=== PATIENT | male | born 1955 | race Caucasian/White ===

== ENCOUNTER 2016-12-01 18:04 | Emergency (ER) | payer OTHER ==
[~2016-12-01] VITALS: Ht 188 cm; Wt 85.0 kg
[~2016-12-01 18:04] MED LIST: COUM5TAB PO; ELASMIS; ENOX100P SQ; GLUCTAB PO; PERC5TAB12 PO
[2016-12-01 18:06] VITALS: BP 177/99; PULSE 102; RESP 20; TEMP 97.8; O2SAT 98
[2016-12-01] MEDS ORDERED: ASPI81TA81 (19:09)
[2016-12-01] MEDS ORDERED: BLOOD PRESSURE MED (19:09)
[2016-12-01] MEDS ORDERED: PERC5TAB12 PO (19:09)
[2016-12-01] MEDS ORDERED: KETOROLAC TROMETHAMINE 30 MG/ML (IVP) VIAL IV PUSH ONE (19:30)
[2016-12-01 19:50] LABS: AUTOMATED NEUTROPHIL # 7.9 TH/MM3 (1.8-7.7); BASOPHIL # 0.1 TH/MM3 (0-0.2); BASOPHIL % 0.5 % (0.0-2.0); EOSINOPHIL # 0.1 TH/MM3 (0-0.4); EOSINOPHIL % 1.2 % (0.0-4.0); HEMATOCRIT 39.4 % (39.0-51.0); HEMO FLAGS DIFF FINAL; LYMPH % 9.1 % (9.0-44.0); LYMPHOCYTE # 0.9 TH/MM3 (1.0-4.8); MEAN CELL VOLUME 90.4 FL (80.0-100.0); MEAN CORPUSCULAR HEMOGLOBIN 30.6 PG (27.0-34.0); MEAN CORPUSCULAR HGB CONC 33.9 % (32.0-36.0); MONO % 11.7 % (0.0-8.0); NEUT % 77.5 % (16.0-70.0); PLATELET COUNT 303 TH/MM3 (150-450); RED BLOOD COUNT 4.36 MIL/MM3 (4.50-5.90); RED CELL DISTRIBUTION WIDTH 14.6 % (11.6-17.2); WHITE BLOOD COUNT 10.2 TH/MM3 (4.0-11.0)
[2016-12-01 20:15] LABS: BICARBONATE 27.1 MEQ/L (21.0-32.0); POTASSIUM 3.6 MEQ/L (3.5-5.1)
--- NOTE | 2016-12-01 20:17 | RADRPT ---
EXAM DATE/TIME: 12/01/2016 19:55 [facility] COMPARISON: No previous studies available for comparison. INDICATIONS : Left ankle pain; possible puncture wound. MEDICAL HISTORY : Arthritis. SURGICAL HISTORY : ORIF left ankle. ENCOUNTER: Initial ACUITY: 4 - 6 days PAIN SCORE: 7/10 LOCATION: Left ankle. FINDINGS: No acute fracture or subluxation seen of the left ankle. 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 Patient has healed fractures of the distal shafts of the left tibia and fibula. Status post screw an d plate fixation of the tibial fracture. No evidence of hardware failure or loosening. Mildly edematous soft tissues. No radiopaque foreign body seen. CONCLUSION: 1. No acute fracture or subluxation of the left ankle. 2. Old, healed distal shaft fractures of the left tibia and fibula. Please see above. Other than the plate and 6 screws of the tibia, no radiopaque foreign objects are demonstrated. 3. Nonspecific soft tissue swelling. 4. Moderate ankle osteoarthritis. Salvador Trent MD on December 01, 2016 at 20:14 Board Certified Radiologist. This report was verified electronically.
--- NOTE | 2016-12-01 20:19 | RADRPT ---
EXAM DATE/TIME: 12/01/2016 19:57 [facility] COMPARISON: No previous studies available for comparison. INDICATIONS : Left foot pain; Possible puncture wound. MEDICAL HISTORY : Arthritis. Diabetes mellitus type II. SURGICAL HISTORY : ORIF left ankle. ENCOUNTER: Initial ACUITY: 1 day PAIN SCORE: 6/10 LOCATION: Left foot FINDINGS: No fracture or bone destruction seen of the left foot. There is mild osteoarthritis, mostly the first metacarpal phalangeal and interphalangeal joints. Os peroneum present. Mild calcification seen proximally of the plantar fascia. Mild soft tissue swelling, mostly dorsal mid foot area. No radiopaque foreign body. CONCLUSION: 1. No fracture, subluxation or other acute bony abnormality of the left foot. 2. Mild degenerative changes as above. 3. Os peroneum. 4. Focal calcification of the proximal plantar fascia. Salvador Trent MD on December 01, 2016 at 20:17 Board Certified Radiologist. This report was verified electronically.
--- NOTE | 2016-12-01 20:26 | PD ---
HPI Chief Complaint: Edema Time Seen by Provider: 19:10 Travel History International Travel<30 days: No Contact w/Intl Traveler<30days: No Traveled to known affect area: No History of Present Illness HPI 61 YO M presents to the ED for evaluation of pain and edema of the left lower extremity x "a few days." The patient thinks that he may have stepped on something through his boot but he can recall no acute injury. He endorses chronic pain in the ankle secondary to a distant fracture with implanted hardware. He endorses chills but has not measured a fever at home. He endorses an episode of vomiting today which he attributes to the pain. No treatment attempt at home. He denies chronic health problems and takes no daily medications. PFSH Past Medical History Arthritis: Yes Heart Rhythm Problems: No Cancer: No Cardiovascular Problems: Yes High Cholesterol: No Chest Pain: No Congestive Heart Failure: No Cerebrovascular Accident: No Diabetes: Yes Patient Takes Glucophage: No Diminished Hearing: Yes (L EAR MILD) Endocrine: Yes Genitourinary: No Hypertension: Yes Immune Disorder: No Neurologic: No Psychiatric: No Reproductive: No Respiratory: No Migraines: No Seizures: No Thyroid Disease: No Tetanus Vaccination: < 5 Years Influenza Vaccination: No Past Surgical History Other Surgery: Yes (NASAL 78/95/MISC SCRAPNAL ) Social History Alcohol Use: Yes (OCCASSIONALLY) Tobacco Use: Yes (1/2 PPD) Substance Use: Yes (MED MARIJUANA) Allergies-Medications (Allergen,Severity, Reaction): Coded Allergies: No Known Allergies (Unverified , 12/01/16) Reported Meds & Prescriptions Reported Meds & Active Scripts Active Keflex (Cephalexin) 500 Mg Cap 500 Mg PO Q6H 10 Days Cipro (Ciprofloxacin HCl) 500 Mg Tab 500 Mg PO BID 10 Days Reported Aspir-81 (Aspirin) 81 Mg Tabdr Percocet (Oxycodone-Acetaminophen) 5-325 mg Tab 1-2 Tab PO Q6H PRN [Blood Pressure Med] Review of Systems Except as stated in HPI: all other systems reviewed are Neg Physical Exam Narrative GENERAL: Well-nourished, well-developed white male in no acute distress. SKIN: Focused skin assessment warm/dry. HEAD: Normocephalic. EYES: No scleral icterus. No injection or drainage. NECK: Supple, trachea midline. No JVD or lymphadenopathy. CARDIOVASCULAR: Regular rate and rhythm without murmurs, gallops, or rubs. RESPIRATORY: Breath sounds clear and equal bilaterally. No accessory muscle use. GASTROINTESTINAL: Abdomen soft, non-tender, nondistended. Active bowel sounds. MUSCULOSKELETAL: No cyanosis, or edema. FOCUSED LEFT LOWER EXTREMITY EXAM: 2+ DP pulses. Molly sign negative. Patient retains full, active, painless R level of all the joints of the extremity. I don't see of definite puncture wound on the sole of the foot but the patient shows me a spot of blood on his sock in the area of the forefoot where he thinks the injury may have occurred. He does have 1+ edema to the mid rae with some chronic skin changes noted. No warmth noted. He is tender over the medial aspect of the ankle where he states he has hardware. Neurovascularly intact. BACK: Nontender without obvious deformity. No CVA tenderness. Data Data Last Documented VS Vital Signs Date Time Temp Pulse Resp B/P (MAP) Pulse Ox O2 Delivery O2 Flow Rate FiO2 12/01/16 20:44 12/01/16 18:06 97.8 102 20 98 Room Air Orders Orders Ankle, Complete ([id number]) (12/01/16 19:18) Foot, Complete ([id number]) (12/01/16 19:18) Basic Metabolic Panel (Bmp) (12/01/16 19:18) Complete Blood Count With Diff (12/01/16 19:18) Blood Culture (12/01/16 19:18) Iv Access Insert/Monitor (12/01/16 19:18) Ketorolac Inj (Toradol Inj) (12/01/16 19:30) Labs Laboratory Tests Test 12/01/16 19:30 White Blood Count 10.2 TH/MM3 Red Blood Count 4.36 MIL/MM3 Hemoglobin 13.3 GM/DL Hematocrit 39.4 % Mean Corpuscular Volume 90.4 FL Mean Corpuscular Hemoglobin 30.6 PG Mean Corpuscular Hemoglobin Concent 33.9 % Red Cell Distribution Width 14.6 % Platelet Count 303 TH/MM3 Mean Platelet Volume 7.4 FL Neutrophils (%) (Auto) 77.5 % Lymphocytes (%) (Auto) 9.1 % Monocytes (%) (Auto) 11.7 % Eosinophils (%) (Auto) 1.2 % Basophils (%) (Auto) 0.5 % Neutrophils # (Auto) 7.9 TH/MM3 Lymphocytes # (Auto) 0.9 TH/MM3 Monocytes # (Auto) 1.2 TH/MM3 Eosinophils # (Auto) 0.1 TH/MM3 Basophils # (Auto) 0.1 TH/MM3 CBC Comment DIFF FINAL Differential Comment Blood Urea Nitrogen 7 MG/DL Creatinine 0.93 MG/DL Random Glucose 178 MG/DL Calcium Level 8.8 MG/DL Sodium Level 134 MEQ/L Potassium Level 3.6 MEQ/L Chloride Level 100 MEQ/L Carbon Dioxide Level 27.1 MEQ/L Anion Gap 7 MEQ/L Estimat Glomerular Filtration Rate 83 ML/MIN MDM Medical Decision Making Medical Screen Exam Complete: Yes Emergency Medical Condition: Yes Differential Diagnosis Puncture wound versus foreign body versus cellulitis versus OA versus other Narrative Course 61 YO M presents to the ED for evaluation of pain and edema of the left lower extremity x "a few days." The patient thinks that he may have stepped on something through his boot but he can recall no acute injury. He endorses chronic pain in the ankle secondary to a distant fracture with implanted hardware. He endorses chills but has not measured a fever at home. He endorses an episode of vomiting today which he attributes to the pain. No treatment attempt at home. He denies chronic health problems and takes no daily medications. Patient is afebrile, heart rate 102 on presentation. Physical exam reveals a nontoxic-appearing white male in no acute distress. On the focus left lower extremity exam the patient has 2+ DP pulses. Molly sign negative. Patient retains full, active, painless ROM of the joints of the extremity. I don't see of definite puncture wound on the sole of the foot but the patient shows me a spot of blood on his sock in the area of the forefoot where he thinks the injury may have occurred. He does have 1+ edema to the mid rae with some chronic skin changes noted. No warmth noted. He is tender over the medial aspect of the ankle where he states he has hardware. Neurovascularly intact. IV was established. Patient was administered 30 mg Toradol. No concerning abnormalities of the CMP. No leukocytosis on CBC, although count is predominantly neutrophils. Ankle and foot x-rays without evidence of foreign body or acute bony injury. Patient does have existing hardware with some soft tissue swelling. We'll go ahead and cover for pseudomonas and staph. Patient's prescribed Keflex and Cipro 10 days. We discussed symptomatic care and reasons to return to the ED. Patient reports improvement of the symptoms with treatment with Toradol. He is agreeable to the care plan. He is stable and discharged home. Diagnosis Primary Impression: Puncture wound of left foot excluding toes without complication Qualified Codes: S91.332A - Puncture wound without foreign body, left foot, initial encounter Referrals: Primary Care Physician Patient Instructions: General Instructions, Puncture Wound (ED) Additional Instructions: Rest, ice, elevate the extremity. Apply ice no longer than 10-15 minutes per hour a few times a day. [id number] anti-inflammatories as directed on label, as needed for pain. Return to normal, gentle activity as tolerated. No running, jumping activities for the next few weeks. Take all antibiotics as prescribed, even if her symptoms resolve. Return to the ED for worsening symptoms in the next 48 hours. Follow up with orthopedist or your primary care provider. Return to the ED for any urgent or emergent medical condition. Med/Other Pt SpecificInfo: Prescription(s) given Scripts Cephalexin (Keflex) 500 Mg Cap 500 MG PO Q6H for Infection for 10 Days, #40 CAP 0 Refills Prov: Jaylan Arrieta MD 12/01/16 Ciprofloxacin (Cipro) 500 Mg Tab 500 MG PO BID for Infection for 10 Days, #20 TAB 0 Refills Prov: Jaylan Arrieta MD 12/01/16 Disposition: 01 DISCHARGE HOME Condition: Stable Gita Weeks Dec 01, 2016 20:26
[2016-12-01] MEDS ORDERED: CIPR-9 PO (20:41)
[2016-12-01] MEDS ORDERED: CEPH-460 PO (20:41)
== END 2016-12-01 20:47 | disposition home or self-care (01) ==
LOC: NEPC 18:04
DX: S91.332A Puncture wound without foreign body, left foot, initial encounter (principal); R60.0 Localized edema; R68.83 Chills (without fever); R11.10 Vomiting, unspecified; E11.9 Type 2 diabetes mellitus without complications; I10 Essential (primary) hypertension; H91.92 Unspecified hearing loss, left ear; F17.200 Nicotine dependence, unspecified, uncomplicated; X58.XXXA Exposure to other specified factors, initial encounter; Z87.39 Personal history of other diseases of the musculoskeletal system and connective tissue; Z86.79 Personal history of other diseases of the circulatory system
CPT/HCPCS: 73610; 73630; 80048; 85025; 87040; 96374; 99285; J1885

== ENCOUNTER 2017-02-15 18:52 | Observation (INO) | payer OTHER ==
[~2017-02-15] VITALS: Ht 188 cm; Wt 82.0 kg
[~2017-02-15 18:52] MED LIST changes: +APIX2.5T PO; +ASPI81TA81; +BLOOD PRESSURE MED; -COUM5TAB PO; -ELASMIS; -ENOX100P SQ; +FURO1TAB62 PO; -GLUCTAB PO
[2017-02-15 18:54] VITALS: BP 130/69; PULSE 100; RESP 20; TEMP 99.1; O2SAT 99
[2017-02-15 20:41] LABS: AUTOMATED NEUTROPHIL # 4.5 TH/MM3 (1.8-7.7); BASOPHIL # 0.1 TH/MM3 (0-0.2); BASOPHIL % 0.9 % (0.0-2.0); EOSINOPHIL # 0.1 TH/MM3 (0-0.4); EOSINOPHIL % 1.5 % (0.0-4.0); HEMATOCRIT 25.3 % (39.0-51.0); HEMOGLOBIN 8.2 GM/DL (13.0-17.0); LYMPH % 12.8 % (9.0-44.0); LYMPHOCYTE # 0.8 TH/MM3 (1.0-4.8); MEAN CELL VOLUME 87.9 FL (80.0-100.0); MEAN CORPUSCULAR HEMOGLOBIN 28.6 PG (27.0-34.0); MEAN CORPUSCULAR HGB CONC 32.6 % (32.0-36.0); MONO % 11.7 % (0.0-8.0); MONOCYTE # 0.7 TH/MM3 (0-0.9); NEUT % 73.1 % (16.0-70.0); PLATELET COUNT 264 TH/MM3 (150-450); RED BLOOD COUNT 2.88 MIL/MM3 (4.50-5.90); RED CELL DISTRIBUTION WIDTH 16.5 % (11.6-17.2); WHITE BLOOD COUNT 6.2 TH/MM3 (4.0-11.0)
[2017-02-15 20:48] LABS: PROTHROMBIN TIME - PATIENT 11.6 SEC (9.8-11.6)
[2017-02-15 20:53] LABS: BICARBONATE 27.2 MEQ/L (21.0-32.0); CALCIUM 8.4 MG/DL (8.5-10.1); CREATININE 1.57 MG/DL (0.60-1.30)
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
[2017-02-15 23:59] LABS: AMORPHOUS SEDIMENT, URINE RARE; BACTERIA, URINE FEW /hpf; BILIRUBIN, URINE NEG (NEG); BLOOD, URINE MOD (NEG); GLUCOSE,URINE NEG (NEG); KETONE, URINE NEG (NEG); NITRITE,URINE POS (NEG); RENAL EPITHELIAL CELLS 33 /hpf; SQUAMOUS EPITHELIAL CELL URINE 1 /hpf (0-5); URINE COLOR YELLOW (YELLW/STRAW); URINE LEUKOCYTE ESTERASE LARGE (NEG); WHITE BLOOD CELL CLUMPS MANY
[2017-02-16] VITALS (7 sets, daily range): BP systolic 110–157; BP diastolic 64–86; PULSE 83–107; RESP 16–22; TEMP 96.8–98.5; O2SAT 97–100
[2017-02-16] MEDS ORDERED: cefTRIAXone INJ 1,000 MG in SODIUM CHLORIDE 0.9% INJ 100 ML IV ONE (00:45)
[2017-02-16] MEDS ORDERED: FUROSEMIDE 40 MG/4 ML VIAL IV PUSH ONE (00:45)
--- NOTE | 2017-02-16 00:49 | RADRPT ---
EXAM DATE/TIME: 02/16/2017 00:11 [facility] COMPARISON: No previous studies available for comparison. INDICATIONS : Bilateral leg pain. MEDICAL HISTORY : Hypertension. Arthritis. Diabetes. SURGICAL HISTORY : Spinal surgery. Blood transfusion. ENCOUNTER: Subsequent ACUITY: 1 day PAIN SCORE: 0/10 LOCATION: Bilateral legs. TECHNIQUE: Venous ultrasound of the left and right leg was performed from the inguinal ligament to the proximal calf. Real-time, color Doppler and spectral tracing, compression and augmentation techniques were us ed. FINDINGS: RIGHT LEG: There is normal compressibility of the deep venous system from the inguinal region to the proximal ca lf. No echogenic clot is seen in the lumen of the common femoral, femoral, popliteal, and posterior tibial veins. There is a normal response of the venous system to proximal and distal augmentation an d respiration. LEFT LEG: There is thrombus at the femoral and popliteal veins. The common femoral vein is patent. The femoral and popliteal veins do not appear engorged. CONCLUSION: 1. Thrombus in the left femoral and popliteal veins. 2. No DVT seen on the right side. Salvador Ramirez MD on February 16, 2017 at 0:45 Board Certified Radiologist. This report was verified electronically.
--- NOTE | 2017-02-16 01:08 | RADRPT ---
EXAM DATE/TIME: 02/16/2017 00:38 [facility] COMPARISON: No previous studies available for comparison. INDICATIONS : Chest pain bilateral flanks. MEDICAL HISTORY : Hypertension. Arthritis. Diabetes SURGICAL HISTORY : None. ENCOUNTER: Initial ACUITY: 1 day PAIN SCORE: 6/10 LOCATION: Bilateral chest FINDINGS: The heart size is normal. There are linear areas of decreased density seen at the upper aspects of th e chest bilaterally. This appearance most closely resembles skinfolds. Pleural line suspicious for p neumothoraces are not seen. No effusion is seen. Lungs appear clear. Surgical hardware seen the lumba r spine. CONCLUSION: Suspected skinfolds over the upper chest regions bilaterally. No acute cardiopulmonary processes. Salvador Ramirez MD on February 16, 2017 at 1:04 Board Certified Radiologist. This report was verified electronically.
[2017-02-16] MEDS ORDERED: PANTOPRAZOLE INJ 80 MG in SODIUM CHLORIDE 0.9% INJ 35 ML IV ONE (01:45)
[2017-02-16] MEDS ORDERED: PANTOPRAZOLE INJ 80 MG in SODIUM CHLORIDE 0.9% INJ 100 ML IV SCH (01:45)
--- NOTE | 2017-02-16 02:43 | PD ---
Physical Exam Date Seen by Provider: Feb 16, 2017 Time Seen by Provider: 02:41 Data Data Last Documented VS Vital Signs Date Time Temp Pulse Resp B/P (MAP) Pulse Ox O2 Delivery O2 Flow Rate FiO2 02/16/17 00:08 88 16 122/64 (83) 02/15/17 18:54 99.1 99 Room Air Orders Orders Complete Blood Count With Diff (02/15/17 19:30) Basic Metabolic Panel (Bmp) (02/15/17 19:30) Coag Profile (02/15/17 19:30) Urinalysis - C+S If Indicated (02/15/17 23:24) B-Type Natriuretic Peptide (02/15/17 23:24) Us Leg Venous Doppler Bilat (02/15/17 ) Urine Culture (02/15/17 23:35) Ceftriaxone Inj (Rocephin Inj) (02/16/17 00:45) Chest, Single Ap (02/16/17 ) Furosemide Inj (Lasix Inj) (02/16/17 00:45) Type And Screen (02/16/17 01:45) Sodium Chloride 0.9... W/Pantoprazole In (02/16/17 01:45) Sodium Chloride 0.9... W/Pantoprazole In (02/16/17 01:45) Admit Order (Ed Use Only) (02/16/17 ) Vital Signs (Adult) Q4H (02/16/17 02:38) Diet Npo (02/16/17 Breakfast) Activity Oob With Assistance (02/16/17 02:38) Notify Dr: Other (02/16/17 02:38) Labs Laboratory Tests Test 02/15/17 20:05 02/15/17 23:35 White Blood Count 6.2 TH/MM3 Red Blood Count 2.88 MIL/MM3 Hemoglobin 8.2 GM/DL Hematocrit 25.3 % Mean Corpuscular Volume 87.9 FL Mean Corpuscular Hemoglobin 28.6 PG Mean Corpuscular Hemoglobin Concent 32.6 % Red Cell Distribution Width 16.5 % Platelet Count 264 TH/MM3 Mean Platelet Volume 8.0 FL Neutrophils (%) (Auto) 73.1 % Lymphocytes (%) (Auto) 12.8 % Monocytes (%) (Auto) 11.7 % Eosinophils (%) (Auto) 1.5 % Basophils (%) (Auto) 0.9 % Neutrophils # (Auto) 4.5 TH/MM3 Lymphocytes # (Auto) 0.8 TH/MM3 Monocytes # (Auto) 0.7 TH/MM3 Eosinophils # (Auto) 0.1 TH/MM3 Basophils # (Auto) 0.1 TH/MM3 CBC Comment DIFF FINAL Differential Comment Prothrombin Time 11.6 SEC Prothromb Time International Ratio 1.0 RATIO Activated Partial Thromboplast Time 26.7 SEC Blood Urea Nitrogen 19 MG/DL Creatinine 1.57 MG/DL Random Glucose 167 MG/DL Calcium Level 8.4 MG/DL Sodium Level 139 MEQ/L Potassium Level 4.2 MEQ/L Chloride Level 106 MEQ/L Carbon Dioxide Level 27.2 MEQ/L Anion Gap 6 MEQ/L Estimat Glomerular Filtration Rate 45 ML/MIN B-Type Natriuretic Peptide 1274 PG/ML Urine Color YELLOW Urine Turbidity CLOUDY Urine pH 6.0 Urine Specific [place] 1.016 Urine Protein 30 mg/dL Urine Glucose (UA) NEG mg/dL Urine Ketones NEG mg/dL Urine Occult Blood MOD Urine Nitrite POS Urine Bilirubin NEG Urine Urobilinogen LESS THAN 2.0 MG/DL Urine Leukocyte Esterase LARGE Urine RBC /hpf Urine WBC /hpf Urine WBC Clumps MANY Urine Squamous Epithelial Cells 1 /hpf Urine Renal Epithelial Cells 33 /hpf Urine Amorphous Sediment RARE Urine Bacteria FEW /hpf Microscopic Urinalysis Comment CULTURE INDICATED MDM Medical Record Reviewed: Yes Supervised Visit with HARJINDER: Yes Interpretation(s) Last 24 hours Impressions Chest X-Ray 02/16/17 0000 Signed Impressions: Service Date/Time: January 00:38 - CONCLUSION: Suspected skinfolds over the upper chest regions bilaterally. No acute cardiopulmonary processes. Salvador Ramirez MD Lower Extremity Ultrasound 02/15/17 0000 Signed Impressions: Service Date/Time: January 00:11 - CONCLUSION: 1. Thrombus in the left femoral and popliteal veins. 2. No DVT seen on the right side. Salvador Ramirez MD Differential Diagnosis . Narrative Course This is a patient who had been evaluated by Dr. Wong. She has requested that I discussed the case with Dr. CARR for admission. The case has been discussed with Dr. CARR who has agreed to admit the patient to observation. She is aware that the patient has GI bleeding along with a left leg DVT. This is GI bleeding, left leg DVT, prerenal azotemia, UTI Diagnosis Primary Impression: UTI (urinary tract infection) Qualified Codes: T83.511A - Infection and inflammatory reaction due to indwelling urethral catheter, initial encounter; N39.0 - Urinary tract infection , site not specified Additional Impressions: GI bleed Qualified Codes: K92.2 - Gastrointestinal hemorrhage, unspecified Left leg DVT Qualified Codes: I82.412 - Acute embolism and thrombosis of left femoral vein Admitting Information Admitting Physician Requests: Observation Additional Instruction: Please follow up with your primary care physician in 1-2 days. Return to the ED if symptoms worsen. Condition: Stable Ronnell Krishnamurthy Feb 16, 2017 02:43
[2017-02-16] MEDS ORDERED: NALOXONE HCL 0.4 MG/ML AMP IV PUSH PRN (03:00)
[2017-02-16] MEDS ORDERED: SODIUM CHLORIDE 0.9% FLUSH 10 ML FLUSH IV FLUSH PRN (03:00)
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
[2017-02-16] MEDS: PANTOPRAZOLE SODIUM 40 MG VIAL IV PUSH SCH (12:05)
[2017-02-16] MEDS: SODIUM CHLORIDE 0.9% FLUSH 10 ML FLUSH IV FLUSH SCH (12:06)
[2017-02-16 12:51] LABS: AUTOMATED NEUTROPHIL # 3.1 TH/MM3 (1.8-7.7); BASOPHIL # 0.1 TH/MM3 (0-0.2); EOSINOPHIL # 0.1 TH/MM3 (0-0.4); HEMATOCRIT 24.8 % (39.0-51.0); HEMOGLOBIN 8.2 GM/DL (13.0-17.0); LYMPH % 24.2 % (9.0-44.0); LYMPHOCYTE # 1.3 TH/MM3 (1.0-4.8); MEAN CELL VOLUME 88.6 FL (80.0-100.0); MEAN CORPUSCULAR HEMOGLOBIN 29.3 PG (27.0-34.0); MEAN CORPUSCULAR HGB CONC 33.1 % (32.0-36.0); MEAN PLATELET VOLUME 8.2 FL (7.0-11.0); MONO % 12.7 % (0.0-8.0); MONOCYTE # 0.7 TH/MM3 (0-0.9); NEUT % 60.1 % (16.0-70.0); PLATELET COUNT 247 TH/MM3 (150-450); RED CELL DISTRIBUTION WIDTH 16.9 % (11.6-17.2); WHITE BLOOD COUNT 5.2 TH/MM3 (4.0-11.0)
[2017-02-16 13:05] LABS: BICARBONATE 28.4 MEQ/L (21.0-32.0); CALCIUM 8.2 MG/DL (8.5-10.1); CREATININE 1.35 MG/DL (0.60-1.30)
[2017-02-16] MEDS ORDERED: PEG (High)/E-LYTE SOLN 4000 ML BTL PO ONE (16:00)
--- NOTE | 2017-02-16 17:30 | ECHRPT ---
Indication: Heart failure, unspecified CONCLUSIONS The left ventricular systolic function is normal with an estimated ejection fraction in the range of 55-60%. Mild concentric left ventricular hypertrophy. Normal left ventricular size. Trace mitral valve regurgitation. There is mild tricuspid valve regurgitation. The estimated pulmonary arterial pressure is 35.2 mmHg. BP: 144 / 78 HR: 104 Rhythm: Sinus MEASUREMENTS (Male / Female) Normal Values Technical Quality:Good 2D ECHO LV Diastolic Diameter PLAX 5.0 cm 4.2 - 5.9 / 3.9 - 5.3 cm LV Systolic Diameter PLAX 3.8 cm IVS Diastolic Thickness 1.2 cm 0.6 - 1.0 / 0.6 - 0.9 cm LVPW Diastolic Thickness 1.2 cm 0.6 - 1.0 / 0.6 - 0.9 cm LV Relative Wall Thickness 0.5 LVOT Diameter 2.2 cm M-MODE Aortic Root Diameter MM 3.7 cm LA Systolic Diameter MM 3.4 cm LA Ao Ratio MM 0.9 AV Cusp Separation MM 2.2 cm DOPPLER AV Peak Velocity 118.0 cm/s AV Peak Gradient 5.6 mmHg LVOT Peak Velocity 110.0 cm/s LVOT Peak Gradient 4.8 mmHg AV Area Cont Eq pk 3.5 cm MR Peak Velocity 282.0 cm/s MR Peak Gradient 31.8 mmHg TR Peak Velocity 251.0 cm/s TR Peak Gradient 25.2 mmHg Right Atrial Pressure 10.0 mmHg Pulmonary Artery Systolic Pressu 35.2 mmHg Right Ventricular Systolic Press 35.2 mmHg FINDINGS LEFT VENTRICLE The left ventricular systolic function is normal with an estimated ejection fraction in the range of 55-60%. Mild concentric left ventricular hypertrophy. Normal left ventricular size. RIGHT VENTRICLE Normal right ventricular size and systolic function. LEFT ATRIUM The left atrial size is normal. RIGHT ATRIUM The right atrial size is normal. ATRIAL SEPTUM Normal atrial septal thickness without atrial level shunting by limited color doppler interrogation. AORTA The aortic root and proximal ascending aorta are normal in size on limited imaging. MITRAL VALVE Trace mitral valve regurgitation. AORTIC VALVE Trileaflet aortic valve. No aortic valve stenosis or regurgitation. TRICUSPID VALVE There is mild tricuspid valve regurgitation. The estimated pulmonary arterial pressure is 35.2 mmHg. PULMONARY VALVE No pulmonary valve regurgitation or stenosis. VESSELS The inferior vena cava is normal in size. PERICARDIUM No pericardial effusion. Max Salazar MD (Electronically Signed) Final Date:16 February 2017 17:29
--- NOTE | 2017-02-16 19:37 | HHI.HP ---
HPI Service [facility] Primary Care Physician [facility] Admission Diagnosis GI bleed, left DVT, prerenal azotemia Diagnoses: Travel History International Travel<30 Days: No Contact w/Intl Traveler <30 Da: No Traveled to Known Affected Are: No History of Present Illness Patient seen today around noon, later around 5 PM. Patient says he presented the hospital due to feeling generally fatigued, as well as to get refills of all his blood pressure medications which he lost upon being arrested 10 days ago. He does report pleuritic type left-sided chest pain which she said started after being injured by the police 10 days ago- he denies any shortness of breath. He also reports chronic left foot wound as below. He is supposed be on Rocephin 1 g daily for 45 days, however had PICC line removed after being arrested 10 days ago. He reports he was 6 days into his treatment with Rocephin , hyperbaric oxygen when he was arrested. Patient says he has history of hypertension, bilateral lower extremity edema. Denies any history of congestive heart failure. He was not able to get his Lasix over the past week, , reports worsening bilateral lower extremity edema.patient is homeless. Reports chronic weight loss. Labs drawn in the ER show hemoglobin 8.2, from baseline of 13 several months ago.. Patient denies any bleeding, however Hemoccult positive in the ER. Review of Systems Except as stated in HPI: all other systems reviewed are Neg Past Family Social History Past Medical History Hypertension Diabetes Atrial fibrillation DVT diagnosed 2012. Recurrent DVT on warfarin November 2016. On Eliquis since Chronic left foot wound. Initially began in November, has been managed by Nadir Guajardo, Yuval Rebolledo, supposed to be on 45 day course of Rocephin daily via PICC line which was removed upon being arrested 10 days ago. Neuropathy LLE tib/fib fracture HTN Melanoma Hyperlipidemia Chronic back pain Fracture ribs Past Surgical History ORIF left tib fib Back surgery Nasal surgery Reported Medications Reported Meds & Active Scripts Active Reported Lasix (Furosemide) 20 Mg Tab 20 Mg PO DAILY Eliquis (Apixaban) 2.5 Mg Tab 2.5 Mg PO BID Aspir-81 (Aspirin) 81 Mg Tabdr Percocet (Oxycodone-Acetaminophen) 5-325 mg Tab 1-2 Tab PO Q6H PRN [Blood Pressure Med] Allergies: Coded Allergies: No Known Allergies (Unverified Allergy, Unknown, 02/16/17) Family History Mother from pancreatic cancer Father from colon cancer, oral cancer Social History States he quit smoking on 02/04/17, States he quit at age 44 after smoking 20 years and then started back 1 pack a week 2010. Drinks 6 pack Guinness per month and occasional cocktail Medical marijuana patient is homeless. 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 Physical Exam Vital Signs Vital Signs Date Time Temp Pulse Resp B/P (MAP) Pulse Ox O2 Delivery O2 Flow Rate FiO2 02/16/17 15:10 98.1 83 18 157/84 (108) 100 02/16/17 12:00 96.8 88 22 154/86 (108) 100 02/16/17 07:20 104 18 144/78 (100) 98 Room Air 02/16/17 05:09 84 16 110/65 (80) 98 Room Air 02/16/17 03:19 84 16 126/72 (90) 97 Room Air 02/16/17 03:18 18 02/16/17 00:08 88 16 122/64 (83) Physical Exam GENERAL: This is a well-nourished, well-developed patient, in no apparent distress.he is alert and oriented 3. SKIN: No rashes, ecchymoses or lesions. Cool and dry. HEAD: Atraumatic. Normocephalic. No temporal or scalp tenderness. EYES: Pupils equal round and reactive. Extraocular motions intact. No scleral icterus. No injection or drainage. ENT: Nose without bleeding, purulent drainage or septal hematoma. Throat without erythema, tonsillar hypertrophy or exudate. Uvula midline. Airway patent. NECK: Trachea midline. No JVD. Supple, nontender, no meningeal signs. CARDIOVASCULAR: Regular rate and rhythm without murmurs, gallops, or rubs. RESPIRATORY: Clear to auscultation. Breath sounds equal bilaterally. No wheezes , rales, or rhonchi. GASTROINTESTINAL: Abdomen soft, non-tender, nondistended. No hepato-splenomegaly , or palpable masses. No guarding. MUSCULOSKELETAL: Extremities without clubbing, cyanosis.No joint tenderness, effusion.No calf tenderness. +2 bilateral lower extremity edemaleft foot with dorsum of the foot 4 x 2 cm ulcer which appears to be healing appropriately. Plantar surface with fissure under ball of foot which does not appear infected, no pus or surrounding erythema. NEUROLOGICAL: Awake and alert. Cranial nerves II through XII intact. Motor and sensory grossly within normal limits. Five out of 5 muscle strength in all muscle groups. Normal speech. Laboratory Laboratory Tests Test 02/15/17 20:05 02/15/17 23:35 02/16/17 12:37 White Blood Count 6.2 5.2 Red Blood Count 2.88 2.80 Hemoglobin 8.2 8.2 Hematocrit 25.3 24.8 Mean Corpuscular Volume 87.9 88.6 Mean Corpuscular Hemoglobin 28.6 29.3 Mean Corpuscular Hemoglobin Concent 32.6 33.1 Red Cell Distribution Width 16.5 16.9 Platelet Count 264 247 Mean Platelet Volume 8.0 8.2 Neutrophils (%) (Auto) 73.1 60.1 Lymphocytes (%) (Auto) 12.8 24.2 Monocytes (%) (Auto) 11.7 12.7 Eosinophils (%) (Auto) 1.5 2.0 Basophils (%) (Auto) 0.9 1.0 Neutrophils # (Auto) 4.5 3.1 Lymphocytes # (Auto) 0.8 1.3 Monocytes # (Auto) 0.7 0.7 Eosinophils # (Auto) 0.1 0.1 Basophils # (Auto) 0.1 0.1 CBC Comment DIFF FINAL DIFF FINAL Differential Comment Prothrombin Time 11.6 Prothromb Time International Ratio 1.0 Activated Partial Thromboplast Time 26.7 Blood Urea Nitrogen 19 17 Creatinine 1.57 1.35 Random Glucose 167 127 Calcium Level 8.4 8.2 Sodium Level 139 134 Potassium Level 4.2 3.6 Chloride Level 106 100 Carbon Dioxide Level 27.2 28.4 Anion Gap 6 6 Estimat Glomerular Filtration Rate 45 54 B-Type Natriuretic Peptide 1274 Urine Color YELLOW Urine Turbidity CLOUDY Urine pH 6.0 Urine Specific [place] 1.016 Urine Protein 30 Urine Glucose (UA) NEG Urine Ketones NEG Urine Occult Blood MOD Urine Nitrite POS Urine Bilirubin NEG Urine Urobilinogen LESS THAN 2.0 Urine Leukocyte Esterase LARGE Urine RBC Urine WBC Urine WBC Clumps MANY Urine Squamous Epithelial Cells 1 Urine Renal Epithelial Cells 33 Urine Amorphous Sediment RARE Urine Bacteria FEW Microscopic Urinalysis Comment CULTURE INDICATED Date/Time Source Procedure Growth Status 02/15/17 23:35 Urine Clean Catch Urine Culture - Preliminary RESULTS PENDING Resulted Result Diagram: 02/16/17 1237 02/16/17 1237 Imaging Last Impressions Chest X-Ray 02/16/17 0000 Signed Impressions: Service Date/Time: January 00:38 - CONCLUSION: Suspected skinfolds over the upper chest regions bilaterally. No acute cardiopulmonary processes. Salvador Ramirez MD Lower Extremity Ultrasound 02/15/17 0000 Signed Impressions: Service Date/Time: January 00:11 - CONCLUSION: 1. Thrombus in the left femoral and popliteal veins. 2. No DVT seen on the right side. Salvador Ramirez MD [place]lette[place] VTE Risk Assessment Caprini VTE Risk Assessment: Mod/High Risk (score >= 2) VTE Pharm Contraindication: Active bleeding Caprini Risk Assessment Model Point Value = 1 Point Value = 2 Point Value = 3 Point Value = 5 Age 41-60 Minor surgery BMI > 25 kg/m2 Swollen legs Varicose veins or History of unexplained or recurrent spontaneous Oral contraceptives or hormone replacement Sepsis (< 1 month) Serious lung disease, including pneumonia (< 1 month) Abnormal pulmonary function Acute myocardial infarction Congestive heart failure (< 1 month) History of inflammatory bowel disease Medical patient at bed rest Age 61-74 Arthroscopic surgery Major open surgery (> 45 min) Laparoscopic surgery (> 45 min) Malignancy Confined to bed (> 72 hours) Immobilizing plaster cast Central venous access Age >= 75 History of VTE Family history of VTE Factor V Leiden Prothrombin [id number] Lupus anticoagulant Anticardiolipin antibodies Elevated serum homocysteine Heparin-induced thrombocytopenia Other congenital or acquired thrombophilia Stroke (< 1 month) Elective arthroplasty Hip, pelvis, or leg fracture Acute spinal cord injury (< 1 month) Prophylaxis Regimen Total Risk Factor Score Risk Level Prophylaxis Regimen 0-1 Low Early ambulation 2 Moderate Order ONE of the following: *Sequential Compression Device (SCD) *Heparin 5000 units SQ BID 3-4 Higher Order ONE of the following medications: *Heparin 5000 units SQ TID *Enoxaparin/Lovenox 40 mg SQ daily (WT < 150 kg, CrCl > 30 mL/min) *Enoxaparin/Lovenox 30 mg SQ daily (WT < 150 kg, CrCl > 10-29 mL/min) *Enoxaparin/Lovenox 30 mg SQ BID (WT < 150 kg, CrCl > 30 mL/min) AND/OR *Sequential Compression Device (SCD) 5 or more Highest Order ONE of the following medications: *Heparin 5000 units SQ TID (Preferred with Epidurals) *Enoxaparin/Lovenox 40 mg SQ daily (WT < 150 kg, CrCl > 30 mL/min) *Enoxaparin/Lovenox 30 mg SQ daily (WT < 150 kg, CrCl > 10-29 mL/min) *Enoxaparin/Lovenox 30 mg SQ BID (WT < 150 kg, CrCl > 30 mL/min) AND *Sequential Compression Device (SCD) Assessment and Plan Assessment and Plan //Anemia //Suspected GI bleed. -Hemoglobin 8 from baseline 13 -Recent switched to Eliquis one month ago. -Holding anticoagulation for now. EGD, colonoscopy tomorrow. //UTI //Chronic urinary retention -Urinalysis with white blood cells, white blood cell clumps. -Patient reports indwelling Valdez for many years. -Patient reports pus in urine on admission, which appears to have improved after Rocephin. Continue Rocephin. Change out Valdez. Ultrasound kidneys Follow-up cultures. //Chronic Left foot wound -Undergoing hyperbaric oxygen treatment, course of daily Rocephin via PICC line which was removed. -We'll consult infectious disease, as patient will need PICC line replaced, IV course continued -Wound does not appear to be acutely infected. Consult Dr. Castillo, podiatry. //Acute kidney injury. Likely cardiorenal from fluid overload. -Creatinine 1.5 on admission from normal 0.9. Possibly secondary to missing blood pressure medications. This could be cardiorenal secondary to hypertension having missed his medication. Will hold off on fluids, add blood pressure meds. Kidney ultrasound pending. //Hypertension //CHF exacerbation.Suspected diastolic heart failure. //patient reports history of atrial fibrillation. -BNP 1200, echocardiogram with left ventricular hypertrophy, preserved ejection fraction -Patient does have bilateral lower extremity edema, however no respiratory compromise. -Chest x-ray personally interpreted with no acute findings. -Patient on unknown blood pressure med, as well as furosemide at home. -considered possibility of pulmonary embolism, however patient appears to be hemodynamically stable, without shortness of breath, echocardiogram with normal right ventricular function. -We'll start Coreg, furosemide.monitor blood pressure closely. //Diabetes mellitus. Insulin sliding scale. A1c ordered and pending. //DVT. Chronic, recurred on warfarin. History of IVC filter. On Eliquis since January 21. Hold off on blood pressure medications for now. Discussed Condition With patient, nurse. Eduard Barker MD Feb 16, 2017 19:36
[2017-02-16] MEDS ORDERED: cefTRIAXone INJ 1,000 MG in SODIUM CHLORIDE 0.9% INJ 100 ML IV SCH (21:00)
[2017-02-16] MEDS ORDERED: ISOSORBIDE DINITRATE 40 MG SUSTAINED RELEASE TAB PO ONE (21:00)
[2017-02-16] MEDS ORDERED: INSULIN ASPART SUPPLEMENTAL SCALE SQ SCH (21:00)
[2017-02-16] MEDS ORDERED: DEXTROSE 50% IN WATER 50 ML VIAL(D50) IV PUSH PRN (21:15)
[2017-02-16] MEDS ORDERED: GLUCAGON 1 MG/ML VIAL OTHER PRN (21:15)
--- NOTE | 2017-02-16 22:30 | RADRPT ---
EXAM DATE/TIME: 02/16/2017 20:58 [facility] COMPARISON: No previous studies available for comparison. INDICATIONS : Abnormal labs. MEDICAL HISTORY : Hypertension. Arthritis. Diabetes. SURGICAL HISTORY : Spinal surgery. Blood transfusion. ENCOUNTER: Initial ACUITY: 1 day PAIN SCORE: 0/10 LOCATION: Bilateral flank MEASUREMENTS: RIGHT KIDNEY: 13.9 x 5.8 x 5.7 cm LEFT KIDNEY: 13.4 x 5.2 x 6.0 cm FINDINGS: RIGHT KIDNEY: The right renal cortex is echogenic. There is a complex cyst with a septation versus 2 adjacent cyst s seen at the mid right kidney overall measuring 1.6 x 2.6 x 1.4 cm. There are several small echogeni c foci seen in the lateral mid right kidney likely related to cortical calcifications measuring up to 5 mm. No hydronephrosis is seen. LEFT KIDNEY: The left renal cortex is echogenic. No hydronephrosis is seen. BLADDER: Within normal limits given the degree of distension. There is a Valdez catheter within the bladder. CONCLUSION: 1. Bilateral normal-sized echogenic kidneys concerning for acute medical renal disease. 2. 2 adjacent cysts versus one complex cyst with a septation in the right mid kidney. This is a Bosni ak 2F lesion can be followed with a CT or MRI examination in the year. 3. Nonspecific suspected cortical calcifications in the right kidney. Salvador Ramirez MD on February 16, 2017 at 22:24 Board Certified Radiologist. This report was verified electronically.
[2017-02-17] VITALS (17 sets, daily range): BP systolic 111–173; BP diastolic 57–115; PULSE 64–86; RESP 16–22; TEMP 97.3–98.7; O2SAT 97–100
[2017-02-17] MEDS: SODIUM CHLORIDE 0.9% FLUSH 10 ML FLUSH IV FLUSH SCH ×3 (00:02→23:25)
[2017-02-17] MEDS: CARVEDILOL 3.125 MG TAB PO SCH ×3 (00:02→23:25)
[2017-02-17 03:37] LABS: AUTOMATED NEUTROPHIL # 3.1 TH/MM3 (1.8-7.7); BASOPHIL % 0.9 % (0.0-2.0); EOSINOPHIL # 0.1 TH/MM3 (0-0.4); EOSINOPHIL % 1.8 % (0.0-4.0); LYMPH % 19.1 % (9.0-44.0); LYMPHOCYTE # 0.9 TH/MM3 (1.0-4.8); MEAN CELL VOLUME 87.1 FL (80.0-100.0); MEAN CORPUSCULAR HEMOGLOBIN 28.9 PG (27.0-34.0); MEAN CORPUSCULAR HGB CONC 33.2 % (32.0-36.0); MEAN PLATELET VOLUME 8.2 FL (7.0-11.0); MONO % 11.7 % (0.0-8.0); MONOCYTE # 0.6 TH/MM3 (0-0.9); NEUT % 66.5 % (16.0-70.0); PLATELET COUNT 216 TH/MM3 (150-450); RED CELL DISTRIBUTION WIDTH 16.2 % (11.6-17.2); WHITE BLOOD COUNT 4.7 TH/MM3 (4.0-11.0)
[2017-02-17 03:48] LABS: HEMOGLOBIN 6.9 GM/DL (13.0-17.0)
[2017-02-17 03:49] LABS: HEMATOCRIT 20.9 % (39.0-51.0)
[2017-02-17 04:05] LABS: BICARBONATE 24.7 MEQ/L (21.0-32.0); BLOOD UREA NITROGEN 14 MG/DL (7-18); CALCIUM 7.6 MG/DL (8.5-10.1); CHLORIDE 104 MEQ/L (98-107); CREATININE 1.19 MG/DL (0.60-1.30); GLOMERULAR FILTRATION RATE 62 ML/MIN (>89); GLUCOSE,RANDOM 138 MG/DL (74-106); SODIUM (NA) 136 MEQ/L (136-145)
[2017-02-17] MEDS ORDERED: FUROSEMIDE 20 MG/2 ML VIAL IV PUSH ONE ×2 (04:30→15:00)
[2017-02-17] MEDS ORDERED: DEXTROSE 50% IN WATER 50 ML VIAL(D50) IV PUSH PRN (09:00)
[2017-02-17] MEDS ORDERED: GLUCAGON 1 MG/ML VIAL OTHER PRN (09:00)
[2017-02-17] MEDS ORDERED: ISOSORBIDE DINITRATE 40 MG SUSTAINED RELEASE TAB PO SCH (09:00)
[2017-02-17 10:51] LABS: HEMOGLOBIN A1C 7.2 % (4.3-6.0)
[2017-02-17] MEDS: FUROSEMIDE 20 MG TAB PO SCH (11:13)
[2017-02-17] MEDS ORDERED: SODIUM CHLORID 0.9% 500 ML IV PRN (12:00)
[2017-02-17] MEDS ORDERED: PROPOFOL 200 MG/20 ML AMP IV ONE (12:00)
[2017-02-17] MEDS ORDERED: LIDOCAINE HCL 1% PF 5 ML SYRINGE OTHER ONE (12:00)
[2017-02-17] MEDS ORDERED: POVIDONE IODINE 5% (ANTISEPSIS KIT) 4 APPLICATIONS EACH NARE PRN (12:00)
[2017-02-17] MEDS ORDERED: INSULIN HUMAN REGULAR 1,000 UNITS/10 ML VIAL SQ PRN (12:00)
[2017-02-17] MEDS ORDERED: METOPROLOL TARTRATE 25 MG TAB PO PRN (12:00)
[2017-02-17] MEDS ORDERED: CHLORHEXIDINE GLUCONATE 2 % 1 PACK (2 CLOTHS) TOPICAL PRN (12:00)
[2017-02-17] MEDS ORDERED: LACTATED RINGER'S 1000 ML IV PRN (12:00)
--- NOTE | 2017-02-17 12:36 | HHI.PR ---
Addendum to Inpatient Note Addendum Reason: Additional Documentation Additional Information Came to see patient for consultation. Patient for having a procedure performed. I will see him on Monday morning. Tonio Mcnamara DPM Feb 17, 2017 12:36
--- NOTE | 2017-02-17 12:50 | GIPROC ---
[facility] [address] [facility]. [facility], [address] EGD PROCEDURE REPORT EXAM DATE: 02/17/2017 PATIENT NAME: Naseem Keller MR #: [id number] BIRTHDATE: 1955 ATTENDING: Keri Nielsen MD ORDER #: [id number] INTERNATIONAL TRAVEL CONSULTANT: Augie Shepard and Ramona Dillon STATUS: inpatient INDICATIONS: The patient is a 62 yr old male here for an EGD due to anemia PROCEDURE PERFORMED: EGD w/ biopsy MEDICATIONS: None and Per Anesthesia. TOPICAL ANESTHETIC: none CONSENT: The patient understands the risks and benefits of the procedure and understands that these risks include, but are not limited to: sedation, allergic reaction, infection, perforation and/or bleeding. Alternative means of evaluation and treatment include, among others: physical exam, x-rays, and/or surgical intervention. The patient elects to proceed with this endoscopic procedure. medical equipment was checked for proper function. Hand hygiene and appropriate measures for infection prevention was taken. After the risks, benefits and alternatives of the procedure were thoroughly explained, Informed consent was verified, confirmed and timeout was successfully executed by the treatment team. The patient was anesthetized with topical anesthesia and the EC-3490Li (Pedi C) endoscope was introduced through the mouth and advanced to the second portion of the duodenum. Retroflexed views revealed a hiatal hernia The gastroscope was then slowly withdrawn and removed. Duodenitis duodenla bulb-biopsy gastritis antrum-biopsy esophagitis distal esophagus -biopsy. ADVERSE EVENTS: There were no complications. IMPRESSIONS: 1. Duodenitis duodenla bulb-biopsy gastritis antrum-biopsy esophagitis distal esophagus -biopsy 2. Retroflexed views revealed a hiatal hernia RECOMMENDATIONS: 1. Await biopsy results. Biopsy results will not be ready for 7-10 days. If you don't hear from us in two weeks, call our office for biopsy results. 2. Anti-reflux regimen 3. Continue PPI PATIENT CONDITION: stable DISPOSITION: Inpatient REPEAT EXAM: Return 3 years EGD Keri Nielsen MD eSigned: Keri Nielsen MD 02/17/2017 12:49 PM cc:
--- NOTE | 2017-02-17 12:54 | GIPROC ---
[facility] [address] [facility]. [facility], [address] COLONOSCOPY PROCEDURE REPORT EXAM DATE: 02/17/2017 PATIENT NAME: Naseem Keller MR #: [id number] BIRTHDATE: 1955 ENDOSCOPIST: Keri Nielsen MD ORDER #: [id number] FIELD RADIO TECHNICIAN: Augie Shepard and Ramona Dillon STATUS: inpatient INDICATIONS: The patient is a 62 yr old male here for a colonoscopy due to anemia PROCEDURE PERFORMED: Colonoscopy, incomplete MEDICATIONS: None and Per Anesthesia. PREP QUALITY: poor PREP TYPE:Other: ESTIMATED BLOOD LOSS: None CONSENT: The patient understands the risks and benefits of the procedure and understands that these risks include, but are not limited to: sedation, allergic reaction, infection, perforation and/or bleeding. Alternative means of evaluation and treatment include, among others: physical exam, x-rays, and/or surgical intervention. The patient elects to proceed with this endoscopic procedure. medical equipment was checked for proper function. Hand hygiene and appropriate measures for infection prevention was taken. After the risks, benefits and alternatives of the procedure were thoroughly explained, Informed consent was verified, confirmed and timeout was successfully executed by the treatment team. A digital exam revealed decreased sphincter tone The Pentax EC-3490Li endoscope was introduced through the anus and advanced to the sigmoid colon. The instrument was then slowly withdrawn as the colon was fully examined. COLON FINDINGS: Poor prep-solid stool up to sigmoid, procedure cancelled. Retroflexed views revealed internal hemorrhoids and Retroflexed views revealed small internal hemorrhoids The scope was then completely withdrawn from the patient and the procedure terminated. ADVERSE EVENTS: There were no complications. IMPRESSIONS: 1. Poor prep-solid stool up to sigmoid, procedure cancelled 2. Retroflexed views revealed internal hemorrhoids 3. Retroflexed views revealed small internal hemorrhoids 4. Revealed decreased sphincter tone RECOMMENDATIONS: CT abdomen/pelvis clear liquid diet magnesium citrate RECALL: Return 1 day Colonoscopy Keri Nielsen MD eSigned: Keri Nielsen MD 02/17/2017 12:54 PM cc:
[2017-02-17] MEDS ORDERED: MAGNESIUM CITRATE SOLN 300 ML BTL PO ONE ×2 (13:00→18:00)
[2017-02-17] MEDS ORDERED: BISACODYL EC 5 MG TABEC PO ONE (13:00)
[2017-02-17] MEDS ORDERED: DIATRIZOATE MEGLUM/DIATRIZOATE SOD 9 ML CUP PO ONE (13:15)
--- NOTE | 2017-02-17 13:47 | HHI.PR ---
Subjective Remarks Follow-up symptomatic anemia/suspected GI bleed 02/17/17-patient seen and examined he received one unit packed red blood cell. Denies any bleeding since admission. Nothing by mouth pending panendoscopy. Denies any shortness of breath or chest pain. Objective Vitals Vital Signs Date Time Temp Pulse Resp B/P (MAP) Pulse Ox O2 Delivery O2 Flow Rate FiO2 02/17/17 13:02 97.1 67 20 125/69 (87) 100 02/17/17 11:39 97.5 86 18 134/57 100 02/17/17 11:21 98.4 77 18 154/71 (98) 99 02/17/17 10:39 98.4 79 18 140/59 98 02/17/17 07:01 98.7 83 22 118/78 98 02/17/17 06:46 98.4 74 22 128/77 97 02/17/17 06:42 98.4 74 22 128/77 (94) 98 02/17/17 04:23 98.4 76 16 111/62 (78) 98 02/17/17 00:55 98.6 79 18 115/71 (86) 97 02/16/17 20:57 98.5 107 16 121/70 (87) 98 02/16/17 15:10 98.1 83 18 157/84 (108) 100 I/O 02/16/17 02/16/17 02/16/17 02/17/17 02/17/17 02/17/17 07:00 15:00 23:00 07:00 15:00 23:00 Intake Total 2460 ml 20 ml 410 ml Output Total 1300 ml 1425 ml 2050 ml 1000 ml Balance -1300 ml 1035 ml -2030 ml -590 ml Intake Oral 2460 ml Packed Cells 400 ml Blood Product IV Normal Saline Flush 20 ml 10 ml Output Urine Total 1300 ml 1425 ml 2050 ml 1000 ml # Voids 0 Result Diagram: 02/17/17 0306 02/17/17 0306 Imaging Last Impressions Renal Ultrasound 02/16/17 0000 Signed Impressions: Service Date/Time: January 20:58 - CONCLUSION: 1. Bilateral normal-sized echogenic kidneys concerning for acute medical renal disease. 2. 2 adjacent cysts versus one complex cyst with a septation in the right mid kidney. This is a Bosniak 2F lesion can be followed with a CT or MRI examination in the year. 3. Nonspecific suspected cortical calcifications in the right kidney. Salvador Ramirez MD Chest X-Ray 02/16/17 0000 Signed Impressions: Service Date/Time: January 00:38 - CONCLUSION: Suspected skinfolds over the upper chest regions bilaterally. No acute cardiopulmonary processes. Salvador Ramirez MD Lower Extremity Ultrasound 02/15/17 0000 Signed Impressions: Service Date/Time: January 00:11 - CONCLUSION: 1. Thrombus in the left femoral and popliteal veins. 2. No DVT seen on the right side. Salvador Ramirez MD Objective Remarks GENERAL: NAD SKIN: Warm and dry. HEAD: Normocephalic. EYES: No scleral icterus. No injection or drainage. NECK: Supple, trachea midline. No JVD or lymphadenopathy. CARDIOVASCULAR: Regular rate and rhythm without murmurs, gallops, or rubs. RESPIRATORY: Breath sounds equal bilaterally. No accessory muscle use. GASTROINTESTINAL: Abdomen soft, non-tender, nondistended. MUSCULOSKELETAL: No cyanosis, or edema. chronic Ulcer to LLE : Indwelling catheter in place BACK: Nontender without obvious deformity. No CVA tenderness. A/P Problem List: (1) Normochromic normocytic anemia ICD Code: D64.9 - Anemia, unspecified (2) GI bleed ICD Code: K92.2 - Gastrointestinal hemorrhage, unspecified Status: Acute Assessment and Plan 62-year-old man with Normochromic normocytic anemia Questionable suspecting GI bleed Transfuse 3 units packed red blood cell and monitor H&H Suspected GI bleed Appreciate input from gastroenterology pending panendoscopy Holding all oral anticoagulation Continue PPI and H&H monitoring Urinary tract infection Chronic urinary retention Renal ultrasound noted and reviewed by me with finding of Bosniak 2F lesion, will need outpatient CT and MRI in 1 yr Continue Rocephin pending urine culture Chronic Left foot wound -Undergoing hyperbaric oxygen treatment, course of daily Rocephin via PICC line which was removed. -D consult pending, as patient will need PICC line replaced, IV course continued Acute kidney injury Resolved Hypertension CHF exacerbation.Suspected diastolic heart failure. patient reports history of atrial fibrillation. Continue with Coreg, furosemide.monitor blood pressure closely. Diabetes mellitus. Insulin sliding scale. A1c ordered and pending. DVT. Chronic, recurred on warfarin. History of IVC filter. On Eliquis since January 21. Holding oral anticoagulation 2/2 suspected GI bleed Problem Qualifiers (1) GI bleed: Qualified Codes: K92.2 - Gastrointestinal hemorrhage, unspecified Tonio Holman MD Feb 17, 2017 13:47
[2017-02-17] MEDS: PANTOPRAZOLE SODIUM 40 MG VIAL IV PUSH SCH (14:59)
--- NOTE | 2017-02-17 15:37 | PD.ID.CON ---
History of Present Illness Service ID Consult Requested By Reason for Consult Evaluation and Mment of Left foot abscess. Primary Care Physician [facility] Diagnoses: History of Present Illness is a patient of Dr.Reba Castillo who he was seeing for an abscess of left foot. Upon discussion with she informs me he grew Strep and was discharged on oral Ceftriaxone using a PICC line. Patient was lost to follow up and ultimately found out he was in [facility] for 10 days. The PICC line was removed and patient reports he has been on oral antibiotics. He boasts he has been removing his nails from nail bed and taking care of extra skin and calluses. He has been dressing the wounds himself. He now presents to the hospital due to feeling generally fatigued, as well as to get refills of all his blood pressure medications which he lost upon being arrested 10 days ago. He does report pleuritic type left-sided chest pain which she said started after being injured by the police 10 days ago- he denies any shortness of breath. He also reports chronic left foot wound as below. Patient says he has history of hypertension, bilateral lower extremity edema. Denies any history of congestive heart failure. He was not able to get his Lasix over the past week, , reports worsening bilateral lower extremity edema.patient is homeless. Reports chronic weight loss. Labs drawn in the ER show hemoglobin 8.2, from baseline of 13 several months ago.. Patient denies any bleeding, however Hemoccult positive in the ER. ID was consulted for evaluation and Mment of left foot abscess. Review of Systems ROS Limitations: Poor Historian Constitutional: COMPLAINS OF: Fatigue, DENIES: Diaphoretic episodes, Fever, Weight gain, Weight loss, Chills, Dizziness, Change in appetite, Night Sweats Endocrine: DENIES: Heat/cold intolerance, Polydipsia, Polyuria, Polyphagia Eyes: DENIES: Blurred vision, Diplopia, Eye inflammation, Eye pain, Vision loss , Photosensitivity, Double Vision Ears, nose, mouth, throat: DENIES: Tinnitus, Hearing loss, Vertigo, Nasal discharge, Oral lesions, Throat pain, Hoarseness, Ear Pain, Running Nose, Epistaxis, Sinus Pain, Toothache, Odynophagia Respiratory: DENIES: Apneas, Cough, Snoring, Wheezing, Hemoptysis, Sputum production, Shortness of breath Cardiovascular: DENIES: Chest pain, Palpitations, Syncope, Dyspnea on Exertion , PND, Lower Extremity Edema, Orthopnea, Claudication Gastrointestinal: DENIES: Abdominal pain, Black stools, Bloody stools, Constipation, Diarrhea, Nausea, Vomiting, Difficulty Swallowing, Anorexia Genitourinary: DENIES: Sexual dysfunction, Urinary frequency, Urinary incontinence, Urgency, Hematuria, Dysuria, Nocturia, Penile Discharge, Testicular Pain, Testicular Swelling Musculoskeletal: DENIES: Joint pain, Muscle aches, Stiffness, Joint Swelling, Back pain, Neck pain Integumentary: DENIES: Abnormal pigmentation, Nail changes, Pruritus, Rash Hematologic/lymphatic: DENIES: Bruising, Lymphadenopathy Immunologic/allergic: DENIES: Eczema, Urticaria Neurologic: DENIES: Abnormal gait, Headache, Localized weakness, Paresthesias, Seizures, Speech Problems, Tremor, Poor Balance Psychiatric: DENIES: Anxiety, Confusion, Mood changes, Depression, Hallucinations, Agitation, Suicidal Ideation, Homicidal Ideation, Delusions Except as stated in HPI: all other systems reviewed are Neg Past Family Social History Allergies: Coded Allergies: No Known Allergies (Unverified Allergy, Unknown, 02/16/17) Past Medical History Hypertension Diabetes Atrial fibrillation DVT diagnosed 2012. Recurrent DVT on warfarin November 2016. On Eliquis since Chronic left foot wound. Initially began in November, has been managed by Nadir Guajardo, Kesha, Yuval, supposed to be on 45 day course of Rocephin daily via PICC line which was removed upon being arrested 10 days ago. Neuropathy LLE tib/fib fracture HTN Melanoma Hyperlipidemia Chronic back pain Fracture ribs Past Surgical History ORIF left tib fib Back surgery Nasal surgery Reported Medications Reported Meds & Active Scripts Active Reported Lasix (Furosemide) 20 Mg Tab 20 Mg PO DAILY Eliquis (Apixaban) 2.5 Mg Tab 2.5 Mg PO BID Aspir-81 (Aspirin) 81 Mg Tabdr Percocet (Oxycodone-Acetaminophen) 5-325 mg Tab 1-2 Tab PO Q6H PRN [Blood Pressure Med] Active Ordered Medications Current Medications Medications (Trade) Dose Ordered Sig/Abida Route Start Time Stop Time Status Last Admin (NS Flush) 2 ml UNSCH PRN IV FLUSH 02/16/17 03:00 02/17/17 15:00 (NS Flush) 2 ml BID IV FLUSH 02/16/17 09:00 02/17/17 11:12 (Narcan Inj) 0.4 mg UNSCH PRN IV PUSH 02/16/17 03:00 (Protonix Inj) 40 mg Q24H IV PUSH 02/16/17 08:00 02/17/17 14:59 Ceftriaxone Sodium 1000 mg/ Sodium Chloride 100 ml @ 200 mls/hr Q24H IV 02/16/17 21:00 02/17/17 00:03 (Coreg) 3.125 mg Q12HR PO 02/16/17 21:00 02/17/17 11:13 (Lasix) 20 mg DAILY PO 02/17/17 09:00 02/17/17 11:13 (D50w (Vial) Inj) 50 ml UNSCH PRN IV PUSH 02/17/17 09:00 (Glucagon Inj) 1 mg UNSCH PRN OTHER 02/17/17 09:00 Lactated Ringer's 1,000 ml @ 30 mls/hr Q24H PRN IV 02/17/17 12:00 02/20/17 11:59 Sodium Chloride 500 ml @ 30 mls/hr [id number] PRN IV 02/17/17 12:00 02/20/17 11:59 (Lopressor) 25 mg PIPELAYER PRN PO 02/17/17 12:00 02/20/17 11:59 (Betadine 5% Antisepsis Kit) 1 applic PIPELAYER PRN EACH NARE 02/17/17 12:00 02/20/17 11:59 (Chlorhexidine 2% Cloth) 3 pack PIPELAYER PRN TOPICAL 02/17/17 12:00 02/20/17 11:59 (NovoLIN R INJ) See Protocol Table ... PIPELAYER PRN SQ 02/17/17 12:00 02/20/17 11:59 Family History Mother from pancreatic cancer Father from colon cancer, oral cancer Social History States he quit smoking on 02/04/17, States he quit at age 44 after smoking 20 years and then started back 1 pack a week 2010. Drinks 6 pack Guinness per month and occasional cocktail Medical marijuana patient is homeless. 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 Physical Exam Vital Signs Vital Signs Date Time Temp Pulse Resp B/P (MAP) Pulse Ox O2 Delivery O2 Flow Rate FiO2 02/17/17 15:31 97.9 76 16 157/95 100 02/17/17 15:19 97.6 84 16 167/115 100 02/17/17 15:04 97.4 82 16 158/90 100 02/17/17 15:00 82 16 173/91 (118) 100 02/17/17 14:27 97.3 81 18 154/70 99 02/17/17 13:37 97.7 64 16 152/79 100 02/17/17 13:02 97.1 67 20 125/69 (87) 100 02/17/17 11:39 97.5 86 18 134/57 100 02/17/17 11:21 98.4 77 18 154/71 (98) 99 02/17/17 10:39 98.4 79 18 140/59 98 02/17/17 07:01 98.7 83 22 118/78 98 02/17/17 06:46 98.4 74 22 128/77 97 02/17/17 06:42 98.4 74 22 128/77 (94) 98 02/17/17 04:23 98.4 76 16 111/62 (78) 98 02/17/17 00:55 98.6 79 18 115/71 (86) 97 02/16/17 20:57 98.5 107 16 121/70 (87) 98 Physical Exam GENERAL: This is a well-nourished, well-developed patient, in no apparent distress. SKIN: No rashes, ecchymoses or lesions. Cool and dry. HEAD: Atraumatic. Normocephalic. No temporal or scalp tenderness. EYES: Pupils equal round and reactive. Extraocular motions intact. No scleral icterus. No injection or drainage. ENT: Nose without bleeding, purulent drainage or septal hematoma. Throat without erythema, tonsillar hypertrophy or exudate. Uvula midline. Airway patent. NECK: Trachea midline. Supple, nontender, no meningeal signs. CARDIOVASCULAR: Regular rate and rhythm without murmurs, gallops, or rubs. RESPIRATORY: Clear to auscultation. Breath sounds equal bilaterally. No wheezes , rales, or rhonchi. GASTROINTESTINAL: Abdomen soft, non-tender, nondistended. MUSCULOSKELETAL: Left LE with scar on plantar aspect and scar on dorsal aspect. No evidence of active infection. Minimal induration and tenderness noted. NEUROLOGICAL: Awake and alert. Cranial nerves II through XII intact. Motor and sensory grossly within normal limits. Five out of 5 muscle strength in all muscle groups. Psych cooperative IV line sites with no e.o infection. Laboratory Laboratory Tests Test 02/16/17 18:52 02/17/17 03:06 02/17/17 13:30 Hemoglobin 8.1 6.9 8.7 White Blood Count 4.7 Red Blood Count 2.40 Hematocrit 20.9 Mean Corpuscular Volume 87.1 Mean Corpuscular Hemoglobin 28.9 Mean Corpuscular Hemoglobin Concent 33.2 Red Cell Distribution Width 16.2 Platelet Count 216 Mean Platelet Volume 8.2 Neutrophils (%) (Auto) 66.5 Lymphocytes (%) (Auto) 19.1 Monocytes (%) (Auto) 11.7 Eosinophils (%) (Auto) 1.8 Basophils (%) (Auto) 0.9 Neutrophils # (Auto) 3.1 Lymphocytes # (Auto) 0.9 Monocytes # (Auto) 0.6 Eosinophils # (Auto) 0.1 Basophils # (Auto) 0.0 CBC Comment DIFF FINAL Differential Comment Blood Urea Nitrogen 14 Creatinine 1.19 Random Glucose 138 Calcium Level 7.6 Sodium Level 136 Potassium Level 3.9 Chloride Level 104 Carbon Dioxide Level 24.7 Anion Gap 7 Estimat Glomerular Filtration Rate 62 Hemoglobin A1c 7.2 Date/Time Source Procedure Growth Status 02/15/17 23:35 Urine Clean Catch Urine Culture - Final 50-100,000 CFU/ML MIXED GWYN... Complete Result Diagram: 02/17/17 1330 02/17/17 0306 Imaging Last Impressions Abdomen/Pelvis CT 02/17/17 0000 Signed Impressions: Service Date/Time: Friday, February 17, 2017 16:32 - CONCLUSION: Negative for acute process. There is no retropertiomeal hematoma. Trace fluid around the liver the liver. . I don't see as source of bleeding. Vincent Greenfield MD FACR Renal Ultrasound 02/16/17 0000 Signed Impressions: Service Date/Time: January 20:58 - CONCLUSION: 1. Bilateral normal-sized echogenic kidneys concerning for acute medical renal disease. 2. 2 adjacent cysts versus one complex cyst with a septation in the right mid kidney. This is a Bosniak 2F lesion can be followed with a CT or MRI examination in the year. 3. Nonspecific suspected cortical calcifications in the right kidney. Salvador Ramirez MD Chest X-Ray 02/16/17 0000 Signed Impressions: Service Date/Time: January 00:38 - CONCLUSION: Suspected skinfolds over the upper chest regions bilaterally. No acute cardiopulmonary processes. Salvador Ramirez MD Lower Extremity Ultrasound 02/15/17 0000 Signed Impressions: Service Date/Time: January 00:11 - CONCLUSION: 1. Thrombus in the left femoral and popliteal veins. 2. No DVT seen on the right side. Salvador Ramirez MD Assessment and Plan Assessment and Plan Left foot abscess Strep based on cultures done by Dr.Reba Castillo Acute anemia Recs DC Ceftriaxone IV Start oral levaquin (stop date in chart) Follow cultures Follow clinically. Recommend follow up with and wound care clinic post discharge. Ok to DC home from ID standpoint when cleared by others . Will sign off please call back if any change in clinical condition or questions. Kim Stringer MD Feb 17, 2017 15:37
--- NOTE | 2017-02-17 16:48 | RADRPT ---
EXAM DATE/TIME: 02/17/2017 16:32 [place] COMPARISON: No previous studies available for comparison. INDICATIONS : Anemia ORAL CONTRAST: Prescribed oral contrast ingested. RADIATION DOSE: 8.83 CTDIvol (mGy) MEDICAL HISTORY : Cardiovascular disease. Hypertension. Diabetes, GI Bleed DVT. SURGICAL HISTORY : None. ENCOUNTER: Initial ACUITY: 1 day PAIN SCALE: 0/10 LOCATION: abdominal TECHNIQUE: Volumetric scanning of the abdomen and pelvis was performed. Using automated exposure control and ad justment of the mA and/or kV according to patient size, radiation dose was kept as low as reasonably achievable to obtain optimal diagnostic quality images. DICOM format image data is available electro nically for review and comparison. FINDINGS: Minimal bibasilar parenchymal changes are evident. The trace fluid is seen around the liver Gallbladder is unremarkable Spleen and pancreas are normal Vena cava filter is evident Minimal nonspecific jack hepatis adenopathy is present Right and left adrenal glands unremarkable There no calcifications in either kidney Transpedicular fixation is seen of the lumbar spine Extensive vascular calcifications are noted Diverticula are present in the sigmoid colon Bladder decompressed by Valdez. CONCLUSION: Negative for acute process. There is no retropertiomeal hematoma. Trace fluid around the liver the liver. . I don't see as source of bleeding. Vincent Greenfield MD FACR on February 17, 2017 at 16:43 Board Certified Radiologist. This report was verified electronically.
--- NOTE | 2017-02-17 18:52 | PD.WCN.NOT ---
Wound Consult Additional Information: Patient not seen. Doctor Naima, podiatry was consulted and will see patient for L foot wound on Monday02/18/2017. Please defer to podiatry for wound care orders for L foot wound. Bettie Doll [facility] Feb 17, 2017 18:52
[2017-02-18 03:13] VITALS: BP 146/74; PULSE 67; RESP 16; TEMP 98.3; O2SAT 99
[2017-02-18 08:08] VITALS: BP 136/72; PULSE 57; RESP 15; TEMP 95.9; O2SAT 100
[2017-02-18] MEDS ORDERED: LEVOFLOXACIN 500 MG TAB PO SCH (09:00)
[2017-02-18] MEDS ORDERED: DO NOT ADM ANY ANTICOAGULANT DRUGS PRN (11:16)
[2017-02-18] MEDS ORDERED: CARV3.125 PO (11:37)
[2017-02-18] MEDS ORDERED: LEVA500T33 PO (11:37)
[2017-02-18] MEDS ORDERED: PROT40TA PO (11:37)
[2017-02-18 11:42] VITALS: BP 165/92; PULSE 72; RESP 20; TEMP 95.8; O2SAT 100
[2017-02-18] MEDS: CARVEDILOL 3.125 MG TAB PO SCH (11:54)
[2017-02-18] MEDS: PANTOPRAZOLE SODIUM 40 MG VIAL IV PUSH SCH (11:54)
[2017-02-18] MEDS: SODIUM CHLORIDE 0.9% FLUSH 10 ML FLUSH IV FLUSH SCH (11:56)
[2017-02-18] MEDS: FUROSEMIDE 20 MG TAB PO SCH (11:56)
[2017-02-18] MEDS ORDERED: PROPOFOL 200 MG/20 ML AMP IV ONE (12:00)
[2017-02-18] MEDS ORDERED: LIDOCAINE HCL 1% PF 5 ML SYRINGE OTHER ONE (12:00)
--- NOTE | 2017-02-18 12:26 | PD.POD.CON ---
Patient Intake Chief Complaint left foot wounds Consult Requested by Dr. Barker Reason for Consult Evaluation and treatment of left foot wounds Primary Care Physician [facility] History of Present Illness Patient is a 62-year-old homeless male who presented with fatigue. It was noted that he had a GI bleed. Patient has left foot wounds currently being followed by the wound center at [facility]. He is undergoing hyperbaric oxygen therapy. They have been treating it with an antiseptic solution. Coded Allergies: No Known Allergies (Unverified Allergy, Unknown, 02/16/17) Preferred Language to Discuss: Vietnamese Barriers to Learning: Emotional Teaching Method: Discussion Vital Signs Date Time Temp Pulse Resp B/P (MAP) Pulse Ox O2 Delivery O2 Flow Rate FiO2 02/18/17 11:42 95.8 72 20 165/92 (116) 100 02/18/17 11:32 72 17 146/92 (110) 100 Room Air 02/18/17 11:22 98.3 72 15 148/80 (102) 100 Room Air 02/18/17 08:08 95.9 57 15 136/72 (93) 100 02/18/17 03:13 98.3 67 16 146/74 (98) 99 02/17/17 23:21 98.1 76 18 156/75 (102) 99 02/17/17 20:19 98.5 75 17 155/82 (106) 99 02/17/17 19:05 97.8 73 16 144/83 100 02/17/17 15:31 97.9 76 16 157/95 100 02/17/17 15:19 97.6 84 16 167/115 100 02/17/17 15:04 97.4 82 16 158/90 100 02/17/17 15:00 82 16 173/91 (118) 100 02/17/17 14:27 97.3 81 18 154/70 99 02/17/17 13:37 97.7 64 16 152/79 100 02/17/17 13:02 97.1 67 20 125/69 (87) 100 Pain scale used: 0-10 numeric scale Pain score: 0 Medications Current Medications Ceftriaxone Sodium 1000 mg/ Sodium Chloride 100 ml @ 200 mls/hr ONCE ONCE IV Last administered on 02/16/17t 00:45; Start 02/16/17 at 00:45; Stop 02/16/17 at 01:14; Status DC Furosemide (Lasix Inj) 40 mg ONCE ONCE IV PUSH Last administered on 00:45; Start 02/16/17 at 00:45; Stop 02/16/17 at 00:46; Status DC Pantoprazole Sodium 80 mg/ Sodium Chloride 35 ml @ 420 mls/hr Q5M ONCE IV Last administered on 02/16/17 01:45; Start 02/16/17 at 01:45; Stop 02/16/17 at 07:54; Status DC Pantoprazole Sodium 80 mg/ Sodium Chloride 100 ml @ 10 mls/hr Q10H IV Last administered on 02/16/17 01:45; Start 02/16/17 at 01:45; Stop 02/16/17 at 07 :54; Status DC Sodium Chloride (NS Flush) 2 ml UNSCH PRN IV FLUSH FLUSH AFTER USING IV ACCESS Last administered on 02/17/17 15:00; Start 02/16/17 at 03:00 Sodium Chloride (NS Flush) 2 ml BID IV FLUSH Last administered on 02/18/17 11: 56; Start 02/16/17 at 09:00 Naloxone HCl (Narcan Inj) 0.4 mg UNSCH PRN IV PUSH SEE LABEL COMMENTS; Start 02/16/17 at 03:00 Polyethylene Glycol/ Electrolytes (Colyte Liq) 4,000 ml ONCE ONCE PO Last administered on 02/16/17 17:03; Start 02/16/17 at 16:00; Stop 02/16/17 at 16 :01; Status DC Pantoprazole Sodium (Protonix Inj) 40 mg Q24H IV PUSH Last administered on 02/18 11:54; Start 02/16/17 at 08:00 Ceftriaxone Sodium 1000 mg/ Sodium Chloride 100 ml @ 200 mls/hr Q24H IV Last administered on 02/17/17 00:03; Start 02/16/17 at 21:00; Stop 02/17/17 at 21: 19; Status DC Insulin Aspart (NovoLOG SUPPLEMENTAL SCALE) 1 ACHS SLIDING SCALE SQ ; Start at 21:00; Stop 02/17/17 at 09:18; Status DC Carvedilol (Coreg) 3.125 mg Q12HR PO Last administered on 02/18/17 11:54; Start 02/16/17 at 21:00 Isosorbide Dinitrate (Isordil Tembids Cr) 40 mg ONCE ONCE PO ; Start 02/16/17 at 21:00; Stop 02/16/17 at 21:26; Status DC Isosorbide Dinitrate (Isordil Tembids Cr) 40 mg DAILY PO ; Start 02/17/17 at 09: 00; Stop 02/17/17 at 09:00; Status DC Dextrose (D50w (Vial) Inj) 50 ml UNSCH PRN IV PUSH HYPOGLYCEMIA - SEE COMMENTS ; Start 02/16/17 at 21:15; Stop 02/17/17 at 09:18; Status DC Glucagon (Glucagon Inj) 1 mg UNSCH PRN OTHER HYPOGLYCEMIA-SEE COMMENTS; Start 02/16/17 at 21:15; Stop 02/17/17 at 09:18; Status DC Furosemide (Lasix) 20 mg DAILY PO Last administered on 02/18/17 11:56; Start 02/17/17 at 09:00 Furosemide (Lasix Inj) 20 mg ONCE ONCE IV PUSH Last administered on 02/17/17 11:12; Start 02/17/17 at 04:30; Stop 02/17/17 at 04:31; Status DC Dextrose (D50w (Vial) Inj) 50 ml UNSCH PRN IV PUSH HYPOGLYCEMIA-SEE COMMENTS; Start 02/17/17 at 09:00 Glucagon (Glucagon Inj) 1 mg UNSCH PRN OTHER HYPOGLYCEMIA-SEE COMMENTS; Start 02/17/17 at 09:00 Lactated Ringer's 1,000 ml @ 30 mls/hr Q24H PRN IV SEE LABEL COMMENTS; Start 02/17/17 at 12:00; Stop 02/20/17 at 11:59 Sodium Chloride 500 ml @ 30 mls/hr [id number] PRN IV SEE LABEL COMMENTS; Start at 12:00; Stop 02/20/17 at 11:59 Metoprolol Tartrate (Lopressor) 25 mg IDEA WORKER PRN PO SEE LABEL COMMENTS; Start 02/17/17 at 12:00; Stop 02/20/17 at 11:59 Povidone Iodine (Betadine 5% Antisepsis Kit) 1 applic IDEA WORKER PRN EACH NARE SEE LABEL COMMENTS; Start 02/17/17 at 12:00; Stop 02/20/17 at 11:59 Chlorhexidine Gluconate (Chlorhexidine 2% Cloth) 3 pack IDEA WORKER PRN TOPICAL SEE LABEL COMMENTS; Start 02/17/17 at 12:00; Stop 02/20/17 at 11:59 Insulin Human Regular (NovoLIN R INJ) See Protocol Table ... IDEA WORKER PRN SQ SEE PROTOCOL TABLE; Start 02/17/17 at 12:00; Stop 02/20/17 at 11:59 Magnesium Citrate (Citroma Liq) 300 ml ONCE ONCE PO Last administered on 14:24; Start 02/17/17 at 13:00; Stop 02/17/17 at 13:01; Status DC Magnesium Citrate (Citroma Liq) 300 ml ONCE ONCE PO Last administered on 17:50; Start 02/17/17 at 18:00; Stop 02/17/17 at 18:01; Status DC Bisacodyl (Dulcolax Ec) 20 mg ONCE ONCE PO Last administered on 02/17/17 14: 24; Start 02/17/17 at 13:00; Stop 02/17/17 at 13:01; Status DC Diatrizoate Meglum/ Diatrizoate Sod ( Gastroview Liq) 18 ml ONCE ONCE PO Last administered on 02/17/17 14:24; Start 02/17/17 at 13:15; Stop 02/17/17 at 13:16; Status DC Furosemide (Lasix Inj) 10 mg ONCE ONCE IV PUSH Last administered on 02/17/17 14:59; Start 02/17/17 at 15:00; Stop 02/17/17 at 15:01; Status DC Levofloxacin (Levaquin) 500 mg DAILY PO Last administered on 02/18/17 11:55; Start 02/18/17 at 09:00; Stop 03/13/17 at 08:59 Miscellaneous Information ALL NURSING DEPARTME... UNSCH PRN .XX SEE LABEL COMMENTS; Start 02/18/17 at 11:16; Stop 02/19/17 at 11:15 Past, Family & Social History Past Medical History Endocrine: REPORTS HX OF: Diabetes mellitus Respiratory: DENIES HX OF: CPAP use Cardiovascular: REPORTS HX OF: Deep venous thrombosis, Hypertension Gastrointestinal: REPORTS HX OF: Other GI history Musculoskeletal: REPORTS HX OF: Other musculoskeletal hx Cancer/Hematology: REPORTS HX OF: Skin cancer Neurologic: REPORTS HX OF: Peripheral neuropathy Psychiatric: REPORTS HX OF: Other psychiatric history Past Surgical History Gastrointestinal: REPORTS HX OF: Other GI surgery Integumentary: REPORTS HX OF: Skin cancer removal Review of Systems Cardiovascular: COMPLAINS OF: Hx hypertension, Hx phlebitis / clots, Swelling legs / ankles Musculoskeletal: COMPLAINS OF: Joint pain/swell/dysarthr Exam-Podiatry Constitutional Nutritional status: normal Orientation: alert and oriented x3 Dermatological Exam Skin Temp - Right: Within Normal Limits Skin Texture - Right: Within Normal Limits Skin Elasticity - Right: Within Normal Limits Skin Tugor - Right: Within Normal Limits Hair Growth - Right: Within Normal Limits Pigmentation - Right: Within Normal Limits Skin Temp - Left: Within Normal Limits Skin Texture - Left: Within Normal Limits Skin Elasticity - Left: Within Normal Limits Skin Tugor - Left: Within Normal Limits Hair Growth - Left: Within Normal Limits Pigmentation - Left: Within Normal Limits Ulcers: Location/Measurements Ulceration dorsal aspect of the left foot. Ulceration dorsal third toe. Ulceration plantar left mid foot. No signs of ascending cellulitis. No purulence seen. Vascular/Lymphatic Exam Details diminished pulses bilateral feet Neurologic Exam Present on right: Tingling, Paraesthesia Present on left: Tingling, Paraesthesia Muscle Strength Dorsiflexion (Right): Normal Plantarflexion (Right): Normal Inversion (Right): Normal Eversion (Right): Normal Digital (Right): Normal Dorsiflexion (Left): Normal Plantarflexion (Left): Normal Inversion (Left): Normal Eversion (Left): Normal Digital (Left): Normal Foot Range of Motion Dorsiflexion (Right): Normal Plantarflexion (Right): Normal Inversion (Right): Normal Eversion (Right): Normal Digital (Right): Normal Dorsiflexion (Left): Normal Plantarflexion (Left): Normal Inversion (Left): Normal Eversion (Left): Normal Digital (Left): Normal Lab and Radiology Results Laboratory Laboratory Tests Test 02/16/17 12:37 02/16/17 18:52 02/17/17 03:06 02/17/17 13:30 White Blood Count 5.2 TH/MM3 4.7 TH/MM3 Red Blood Count 2.80 MIL/MM3 2.40 MIL/MM3 Hemoglobin 8.2 GM/DL 8.1 GM/DL 6.9 GM/DL 8.7 GM/DL Hematocrit 24.8 % 20.9 % Mean Corpuscular Volume 88.6 FL 87.1 FL Mean Corpuscular Hemoglobin 29.3 PG 28.9 PG Mean Corpuscular Hemoglobin Concent 33.1 % 33.2 % Red Cell Distribution Width 16.9 % 16.2 % Platelet Count 247 TH/MM3 216 TH/MM3 Mean Platelet Volume 8.2 FL 8.2 FL Neutrophils (%) (Auto) 60.1 % 66.5 % Lymphocytes (%) (Auto) 24.2 % 19.1 % Monocytes (%) (Auto) 12.7 % 11.7 % Eosinophils (%) (Auto) 2.0 % 1.8 % Basophils (%) (Auto) 1.0 % 0.9 % Neutrophils # (Auto) 3.1 TH/MM3 3.1 TH/MM3 Lymphocytes # (Auto) 1.3 TH/MM3 0.9 TH/MM3 Monocytes # (Auto) 0.7 TH/MM3 0.6 TH/MM3 Eosinophils # (Auto) 0.1 TH/MM3 0.1 TH/MM3 Basophils # (Auto) 0.1 TH/MM3 0.0 TH/MM3 CBC Comment DIFF FINAL DIFF FINAL Differential Comment Test 02/17/17 19:48 Hemoglobin 10.0 GM/DL Laboratory Tests Test 02/16/17 12:37 02/17/17 03:06 Blood Urea Nitrogen 17 MG/DL 14 MG/DL Creatinine 1.35 MG/DL 1.19 MG/DL Random Glucose 127 MG/DL 138 MG/DL Calcium Level 8.2 MG/DL 7.6 MG/DL Sodium Level 134 MEQ/L 136 MEQ/L Potassium Level 3.6 MEQ/L 3.9 MEQ/L Chloride Level 100 MEQ/L 104 MEQ/L Carbon Dioxide Level 28.4 MEQ/L 24.7 MEQ/L Anion Gap 6 MEQ/L 7 MEQ/L Estimat Glomerular Filtration Rate 54 ML/MIN 62 ML/MIN Hemoglobin A1c 7.2 % Microbiology Date/Time Source Procedure Growth Status 02/15/17 23:35 Urine Clean Catch Urine Culture - Final 50-100,000 CFU/ML MIXED GWYN... Complete Radiology Last Impressions Abdomen/Pelvis CT 02/17/17 0000 Signed Impressions: Service Date/Time: Friday, February 17, 2017 16:32 - CONCLUSION: Negative for acute process. There is no retropertiomeal hematoma. Trace fluid around the liver the liver. . I don't see as source of bleeding. Vincent Greenfield MD FACR Renal Ultrasound 02/16/17 0000 Signed Impressions: Service Date/Time: January 20:58 - CONCLUSION: 1. Bilateral normal-sized echogenic kidneys concerning for acute medical renal disease. 2. 2 adjacent cysts versus one complex cyst with a septation in the right mid kidney. This is a Bosniak 2F lesion can be followed with a CT or MRI examination in the year. 3. Nonspecific suspected cortical calcifications in the right kidney. Salvador Ramirez MD Chest X-Ray 02/16/17 0000 Signed Impressions: Service Date/Time: January 00:38 - CONCLUSION: Suspected skinfolds over the upper chest regions bilaterally. No acute cardiopulmonary processes. Salvador Ramirez MD Lower Extremity Ultrasound 02/15/17 0000 Signed Impressions: Service Date/Time: January 00:11 - CONCLUSION: 1. Thrombus in the left femoral and popliteal veins. 2. No DVT seen on the right side. Salvador Ramirez MD Assessment/Plan Problem List: (1) Diabetic foot ulcer Status: Chronic (2) Diabetes Status: Chronic Additional Plans & Procedures PLAN: Swab culture of the left dorsal foot wound ordered. Maxorb extra AG dressings ordered. Wanted to do bone scan but patient wants to be discharged back to [facility] for outpatient wound care and hyperbarics. Okay to discharge from my standpoint. Problem Qualifiers (1) Diabetic foot ulcer: Qualified Codes: E11.621 - Type 2 diabetes mellitus with foot ulcer; L97.423 - Non-pressure chronic ulcer of left heel and midfoot with necrosis of muscle (2) Diabetes: Qualified Codes: E11.621 - Type 2 diabetes mellitus with foot ulcer; L97.509 - Non-pressure chronic ulcer of other part of unspecified foot with unspecified severity Tonio Mcnamara DPM Feb 18, 2017 12:26
--- NOTE | 2017-02-18 13:03 | HHI.PR ---
Subjective Remarks Follow-up symptomatic anemia/suspected GI bleed 02/17/17-patient seen and examined he received one unit packed red blood cell. Denies any bleeding since admission. Nothing by mouth pending panendoscopy. Denies any shortness of breath or chest pain. 02/18/17-patient seen and examined he was transfused 3 units PRBC; he had a poor prep yesterday for colonoscopy, plan for repeat colonoscopy today. No acute event overnight. Objective Vitals Vital Signs Date Time Temp Pulse Resp B/P (MAP) Pulse Ox O2 Delivery O2 Flow Rate FiO2 02/18/17 11:42 95.8 72 20 165/92 (116) 100 02/18/17 11:32 72 17 146/92 (110) 100 Room Air 02/18/17 11:22 98.3 72 15 148/80 (102) 100 Room Air 02/18/17 08:08 95.9 57 15 136/72 (93) 100 02/18/17 03:13 98.3 67 16 146/74 (98) 99 02/17/17 23:21 98.1 76 18 156/75 (102) 99 02/17/17 20:19 98.5 75 17 155/82 (106) 99 02/17/17 19:05 97.8 73 16 144/83 100 02/17/17 15:31 97.9 76 16 157/95 100 02/17/17 15:19 97.6 84 16 167/115 100 02/17/17 15:04 97.4 82 16 158/90 100 02/17/17 15:00 82 16 173/91 (118) 100 02/17/17 14:27 97.3 81 18 154/70 99 02/17/17 13:37 97.7 64 16 152/79 100 02/17/17 13:02 97.1 67 20 125/69 (87) 100 I/O 02/17/17 02/17/17 02/17/17 02/18/17 02/18/17 02/18/17 07:00 15:00 23:00 07:00 15:00 23:00 Intake Total 20 ml 815 ml 5450 ml 200 ml Output Total 2050 ml 2000 ml 4200 ml 250 ml Balance -2030 ml -1185 ml 1250 ml -50 ml Intake Oral 5040 ml Packed Cells 800 ml 400 ml Blood Product IV Normal Saline Flush 20 ml 15 ml 10 ml Other 200 ml Output Urine Total 2050 ml 2000 ml 4200 ml 250 ml # Voids 1 # Bowel Movements 2 Result Diagram: 02/17/17 1948 02/17/17 0306 Imaging Last Impressions Abdomen/Pelvis CT 02/17/17 0000 Signed Impressions: Service Date/Time: Friday, February 17, 2017 16:32 - CONCLUSION: Negative for acute process. There is no retropertiomeal hematoma. Trace fluid around the liver the liver. . I don't see as source of bleeding. Vincent Greenfield MD FACR Renal Ultrasound 02/16/17 0000 Signed Impressions: Service Date/Time: January 20:58 - CONCLUSION: 1. Bilateral normal-sized echogenic kidneys concerning for acute medical renal disease. 2. 2 adjacent cysts versus one complex cyst with a septation in the right mid kidney. This is a Bosniak 2F lesion can be followed with a CT or MRI examination in the year. 3. Nonspecific suspected cortical calcifications in the right kidney. Salvador Ramirez MD Chest X-Ray 02/16/17 0000 Signed Impressions: Service Date/Time: January 00:38 - CONCLUSION: Suspected skinfolds over the upper chest regions bilaterally. No acute cardiopulmonary processes. Salvador Ramirez MD Lower Extremity Ultrasound 02/15/17 0000 Signed Impressions: Service Date/Time: January 00:11 - CONCLUSION: 1. Thrombus in the left femoral and popliteal veins. 2. No DVT seen on the right side. Salvador Ramirez MD Objective Remarks GENERAL: NAD SKIN: Warm and dry. HEAD: Normocephalic. EYES: No scleral icterus. No injection or drainage. NECK: Supple, trachea midline. No JVD or lymphadenopathy. CARDIOVASCULAR: Regular rate and rhythm without murmurs, gallops, or rubs. RESPIRATORY: Breath sounds equal bilaterally. No accessory muscle use. GASTROINTESTINAL: Abdomen soft, non-tender, nondistended. MUSCULOSKELETAL: No cyanosis, or edema. chronic Ulcer to LLE : Indwelling catheter in place BACK: Nontender without obvious deformity. No CVA tenderness. A/P Problem List: (1) Normochromic normocytic anemia ICD Code: D64.9 - Anemia, unspecified (2) GI bleed ICD Code: K92.2 - Gastrointestinal hemorrhage, unspecified Status: Acute Assessment and Plan 62-year-old man with Normochromic normocytic anemia Questionable suspecting GI bleed Transfused 3 units packed red blood cell and H&H stable Suspected GI bleed Appreciate input from gastroenterology Repeat colonoscopy today secondary to poor prep yesterday EGD with finding of duodenitis, continue treatment with PPI Holding all oral anticoagulation Continue PPI and H&H monitoring Urinary tract infection Chronic urinary retention Renal ultrasound noted and reviewed by me with finding of Bosniak 2F lesion, will need outpatient CT and MRI in 1 yr Discontinue Rocephin as urine culture negative Chronic Left foot wound -Undergoing hyperbaric oxygen treatment, course of daily Rocephin via PICC line which was removed. -Appreciate input from ID, continue with oral Levaquin -Appreciate input from podiatry, patient will follow with outpatient podiatry [place] Acute kidney injury Resolved Hypertension CHF exacerbation.Suspected diastolic heart failure. patient reports history of atrial fibrillation. Continue with Coreg, furosemide.monitor blood pressure closely. Diabetes mellitus. Insulin sliding scale. A1c ordered and pending. DVT. Chronic, recurred on warfarin. History of IVC filter. On Eliquis since January 21. Holding oral anticoagulation 2/2 suspected GI bleed Discharge Planning Discharge patient to home Condition on discharge: Improved Regular Diet as tolerated Ad Minal activity Rx written:see EMR Follow-up with primary care physician in 1week F-U with Dr Meyer, ID Problem Qualifiers (1) GI bleed: Qualified Codes: K92.2 - Gastrointestinal hemorrhage, unspecified Tonio Holman MD Feb 18, 2017 13:03
--- NOTE | 2017-02-19 23:40 | EKG ---
Date Performed: 02/17/2017 Time Performed: 12:13:24 PTAGE: 62 years EKG: ATRIAL FIBRILLATION SEPTAL MYOCARDIAL INFARCTION , PROBABLY OLD MODERATE T-WAVE ABNORMALITY , CONSIDER ANTERIOR ISCHEMIA ABNORMAL ECG NO PREVIOUS TRACING DOCTOR: Jameel Menon Interpretating Date/Time 02/19/2017 23:39:33
== END 2017-02-18 15:15 | disposition home or self-care (01) ==
LOC: NEPD 18:52 → NEDA 02-16 02:41 → NEPGCP 02-16 14:10
PROVIDERS: ADMIT Hospitalist; ATTEND Hospitalist
DX: N39.0 Urinary tract infection, site not specified (principal); D64.9 Anemia, unspecified; K64.8 Other hemorrhoids; K64.4 Residual hemorrhoidal skin tags; K29.50 Unspecified chronic gastritis without bleeding; N17.9 Acute kidney failure, unspecified; R60.0 Localized edema; R07.9 Chest pain, unspecified; R63.4 Abnormal weight loss; R53.83 Other fatigue; N28.1 Cyst of kidney, acquired; E78.5 Hyperlipidemia, unspecified; I48.91 Unspecified atrial fibrillation; M54.9 Dorsalgia, unspecified; G89.29 Other chronic pain; E11.40 Type 2 diabetes mellitus with diabetic neuropathy, unspecified; H91.90 Unspecified hearing loss, unspecified ear; M19.90 Unspecified osteoarthritis, unspecified site; E11.621 Type 2 diabetes mellitus with foot ulcer; L97.423 Non-pressure chronic ulcer of left heel and midfoot with necrosis of muscle; B96.5 Pseudomonas (aeruginosa) (mallei) (pseudomallei) as the cause of diseases classified elsewhere; B95.62 Methicillin resistant Staphylococcus aureus infection as the cause of diseases classified elsewhere; R33.9 Retention of urine, unspecified; I82.412 Acute embolism and thrombosis of left femoral vein; I82.432 Acute embolism and thrombosis of left popliteal vein; R06.9 Unspecified abnormalities of breathing; R79.89 Other specified abnormal findings of blood chemistry; Z79.01 Long term (current) use of anticoagulants; Z59.0 Homelessness; Z85.820 Personal history of malignant melanoma of skin; Z79.899 Other long term (current) drug therapy; Z79.82 Long term (current) use of aspirin; Z87.891 Personal history of nicotine dependence; Z16.11 Resistance to penicillins; Z53.8 Procedure and treatment not carried out for other reasons; Z91.19 Patient's noncompliance with other medical treatment and regimen; Z86.718 Personal history of other venous thrombosis and embolism
CPT/HCPCS: 00740; 00810; 36430; 43239; 45378; 71010; 74176; 76775; 80048; 81001; 82948; 83036; 83880; 85018; 85025; 85610; 85730; 86403; 86850; 86900; 86901; 86920; 87070; 87077; 87086; 87186; 87205; 88305; 88312; 93005; 93306; 93970; 96365; 96375; 96376; 99285; C9113; G0378; J0696; J1940; P9016; Q9963

== ENCOUNTER 2017-06-02 01:03 | Emergency (ER) | payer OTHER ==
[~2017-06-02] VITALS: Ht 188 cm; Wt 83.0 kg
[~2017-06-02 01:03] MED LIST changes: -BLOOD PRESSURE MED; +CARV3.125 PO; +LEVA500T33 PO; +PROT40TA PO
[2017-06-02 01:47] VITALS: BP 163/75; PULSE 83; RESP 18; TEMP 98.1; O2SAT 99
[2017-06-02] MEDS ORDERED: FAMO20TA2 PO (07:48)
[2017-06-02] MEDS ORDERED: AMIO400T PO (07:48)
[2017-06-02] MEDS ORDERED: HUMALOG SQ (07:48)
[2017-06-02] MEDS ORDERED: DICL500 PO (08:02)
== END 2017-06-02 03:43 | disposition left against medical advice (07) ==
LOC: NETRI 01:03
DX: Z53.21 Procedure and treatment not carried out due to patient leaving prior to being seen by health care provider (principal)
CPT/HCPCS: 99281

== ENCOUNTER 2017-06-02 06:13 | Emergency (ER) | payer OTHER ==
[~2017-06-02] VITALS: Ht 188 cm; Wt 86.0 kg
[2017-06-02 06:29] VITALS: BP 129/55; PULSE 90; RESP 18; TEMP 98.4; O2SAT 97
[2017-06-02] MEDS ORDERED: DICLOXACILLIN SODIUM 250 MG CAP PO ONE (07:45)
[2017-06-02] MEDS ORDERED: ACETAMINOPHEN/HYDROcodone 325 MG/5 MG TAB PO ONE (07:45)
[2017-06-02] MEDS ORDERED: FAMO20TA2 PO (07:48)
[2017-06-02] MEDS ORDERED: HUMALOG SQ (07:48)
[2017-06-02] MEDS ORDERED: AMIO400T PO (07:48)
--- NOTE | 2017-06-02 07:55 | PD ---
HPI Chief Complaint: Pain: Acute or Chronic Time Seen by Provider: 07:41 Travel History International Travel<30 days: No Contact w/Intl Traveler<30days: No Traveled to known affect area: No History of Present Illness HPI 62-year-old homeless male presents emergency department complaining of acute on chronic left leg pain is concern for infection. His left leg is mild to moderately painful, swollen, and has pain with walking. States that these are the normal symptoms when he has infection in his leg. Says that he ran out of his pain medication and antibiotics several days ago and is due to have these refilled within the next couple days, requests refills today. Says he was taking dicloxacillin and Percocets. Patient states that he does follow podiatry and wound care for his chronic left lower extremity wounds. Says his wounds are from [place] and [facility] Patient denies fever or chills. He has no other complaints today. PFSH Past Medical History Hx Anticoagulant Therapy: Yes (ELOQUIS) Arthritis: Yes Blood Disorders: No Heart Rhythm Problems: No Cancer: No Cardiovascular Problems: Yes High Cholesterol: Yes Chest Pain: Yes Congestive Heart Failure: No Cerebrovascular Accident: No Diabetes: Yes Diminished Hearing: Yes (L EAR MILD) Endocrine: Yes Genitourinary: No (bladder trauma) Hypertension: Yes Immune Disorder: No Musculoskeletal: No Neurologic: No Psychiatric: No Reproductive: No Respiratory: No Migraines: No Seizures: No Thyroid Disease: No Past Surgical History Other Surgery: Yes (NASAL 78/95/MISC SCRAPNAL ) Social History Alcohol Use: Yes (OCCASSIONALLY) Tobacco Use: No Substance Use: Yes (MED MARIJUANA) Allergies-Medications (Allergen,Severity, Reaction): Coded Allergies: No Known Allergies (Unverified Allergy, Unknown, 06/02/17) Reported Meds & Prescriptions Reported Meds & Active Scripts Active Protonix (Pantoprazole Sodium) 40 Mg Tab 40 Mg PO DAILY Coreg (Carvedilol) 3.125 Mg Tab 3.125 Mg PO Q12HR Reported Humalog Inj (Insulin Human Lispro) 1,000 Unit/10 Ml Vial 3 Units SQ ACHS Max dose at bedtime:( )units; sugars< 70,(0)units; sugars 150-199,(1)unit; sugars 200-249,(3)units; sugars 250-299,(5)units; sugars 300-349,(7)units; sugars more than 349,(9)units. Famotidine 20 Mg Tab 20 Mg PO BID Amiodarone (Amiodarone HCl) 400 Mg Tab 400 Mg PO BID Lasix (Furosemide) 20 Mg Tab 20 Mg PO DAILY Eliquis (Apixaban) 2.5 Mg Tab 2.5 Mg PO BID Aspir-81 (Aspirin) 81 Mg Tabdr Percocet (Oxycodone-Acetaminophen) 5-325 mg Tab 1-2 Tab PO Q6H PRN Review of Systems Except as stated in HPI: all other systems reviewed are Neg Physical Exam Narrative GENERAL: Well-nourished, well-developed patient. SKIN: Focused skin assessment warm/dry. HEAD: Normocephalic. EYES: No scleral icterus. No injection or drainage. NECK: Supple, trachea midline. No JVD or lymphadenopathy. CARDIOVASCULAR: Regular rate and rhythm without murmurs, gallops, or rubs. RESPIRATORY: Breath sounds equal bilaterally. No accessory muscle use. GASTROINTESTINAL: Abdomen soft, non-tender, nondistended. MUSCULOSKELETAL: No cyanosis, or edema. Left lower extremity-anterior are with linear wound approximately 8 cm long, serous discharge without exudate lower leg erythematous and mildly edematous. No lymph angiopathic spread. Left foot-plantar aspect of great toe with healing ulcer approximately 1-1/2 cm round, no exudate or discharge, granulation tissue present. Dorsal aspect of foot with ulceration without exudate. Serous fluid discharge. These wounds appear chronic BACK: Nontender without obvious deformity. No CVA tenderness. Data Data Last Documented VS Vital Signs Date Time Temp Pulse Resp B/P (MAP) Pulse Ox O2 Delivery O2 Flow Rate FiO2 06/02/17 06:29 98.4 90 18 129/55 (79) 97 Orders Orders Acetamin-Hydrocod 325-5 Mg ([place] 5-325 (06/02/17 07:45) Dicloxacillin (Dynapen) (06/02/17 07:45) MDM Medical Decision Making Medical Screen Exam Complete: Yes Emergency Medical Condition: Yes Differential Diagnosis acute on chronic leg ulcer, cellulitis, sepsis Narrative Course 62-year-old homeless male with history of chronic DVTs and left lower extremity wounds presents emergency department the request of refill of his pain medication and antibiotics and acute on chronic pain medication. States that he has been to [facility] states he is due to follow-up with them soon. Patient denies fevers or chills. Vital signs stable. His exam findings consistent with chronic wounds to the left dorsal foot, plantar left great toe, and anterior rae. No exudates. Leg erythematous without lymph angiopathic spread. Patient will be administered hydrocodone and dicloxacillin in the emergency department today. Patient will be discharged with dicloxacillin as he says that this is medication he has been prescribed previously. He is advised to follow-up with wound care, his primary care physician and the [facility] as discussed. Advised to return to return to the emergency department for worsening or persistent symptoms. Diagnosis Primary Impression: Diabetic foot ulcer Qualified Codes: E11.621 - Type 2 diabetes mellitus with foot ulcer; L97.421 - Non-pressure chronic ulcer of left heel and midfoot limited to breakdown of skin Additional Impression: Cellulitis Qualified Codes: L03.116 - Cellulitis of left lower limb Referrals: [facility] Primary Care Physician Additional Instructions: Follow up with your primary care physician within 2-3 days. Keep area clean and dry. You may bathe as normal. You may use [id number] triple antibiotic ointments for your injury daily. Change dressings daily. If bleeding starts again, applied pressure and elevate the area. If he developed increased redness, swelling, or pain return to the emergency department. Scripts Dicloxacillin (Dicloxacillin) 500 Mg Cap 500 MG PO QID for Infection for 5 Days, CAP 0 Refills Prov: Sandra Bush 06/02/17 Disposition: 01 DISCHARGE HOME Condition: Stable Sandra Bush Jun 02, 2017 07:55
[2017-06-02] MEDS ORDERED: DICL500 PO (08:02)
== END 2017-06-02 09:06 | disposition home or self-care (01) ==
LOC: NEPD 06:13
DX: E11.621 Type 2 diabetes mellitus with foot ulcer (principal); L97.421 Non-pressure chronic ulcer of left heel and midfoot limited to breakdown of skin; L03.116 Cellulitis of left lower limb; I10 Essential (primary) hypertension; E78.00 Pure hypercholesterolemia, unspecified; Z86.718 Personal history of other venous thrombosis and embolism; Z79.01 Long term (current) use of anticoagulants; Z79.4 Long term (current) use of insulin; Z79.899 Other long term (current) drug therapy
CPT/HCPCS: 99281

== ENCOUNTER 2017-07-21 23:46 | Inpatient (IN) | payer OTHER ==
[~2017-07-21] VITALS: Ht 188 cm; Wt 75.3 kg
[~2017-07-21 23:46] MED LIST changes: +AMIO400T PO; +DICL500 PO; +FAMO20TA2 PO; +HUMALOG SQ; -LEVA500T33 PO
[2017-07-22] VITALS (10 sets, daily range): BP systolic 120–158; BP diastolic 63–76; PULSE 65–102; RESP 16–20; TEMP 98–99.2; O2SAT 96–100
[2017-07-22] MEDS ORDERED: GABA100C4 PO (00:26)
[2017-07-22] MEDS ORDERED: ALPR.5 PO (00:26)
[2017-07-22] MEDS ORDERED: METO-309 PO (00:26)
[2017-07-22 03:04] LABS: AUTOMATED NEUTROPHIL # 11.6 TH/MM3 (1.8-7.7); BASOPHIL % 0.3 % (0.0-2.0); EOSINOPHIL % 0.2 % (0.0-4.0); HEMATOCRIT 24.4 % (39.0-51.0); HEMOGLOBIN 8.1 GM/DL (13.0-17.0); LYMPH % 3.5 % (9.0-44.0); LYMPHOCYTE # 0.5 TH/MM3 (1.0-4.8); MEAN CELL VOLUME 82.8 FL (80.0-100.0); MEAN CORPUSCULAR HEMOGLOBIN 27.4 PG (27.0-34.0); MEAN CORPUSCULAR HGB CONC 33.1 % (32.0-36.0); MEAN PLATELET VOLUME 7.7 FL (7.0-11.0); PLATELET COUNT 248 TH/MM3 (150-450); RED BLOOD COUNT 2.94 MIL/MM3 (4.50-5.90); RED CELL DISTRIBUTION WIDTH 19.3 % (11.6-17.2); WHITE BLOOD COUNT 13.2 TH/MM3 (4.0-11.0)
[2017-07-22 03:39] LABS: ALBUMIN 1.9 GM/DL (3.4-5.0); BICARBONATE 17.5 MEQ/L (21.0-32.0); CALCIUM 5.2 MG/DL (8.5-10.1); CREATININE 1.04 MG/DL (0.60-1.30); TOTAL BILIRUBIN ADULT 0.2 MG/DL (0.2-1.0); TOTAL PROTEIN 4.6 GM/DL (6.4-8.2); TROPONIN I 0.02 NG/ML (0.02-0.05)
[2017-07-22 03:43] LABS: CALCIUM-PROTEIN CORRECTED 6.2 MG/DL (8.5-10.1)
[2017-07-22] MEDS ORDERED: SODIUM CHLORID 0.9% 500 ML INJ 500 ML IV ONE (03:45)
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
[2017-07-22] MEDS ORDERED: D5-NS + KCL 40 MEQ INJ 1,000 ML IV SCH (04:00)
[2017-07-22] MEDS ORDERED: CALCIUM GLUCONATE INJ 1 GM in DEXTROSE 5% IN WATER 100ML INJ 100 ML IV ONE ×2 (04:00)
[2017-07-22] MEDS ORDERED: SODIUM CHLOR 0.9% 1000 ML INJ 1,000 ML IV SCH (04:38)
[2017-07-22] MEDS ORDERED: LACTULOSE SYRUP 20 GM/30 ML CUP PO PRN (04:45)
[2017-07-22] MEDS ORDERED: ONDANSETRON HCL 4 MG/2 ML VIAL IVP PRN (04:45)
[2017-07-22] MEDS ORDERED: GLUCAGON 1 MG/ML VIAL OTHER PRN (04:45)
[2017-07-22] MEDS ORDERED: SENNOSIDES 8.6 MG TAB PO PRN (04:45)
[2017-07-22] MEDS ORDERED: MAGNESIUM HYDROXIDE SUSP 30 ML CUP PO PRN (04:45)
[2017-07-22] MEDS ORDERED: SODIUM CHLORIDE 0.9% FLUSH 10 ML FLUSH IV FLUSH PRN (04:45)
[2017-07-22] MEDS ORDERED: DEXTROSE 50% IN WATER 50 ML VIAL(D50) IV PUSH PRN (04:45)
[2017-07-22] MEDS ORDERED: BISACODYL 10 MG SUPP RECTAL PRN (04:45)
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
--- NOTE | 2017-07-22 05:08 | RADRPT ---
EXAM DATE/TIME: 07/22/2017 04:28 [facility] COMPARISON: CHEST SINGLE AP, February 16, 2017, 0:38. INDICATIONS : Patient states fractured right seventh rib. MEDICAL HISTORY : Cardiovascular disease. Hypertension Deep venous thrombosis. Diabetes SURGICAL HISTORY : CABG. ENCOUNTER: Initial ACUITY: 1 day PAIN SCORE: 6/10 LOCATION: Left chest FINDINGS: There is a acute or subacute appearing fracture involving the posterior lateral left seventh rib. Fadi rnotomy wires are present. The lungs are symmetrically aerated and grossly clear. Cardiac contours ar e satisfactory. CONCLUSION: Posterolateral left seventh rib fracture. No acute cardiopulmonary findings Salvador Harding MD on July 22, 2017 at 5:03 Board Certified Radiologist. This report was verified electronically.
[2017-07-22] MEDS: INSULIN ASPART SUPPLEMENTAL SCALE SQ SCH ×4 (08:00→21:14)
[2017-07-22] MEDS ORDERED: 1/2 NS + KCL 20 MEQ INJ 1,000 ML IV SCH (08:00)
[2017-07-22] MEDS: SODIUM CHLORIDE 0.9% FLUSH 10 ML FLUSH IV FLUSH SCH ×2 (09:00→21:11)
[2017-07-22] MEDS: DOCUSATE SODIUM 50 MG/SENNA 8.6 MG TAB PO SCH ×2 (09:00→21:13)
[2017-07-22] MEDS: AMIODARONE 200 MG TAB PO SCH ×2 (09:06→21:12)
[2017-07-22] MEDS: APIXABAN 2.5 MG TABLET PO SCH ×2 (09:06→21:11)
[2017-07-22] MEDS: GABAPENTIN 100 MG CAP PO SCH ×2 (09:07→21:11)
[2017-07-22] MEDS: PANTOPRAZOLE SOD 40 MG DELAYED RELEASE TAB PO SCH (09:07)
[2017-07-22] MEDS: CARVEDILOL 3.125 MG TAB PO SCH ×2 (09:07→21:11)
[2017-07-22 09:20] LABS: AUTOMATED NEUTROPHIL # 8.1 TH/MM3 (1.8-7.7); BASOPHIL # 0.1 TH/MM3 (0-0.2); BASOPHIL % 0.5 % (0.0-2.0); EOSINOPHIL # 0.1 TH/MM3 (0-0.4); EOSINOPHIL % 0.6 % (0.0-4.0); HEMATOCRIT 22.1 % (39.0-51.0); HEMOGLOBIN 7.4 GM/DL (13.0-17.0); LYMPHOCYTE # 0.9 TH/MM3 (1.0-4.8); MEAN CELL VOLUME 83.2 FL (80.0-100.0); MEAN CORPUSCULAR HGB CONC 33.7 % (32.0-36.0); MEAN PLATELET VOLUME 7.4 FL (7.0-11.0); MONO % 12.5 % (0.0-8.0); MONOCYTE # 1.3 TH/MM3 (0-0.9); NEUT % 77.4 % (16.0-70.0); PLATELET COUNT 227 TH/MM3 (150-450); RED BLOOD COUNT 2.66 MIL/MM3 (4.50-5.90); RED CELL DISTRIBUTION WIDTH 18.8 % (11.6-17.2); WHITE BLOOD COUNT 10.4 TH/MM3 (4.0-11.0)
[2017-07-22 09:44] LABS: BICARBONATE 22.6 MEQ/L (21.0-32.0); BLOOD UREA NITROGEN 35 MG/DL (7-18); CALCIUM 8.3 MG/DL (8.5-10.1); CHLORIDE 107 MEQ/L (98-107); CREATININE 1.59 MG/DL (0.60-1.30); GLOMERULAR FILTRATION RATE 44 ML/MIN (>89); GLUCOSE,RANDOM 112 MG/DL (74-106); MAGNESIUM 1.9 MG/DL (1.5-2.5); SODIUM (NA) 139 MEQ/L (136-145)
[2017-07-22] MEDS ORDERED: MUPIROCIN 2% OINT 22 GM TUBE TOPICAL ONE (10:00)
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
[2017-07-22] MEDS: ACETAMINOPHEN/HYDROcodone 325 MG/5 MG TAB PO PRN (12:07)
[2017-07-22 14:09] LABS: CALCIUM 8.3 MG/DL (8.5-10.1)
--- NOTE | 2017-07-22 14:15 | HHI.DCPOC ---
Discharge Care Plan Diagnosis: (1) Rib fracture (2) Chest pain (3) DM (diabetes mellitus) (4) A-fib (5) Normochromic normocytic anemia Goals to Promote Your Health * To prevent worsening of your condition and complications * To maintain your health at the optimal level Directions to Meet Your Goals Take your medications as prescribed Follow your dietary instruction Follow activity as directed Keep your appointments as scheduled Take your immunizations and boosters as scheduled If your symptoms worsen call your PCP, if no PCP go to Urgent Care Center or Emergency Room Smoking is Dangerous to Your Health. Avoid second hand smoke Call the 24-hour hour crisis hotline for domestic abuse at Nati Gurrola PA-C July 22, 2017 2:15 pm
[2017-07-22 14:20] LABS: CALCIUM-PROTEIN CORRECTED 8.5 MG/DL (8.5-10.1); TOTAL PROTEIN 6.9 GM/DL (6.4-8.2)
[2017-07-22 14:26] LABS: CREATININE 1.64 MG/DL (0.60-1.30)
[2017-07-22 14:36] LABS: % SATURATION IRON PROFILE 4.7 % (20-50); IRON (FE) 14 MCG/DL (65-175); TOTAL IRON BINDING CAPACITY 295 MCG/DL (250-450)
--- NOTE | 2017-07-22 14:41 | EKG ---
Date Performed: 07/22/2017 Time Performed: 00:51:37 PTAGE: 62 years EKG: Sinus rhythm NONSPECIFIC T-WAVE ABNORMALITY When compared to previous tracing, rhythm is now sinus. BORDERLINE EC G PREVIOUS TRACING : 02/17/2017 12.13 DOCTOR: Rupesh Gaming Interpretating Date/Time 07/22/2017 14:41:10
[2017-07-22 15:00] LABS: FERRITIN 180 NG/ML (26-388); FOLATE 14.1 NG/ML (3.1-17.5)
[2017-07-22] MEDS ORDERED: IRON SUCROSE INJ 200 MG in SODIUM CHLORIDE 0.9% INJ 100 ML IV ONE (16:00)
[2017-07-22] MEDS: SODIUM CHLOR 0.9% 1000 ML INJ 1,000 ML IV SCH (16:25)
[2017-07-22] MEDS: ALPRAZolam 0.5 MG TAB PO PRN (16:26)
[2017-07-22] MEDS: ACETAMINOPHEN/HYDROcodone 325 MG/10 MG TAB PO PRN (16:26)
[2017-07-22 17:17] LABS: AMORPHOUS SEDIMENT, URINE RARE; BILIRUBIN, URINE NEG (NEG); BLOOD, URINE LARGE (NEG); GLUCOSE,URINE NEG (NEG); KETONE, URINE NEG (NEG); NITRITE,URINE NEG (NEG); PH, URINE 6.5 (5.0-8.5); URINE COLOR LIGHT-YELLOW (YELLW/STRAW); URINE LEUKOCYTE ESTERASE NEG (NEG)
--- NOTE | 2017-07-22 18:08 | RADRPT ---
EXAM DATE/TIME: 07/22/2017 16:34 [facility] COMPARISON: US KIDNEY/RENAL/BLADDER, February 16, 2017, 20:58. INDICATIONS : Increased bun and creatinine. MEDICAL HISTORY : Cardiovascular disease. Hypertension Deep venous thrombosis. Diabetes SURGICAL HISTORY : CABG. ENCOUNTER: Initial ACUITY: 1 day PAIN SCORE: 0/10 LOCATION: Bilateral flank MEASUREMENTS: RIGHT KIDNEY: 14.6 x 6.0 x 5.1 cm LEFT KIDNEY: 13.1 x 6.2 x 7.0 cm FINDINGS: RIGHT KIDNEY: Renal cortex is normal in thickness and echotexture. Redemonstration of 2 adjacent cysts versus a sin gle cyst with septation measuring 2.4 x 1.5 x 1.7 cm similar to previous exam measuring 1.6 x 2.6 x 1 .4 cm. No hydronephrosis or stone. LEFT KIDNEY: Renal cortex is normal in thickness and echotexture. No hydronephrosis, stone, or mass. BLADDER: Within normal limits given the degree of distension. Incidental note of trace ascites. CONCLUSION: 1. No obstructive uropathy. 2. Stable adjacent cysts versus a single cyst with septation in the mid right kidney measuring up to 2.4 cm. 3. Trace ascites. El Mosher MD on July 22, 2017 at 18:03 Board Certified Radiologist. This report was verified electronically.
[2017-07-23] VITALS (9 sets, daily range): BP systolic 116–130; BP diastolic 59–64; PULSE 65–77; RESP 16–20; TEMP 97.7–99.3; O2SAT 96–98
[2017-07-23] MEDS: SODIUM CHLOR 0.9% 1000 ML INJ 1,000 ML IV SCH ×3 (00:38→21:14)
[2017-07-23] MEDS: ACETAMINOPHEN 325 MG TAB PO PRN (04:52)
[2017-07-23] MEDS: INSULIN ASPART SUPPLEMENTAL SCALE SQ SCH ×4 (08:00→21:13)
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
[2017-07-23 09:21] LABS: AUTOMATED NEUTROPHIL # 6.4 TH/MM3 (1.8-7.7); BASOPHIL % 0.5 % (0.0-2.0); EOSINOPHIL # 0.1 TH/MM3 (0-0.4); EOSINOPHIL % 0.8 % (0.0-4.0); HEMATOCRIT 23.1 % (39.0-51.0); HEMOGLOBIN 7.7 GM/DL (13.0-17.0); LYMPH % 7.4 % (9.0-44.0); LYMPHOCYTE # 0.6 TH/MM3 (1.0-4.8); MEAN CELL VOLUME 83.6 FL (80.0-100.0); MEAN CORPUSCULAR HEMOGLOBIN 27.7 PG (27.0-34.0); MEAN CORPUSCULAR HGB CONC 33.1 % (32.0-36.0); MONO % 16.2 % (0.0-8.0); MONOCYTE # 1.4 TH/MM3 (0-0.9); NEUT % 75.1 % (16.0-70.0); PLATELET COUNT 199 TH/MM3 (150-450); RED BLOOD COUNT 2.77 MIL/MM3 (4.50-5.90); RED CELL DISTRIBUTION WIDTH 18.8 % (11.6-17.2); WHITE BLOOD COUNT 8.6 TH/MM3 (4.0-11.0)
[2017-07-23 09:48] LABS: ALBUMIN 2.3 GM/DL (3.4-5.0); ALKALINE PHOSPHATASE 79 U/L (45-117); ALT (GPT) 26 U/L (12-78); AST (GOT) 29 U/L (15-37); BICARBONATE 23.4 MEQ/L (21.0-32.0); BLOOD UREA NITROGEN 30 MG/DL (7-18); CALCIUM 8.2 MG/DL (8.5-10.1); CHLORIDE 103 MEQ/L (98-107); CREATININE 1.49 MG/DL (0.60-1.30); GLOMERULAR FILTRATION RATE 48 ML/MIN (>89); GLUCOSE,RANDOM 101 MG/DL (74-106); SODIUM (NA) 134 MEQ/L (136-145); TOTAL BILIRUBIN ADULT 0.6 MG/DL (0.2-1.0); TOTAL PROTEIN 6.4 GM/DL (6.4-8.2)
[2017-07-23] MEDS: AMIODARONE 200 MG TAB PO SCH ×2 (10:44→21:02)
[2017-07-23] MEDS: GABAPENTIN 100 MG CAP PO SCH ×2 (10:44→21:02)
[2017-07-23] MEDS: CARVEDILOL 3.125 MG TAB PO SCH ×2 (10:44→21:02)
[2017-07-23] MEDS: PANTOPRAZOLE SOD 40 MG DELAYED RELEASE TAB PO SCH (10:44)
[2017-07-23] MEDS: APIXABAN 2.5 MG TABLET PO SCH ×2 (10:44→21:02)
[2017-07-23] MEDS: DOCUSATE SODIUM 50 MG/SENNA 8.6 MG TAB PO SCH ×2 (10:45→21:14)
[2017-07-23] MEDS: SODIUM CHLORIDE 0.9% FLUSH 10 ML FLUSH IV FLUSH SCH ×2 (10:45→21:03)
[2017-07-23] MEDS ORDERED: FERR325T20 PO (11:45)
--- NOTE | 2017-07-23 12:24 | RADRPT ---
EXAM DATE/TIME: 07/23/2017 10:03 [facility] COMPARISON: FOOT LEFT COMPLETE ([id number]), December 01, 2016, 19:57. TIBIA/FIBULA LEFT (AP/LAT), July 23, 2017, 1 0:09. INDICATIONS : Pain and swelling with wound on dorsal foot. MEDICAL HISTORY : Cardiovascular disease. Hypertension Deep venous thrombosis. Diabetes SURGICAL HISTORY : Spinal surgery. Blood transfusion. CABG. Left ankle surgery. ENCOUNTER: Initial ACUITY: 1 day PAIN SCORE: 3/10 LOCATION: Left Foot. FINDINGS: 3 views left foot. Comparison is made to prior radiographs of 12/01/2016. There is new marked bone ero tyler of the middle phalanx, distal phalanx, and distal pole of proximal phalanx of the fifth toe. Foc al prominent new bone erosion of the second metatarsal head. Mild new bone erosion of the third metat arsal head. Periosteal reaction also noted at the second metatarsal shaft. CONCLUSION: The bone erosions of the fifth toe phalanges. New bone erosions of the second metatarsal head and to a lesser extent third metatarsal head. All these findings suggest osteomyelitis in the proper clinica l setting. Bridger Cruz MD on July 23, 2017 at 12:06 Board Certified Radiologist. This report was verified electronically.
--- NOTE | 2017-07-23 12:26 | RADRPT ---
EXAM DATE/TIME: 07/23/2017 10:09 [facility] COMPARISON: ANKLE LEFT COMPLETE ([id number]), December 01, 2016, 19:55. INDICATIONS : Pain and swelling. Wound on anterior tib fib. MEDICAL HISTORY : Cardiovascular disease. Hypertension Deep venous thrombosis. Diabetes SURGICAL HISTORY : CABG. Left ankle surgery. Spinal surgery. Blood transfusion. ENCOUNTER: Initial ACUITY: 1 day PAIN SCORE: 3/10 LOCATION: Left Tib Fib. FINDINGS: 4 views of the left tibia and fibula. Old healed distal tibia and fibula fractures are again seen wit h medial internal fixation plate and transfixing screws in the distal tibia. Small osteophytes of the knee. No evidence of acute fracture. Diffuse arterial calcification noted. No evidence of focal bone erosion. No abnormal periosteal reaction noted. CONCLUSION: Old healed distal tibia and fibula fractures with internal fixation hardware in the distal tibia. No radiographic evidence of osteomyelitis. Bridger Cruz MD on July 23, 2017 at 12:22 Board Certified Radiologist. This report was verified electronically.
[2017-07-23] MEDS: ACETAMINOPHEN/HYDROcodone 325 MG/5 MG TAB PO PRN (12:27)
[2017-07-23] MEDS: FERROUS SULFATE 325 MG (65 MG ELEMENTAL IRON) TAB PO SCH ×2 (12:27→18:02)
[2017-07-23] MEDS ORDERED: Vancomycin Consult Pharmacy 1 EA OTHER PRN (13:15)
[2017-07-23] MEDS ORDERED: VANCOMYCIN 1,500 MG/NS 500 ML IV ONE ×2 (14:00)
[2017-07-23] MEDS: PIPERACIL-TAZO 4.5 GM PREMIX 100 ML IV SCH ×2 (14:14→20:00)
[2017-07-23] MEDS ORDERED: GADODIAMIDE PF 287 MG/ML 5 ML VIAL (for RAD MRI) IVCONTRAST ONE (17:11)
[2017-07-23] MEDS ORDERED: Vancomycin Consult Pharmacy 1 EA OTHER SCH (17:15)
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
--- NOTE | 2017-07-23 17:34 | RADRPT ---
EXAM DATE/TIME: 07/23/2017 16:47 [facility] COMPARISON: FOOT LEFT COMPLETE ([id number]), July 23, 2017, 10:03. INDICATIONS : Osteomyelitis. CONTRAST: 14 cc Omniscan (gadodiamide) IV MEDICAL HISTORY : Diabetes mellitus type 2. Arthritis. SURGICAL HISTORY : CABG Fusion, lumbar. IVC Filter placement. ENCOUNTER: Initial ACUITY: 1 day PAIN SCORE: 4/10 LOCATION: Left foot TECHNIQUE: Multiplanar, multisequence MRI examination was performed without contrast and after the intravenous a dministration of gadolinium. FINDINGS: BONE/CARTILAGE: Severe ill-defined bone erosion of the fifth toe involving the middle and distal phalanges and the di stal one half of the proximal phalanx. Confluent bone marrow signal abnormality in the base of the pr oximal phalanx on the T1-weighted images. Diffuse enhancement on postcontrast images in all these are as as well as the periosteal region of the fifth metatarsal head. Ill-defined bone erosion of the sec ond metatarsal head and mild bone erosion of the third metatarsal head. Mild enhancement in these reg ions on the postcontrast images. TENDONS: All of the visualized tendons are intact. MISCELLANEOUS: Plantar aponeurosis is intact. Sinus tarsi is within normal limits. POST-CONTRAST: There are no abnormal areas of enhancement on the post-contrast images. CONCLUSION: 1. Findings indicating osteomyelitis of the fifth toe in the proper clinical setting. There is involv ement of the middle and distal phalanges as well as the majority of the proximal phalanx. Early invol vement of the fifth metatarsal head. 2. Age-indeterminate bone erosion of the second metatarsal head and to lesser extent the third metata rsal head. Mild enhancement in these areas. There is adjacent mild soft tissue enhancement. The enhan cement in these regions is much less intense than at the fifth toe. These findings may represent suba cute to chronic infection. Bridger Cruz MD on July 23, 2017 at 17:25 Board Certified Radiologist. This report was verified electronically.
[2017-07-24] VITALS (13 sets, daily range): BP systolic 105–160; BP diastolic 54–73; PULSE 55–71; RESP 16–24; TEMP 97.7–99.3; O2SAT 96–99
[2017-07-24] MEDS: ACETAMINOPHEN/HYDROcodone 325 MG/10 MG TAB PO PRN
[2017-07-24] MEDS: PIPERACIL-TAZO 4.5 GM PREMIX 100 ML IV SCH ×4 (02:00→21:00)
[2017-07-24 08:25] LABS: AUTOMATED NEUTROPHIL # 4.7 TH/MM3 (1.8-7.7); BASOPHIL # 0.1 TH/MM3 (0-0.2); BASOPHIL % 0.8 % (0.0-2.0); EOSINOPHIL # 0.1 TH/MM3 (0-0.4); EOSINOPHIL % 1.6 % (0.0-4.0); LYMPH % 10.7 % (9.0-44.0); LYMPHOCYTE # 0.7 TH/MM3 (1.0-4.8); MEAN CORPUSCULAR HEMOGLOBIN 28.3 PG (27.0-34.0); MEAN CORPUSCULAR HGB CONC 33.7 % (32.0-36.0); MONO % 12.7 % (0.0-8.0); MONOCYTE # 0.8 TH/MM3 (0-0.9); NEUT % 74.2 % (16.0-70.0); PLATELET COUNT 200 TH/MM3 (150-450); RED BLOOD COUNT 2.45 MIL/MM3 (4.50-5.90); RED CELL DISTRIBUTION WIDTH 19.1 % (11.6-17.2); WHITE BLOOD COUNT 6.3 TH/MM3 (4.0-11.0)
[2017-07-24 08:43] LABS: HEMATOCRIT 20.6 % (39.0-51.0); HEMOGLOBIN 6.9 GM/DL (13.0-17.0)
[2017-07-24 09:03] LABS: BICARBONATE 24.5 MEQ/L (21.0-32.0); CALCIUM 8.3 MG/DL (8.5-10.1); CREATININE 1.64 MG/DL (0.60-1.30)
[2017-07-24 09:05] LABS: RANDOM VANCOMYCIN 11.3 COMMENT
[2017-07-24] MEDS: SODIUM CHLOR 0.9% 1000 ML INJ 1,000 ML IV SCH ×2 (09:09→17:31)
[2017-07-24] MEDS: SODIUM CHLORIDE 0.9% FLUSH 10 ML FLUSH IV FLUSH SCH ×2 (09:09→21:00)
[2017-07-24] MEDS: DOCUSATE SODIUM 50 MG/SENNA 8.6 MG TAB PO SCH ×2 (09:10→21:00)
[2017-07-24] MEDS: APIXABAN 2.5 MG TABLET PO SCH ×2 (09:10→21:01)
[2017-07-24] MEDS: PANTOPRAZOLE SOD 40 MG DELAYED RELEASE TAB PO SCH (09:10)
[2017-07-24] MEDS: GABAPENTIN 100 MG CAP PO SCH ×2 (09:10→21:01)
[2017-07-24] MEDS: AMIODARONE 200 MG TAB PO SCH ×2 (09:10→21:01)
[2017-07-24] MEDS: CARVEDILOL 3.125 MG TAB PO SCH ×2 (09:10→21:01)
[2017-07-24] MEDS: INSULIN ASPART SUPPLEMENTAL SCALE SQ SCH ×4 (09:19→21:02)
[2017-07-24] MEDS ORDERED: VANCOMYCIN 1,500 MG/NS 500 ML IV ONE ×2 (11:00)
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
[2017-07-24 13:24] LABS: HEMATOCRIT 21.9 % (39.0-51.0); HEMOGLOBIN 7.2 GM/DL (13.0-17.0)
[2017-07-24] MEDS: FERROUS SULFATE 325 MG (65 MG ELEMENTAL IRON) TAB PO SCH ×2 (13:28→17:32)
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
[2017-07-24] MEDS: SODIUM CHLORIDE 0.9% IV SCH (17:31)
[2017-07-24] MEDS: DAPTOMYCIN IV SCH (17:31)
[2017-07-24] MEDS: ACETAMINOPHEN 325 MG TAB PO PRN ×2 (17:58→23:46)
[2017-07-24] MEDS: ALPRAZolam 0.5 MG TAB PO PRN (21:01)
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
[2017-07-25] VITALS (8 sets, daily range): BP systolic 135–178; BP diastolic 63–84; PULSE 49–60; RESP 17–20; TEMP 97.6–98.3; O2SAT 97–100
[2017-07-25] MEDS: SODIUM CHLOR 0.9% 1000 ML INJ 1,000 ML IV SCH ×2 (02:36→12:58)
[2017-07-25] MEDS: PIPERACIL-TAZO 4.5 GM PREMIX 100 ML IV SCH ×4 (02:36→20:36)
[2017-07-25] MEDS: ACETAMINOPHEN/HYDROcodone 325 MG/10 MG TAB PO PRN ×2 (04:36→17:41)
[2017-07-25 07:42] LABS: AUTOMATED NEUTROPHIL # 3.9 TH/MM3 (1.8-7.7); BASOPHIL % 0.9 % (0.0-2.0); EOSINOPHIL # 0.2 TH/MM3 (0-0.4); EOSINOPHIL % 3.5 % (0.0-4.0); HEMATOCRIT 21.2 % (39.0-51.0); HEMOGLOBIN 7.2 GM/DL (13.0-17.0); LYMPH % 12.1 % (9.0-44.0); LYMPHOCYTE # 0.7 TH/MM3 (1.0-4.8); MEAN CELL VOLUME 84.7 FL (80.0-100.0); MEAN CORPUSCULAR HEMOGLOBIN 28.8 PG (27.0-34.0); MEAN CORPUSCULAR HGB CONC 34.1 % (32.0-36.0); MEAN PLATELET VOLUME 8.4 FL (7.0-11.0); MONO % 11.2 % (0.0-8.0); MONOCYTE # 0.6 TH/MM3 (0-0.9); NEUT % 72.3 % (16.0-70.0); PLATELET COUNT 209 TH/MM3 (150-450); WHITE BLOOD COUNT 5.4 TH/MM3 (4.0-11.0)
[2017-07-25 08:44] LABS: BICARBONATE 24.6 MEQ/L (21.0-32.0); CALCIUM 8.4 MG/DL (8.5-10.1); CREATININE 1.7 MG/DL (0.60-1.30)
[2017-07-25 08:45] LABS: RANDOM VANCOMYCIN 15.9 COMMENT
[2017-07-25] MEDS: DOCUSATE SODIUM 50 MG/SENNA 8.6 MG TAB PO SCH ×2 (09:00→20:37)
[2017-07-25] MEDS: GABAPENTIN 100 MG CAP PO SCH ×2 (09:13→20:36)
[2017-07-25] MEDS: ACETAMINOPHEN 325 MG TAB PO PRN (09:13)
[2017-07-25] MEDS: CARVEDILOL 3.125 MG TAB PO SCH ×2 (09:13→20:36)
[2017-07-25] MEDS: APIXABAN 2.5 MG TABLET PO SCH ×2 (09:13→20:36)
[2017-07-25] MEDS: PANTOPRAZOLE SOD 40 MG DELAYED RELEASE TAB PO SCH (09:13)
[2017-07-25] MEDS: AMIODARONE 200 MG TAB PO SCH ×2 (09:13→20:36)
[2017-07-25] MEDS: SODIUM CHLORIDE 0.9% FLUSH 10 ML FLUSH IV FLUSH SCH ×2 (09:14→20:37)
[2017-07-25] MEDS: INSULIN ASPART SUPPLEMENTAL SCALE SQ SCH ×4 (09:14→20:38)
--- NOTE | 2017-07-25 10:25 | PD.CONS ---
[facility] Service Nephrology Consult Requested By Dr. Gurrola Reason for Consult Acute kidney injury Primary Care Physician [facility] History of Present Illness Patient is a 62-year-old male with a PMH of A. fib on Eliquis, HTN, Hyperlipidemia, CAD and CHF. He presented to the ER with complaints of chest pain. Troponin have remained negative. Patient was found to have potassium level of 2.8 and protein corrected calcium level of 6.2 with replacement was given. He is also being followed by podiatry and infectious disease for osteomyelitis of left foot. Nephrology is consulted for elevated renal indices with a creatinine of 1.7 today with a admission creatinine of 1.04. Patient has a past medical history of elevated creatinine in January of 2017 with creatinine of 1.35. Renal US with no obstructive uropathy, stable adjacent cysts versus a single cyst with septation in the mid right kidney measuring up to 2.4 cm., and trace ascites. (Miriam Centeno) Review of Systems Respiratory: DENIES: Cough, Snoring, Shortness of breath Cardiovascular: DENIES: Chest pain, Lower Extremity Edema Gastrointestinal: DENIES: Diarrhea, Nausea, Vomiting Musculoskeletal: COMPLAINS OF: Joint pain, Muscle aches, Stiffness (Miriam Centeno) Past Family Social History Allergies: Coded Allergies: No Known Allergies (Verified Allergy, Unknown, 07/22/17) Past Medical History A. fib on Eliquis Hypertension Hyperlipidemia Coronary artery disease Congestive heart failure Past Surgical History Tib-fib ORIF Back Surgery Active Ordered Medications Current Medications Medications (Trade) Dose Ordered Sig/Abida Route Start Time Stop Time Status Last Admin (NS Flush) 2 ml UNSCH PRN IV FLUSH 07/22/17 04:45 (NS Flush) 2 ml BID IV FLUSH 07/22/17 09:00 07/25/17 09:14 (Zofran Inj) 4 mg Q6H PRN IVP 07/22/17 04:45 (Tylenol) 650 mg Q6H PRN PO 07/22/17 04:45 07/25/17 09:13 ([place] 5-325 Mg) 1 tab Q4H PRN PO 07/22/17 04:45 07/23/17 12:27 ([place] 10-325 Mg) 1 tab Q4H PRN PO 07/22/17 04:45 07/25/17 04:36 (Eula-Colace) 1 tab BID PO 07/22/17 09:00 (Milk Of Magnesia Liq) 30 ml Q12H PRN PO 07/22/17 04:45 (Senokot) 17.2 mg Q12H PRN PO 07/22/17 04:45 (Dulcolax Supp) 10 mg DAILY PRN RECTAL 07/22/17 04:45 (Lactulose Liq) 30 ml DAILY PRN PO 07/22/17 04:45 (D50w (Vial) Inj) 50 ml UNSCH PRN IV PUSH 07/22/17 04:45 (Glucagon Inj) 1 mg UNSCH PRN OTHER 07/22/17 04:45 (NovoLOG SUPPLEMENTAL SCALE) 1 ACHS SLIDING SCALE SQ 07/22/17 08:00 07/25/17 09:14 (Xanax) 0.5 mg Q4H PRN PO 07/22/17 04:45 07/24/17 21:01 (Cordarone) 400 mg BID PO 07/22/17 09:00 07/25/17 09:13 (Eliquis) 2.5 mg BID PO 07/22/17 09:00 07/25/17 09:13 (Coreg) 3.125 mg Q12HR PO 07/22/17 09:00 07/25/17 09:13 (Neurontin) 100 mg BID PO 07/22/17 09:00 07/25/17 09:13 (Protonix) 40 mg DAILY PO 07/22/17 09:00 07/25/17 09:13 Sodium Chloride 1,000 ml @ 100 mls/hr Q10H IV 07/22/17 15:00 07/25/17 12:58 (Ferrous Sulfate) 325 mg BID@12,17 PO 07/23/17 12:00 07/25/17 12:58 Piperacillin Sod/ Tazobactam Sod 100 ml @ 200 mls/hr Q6H IV 07/23/17 14:00 07/25/17 09:14 Daptomycin 720 mg/ Sodium Chloride 100 ml @ 200 mls/hr Q24H IV 07/24/17 17:00 07/24/17 17:31 Family History Social History Occasional alcohol. Negative for tobacco. + Marijuana. (Miriam Centeno) Physical Exam Vital Signs Vital Signs Date Time Temp Pulse Resp B/P (MAP) Pulse Ox O2 Delivery O2 Flow Rate FiO2 07/25/17 08:10 98.1 53 20 152/69 (96) 98 07/25/17 04:00 49 07/25/17 04:00 Room Air 07/25/17 04:00 97.6 56 18 145/68 (93) 98 07/25/17 00:00 60 07/25/17 00:00 Room Air 07/25/17 00:00 98.2 59 17 135/63 (87) 97 07/24/17 21:08 99.0 62 16 127/64 (85) 96 07/24/17 20:00 Room Air 07/24/17 20:00 64 07/24/17 18:37 Room Air 07/24/17 17:00 68 07/24/17 16:02 98.4 63 16 141/65 (90) 98 07/24/17 14:59 61 07/24/17 12:00 55 07/24/17 11:32 98.2 58 20 127/61 (83) 98 Physical Exam GENERAL: Alert and oriented SKIN: Warm and dry. HEAD: Normocephalic. EYES: No scleral icterus. No injection or drainage. NECK: Supple, trachea midline. No JVD or lymphadenopathy. CARDIOVASCULAR: Regular rate and rhythm without murmurs, gallops, or rubs. RESPIRATORY: Breath sounds equal bilaterally. No accessory muscle use. GASTROINTESTINAL: Abdomen soft, non-tender, nondistended. MUSCULOSKELETAL: No cyanosis. Left foot edematous with erythema extending up to mid calf. BACK: Nontender without obvious deformity. No CVA tenderness. Laboratory Laboratory Tests Test 07/24/17 12:44 07/25/17 06:15 Hemoglobin 7.2 7.2 Hematocrit 21.9 21.2 White Blood Count 5.4 Red Blood Count 2.50 Mean Corpuscular Volume 84.7 Mean Corpuscular Hemoglobin 28.8 Mean Corpuscular Hemoglobin Concent 34.1 Red Cell Distribution Width 19.0 Platelet Count 209 Mean Platelet Volume 8.4 Neutrophils (%) (Auto) 72.3 Lymphocytes (%) (Auto) 12.1 Monocytes (%) (Auto) 11.2 Eosinophils (%) (Auto) 3.5 Basophils (%) (Auto) 0.9 Neutrophils # (Auto) 3.9 Lymphocytes # (Auto) 0.7 Monocytes # (Auto) 0.6 Eosinophils # (Auto) 0.2 Basophils # (Auto) 0.0 CBC Comment DIFF FINAL Differential Comment Blood Urea Nitrogen 23 Creatinine 1.70 Random Glucose 168 Calcium Level 8.4 Sodium Level 139 Potassium Level 4.4 Chloride Level 108 Carbon Dioxide Level 24.6 Anion Gap 6 Estimat Glomerular Filtration Rate 41 Random Vancomycin Level 15.9 Date/Time Source Procedure Growth Status 07/23/17 15:10 Blood Peripheral Aerobic Blood Culture - Preliminary NO GROWTH IN 1 DAY Resulted 07/23/17 15:10 Blood Peripheral Anaerobic Blood Culture - Preliminary NO GROWTH IN 1 DAY Resulted 07/24/17 18:20 Wound Foot Gram Stain - Final Resulted 07/24/17 18:20 Wound Foot Wound Culture Pending Resulted (Miriam Centeno) Result Diagram: 07/25/17 0615 07/25/17 0615 Imaging Last Impressions Tibia/Fibula X-Ray 07/23/17 0000 Signed Impressions: Service Date/Time: Sunday, July 23, 2017 10:09 - CONCLUSION: Old healed distal tibia and fibula fractures with internal fixation hardware in the distal tibia. No radiographic evidence of osteomyelitis. Bridger Cruz MD Foot X-Ray 07/23/17 0000 Signed Impressions: Service Date/Time: Sunday, July 23, 2017 10:03 - CONCLUSION: The bone erosions of the fifth toe phalanges. New bone erosions of the second metatarsal head and to a lesser extent third metatarsal head. All these findings suggest osteomyelitis in the proper clinical setting. Bridger Cruz MD Foot MRI 07/23/17 0000 Signed Impressions: Service Date/Time: Sunday, July 23, 2017 16:47 - CONCLUSION: 1. Findings indicating osteomyelitis of the fifth toe in the proper clinical setting. There is involvement of the middle and distal phalanges as well as the majority of the proximal phalanx. Early involvement of the fifth metatarsal head. 2. Age-indeterminate bone erosion of the second metatarsal head and to lesser extent the third metatarsal head. Mild enhancement in these areas. There is adjacent mild soft tissue enhancement. The enhancement in these regions is much less intense than at the fifth toe. These findings may represent subacute to chronic infection. Bridger Cruz MD Renal Ultrasound 07/22/17 0000 Signed Impressions: Service Date/Time: Saturday, July 22, 2017 16:34 - CONCLUSION: 1. No obstructive uropathy. 2. Stable adjacent cysts versus a single cyst with septation in the mid right kidney measuring up to 2.4 cm. 3. Trace ascites. El Mosher MD Chest X-Ray 07/22/17 0000 Signed Impressions: Service Date/Time: Saturday, July 22, 2017 04:28 - CONCLUSION: Posterolateral left seventh rib fracture. No acute cardiopulmonary findings Salvador Harding MD (Miriam Centeno) Assessment and Plan Problem List: (1) EVELYNE (acute kidney injury) ICD Codes: N17.9 - Acute kidney failure, unspecified Plan: Acute kidney injury with a creatinine of 1.7 today with a admission creatinine of 1.04. EVELYNE from possible prerenal VS ATN from infection vs adverse medication effect May have past medical history of chronic kidney disease with noted elevated creatinine in January. Renal US with no obstructive uropathy, stable adjacent cysts versus a single cyst with septation in the mid right kidney measuring up to 2.4 cm., and trace ascites. Plan Will monitor Urinary output and renal panel Avoid nephrotoxins Renal dose antibiotics Urine sodium, creatinine, and osmolarity ordered labs in AM (2) Normochromic normocytic anemia ICD Codes: D64.9 - Anemia, unspecified Plan: will monitor (3) DM (diabetes mellitus) ICD Codes: E11.9 - Type 2 diabetes mellitus without complications Plan: Maintain blood sugars between 140 mg/dl to 180mg/dl (Miriam Centeno) Problem List: (1) EVELYNE (acute kidney injury) ICD Codes: N17.9 - Acute kidney failure, unspecified Plan: Acute kidney injury with a creatinine of 1.7 today with a admission creatinine of 1.04. EVELYNE from possible prerenal VS ATN from infection vs adverse medication effect May have past medical history of chronic kidney disease with noted elevated creatinine in January. Renal US with no obstructive uropathy, stable adjacent cysts versus a single cyst with septation in the mid right kidney measuring up to 2.4 cm., and trace ascites. Plan Will monitor Urinary output and renal panel Avoid nephrotoxins Renal dose antibiotics Urine sodium, creatinine, and osmolarity ordered labs in AM. Patient seen and examined, agree with above. EVELYNE, with possible pre renal, or ATN. (2) Normochromic normocytic anemia ICD Codes: D64.9 - Anemia, unspecified Plan: will monitor (3) DM (diabetes mellitus) ICD Codes: E11.9 - Type 2 diabetes mellitus without complications Plan: Maintain blood sugars between 140 mg/dl to 180mg/dl (Roni Cueva MD) Miriam Centeno July 25, 2017 10:25 Roni Cueva MD July 26, 2017 22:04
[2017-07-25] MEDS: FERROUS SULFATE 325 MG (65 MG ELEMENTAL IRON) TAB PO SCH ×2 (12:58→17:41)
--- NOTE | 2017-07-25 13:35 | RADRPT ---
EXAM DATE/TIME: 07/24/2017 00:00 [facility] COMPARISON: CT ABDOMEN & PELVIS W/O CONTRAST, February 17, 2017, 16:32. INDICATIONS : Left dorsal foot ulcer, osteomyelitis left foot second and third metatarsal heads TECHNIQUE: Four-cuff ankle and brachial pressures were obtained. Pulse cuff waveform tracings of the ankles were recorded, and ankle-brachial indices were calculated. PRESSURES (mmHg): Brachial (arm): Right iv site Left 128 Ankle: Right 99 Left 136 MERON: Right 0.77 Left 1.06 TBI: Right 0.53 Left 0.89 PULSED CUFF WAVEFORMS: Decreased amplitude in the right ankle and toe CONCLUSION: 1. Findings consistent with mild right lower extremity peripheral arterial disease. 2. Normal range ankle-brachial indices on the left. El Mosher MD on July 25, 2017 at 13:31 Board Certified Radiologist. This report was verified electronically.
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
[2017-07-25] MEDS: SODIUM CHLORIDE 0.9% IV SCH (17:41)
[2017-07-25] MEDS: DAPTOMYCIN IV SCH (17:41)
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
[2017-07-25 19:19] LABS: CREATININE, RANDOM URINE 14.3 MG/DL
[2017-07-26] VITALS (10 sets, daily range): BP systolic 127–152; BP diastolic 58–70; PULSE 46–67; RESP 16–21; TEMP 97.7–98.4; O2SAT 96–98
[2017-07-26] MEDS: SODIUM CHLOR 0.9% 1000 ML INJ 1,000 ML IV SCH ×2 (01:11→12:01)
[2017-07-26] MEDS: PIPERACIL-TAZO 4.5 GM PREMIX 100 ML IV SCH ×3 (01:11→14:23)
[2017-07-26] MEDS ORDERED: POVIDONE IODINE 5% (ANTISEPSIS KIT) 4 APPLICATIONS EACH NARE PRN (01:45)
[2017-07-26] MEDS ORDERED: CHLORHEXIDINE GLUCONATE 2 % 1 PACK (2 CLOTHS) TOPICAL PRN (01:45)
[2017-07-26] MEDS ORDERED: LACTATED RINGER'S 1000 ML IV PRN (01:45)
[2017-07-26] MEDS ORDERED: SODIUM CHLORID 0.9% 500 ML IV PRN (01:45)
[2017-07-26] MEDS: ACETAMINOPHEN/HYDROcodone 325 MG/10 MG TAB PO PRN ×3 (06:12→23:02)
[2017-07-26] MEDS: INSULIN ASPART SUPPLEMENTAL SCALE SQ SCH ×4 (08:00→21:00)
[2017-07-26] MEDS: DOCUSATE SODIUM 50 MG/SENNA 8.6 MG TAB PO SCH ×2 (09:00→23:00)
[2017-07-26] MEDS: SODIUM CHLORIDE 0.9% FLUSH 10 ML FLUSH IV FLUSH SCH ×2 (09:00→21:00)
[2017-07-26] MEDS: PANTOPRAZOLE SOD 40 MG DELAYED RELEASE TAB PO SCH (09:37)
[2017-07-26] MEDS: CARVEDILOL 3.125 MG TAB PO SCH ×2 (09:37→23:01)
[2017-07-26] MEDS: GABAPENTIN 100 MG CAP PO SCH ×2 (09:37→23:01)
[2017-07-26] MEDS: AMIODARONE 200 MG TAB PO SCH ×2 (09:38→23:00)
[2017-07-26] MEDS: APIXABAN 2.5 MG TABLET PO SCH ×2 (09:41→23:02)
--- NOTE | 2017-07-26 10:31 | HHI.NPPN ---
Subjective Renal Failure: Acute History of Present Illness Patient is a 62-year-old male with a PMH of A. fib on Eliquis, HTN, Hyperlipidemia, CAD and CHF. He presented to the ER with complaints of chest pain. Troponin have remained negative. Patient was found to have potassium level of 2.8 and protein corrected calcium level of 6.2 with replacement was given. He is also being followed by podiatry and infectious disease for osteomyelitis of left foot. Nephrology is consulted for elevated renal indices with a creatinine of 1.7 today with a admission creatinine of 1.04. Patient has a past medical history of elevated creatinine in January of 2017 with creatinine of 1.35. Renal US with no obstructive uropathy, stable adjacent cysts versus a single cyst with septation in the mid right kidney measuring up to 2.4 cm., and trace ascites. Additional Remarks Resting comfortable. Denies any Shortness of breath. Plans to OR today for left foot (Miriam Centeno) Review of Systems Respiratory Respiratory Remarks Denies any SOB (Miriam Centeno) Cardiovascular Cardiac Remarks No chest pain (Miriam Centeno) Gastrointestinal GI Remarks No abdominal pain (Miriam Centeno) Objective Data Data Vital Signs Date Time Temp Pulse Resp B/P (MAP) Pulse Ox O2 Delivery O2 Flow Rate FiO2 07/26/17 08:02 98.3 54 16 140/70 (93) 97 07/26/17 04:00 98.3 60 17 152/70 (97) 98 07/26/17 04:00 60 07/26/17 03:58 Room Air 07/26/17 00:00 98.4 58 21 127/58 (81) 98 07/26/17 00:00 61 07/26/17 00:00 Room Air 07/25/17 20:00 98.1 60 17 135/64 (87) 98 07/25/17 20:00 59 07/25/17 20:00 Room Air 07/25/17 16:00 59 07/25/17 15:45 97.7 60 18 178/84 (115) 100 07/25/17 12:00 98.3 51 20 143/82 (102) 100 07/25/17 12:00 51 (Miriam Centeno) -: 07/25/17 0615 07/25/17 0615 Imaging Last Impressions Tibia/Fibula X-Ray 07/23/17 Signed Impressions: Service Date/Time: Sunday, July 23, 2017 10:09 - CONCLUSION: Old healed distal tibia and fibula fractures with internal fixation hardware in the distal tibia. No radiographic evidence of osteomyelitis. Bridger Cruz MD Foot X-Ray 07/23/17 Signed Impressions: Service Date/Time: Sunday, July 23, 2017 10:03 - CONCLUSION: The bone erosions of the fifth toe phalanges. New bone erosions of the second metatarsal head and to a lesser extent third metatarsal head. All these findings suggest osteomyelitis in the proper clinical setting. Bridger Cruz MD Foot MRI 07/23/17 Signed Impressions: Service Date/Time: Sunday, July 23, 2017 16:47 - CONCLUSION: 1. Findings indicating osteomyelitis of the fifth toe in the proper clinical setting. There is involvement of the middle and distal phalanges as well as the majority of the proximal phalanx. Early involvement of the fifth metatarsal head. 2. Age-indeterminate bone erosion of the second metatarsal head and to lesser extent the third metatarsal head. Mild enhancement in these areas. There is adjacent mild soft tissue enhancement. The enhancement in these regions is much less intense than at the fifth toe. These findings may represent subacute to chronic infection. Bridger Cruz MD Renal Ultrasound 07/22/17 Signed Impressions: Service Date/Time: Saturday, July 22, 2017 16:34 - CONCLUSION: 1. No obstructive uropathy. 2. Stable adjacent cysts versus a single cyst with septation in the mid right kidney measuring up to 2.4 cm. 3. Trace ascites. El Mosher MD Chest X-Ray 07/22/17 Signed Impressions: Service Date/Time: Saturday, July 22, 2017 04:28 - CONCLUSION: Posterolateral left seventh rib fracture. No acute cardiopulmonary findings Salvador Harding MD (Miriam Centeno) Physical Exam General Appearance: No Acute Distress, Comfortable (Miriam Centeno) Throat Throat Exam: Oral Mucosa Lastrup & Moist (Miriam Centeno) Neck Neck Exam: Neck Supple (Miriam Centeno) Pulmonary Resp Exam: Clear Bilaterally, Breath Sounds Equal, No Distress (Miriam Centeno) Cardiology CV Exam: Regular, Normal Sinus Rhythm (Miriam Centeno) Gastrointestinal/Abdomen GI Exam: Soft, Bowel Sounds Present (Miriam Centeno) Genitourinary Exam: Flank Non-Tender (Miriam Centeno) Integumentary Skin Exam: Clear, Warm Skin Remarks Left lower extremity with +2 edema severe tenderness to light touch, erythematous, he had to wounds that looks dry on the dorsal surface of the foot and from rae (Miriam Centeno) Extremeties Extremities Exam: Moderate Edema (Miriam Centeno) Assessment/Plan Problem List: (1) EVELYNE (acute kidney injury) ICD Codes: N17.9 - Acute kidney failure, unspecified Plan: Acute kidney injury with a creatinine of 1.7 today with a admission creatinine of 1.04. EVELYNE from possible prerenal VS ATN from infection vs adverse medication effect May have past medical history of chronic kidney disease with noted elevated creatinine in January. Renal US with no obstructive uropathy, stable adjacent cysts versus a single cyst with septation in the mid right kidney measuring up to 2.4 cm., and trace ascites. FeNa at 7 % suggestive of acute tubular necrosis. Plan Will monitor Urinary output and renal panel Urine with large blood may need evaluation per urology Avoid nephrotoxins Renal dose antibiotics Plan to OR today for left foot. Continue IVF Labs in AM (2) Normochromic normocytic anemia ICD Codes: D64.9 - Anemia, unspecified Plan: will monitor (3) DM (diabetes mellitus) ICD Codes: E11.9 - Type 2 diabetes mellitus without complications Plan: Maintain blood sugars between 140 mg/dl to 180mg/dl (Miriam Centeno) Problem List: (1) EVELYNE (acute kidney injury) ICD Codes: N17.9 - Acute kidney failure, unspecified Plan: Acute kidney injury with a creatinine of 1.7 today with a admission creatinine of 1.04. EVELYNE from possible prerenal VS ATN from infection vs adverse medication effect May have past medical history of chronic kidney disease with noted elevated creatinine in January. Renal US with no obstructive uropathy, stable adjacent cysts versus a single cyst with septation in the mid right kidney measuring up to 2.4 cm., and trace ascites. FeNa at 7 % suggestive of acute tubular necrosis. Plan Will monitor Urinary output and renal panel Urine with large blood may need evaluation per urology Avoid nephrotoxins Renal dose antibiotics Plan to OR today for left foot. Continue IVF Labs in AM. Patient seen and examined, agree with above. Post debridement of left foot. Creatinine almost same. (2) Normochromic normocytic anemia ICD Codes: D64.9 - Anemia, unspecified Plan: will monitor (3) DM (diabetes mellitus) ICD Codes: E11.9 - Type 2 diabetes mellitus without complications Plan: Maintain blood sugars between 140 mg/dl to 180mg/dl (Roni Cueva MD) Miriam Centeno July 26, 2017 10:31 Roni Cueva MD July 26, 2017 22:18
[2017-07-26] MEDS ORDERED: LIDOCAINE HCL 1% PF 5 ML SYRINGE OTHER ONE (12:00)
[2017-07-26] MEDS ORDERED: PHENYLEPH/NS 1000 MCG/10 ML SYR IV ONE (12:00)
[2017-07-26] MEDS ORDERED: PROPOFOL 200 MG/20 ML AMP IV ONE (12:00)
[2017-07-26] MEDS: FERROUS SULFATE 325 MG (65 MG ELEMENTAL IRON) TAB PO SCH ×2 (12:03→17:00)
[2017-07-26] MEDS: ALPRAZolam 0.5 MG TAB PO PRN ×2 (14:26→23:00)
[2017-07-26] MEDS ORDERED: NEOMYCIN/POLYMYXIN 1 ML G.U. IRRIGANT ONE (16:11)
[2017-07-26] MEDS ORDERED: BUPIVACAINE HCL PF 0.5% 30 ML VIAL ONE (16:13)
--- NOTE | 2017-07-26 17:06 | HHI.PR ---
Subjective Remarks Patient seen in preop. Agrees with planned surgical intervention. He states he has a new anterior tibia wound he would like me to look at. Objective Vital Signs Date Time Temp Pulse Resp B/P (MAP) Pulse Ox O2 Delivery O2 Flow Rate FiO2 07/26/17 12:02 98.1 52 16 138/68 (91) 97 07/26/17 08:02 98.3 54 16 140/70 (93) 97 07/26/17 04:00 98.3 60 17 152/70 (97) 98 07/26/17 04:00 60 07/26/17 03:58 Room Air 07/26/17 00:00 98.4 58 21 127/58 (81) 98 07/26/17 00:00 61 07/26/17 00:00 Room Air 07/25/17 20:00 98.1 60 17 135/64 (87) 98 07/25/17 20:00 59 07/25/17 20:00 Room Air I/O 07/25/17 07/25/17 07/25/17 07/26/17 07/26/17 07/26/17 07:00 15:00 23:00 07:00 15:00 23:00 Intake Total 900 ml 1080 ml 800 ml Output Total 2500 ml 2000 ml 3200 ml Balance -1600 ml -920 ml -2400 ml Intake Oral 900 ml 1080 ml 800 ml Output Urine Total 2500 ml 2000 ml 3200 ml Result Diagram: 07/25/17 0615 07/25/17 0615 Imaging Last Impressions Tibia/Fibula X-Ray 07/23/17 0000 Signed Impressions: Service Date/Time: Sunday, July 23, 2017 10:09 - CONCLUSION: Old healed distal tibia and fibula fractures with internal fixation hardware in the distal tibia. No radiographic evidence of osteomyelitis. Bridger Cruz MD Foot X-Ray 07/23/17 0000 Signed Impressions: Service Date/Time: Sunday, July 23, 2017 10:03 - CONCLUSION: The bone erosions of the fifth toe phalanges. New bone erosions of the second metatarsal head and to a lesser extent third metatarsal head. All these findings suggest osteomyelitis in the proper clinical setting. Bridger Cruz MD Foot MRI 07/23/17 0000 Signed Impressions: Service Date/Time: Sunday, July 23, 2017 16:47 - CONCLUSION: 1. Findings indicating osteomyelitis of the fifth toe in the proper clinical setting. There is involvement of the middle and distal phalanges as well as the majority of the proximal phalanx. Early involvement of the fifth metatarsal head. 2. Age-indeterminate bone erosion of the second metatarsal head and to lesser extent the third metatarsal head. Mild enhancement in these areas. There is adjacent mild soft tissue enhancement. The enhancement in these regions is much less intense than at the fifth toe. These findings may represent subacute to chronic infection. Bridger Cruz MD Renal Ultrasound 07/22/17 0000 Signed Impressions: Service Date/Time: Saturday, July 22, 2017 16:34 - CONCLUSION: 1. No obstructive uropathy. 2. Stable adjacent cysts versus a single cyst with septation in the mid right kidney measuring up to 2.4 cm. 3. Trace ascites. El Mosher MD Chest X-Ray 07/22/17 0000 Signed Impressions: Service Date/Time: Saturday, July 22, 2017 04:28 - CONCLUSION: Posterolateral left seventh rib fracture. No acute cardiopulmonary findings Salvador Harding MD Other Results Microbiology Date/Time Source Procedure Growth Status 07/23/17 15:10 Blood Peripheral Aerobic Blood Culture - Preliminary NO GROWTH IN 3 DAYS Resulted 07/23/17 15:10 Blood Peripheral Anaerobic Blood Culture - Preliminary NO GROWTH IN 3 DAYS Resulted 07/24/17 18:20 Wound Foot Gram Stain - Final Complete 07/24/17 18:20 Wound Culture - Final S. Aureus Mrsa Complete Objective Remarks Dressing to left foot clean, dry and intact. New anterior tibia wound with fibrous necrotic base and drainage noted. Medications and IVs Current Medications Medications (Trade) Dose Ordered Sig/Abida Route Start Time Stop Time Status Last Admin (NS Flush) 2 ml UNSCH PRN IV FLUSH 07/22/17 04:45 (NS Flush) 2 ml BID IV FLUSH 07/22/17 09:00 07/25/17 09:14 (Zofran Inj) 4 mg Q6H PRN IVP 07/22/17 04:45 (Tylenol) 650 mg Q6H PRN PO 07/22/17 04:45 07/25/17 09:13 ([place] 5-325 Mg) 1 tab Q4H PRN PO 07/22/17 04:45 07/23/17 12:27 ([place] 10-325 Mg) 1 tab Q4H PRN PO 07/22/17 04:45 07/26/17 12:03 (Eula-Colace) 1 tab BID PO 07/22/17 09:00 (Milk Of Magnesia Liq) 30 ml Q12H PRN PO 07/22/17 04:45 (Senokot) 17.2 mg Q12H PRN PO 07/22/17 04:45 (Dulcolax Supp) 10 mg DAILY PRN RECTAL 07/22/17 04:45 (Lactulose Liq) 30 ml DAILY PRN PO 07/22/17 04:45 (D50w (Vial) Inj) 50 ml UNSCH PRN IV PUSH 07/22/17 04:45 (Glucagon Inj) 1 mg UNSCH PRN OTHER 07/22/17 04:45 (NovoLOG SUPPLEMENTAL SCALE) 1 ACHS SLIDING SCALE SQ 07/22/17 08:00 07/25/17 20:38 (Xanax) 0.5 mg Q4H PRN PO 07/22/17 04:45 07/26/17 14:26 (Cordarone) 400 mg BID PO 07/22/17 09:00 07/26/17 09:38 (Eliquis) 2.5 mg BID PO 07/22/17 09:00 07/26/17 09:41 (Coreg) 3.125 mg Q12HR PO 07/22/17 09:00 07/26/17 09:37 (Neurontin) 100 mg BID PO 07/22/17 09:00 07/26/17 09:37 (Protonix) 40 mg DAILY PO 07/22/17 09:00 07/26/17 09:37 Sodium Chloride 1,000 ml @ 100 mls/hr Q10H IV 07/22/17 15:00 07/26/17 12:01 (Ferrous Sulfate) 325 mg BID@12,17 PO 07/23/17 12:00 07/26/17 12:03 Piperacillin Sod/ Tazobactam Sod 100 ml @ 200 mls/hr Q6H IV 07/23/17 14:00 07/26/17 14:23 Daptomycin 720 mg/ Sodium Chloride 100 ml @ 200 mls/hr Q24H IV 07/24/17 17:00 07/25/17 17:41 Lactated Ringer's 1,000 ml @ 30 mls/hr Q24H PRN IV 07/26/17 01:45 07/29/17 01:44 Sodium Chloride 500 ml @ 30 mls/hr [id number] PRN IV 07/26/17 01:45 07/29/17 01:44 (Betadine 5% Antisepsis Kit) 1 applic WATER SUPERVISOR PRN EACH NARE 07/26/17 01:45 07/29/17 01:44 (Chlorhexidine 2% Cloth) 3 pack WATER SUPERVISOR PRN TOPICAL 07/26/17 01:45 07/29/17 01:44 Assessment and Plan Assessment and Plan 62-year-old male with left dorsal foot ulcer, second and third metatarsal head osteomyelitis left foot, fifth digit osteomyelitis left foot Patient examined and evaluated with all questions answered Discussed surgical intervention for osteomyelitis Patient agreeable to left foot second and third metatarsal head resections with fifth digit amputation as well as debridement and irrigation of dorsal foot wound and left plantar hallux wound To OR Monday Vascular studies, ABIs ordered - ABIs normal to left aKci Winters DPM July 26, 2017 17:06
[2017-07-26] MEDS: SODIUM CHLORIDE 0.9% IV SCH (17:41)
[2017-07-26] MEDS: DAPTOMYCIN IV SCH (17:41)
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
[2017-07-26] MEDS ORDERED: NEOMYCIN/POLYMYXIN/BACITRACIN OINT 15 GM TUBE ONE (18:21)
--- NOTE | 2017-07-26 19:02 | HHI.PR ---
Immediate Post Op Note Procedure Date: July 26, 2017 Pre Op Diagnosis: Left second third metatarsal osteomyelitis Left fifth digit osteomyelitis Left dorsal foot ulcer Left plantar hallux ulcer Left anterior tibial ulcer Post Op Diagnosis: Same as above Surgeon: Kaci Sin Tugboat Engineer(s): None Procedure: 1. Left second and third metatarsal head resections 2. Left fifth digit amputation at metatarsal phalangeal joint 3. Left plantar hallux ulcer debridement and irrigation 4. Left dorsal foot ulcer debridement and irrigation 4. Left dorsal anterior tibia ulcer debridement irrigation Findings: None Additional Information: None Complications: None Specimen(s) removed: 1. Soft tissue left foot for culture 2. Metatarsal heads left foot for path 3. Fifth digit left foot for path Proximal clearing margin third metatarsal for path and culture Proximal clearing margin second metatarsal for path and culture Estimated blood loss: Less than 5 cc Anesthesia: General Drains: None IVF Patient to: PACU Patient Condition: Good Kaci Sin DPM July 26, 2017 19:02
[2017-07-26] MEDS ORDERED: MIDAZOLAM HCL 2 MG/2 ML VIAL ONE (19:13)
[2017-07-26] MEDS ORDERED: Post-op Orders (for Pharmacy) XX ONE (19:15)
[2017-07-26] MEDS ORDERED: NALOXONE HCL 0.4 MG/ML AMP IV PUSH PRN (19:15)
[2017-07-26] MEDS ORDERED: *morphine SULFATE 8 MG/ML PERIprocedure ONLY ONE (19:21)
--- NOTE | 2017-07-26 19:33 | MR ---
cc: Kaci Sin DPM DATE: 07/26/2017 SURGEON: Kaci Sin DPM SECURITY INSTALLATION TECHNICIAN: None. PREOPERATIVE DIAGNOSES: 1. Left foot second and third metatarsal osteomyelitis. 2. Left foot fifth digit osteomyelitis. 3. Left hallux, left dorsal foot, left anterior tibia ulcers. POSTOPERATIVE DIAGNOSES: 1. Left foot second and third metatarsal osteomyelitis. 2. Left foot fifth digit osteomyelitis. 3. Left hallux, left dorsal foot, left anterior tibia ulcers. PROCEDURES PERFORMED: 1. Left second and third metatarsal head resections. 2. Left fifth digit amputation. 3. Debridement and irrigation of left plantar hallux ulcer, left dorsal foot ulcer, and a left anterior tibia ulceration. ANESTHESIA: General with local infiltrate of 10 mL of 0.5% Marcaine plain infiltrated about the left foot MATERIALS: 3-0 nylon, 2-0 Vicryl. INJECTABLES: None. ESTIMATED BLOOD LOSS: 5 mL COMPLICATIONS: None. INDICATIONS FOR PROCEDURE: The patient's x-rays and MRIs both positive for osteomyelitis to left second and third metatarsal heads as well as left fifth digit. States he has a history of puncture wound to plantar left foot which he believes is where the osteomyelitis stems from. The patient understands all risks, benefits, complications associated with procedure. He would like to proceed with surgical intervention. DESCRIPTION OF PROCEDURE: The patient was brought to the operating room, placed on the operating room table in supine position. General anesthesia was then induced. Local infiltrate of 10 mL of 0.5% Marcaine plain was infiltrated about the left foot. A pneumatic ankle tourniquet was placed to the thigh, well padded. Left foot was prepped and draped in the usual sterile fashion. Left foot was then exsanguinated with Esmarch and tourniquet was inflated. After tourniquet was inflated, attention was directed to the left fifth digit, at which time a racquet-type incision was made to the fifth digit. This incision was carried down through subcutaneous tissue and skin with care to retract all vital neurovascular structures. The metatarsophalangeal joint was identified. Medial and lateral ligaments were transected and digit was disarticulated and was passed off the field and sent to pathology. Site was copiously irrigated. Skin was closed with 3-0 nylon. Attention was then directed to dorsal aspect of left foot, where a longitudinal incision was made lateral to the third metatarsal head and medial to the second metatarsal head secondary to a dorsal ulceration impeding interspace dissection. Both incisions were deepened through skin and subcutaneous tissue with care to retract all vital neurovascular structures. Metatarsal heads were then identified. McGlamry elevators were used to free metatarsal heads of medial and lateral ligaments. Metatarsal heads were transected with a sagittal saw. Copious irrigation was performed and after copious irrigation was performed, clean proximal margins were taken for path and culture of the second and third metatarsal heads. Soft tissue was taken from left foot for micro/culture. Subcutaneous tissue was closed with one 3-0 Vicryl stitch and skin was closed with 3-0 nylon. Attention was directed to plantar foot where ulceration was noted. This was elipsed in toto in 3:1 fashion. Subcutaneous tissue was closed with 2-0 Vicryl. Skin was closed with 3-0 nylon. Attention was then directed to plantar left foot wound measuring 1 cm x 1 cm with 0.1 depth, dorsal foot wound measuring 3 cm x 1 cm with 0.1 depth, and anterior tibial wound measuring 3 cm x 2 cm with 0.1 depth. All were debrided. Full- thickness excisional debridement was performed. All necrotic nonviable tissue was excised. Sites were copiously irrigated. Triple antibiotic was placed to all sites debrided. All sites were dressed with Adaptic, 4 x 4s, cast padding and Geoffrey. Tourniquet was deflated at 70 minutes. The patient tolerated the procedure and anesthesia well. He was transferred from the OR to PACU with vital signs stable and neurovascular status intact. LUZ Chan , 07:11 PM , 07:31 PM DONNELL
[2017-07-26] MEDS ORDERED: DO NOT ADM ANY ANTICOAGULANT DRUGS PRN (19:45)
--- NOTE | 2017-07-26 20:06 | RADRPT ---
EXAM DATE/TIME: 07/26/2017 19:36 [facility] COMPARISON: FOOT LEFT COMPLETE ([id number]), July 23, 2017, 10:03. INDICATIONS : Post op left foot. MEDICAL HISTORY : None. SURGICAL HISTORY : None. ENCOUNTER: Initial ACUITY: 1 day PAIN SCORE: Non-responsive. LOCATION: Left foot. FINDINGS: Three view examination of the left foot demonstrates the patient is status post amputation of the dis sam aspects of the second and third metatarsals. There appears to be a fracture deformity at the dist al aspect of the fourth proximal phalanx. This was present on the prior exam. This appears chronic. S urgical hardware is seen at the distal tibia. CONCLUSION: Status post agitation of the distal aspects of the second and third metatarsals and the fifth digit a at the level of the tip MTP joint Salvador Ramirez MD on July 26, 2017 at 20:01 Board Certified Radiologist. This report was verified electronically.
[2017-07-27] VITALS (9 sets, daily range): BP systolic 115–156; BP diastolic 57–73; PULSE 53–75; RESP 16–20; TEMP 97.9–98.9; O2SAT 96–100
[2017-07-27] MEDS: PIPERACIL-TAZO 4.5 GM PREMIX 100 ML IV SCH ×4 (01:55→20:10)
[2017-07-27] MEDS: SODIUM CHLOR 0.9% 1000 ML INJ 1,000 ML IV SCH ×2 (01:55→12:12)
[2017-07-27] MEDS: ALPRAZolam 0.5 MG TAB PO PRN ×4 (05:40→23:32)
[2017-07-27] MEDS: ACETAMINOPHEN/HYDROcodone 325 MG/10 MG TAB PO PRN ×4 (05:40→23:30)
[2017-07-27 06:25] LABS: HEMATOCRIT 21.9 % (39.0-51.0); HEMOGLOBIN 7.3 GM/DL (13.0-17.0); MEAN CORPUSCULAR HEMOGLOBIN 28.4 PG (27.0-34.0); MEAN CORPUSCULAR HGB CONC 33.4 % (32.0-36.0); PLATELET COUNT 238 TH/MM3 (150-450); RED BLOOD COUNT 2.58 MIL/MM3 (4.50-5.90); RED CELL DISTRIBUTION WIDTH 18.4 % (11.6-17.2); WHITE BLOOD COUNT 6.5 TH/MM3 (4.0-11.0)
[2017-07-27 06:26] LABS: AUTOMATED NEUTROPHIL # 4.8 TH/MM3 (1.8-7.7); BASOPHIL # 0.1 TH/MM3 (0-0.2); EOSINOPHIL # 0.2 TH/MM3 (0-0.4); LYMPH % 10.2 % (9.0-44.0); LYMPHOCYTE # 0.7 TH/MM3 (1.0-4.8); MEAN PLATELET VOLUME 7.8 FL (7.0-11.0); MONO % 11.3 % (0.0-8.0); MONOCYTE # 0.7 TH/MM3 (0-0.9); NEUT % 74.5 % (16.0-70.0)
[2017-07-27 06:49] LABS: ALBUMIN 2.4 GM/DL (3.4-5.0); AST (GOT) 16 U/L (15-37); BICARBONATE 25.3 MEQ/L (21.0-32.0); BLOOD UREA NITROGEN 21 MG/DL (7-18); CALCIUM 8.7 MG/DL (8.5-10.1); CHLORIDE 104 MEQ/L (98-107); CREATININE 1.72 MG/DL (0.60-1.30); GLOMERULAR FILTRATION RATE 41 ML/MIN (>89); GLUCOSE,RANDOM 138 MG/DL (74-106); SODIUM (NA) 140 MEQ/L (136-145)
[2017-07-27 06:50] LABS: ALT (GPT) 16 U/L (12-78)
[2017-07-27 06:52] LABS: ALKALINE PHOSPHATASE 87 U/L (45-117); TOTAL BILIRUBIN ADULT 0.3 MG/DL (0.2-1.0)
[2017-07-27] MEDS: INSULIN ASPART SUPPLEMENTAL SCALE SQ SCH ×4 (08:00→20:09)
[2017-07-27] MEDS: DOCUSATE SODIUM 50 MG/SENNA 8.6 MG TAB PO SCH ×3 (09:00→20:13)
[2017-07-27] MEDS: SODIUM CHLORIDE 0.9% FLUSH 10 ML FLUSH IV FLUSH SCH ×2 (09:00→20:13)
--- NOTE | 2017-07-27 10:16 | HHI.NPPN ---
Subjective Renal Failure: Acute History of Present Illness Patient is a 62-year-old male with a PMH of A. fib on Eliquis, HTN, Hyperlipidemia, CAD and CHF. He presented to the ER with complaints of chest pain. Troponin have remained negative. Patient was found to have potassium level of 2.8 and protein corrected calcium level of 6.2 with replacement was given. He is also being followed by podiatry and infectious disease for osteomyelitis of left foot. Nephrology is consulted for elevated renal indices with a creatinine of 1.7 today with a admission creatinine of 1.04. Patient has a past medical history of elevated creatinine in January of 2017 with creatinine of 1.35. Renal US with no obstructive uropathy, stable adjacent cysts versus a single cyst with septation in the mid right kidney measuring up to 2.4 cm., and trace ascites. Additional Remarks Working with PT. Denies any shortness of breath. No edema. Creatinine unchanged. (Miriam Centeno) Review of Systems Respiratory Respiratory Remarks Denies any SOB (Miriam Centeno) Cardiovascular Cardiac Remarks No chest pain (Miriam Centeno) Gastrointestinal GI Remarks No abdominal pain (Miriam Centeno) Objective Data Data Vital Signs Date Time Temp Pulse Resp B/P (MAP) Pulse Ox O2 Delivery O2 Flow Rate FiO2 07/27/17 04:00 Room Air 07/27/17 04:00 98.2 62 18 115/57 (76) 96 07/27/17 00:00 97.9 60 18 120/57 (78) 98 07/27/17 00:00 53 07/27/17 00:00 Room Air 07/26/17 21:00 Room Air 07/26/17 20:55 53 07/26/17 20:30 97.7 54 18 151/66 (94) 96 07/26/17 20:00 97.5 07/26/17 20:00 97.5 50 16 136/70 (92) 96 Room Air 07/26/17 19:45 49 16 134/69 (90) 96 Room Air 07/26/17 19:30 96.9 47 16 133/67 (89) 95 Room Air 07/26/17 19:26 16 07/26/17 19:15 48 16 137/65 (89) 95 Room Air 07/26/17 19:00 50 16 134/69 (90) 100 Nasal Cannula 3 07/26/17 18:55 96.3 07/26/17 18:55 96.3 55 17 142/66 (91) 98 Nasal Cannula 3 07/26/17 16:02 98.1 56 16 142/68 (92) 98 07/26/17 16:00 46 07/26/17 12:02 98.1 52 16 138/68 (91) 97 07/26/17 12:00 57 (Miriam Centeno [facility]) -: 07/27/17 0525 07/27/17 0525 Microbiology 07/26/17 Fungal Smear - Final, Resulted NO FUNGAL ELEMENTS SEEN. 07/26/17 Fungal Culture, Resulted Pending 07/26/17 Acid Fast Stain, Received Pending 07/26/17 Mycobacterial Culture, Received Pending 07/26/17 Gram Stain - Final, Resulted 07/26/17 Wound Culture, Resulted Pending 07/26/17 Fungal Smear - Final, Resulted NO FUNGAL ELEMENTS SEEN. 07/26/17 Fungal Culture, Resulted Pending 07/26/17 Acid Fast Stain, Received Pending 07/26/17 Mycobacterial Culture, Received Pending 07/26/17 Gram Stain - Final, Resulted 07/26/17 Wound Culture, Resulted Pending 07/26/17 Fungal Smear - Final, Resulted NO FUNGAL ELEMENTS SEEN. 07/26/17 Fungal Culture, Resulted Pending 07/26/17 Acid Fast Stain, Received Pending 07/26/17 Mycobacterial Culture, Received Pending 07/26/17 Gram Stain - Final, Resulted 07/26/17 Wound Culture, Resulted Pending Imaging Last Impressions Foot X-Ray 07/26/17 0000 Signed Impressions: Service Date/Time: Wednesday, July 26, 2017 19:36 - CONCLUSION: Status post agitation of the distal aspects of the second and third metatarsals and the fifth digit a at the level of the tip MTP joint Salvador Ramirez MD Tibia/Fibula X-Ray 07/23/17 0000 Signed Impressions: Service Date/Time: Sunday, July 23, 2017 10:09 - CONCLUSION: Old healed distal tibia and fibula fractures with internal fixation hardware in the distal tibia. No radiographic evidence of osteomyelitis. Bridger Cruz MD Foot MRI 5/6/18 0000 Signed Impressions: Service Date/Time: Sunday, July 23, 2017 16:47 - CONCLUSION: 1. Findings indicating osteomyelitis of the fifth toe in the proper clinical setting. There is involvement of the middle and distal phalanges as well as the majority of the proximal phalanx. Early involvement of the fifth metatarsal head. 2. Age-indeterminate bone erosion of the second metatarsal head and to lesser extent the third metatarsal head. Mild enhancement in these areas. There is adjacent mild soft tissue enhancement. The enhancement in these regions is much less intense than at the fifth toe. These findings may represent subacute to chronic infection. Bridger Cruz MD Renal Ultrasound 07/22/17 Signed Impressions: Service Date/Time: Saturday, July 22, 2017 16:34 - CONCLUSION: 1. No obstructive uropathy. 2. Stable adjacent cysts versus a single cyst with septation in the mid right kidney measuring up to 2.4 cm. 3. Trace ascites. El Mosher MD Chest X-Ray 07/22/17 Signed Impressions: Service Date/Time: Saturday, July 22, 2017 04:28 - CONCLUSION: Posterolateral left seventh rib fracture. No acute cardiopulmonary findings Salvador Harding MD (Miriam Centeno) Physical Exam General Appearance: No Acute Distress, Comfortable (Miriam Centeno) Throat Throat Exam: Oral Mucosa [place] & Moist (Miriam Centeno) Neck Neck Exam: Neck Supple (Miriam Centeno) Pulmonary Resp Exam: Clear Bilaterally, Breath Sounds Equal, No Distress (Miriam Centeno) Cardiology CV Exam: Regular, Normal Sinus Rhythm (Miriam Centeno) Gastrointestinal/Abdomen GI Exam: Soft, Bowel Sounds Present (Miriam Centeno) Genitourinary Exam: Flank Non-Tender (Mirima Centeno) Musculoskeletal MS Remarks left leg non weightbearing joseph wrap on (Miriam Centeno) Integumentary Skin Exam: Clear, Warm Skin Remarks Left lower extremity with +2 edema severe tenderness to light touch, erythematous, he had to wounds that looks dry on the dorsal surface of the foot and from rae (Miriam Centeno) Extremeties Extremities Exam: Moderate Edema (Miriam Centeno) Assessment/Plan Problem List: (1) EVELYNE (acute kidney injury) ICD Codes: N17.9 - Acute kidney failure, unspecified Plan: Acute kidney injury with a creatinine of 1.7 today with a admission creatinine of 1.04. EVELYNE from possible prerenal VS ATN from infection vs adverse medication effect May have past medical history of chronic kidney disease with noted elevated creatinine in January. Renal US with no obstructive uropathy, stable adjacent cysts versus a single cyst with septation in the mid right kidney measuring up to 2.4 cm., and trace ascites. FeNa at 7 % suggestive of acute tubular necrosis. Plan Will monitor Urinary output and renal panel Avoid nephrotoxins Renal dose antibiotics On IVF may discontinue if taking good oral intake Creatinine essentially unchanged at 1.72 continues to have good urine output (2) Normochromic normocytic anemia ICD Codes: D64.9 - Anemia, unspecified Plan: will monitor (3) DM (diabetes mellitus) ICD Codes: E11.9 - Type 2 diabetes mellitus without complications Plan: Maintain blood sugars between 140 mg/dl to 180mg/dl (Miriam Centeno) Problem List: (1) EVELYNE (acute kidney injury) ICD Codes: N17.9 - Acute kidney failure, unspecified Plan: Acute kidney injury with a creatinine of 1.7 today with a admission creatinine of 1.04. EVELYNE from possible prerenal VS ATN from infection vs adverse medication effect May have past medical history of chronic kidney disease with noted elevated creatinine in January. Renal US with no obstructive uropathy, stable adjacent cysts versus a single cyst with septation in the mid right kidney measuring up to 2.4 cm., and trace ascites. FeNa at 7 % suggestive of acute tubular necrosis. Plan Will monitor Urinary output and renal panel Avoid nephrotoxins Renal dose antibiotics On IVF may discontinue if taking good oral intake Creatinine essentially unchanged at 1.72 continues to have good urine output. Patient seen and examined, agree with above. Continue IVF and follow the urine out put AND BMP. Avoid Nephrotoxins. (2) Normochromic normocytic anemia ICD Codes: D64.9 - Anemia, unspecified Plan: will monitor (3) DM (diabetes mellitus) ICD Codes: E11.9 - Type 2 diabetes mellitus without complications Plan: Maintain blood sugars between 140 mg/dl to 180mg/dl (Roni Cueva MD) Miriam Centeno July 27, 2017 10:16 Roni Cueva MD July 27, 2017 18:38
[2017-07-27] MEDS: CARVEDILOL 3.125 MG TAB PO SCH ×2 (12:12→20:12)
[2017-07-27] MEDS: FERROUS SULFATE 325 MG (65 MG ELEMENTAL IRON) TAB PO SCH ×2 (12:12→17:27)
[2017-07-27] MEDS: PANTOPRAZOLE SOD 40 MG DELAYED RELEASE TAB PO SCH (12:12)
[2017-07-27] MEDS: GABAPENTIN 100 MG CAP PO SCH ×2 (12:13→20:12)
[2017-07-27] MEDS: APIXABAN 2.5 MG TABLET PO SCH ×2 (12:13→20:11)
[2017-07-27] MEDS: AMIODARONE 200 MG TAB PO SCH ×2 (12:14→20:12)
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
[2017-07-27] MEDS: SODIUM CHLORIDE 0.9% IV SCH (17:27)
[2017-07-27] MEDS: DAPTOMYCIN IV SCH (17:27)
--- NOTE | 2017-07-27 20:41 | HHI.PR ---
Subjective Remarks Patient seen bedside post op Day 1. Denies SOB, N,V,F,Ch. Denies calf pain. Objective Vital Signs Date Time Temp Pulse Resp B/P (MAP) Pulse Ox O2 Delivery O2 Flow Rate FiO2 07/27/17 16:07 75 07/27/17 16:00 98.1 67 18 138/70 (92) 100 07/27/17 16:00 Room Air 07/27/17 12:00 Room Air 07/27/17 12:00 98.0 61 16 138/73 (94) 99 07/27/17 11:41 60 07/27/17 08:00 98.9 63 16 136/69 (91) 96 07/27/17 08:00 Room Air 07/27/17 07:29 61 07/27/17 04:00 Room Air 07/27/17 04:00 98.2 62 18 115/57 (76) 96 07/27/17 00:00 97.9 60 18 120/57 (78) 98 07/27/17 00:00 53 07/27/17 00:00 Room Air 07/26/17 21:00 Room Air 07/26/17 20:55 53 I/O 07/26/17 07/26/17 07/26/17 07/27/17 07/27/17 07/27/17 07:00 15:00 23:00 07:00 15:00 23:00 Intake Total 800 ml 800 ml 763 ml 1096 ml Output Total 3200 ml 1605 ml 775 ml 1200 ml Balance -2400 ml -805 ml -12 ml -104 ml Intake Oral 800 ml 0 ml 240 ml 1096 ml IV Total 523 ml Other 800 ml Output Urine Total 3200 ml 1600 ml 775 ml 1200 ml Estimated Blood Loss 5 ml # Voids 0 # Bowel Movements 0 0 1 Result Diagram: 07/27/17 0525 07/27/17 0525 Imaging Last Impressions Foot X-Ray 07/26/17 0000 Signed Impressions: Service Date/Time: Wednesday, July 26, 2017 19:36 - CONCLUSION: Status post agitation of the distal aspects of the second and third metatarsals and the fifth digit a at the level of the tip MTP joint Salvador Ramirez MD Tibia/Fibula X-Ray 07/23/17 0000 Signed Impressions: Service Date/Time: Sunday, July 23, 2017 10:09 - CONCLUSION: Old healed distal tibia and fibula fractures with internal fixation hardware in the distal tibia. No radiographic evidence of osteomyelitis. Bridger Cruz MD Foot MRI 07/23/17 Signed Impressions: Service Date/Time: Sunday, July 23, 2017 16:47 - CONCLUSION: 1. Findings indicating osteomyelitis of the fifth toe in the proper clinical setting. There is involvement of the middle and distal phalanges as well as the majority of the proximal phalanx. Early involvement of the fifth metatarsal head. 2. Age-indeterminate bone erosion of the second metatarsal head and to lesser extent the third metatarsal head. Mild enhancement in these areas. There is adjacent mild soft tissue enhancement. The enhancement in these regions is much less intense than at the fifth toe. These findings may represent subacute to chronic infection. Bridger Cruz MD Renal Ultrasound 07/22/17 Signed Impressions: Service Date/Time: Saturday, July 22, 2017 16:34 - CONCLUSION: 1. No obstructive uropathy. 2. Stable adjacent cysts versus a single cyst with septation in the mid right kidney measuring up to 2.4 cm. 3. Trace ascites. El Mosher MD Chest X-Ray 07/22/17 Signed Impressions: Service Date/Time: Saturday, July 22, 2017 04:28 - CONCLUSION: Posterolateral left seventh rib fracture. No acute cardiopulmonary findings Salvador Harding MD Procedures post op day 1 Left 5th digit amputation Left second and third metatarsal head resections Left plantar hallux, left dorsal foot, left anterior tibia ulceration Other Results Microbiology Date/Time Source Procedure Growth Status 07/23/17 15:10 Blood Peripheral Aerobic Blood Culture - Preliminary NO GROWTH IN 4 DAYS Resulted 07/23/17 15:10 Blood Peripheral Anaerobic Blood Culture - Preliminary NO GROWTH IN 4 DAYS Resulted 07/26/17 18:18 Wound Foot Fungal Smear - Final NO FUNGAL ELEMENTS SEEN. Resulted 07/26/17 18:18 Wound Foot Fungal Culture Pending Resulted Objective Remarks Incisions to dorsal and plantar foot with skin well coapted and sutures intact. (-) pain on calf squeeze. No reported calf tenderness. Active/Passive DF/PF of digits x4 LLE. Anterior tibia, Dorsal foot, and plantar hallux ulcerations with granular base and rolled epithelialized borders. No associated erythema or edema. No drainage noted. Medications and IVs Current Medications Medications (Trade) Dose Ordered Sig/Abida Route Start Time Stop Time Status Last Admin (NS Flush) 2 ml UNSCH PRN IV FLUSH 07/22/17 04:45 (NS Flush) 2 ml BID IV FLUSH 07/22/17 09:00 07/26/17 21:00 (Zofran Inj) 4 mg Q6H PRN IVP 07/22/17 04:45 (Tylenol) 650 mg Q6H PRN PO 07/22/17 04:45 07/25/17 09:13 ([place] 5-325 Mg) 1 tab Q4H PRN PO 07/22/17 04:45 07/23/17 12:27 ([place] 10-325 Mg) 1 tab Q4H PRN PO 07/22/17 04:45 07/27/17 17:27 ([place]-Colace) 1 tab BID PO 07/22/17 09:00 07/26/17 23:00 (Milk Of Magnesia Liq) 30 ml Q12H PRN PO 07/22/17 04:45 (Senokot) 17.2 mg Q12H PRN PO 07/22/17 04:45 (Dulcolax Supp) 10 mg DAILY PRN RECTAL 07/22/17 04:45 (Lactulose Liq) 30 ml DAILY PRN PO 07/22/17 04:45 (D50w (Vial) Inj) 50 ml UNSCH PRN IV PUSH 07/22/17 04:45 (Glucagon Inj) 1 mg UNSCH PRN OTHER 07/22/17 04:45 (NovoLOG SUPPLEMENTAL SCALE) 1 ACHS SLIDING SCALE SQ 07/22/17 08:00 07/27/17 17:28 (Xanax) 0.5 mg Q4H PRN PO 07/22/17 04:45 07/27/17 17:27 (Cordarone) 400 mg BID PO 07/22/17 09:00 07/27/17 20:12 (Eliquis) 2.5 mg BID PO 07/22/17 09:00 07/27/17 20:11 (Coreg) 3.125 mg Q12HR PO 07/22/17 09:00 07/27/17 20:12 (Neurontin) 100 mg BID PO 07/22/17 09:00 07/27/17 20:12 (Protonix) 40 mg DAILY PO 07/22/17 09:00 07/27/17 12:12 Sodium Chloride 1,000 ml @ 100 mls/hr Q10H IV 07/22/17 15:00 07/27/17 12:12 (Ferrous Sulfate) 325 mg BID@12,17 PO 07/23/17 12:00 07/27/17 17:27 Piperacillin Sod/ Tazobactam Sod 100 ml @ 200 mls/hr Q6H IV 07/23/17 14:00 07/27/17 20:10 Daptomycin 720 mg/ Sodium Chloride 100 ml @ 200 mls/hr Q24H IV 07/24/17 17:00 07/27/17 17:27 Lactated Ringer's 1,000 ml @ 30 mls/hr Q24H PRN IV 07/26/17 01:45 07/29/17 01:44 Sodium Chloride 500 ml @ 30 mls/hr [id number] PRN IV 07/26/17 01:45 07/29/17 01:44 (Betadine 5% Antisepsis Kit) 1 applic NOVELTY CANDY MAKER PRN EACH NARE 07/26/17 01:45 07/29/17 01:44 (Chlorhexidine 2% Cloth) 3 pack NOVELTY CANDY MAKER PRN TOPICAL 07/26/17 01:45 07/29/17 01:44 (Narcan Inj) 0.4 mg UNSCH PRN IV PUSH 07/26/17 19:15 Assessment and Plan Assessment and Plan 62-year-old male with left dorsal foot ulcer, second and third metatarsal head osteomyelitis left foot, fifth digit osteomyelitis left foot Patient examined and evaluated with all questions answered Ok to DC per podiatry once bone biopsies are final and ID recommendations on outpatient abx has been made. Recommend possible IV abx therapy Nursing to change dressing every 48 hours while patient in house NWB to LLE in surgical shoe with crutch assist/walker assist Once discharged dressing to stay clean dry and intact until 1 week follow up Kaci Sin DPM July 27, 2017 20:41
[2017-07-28] VITALS (12 sets, daily range): BP systolic 116–184; BP diastolic 58–81; PULSE 22–63; RESP 16–20; TEMP 97.9–98.5; O2SAT 98–99
[2017-07-28] MEDS: SODIUM CHLOR 0.9% 1000 ML INJ 1,000 ML IV SCH ×3 (01:27→20:41)
[2017-07-28] MEDS: PIPERACIL-TAZO 4.5 GM PREMIX 100 ML IV SCH ×3 (01:27→13:19)
[2017-07-28] MEDS: SODIUM CHLORIDE 0.9% FLUSH 10 ML FLUSH IV FLUSH SCH ×2 (07:21→20:42)
[2017-07-28] MEDS: APIXABAN 2.5 MG TABLET PO SCH ×2 (07:56→20:41)
[2017-07-28] MEDS: GABAPENTIN 100 MG CAP PO SCH ×2 (07:57→20:40)
[2017-07-28] MEDS: CARVEDILOL 3.125 MG TAB PO SCH ×2 (07:57→20:41)
[2017-07-28] MEDS: AMIODARONE 200 MG TAB PO SCH ×2 (07:57→20:40)
[2017-07-28] MEDS: DOCUSATE SODIUM 50 MG/SENNA 8.6 MG TAB PO SCH ×2 (07:57→20:41)
[2017-07-28] MEDS: ALPRAZolam 0.5 MG TAB PO PRN ×2 (07:57→20:42)
[2017-07-28] MEDS: ACETAMINOPHEN/HYDROcodone 325 MG/10 MG TAB PO PRN ×2 (07:57→20:42)
[2017-07-28] MEDS: INSULIN ASPART SUPPLEMENTAL SCALE SQ SCH ×4 (07:57→20:33)
[2017-07-28] MEDS: PANTOPRAZOLE SOD 40 MG DELAYED RELEASE TAB PO SCH (07:57)
[2017-07-28 11:12] LABS: MEAN CELL VOLUME 84.8 FL (80.0-100.0); MEAN CORPUSCULAR HEMOGLOBIN 28.7 PG (27.0-34.0); MEAN CORPUSCULAR HGB CONC 33.9 % (32.0-36.0); MEAN PLATELET VOLUME 7.4 FL (7.0-11.0); PLATELET COUNT 234 TH/MM3 (150-450); RED CELL DISTRIBUTION WIDTH 18.3 % (11.6-17.2); WHITE BLOOD COUNT 5.9 TH/MM3 (4.0-11.0)
[2017-07-28 11:16] LABS: HEMATOCRIT 20.3 % (39.0-51.0); HEMOGLOBIN 6.9 GM/DL (13.0-17.0)
[2017-07-28] MEDS ORDERED: SODIUM CHLOR 0.9% 250 ML INJ 250 ML IV ONE (11:30)
[2017-07-28 11:38] LABS: BICARBONATE 24.9 MEQ/L (21.0-32.0); CALCIUM 8.6 MG/DL (8.5-10.1); CREATININE 1.76 MG/DL (0.60-1.30)
[2017-07-28] MEDS: FERROUS SULFATE 325 MG (65 MG ELEMENTAL IRON) TAB PO SCH ×2 (11:53→17:55)
--- NOTE | 2017-07-28 13:09 | HHI.NPPN ---
Subjective Renal Failure: Acute History of Present Illness Patient is a 62-year-old male with a PMH of A. fib on Eliquis, HTN, Hyperlipidemia, CAD and CHF. He presented to the ER with complaints of chest pain. Troponin have remained negative. Patient was found to have potassium level of 2.8 and protein corrected calcium level of 6.2 with replacement was given. He is also being followed by podiatry and infectious disease for osteomyelitis of left foot. Nephrology is consulted for elevated renal indices with a creatinine of 1.7 today with a admission creatinine of 1.04. Patient has a past medical history of elevated creatinine in January of 2017 with creatinine of 1.35. Renal US with no obstructive uropathy, stable adjacent cysts versus a single cyst with septation in the mid right kidney measuring up to 2.4 cm., and trace ascites. Additional Remarks Patient is alert, no SOB, not in distress. Review of Systems Respiratory Respiratory Remarks Denies any SOB Cardiovascular Cardiac Remarks No chest pain Gastrointestinal GI Remarks No abdominal pain Objective Data Data 07/28/17 07/29/17 19:00 07:00 Intake Total 100 ml Output Total 1000 ml Balance -900 ml IV Total 100 ml Output Urine Total 1000 ml # Voids 4 # Bowel Movements 0 Vital Signs Date Time Temp Pulse Resp B/P (MAP) Pulse Ox O2 Delivery O2 Flow Rate FiO2 07/28/17 07:53 97.9 50 17 148/71 (96) 99 07/28/17 04:00 53 07/28/17 04:00 98.5 53 20 121/58 (79) 98 07/28/17 00:36 20 07/28/17 00:00 57 07/28/17 00:00 98.4 61 20 133/58 (83) 98 07/27/17 20:00 98.4 64 20 156/73 (100) 99 07/27/17 20:00 68 07/27/17 16:07 75 07/27/17 16:00 98.1 67 18 138/70 (92) 100 07/27/17 16:00 Room Air -: 07/28/17 1056 07/28/17 1056 Physical Exam General Appearance: No Acute Distress, Comfortable Throat Throat Exam: Oral Mucosa [place] & Moist Neck Neck Exam: Neck Supple Pulmonary Resp Exam: Clear Bilaterally, Breath Sounds Equal, No Distress Cardiology CV Exam: Regular, Normal Sinus Rhythm Gastrointestinal/Abdomen GI Exam: Soft, Bowel Sounds Present Genitourinary Exam: Flank Non-Tender Integumentary Skin Exam: Clear, Warm Extremeties Extremities Exam: Moderate Edema Assessment/Plan Problem List: (1) EVELYNE (acute kidney injury) ICD Codes: N17.9 - Acute kidney failure, unspecified Plan: Acute kidney injury with a creatinine of 1.7 today with a admission creatinine of 1.04. EVELYNE from possible prerenal VS ATN from infection vs adverse medication effect May have past medical history of chronic kidney disease with noted elevated creatinine in January. Renal US with no obstructive uropathy, stable adjacent cysts versus a single cyst with septation in the mid right kidney measuring up to 2.4 cm., and trace ascites. FeNa at 7 % suggestive of acute tubular necrosis. Plan Will monitor Urinary output and renal panel Avoid nephrotoxins Renal dose antibiotics On IVF may discontinue if taking good oral intake Creatinine essentially unchanged at 1.72 continues to have good urine output. Hgb. dropped , for transfusion. Follow the urine out put and BMP. (2) Normochromic normocytic anemia ICD Codes: D64.9 - Anemia, unspecified Plan: will monitor (3) DM (diabetes mellitus) ICD Codes: E11.9 - Type 2 diabetes mellitus without complications Plan: Maintain blood sugars between 140 mg/dl to 180mg/dl Roni Cueva MD July 28, 2017 13:09
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
[2017-07-28] MEDS: DAPTOMYCIN IV SCH (17:54)
[2017-07-28] MEDS: SODIUM CHLORIDE 0.9% IV SCH (17:54)
[2017-07-29] VITALS (9 sets, daily range): BP systolic 135–186; BP diastolic 61–79; PULSE 57–76; RESP 16–20; TEMP 97.3–98.6; O2SAT 95–98
[2017-07-29] MEDS: ALPRAZolam 0.5 MG TAB PO PRN ×5 (01:03→21:29)
[2017-07-29] MEDS: ACETAMINOPHEN/HYDROcodone 325 MG/10 MG TAB PO PRN ×5 (01:04→21:30)
[2017-07-29] MEDS: SODIUM CHLOR 0.9% 1000 ML INJ 1,000 ML IV SCH ×2 (03:47→21:27)
[2017-07-29 04:46] LABS: HEMATOCRIT 21.7 % (39.0-51.0); HEMOGLOBIN 7.3 GM/DL (13.0-17.0); MEAN CELL VOLUME 85.1 FL (80.0-100.0); MEAN CORPUSCULAR HEMOGLOBIN 28.5 PG (27.0-34.0); MEAN CORPUSCULAR HGB CONC 33.5 % (32.0-36.0); MEAN PLATELET VOLUME 7.7 FL (7.0-11.0); PLATELET COUNT 244 TH/MM3 (150-450); RED BLOOD COUNT 2.55 MIL/MM3 (4.50-5.90); RED CELL DISTRIBUTION WIDTH 17.6 % (11.6-17.2); WHITE BLOOD COUNT 6.1 TH/MM3 (4.0-11.0)
[2017-07-29 05:10] LABS: BICARBONATE 28.6 MEQ/L (21.0-32.0); CALCIUM 8.7 MG/DL (8.5-10.1); CREATININE 1.87 MG/DL (0.60-1.30)
[2017-07-29] MEDS: INSULIN ASPART SUPPLEMENTAL SCALE SQ SCH ×4 (08:00→21:00)
[2017-07-29] MEDS: GABAPENTIN 100 MG CAP PO SCH ×2 (08:55→21:28)
[2017-07-29] MEDS: CARVEDILOL 3.125 MG TAB PO SCH ×2 (08:56→19:29)
[2017-07-29] MEDS: PANTOPRAZOLE SOD 40 MG DELAYED RELEASE TAB PO SCH (08:56)
[2017-07-29] MEDS: APIXABAN 2.5 MG TABLET PO SCH ×2 (08:56→21:28)
[2017-07-29] MEDS: AMIODARONE 200 MG TAB PO SCH ×2 (08:56→21:28)
[2017-07-29] MEDS: DOCUSATE SODIUM 50 MG/SENNA 8.6 MG TAB PO SCH ×2 (09:00→21:28)
[2017-07-29] MEDS: FERROUS SULFATE 325 MG (65 MG ELEMENTAL IRON) TAB PO SCH ×2 (11:48→17:00)
[2017-07-29] MEDS: SODIUM CHLORIDE 0.9% FLUSH 10 ML FLUSH IV FLUSH SCH ×2 (11:54→21:00)
--- NOTE | 2017-07-29 12:53 | HHI.NPPN ---
Subjective Renal Failure: Acute History of Present Illness Patient is a 62-year-old male with a PMH of A. fib on Eliquis, HTN, Hyperlipidemia, CAD and CHF. He presented to the ER with complaints of chest pain. Troponin have remained negative. Patient was found to have potassium level of 2.8 and protein corrected calcium level of 6.2 with replacement was given. He is also being followed by podiatry and infectious disease for osteomyelitis of left foot. Nephrology is consulted for elevated renal indices with a creatinine of 1.7 today with a admission creatinine of 1.04. Patient has a past medical history of elevated creatinine in January of 2017 with creatinine of 1.35. Renal US with no obstructive uropathy, stable adjacent cysts versus a single cyst with septation in the mid right kidney measuring up to 2.4 cm., and trace ascites. Additional Remarks Patient is resting comfortably. No shortness of breath. (Miriam Centeno) Review of Systems Respiratory Respiratory Remarks Denies any SOB (Miriam Centeno) Cardiovascular Cardiac Remarks No chest pain (Miriam Centeno) Gastrointestinal GI Remarks No abdominal pain (Miriam Centeno) Objective Data Data Vital Signs Date Time Temp Pulse Resp B/P (MAP) Pulse Ox O2 Delivery O2 Flow Rate FiO2 07/29/17 07:20 98.5 59 18 164/77 (106) 95 07/29/17 04:05 59 07/29/17 04:00 97.3 73 16 150/73 (98) 98 07/29/17 00:00 98.6 61 18 135/61 (85) 95 07/28/17 23:28 62 07/28/17 20:01 63 07/28/17 20:00 98.5 58 16 184/81 (115) 98 07/28/17 18:00 98.5 53 17 147/67 99 07/28/17 16:00 53 07/28/17 15:49 98.4 22 16 126/62 99 07/28/17 15:26 98.3 55 16 116/58 99 (Miriam Centeno) -: 07/29/17 0401 07/29/17 0401 Imaging Last Impressions Foot X-Ray 07/26/17 0000 Signed Impressions: Service Date/Time: Wednesday, July 26, 2017 19:36 - CONCLUSION: Status post agitation of the distal aspects of the second and third metatarsals and the fifth digit a at the level of the tip MTP joint Salvador Ramirez MD Tibia/Fibula X-Ray 07/23/17 0000 Signed Impressions: Service Date/Time: Sunday, July 23, 2017 10:09 - CONCLUSION: Old healed distal tibia and fibula fractures with internal fixation hardware in the distal tibia. No radiographic evidence of osteomyelitis. Bridger Cruz MD Foot MRI 07/23/17 0000 Signed Impressions: Service Date/Time: Sunday, July 23, 2017 16:47 - CONCLUSION: 1. Findings indicating osteomyelitis of the fifth toe in the proper clinical setting. There is involvement of the middle and distal phalanges as well as the majority of the proximal phalanx. Early involvement of the fifth metatarsal head. 2. Age-indeterminate bone erosion of the second metatarsal head and to lesser extent the third metatarsal head. Mild enhancement in these areas. There is adjacent mild soft tissue enhancement. The enhancement in these regions is much less intense than at the fifth toe. These findings may represent subacute to chronic infection. Bridger Cruz MD Renal Ultrasound 07/22/17 0000 Signed Impressions: Service Date/Time: Saturday, July 22, 2017 16:34 - CONCLUSION: 1. No obstructive uropathy. 2. Stable adjacent cysts versus a single cyst with septation in the mid right kidney measuring up to 2.4 cm. 3. Trace ascites. El Mosher MD Chest X-Ray 07/22/17 0000 Signed Impressions: Service Date/Time: Saturday, July 22, 2017 04:28 - CONCLUSION: Posterolateral left seventh rib fracture. No acute cardiopulmonary findings Salvador Harding MD (Miriam Centeno) Physical Exam General Appearance: No Acute Distress, Comfortable (Miriam Centeno) Throat Throat Exam: Oral Mucosa [place] & Moist (Miriam Centeno) Neck Neck Exam: Neck Supple (Miriam Centeno) Pulmonary Resp Exam: Clear Bilaterally, Breath Sounds Equal, No Distress (Miriam Centeno) Cardiology CV Exam: Regular, Normal Sinus Rhythm (Miriam Centeno) Gastrointestinal/Abdomen GI Exam: Soft, Bowel Sounds Present (Miriam Centeno) Genitourinary Exam: Flank Non-Tender (Miriam Centeno) Musculoskeletal MS Remarks left leg non weightbearing joseph wrap on (Miriam Centeno) Integumentary Skin Exam: Clear, Warm Skin Remarks Left lower extremity with +2 edema severe tenderness to light touch, erythematous, he had to wounds that looks dry on the dorsal surface of the foot and from rae (Miriam Centeno) Extremeties Extremities Exam: Moderate Edema (Miriam Centeno) Assessment/Plan Problem List: (1) EVELYNE (acute kidney injury) ICD Codes: N17.9 - Acute kidney failure, unspecified Plan: Acute kidney injury with a creatinine of 1.7 today with a admission creatinine of 1.04. EVELYNE from possible prerenal VS ATN from infection vs adverse medication effect May have past medical history of chronic kidney disease with noted elevated creatinine in January. Renal US with no obstructive uropathy, stable adjacent cysts versus a single cyst with septation in the mid right kidney measuring up to 2.4 cm., and trace ascites. FeNa at 7 % suggestive of acute tubular necrosis. Plan Will monitor Urinary output and renal panel Avoid nephrotoxins Renal dose antibiotics Creatinine stable at 1.83 continues to have good urine output. Transfusion of PRBC yesterday. (2) Normochromic normocytic anemia ICD Codes: D64.9 - Anemia, unspecified Plan: will monitor (3) DM (diabetes mellitus) ICD Codes: E11.9 - Type 2 diabetes mellitus without complications Plan: Maintain blood sugars between 140 mg/dl to 180mg/dl (Miriam Centeno) Problem List: (1) EVELYNE (acute kidney injury) ICD Codes: N17.9 - Acute kidney failure, unspecified Plan: Acute kidney injury with a creatinine of 1.7 today with a admission creatinine of 1.04. EVELYNE from possible prerenal VS ATN from infection vs adverse medication effect May have past medical history of chronic kidney disease with noted elevated creatinine in January. Renal US with no obstructive uropathy, stable adjacent cysts versus a single cyst with septation in the mid right kidney measuring up to 2.4 cm., and trace ascites. FeNa at 7 % suggestive of acute tubular necrosis. Plan Will monitor Urinary output and renal panel Avoid nephrotoxins Renal dose antibiotics Creatinine stable at 1.83 continues to have good urine output. Transfusion of PRBC yesterday. Patient seen and examined, agree with above, Creatinine is stable. (2) Normochromic normocytic anemia ICD Codes: D64.9 - Anemia, unspecified Plan: will monitor (3) DM (diabetes mellitus) ICD Codes: E11.9 - Type 2 diabetes mellitus without complications Plan: Maintain blood sugars between 140 mg/dl to 180mg/dl (Roni Cueva MD) Miriam CentenoP July 29, 2017 12:53 Roni Cueva MD July 29, 2017 18:46
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
[2017-07-29] MEDS: SODIUM CHLORIDE 0.9% IV SCH (17:00)
[2017-07-29] MEDS: DAPTOMYCIN IV SCH (17:00)
[2017-07-30] VITALS (10 sets, daily range): BP systolic 143–162; BP diastolic 67–79; PULSE 54–90; RESP 16–18; TEMP 97.7–99; O2SAT 94–97
[2017-07-30] MEDS: ALPRAZolam 0.5 MG TAB PO PRN ×5 (02:05→20:53)
[2017-07-30] MEDS: ACETAMINOPHEN/HYDROcodone 325 MG/10 MG TAB PO PRN ×5 (02:06→20:53)
[2017-07-30] MEDS: SODIUM CHLOR 0.9% 1000 ML INJ 1,000 ML IV SCH ×2 (03:00→06:23)
[2017-07-30] MEDS: INSULIN ASPART SUPPLEMENTAL SCALE SQ SCH ×4 (08:00→20:37)
[2017-07-30] MEDS: DOCUSATE SODIUM 50 MG/SENNA 8.6 MG TAB PO SCH ×2 (09:00→20:54)
[2017-07-30] MEDS: AMIODARONE 200 MG TAB PO SCH ×2 (09:12→20:54)
[2017-07-30] MEDS: PANTOPRAZOLE SOD 40 MG DELAYED RELEASE TAB PO SCH (09:12)
[2017-07-30] MEDS: CARVEDILOL 3.125 MG TAB PO SCH ×2 (09:12→20:53)
[2017-07-30] MEDS: APIXABAN 2.5 MG TABLET PO SCH ×2 (09:13→20:54)
[2017-07-30] MEDS: GABAPENTIN 100 MG CAP PO SCH ×2 (09:13→20:53)
[2017-07-30] MEDS: SODIUM CHLORIDE 0.9% FLUSH 10 ML FLUSH IV FLUSH SCH ×2 (09:14→20:54)
--- NOTE | 2017-07-30 12:00 | HHI.NPPN ---
Subjective Renal Failure: Acute History of Present Illness Patient is a 62-year-old male with a PMH of A. fib on Eliquis, HTN, Hyperlipidemia, CAD and CHF. He presented to the ER with complaints of chest pain. Troponin have remained negative. Patient was found to have potassium level of 2.8 and protein corrected calcium level of 6.2 with replacement was given. He is also being followed by podiatry and infectious disease for osteomyelitis of left foot. Nephrology is consulted for elevated renal indices with a creatinine of 1.7 today with a admission creatinine of 1.04. Patient has a past medical history of elevated creatinine in January of 2017 with creatinine of 1.35. Renal US with no obstructive uropathy, stable adjacent cysts versus a single cyst with septation in the mid right kidney measuring up to 2.4 cm., and trace ascites. Additional Remarks Patient is resting comfortably. No shortness of breath. Pain is well controlled. (Miriam Centeno) Review of Systems Respiratory Respiratory Remarks Denies any SOB (Miriam Centeno) Cardiovascular Cardiac Remarks No chest pain (Miriam Centeno) Gastrointestinal GI Remarks No abdominal pain (Miriam Centeno) Objective Data Data Vital Signs Date Time Temp Pulse Resp B/P (MAP) Pulse Ox O2 Delivery O2 Flow Rate FiO2 07/30/17 07:20 98.2 84 18 156/68 (97) 95 07/30/17 05:13 98.2 54 17 143/69 (93) 95 07/30/17 04:07 57 07/30/17 00:02 61 07/30/17 00:00 97.7 62 16 152/67 (95) 96 07/29/17 20:14 60 07/29/17 20:00 97.6 58 16 165/74 (104) 97 07/29/17 15:20 98.0 63 18 176/79 (111) 95 (Miriam Centeno) -: 07/29/17 0401 07/29/17 0401 Physical Exam General Appearance: No Acute Distress, Comfortable (Miriam Centeno) Throat Throat Exam: Oral Mucosa [place] & Moist (Miriam Centeno) Neck Neck Exam: Neck Supple (Miriam Centeno) Pulmonary Resp Exam: Clear Bilaterally, Breath Sounds Equal, No Distress (Miriam Centeno) Cardiology CV Exam: Regular, Normal Sinus Rhythm (Miriam Centeno) Gastrointestinal/Abdomen GI Exam: Soft, Bowel Sounds Present (Miriam Centeno) Genitourinary Exam: Flank Non-Tender (Miriam Centeno) Musculoskeletal MS Remarks left leg non weightbearing joseph wrap on (Miriam Centeno) Integumentary Skin Exam: Clear, Warm Skin Remarks Left lower extremity with +2 edema severe tenderness to light touch, erythematous, he had to wounds that looks dry on the dorsal surface of the foot and from rae (Miriam Centeno) Extremeties Extremities Exam: Moderate Edema (Miriam Centeno) Assessment/Plan Problem List: (1) EVELYNE (acute kidney injury) ICD Codes: N17.9 - Acute kidney failure, unspecified Plan: Acute kidney injury with a creatinine of 1.7 today with a admission creatinine of 1.04. EVELYNE from possible prerenal VS ATN from infection vs adverse medication effect May have past medical history of chronic kidney disease with noted elevated creatinine in January. Renal US with no obstructive uropathy, stable adjacent cysts versus a single cyst with septation in the mid right kidney measuring up to 2.4 cm., and trace ascites. FeNa at 7 % suggestive of acute tubular necrosis. Plan Will monitor Urinary output and renal panel Avoid nephrotoxins Renal dose antibiotics Creatinine stable Has good oral intake will discontinue IVF's (2) Normochromic normocytic anemia ICD Codes: D64.9 - Anemia, unspecified Plan: will monitor (3) DM (diabetes mellitus) ICD Codes: E11.9 - Type 2 diabetes mellitus without complications Plan: Maintain blood sugars between 140 mg/dl to 180mg/dl (Miriam Centeno) Problem List: (1) EVELYNE (acute kidney injury) ICD Codes: N17.9 - Acute kidney failure, unspecified Plan: Acute kidney injury with a creatinine of 1.7 today with a admission creatinine of 1.04. EVELYNE from possible prerenal VS ATN from infection vs adverse medication effect May have past medical history of chronic kidney disease with noted elevated creatinine in January. Renal US with no obstructive uropathy, stable adjacent cysts versus a single cyst with septation in the mid right kidney measuring up to 2.4 cm., and trace ascites. FeNa at 7 % suggestive of acute tubular necrosis. Plan Will monitor Urinary output and renal panel Avoid nephrotoxins Renal dose antibiotics Creatinine stable Has good oral intake will discontinue IVF's Patient seen and examined, agree with above. Avoid Nephrotoxin sand follow the BMP. (2) Normochromic normocytic anemia ICD Codes: D64.9 - Anemia, unspecified Plan: will monitor (3) DM (diabetes mellitus) ICD Codes: E11.9 - Type 2 diabetes mellitus without complications Plan: Maintain blood sugars between 140 mg/dl to 180mg/dl (Roni Cueva MD) Miriam Centeno July 30, 2017 12:00 Roni Cueva MD July 30, 2017 13:18
[2017-07-30] MEDS: FERROUS SULFATE 325 MG (65 MG ELEMENTAL IRON) TAB PO SCH ×2 (12:29→16:45)
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
[2017-07-30] MEDS: DAPTOMYCIN IV SCH (16:45)
[2017-07-30] MEDS: SODIUM CHLORIDE 0.9% IV SCH (16:45)
[2017-07-31] VITALS (10 sets, daily range): BP systolic 122–154; BP diastolic 60–70; PULSE 57–96; RESP 16–20; TEMP 98–102; O2SAT 92–98
[2017-07-31] MEDS: ALPRAZolam 0.5 MG TAB PO PRN ×4 (01:04→22:08)
[2017-07-31] MEDS: ACETAMINOPHEN/HYDROcodone 325 MG/10 MG TAB PO PRN ×4 (01:04→22:08)
[2017-07-31] MEDS: INSULIN ASPART SUPPLEMENTAL SCALE SQ SCH ×4 (07:55→21:00)
[2017-07-31 08:19] LABS: HEMATOCRIT 22.3 % (39.0-51.0); HEMOGLOBIN 7.6 GM/DL (13.0-17.0); MEAN CELL VOLUME 84.8 FL (80.0-100.0); MEAN CORPUSCULAR HEMOGLOBIN 28.8 PG (27.0-34.0); MEAN CORPUSCULAR HGB CONC 33.9 % (32.0-36.0); MEAN PLATELET VOLUME 7.5 FL (7.0-11.0); PLATELET COUNT 318 TH/MM3 (150-450); RED BLOOD COUNT 2.63 MIL/MM3 (4.50-5.90); RED CELL DISTRIBUTION WIDTH 17.4 % (11.6-17.2); WHITE BLOOD COUNT 6.1 TH/MM3 (4.0-11.0)
[2017-07-31 08:45] LABS: BICARBONATE 25.1 MEQ/L (21.0-32.0); CALCIUM 8.7 MG/DL (8.5-10.1); CREATININE 1.76 MG/DL (0.60-1.30)
[2017-07-31] MEDS: AMIODARONE 200 MG TAB PO SCH ×2 (09:02→22:08)
[2017-07-31] MEDS: GABAPENTIN 100 MG CAP PO SCH ×2 (09:02→22:08)
[2017-07-31] MEDS: DOCUSATE SODIUM 50 MG/SENNA 8.6 MG TAB PO SCH ×2 (09:02→21:00)
[2017-07-31] MEDS: APIXABAN 2.5 MG TABLET PO SCH ×2 (09:02→22:09)
[2017-07-31] MEDS: CARVEDILOL 3.125 MG TAB PO SCH ×2 (09:02→22:08)
[2017-07-31] MEDS: PANTOPRAZOLE SOD 40 MG DELAYED RELEASE TAB PO SCH (09:02)
[2017-07-31] MEDS: SODIUM CHLORIDE 0.9% FLUSH 10 ML FLUSH IV FLUSH SCH ×2 (09:03→22:09)
--- NOTE | 2017-07-31 10:08 | HHI.NPPN ---
Subjective Renal Failure: Acute History of Present Illness Patient is a 62-year-old male with a PMH of A. fib on Eliquis, HTN, Hyperlipidemia, CAD and CHF. He presented to the ER with complaints of chest pain. Troponin have remained negative. Patient was found to have potassium level of 2.8 and protein corrected calcium level of 6.2 with replacement was given. He is also being followed by podiatry and infectious disease for osteomyelitis of left foot. Nephrology is consulted for elevated renal indices with a creatinine of 1.7 today with a admission creatinine of 1.04. Patient has a past medical history of elevated creatinine in January of 2017 with creatinine of 1.35. Renal US with no obstructive uropathy, stable adjacent cysts versus a single cyst with septation in the mid right kidney measuring up to 2.4 cm., and trace ascites. Additional Remarks Patient is resting comfortably. No shortness of breath. Creatinine is stable. (Miriam Centeno) Review of Systems Respiratory Respiratory Remarks Denies any SOB (Miriam Centeno) Cardiovascular Cardiac Remarks No chest pain (Miriam Centeno) Gastrointestinal GI Remarks No abdominal pain (Miriam Centeno) Objective Data Data Vital Signs Date Time Temp Pulse Resp B/P (MAP) Pulse Ox O2 Delivery O2 Flow Rate FiO2 07/31/17 08:00 98.5 57 18 128/60 (82) 95 07/31/17 04:24 98.6 63 16 136/65 (88) 94 07/31/17 04:00 62 07/31/17 00:57 98.8 63 16 134/64 (87) 93 07/31/17 00:00 61 07/30/17 20:46 98.9 70 18 162/70 (100) 94 07/30/17 20:00 72 07/30/17 15:35 99.0 85 18 154/72 (99) 97 07/30/17 12:15 98.5 90 18 159/79 (105) 96 (Miriam Centeno) -: 07/31/17 0655 07/31/17 0655 Physical Exam General Appearance: No Acute Distress, Comfortable (Miriam Centeno) Throat Throat Exam: Oral Mucosa [place] & Moist (Miriam Centeno) Neck Neck Exam: Neck Supple (Miriam Centeno) Pulmonary Resp Exam: Clear Bilaterally, Breath Sounds Equal, No Distress (Miriam Centeno) Cardiology CV Exam: Regular, Normal Sinus Rhythm (Miriam Centeno) Gastrointestinal/Abdomen GI Exam: Soft, Bowel Sounds Present (Miriam Centeno) Genitourinary Exam: Flank Non-Tender (Miriam Centeno) Musculoskeletal MS Remarks left leg non weightbearing joseph wrap on (Miriam Centeno) Integumentary Skin Exam: Clear, Warm Skin Remarks Left lower extremity with +2 edema severe tenderness to light touch, erythematous, he had to wounds that looks dry on the dorsal surface of the foot and from rae (Miriam Centeno) Extremeties Extremities Exam: Moderate Edema (Miriam Centeno) Assessment/Plan Problem List: (1) EVELYNE (acute kidney injury) ICD Codes: N17.9 - Acute kidney failure, unspecified Plan: Acute kidney injury with a creatinine of 1.7 today with a admission creatinine of 1.04. EVELYNE from possible prerenal VS ATN from infection vs adverse medication effect May have past medical history of chronic kidney disease with noted elevated creatinine in January. Renal US with no obstructive uropathy, stable adjacent cysts versus a single cyst with septation in the mid right kidney measuring up to 2.4 cm., and trace ascites. FeNa at 7 % suggestive of acute tubular necrosis. Plan Will monitor Urinary output and renal panel Avoid nephrotoxins Renal dose antibiotics Creatinine stable at 1.76 from 1.87 Fluids encouraged (2) Normochromic normocytic anemia ICD Codes: D64.9 - Anemia, unspecified Plan: will monitor (3) DM (diabetes mellitus) ICD Codes: E11.9 - Type 2 diabetes mellitus without complications Plan: Maintain blood sugars between 140 mg/dl to 180mg/dl (Miriam Centeno) Problem List: (1) EVELYNE (acute kidney injury) ICD Codes: N17.9 - Acute kidney failure, unspecified Plan: Acute kidney injury with a creatinine of 1.7 today with a admission creatinine of 1.04. EVELYNE from possible prerenal VS ATN from infection vs adverse medication effect May have past medical history of chronic kidney disease with noted elevated creatinine in January. Renal US with no obstructive uropathy, stable adjacent cysts versus a single cyst with septation in the mid right kidney measuring up to 2.4 cm., and trace ascites. FeNa at 7 % suggestive of acute tubular necrosis. Plan Will monitor Urinary output and renal panel Avoid nephrotoxins Renal dose antibiotics Creatinine stable at 1.76 from 1.87 Fluids encouraged. Patient seen and examined, agree with above. Creatinine is stable, continue antibiotics. (2) Normochromic normocytic anemia ICD Codes: D64.9 - Anemia, unspecified Plan: will monitor (3) DM (diabetes mellitus) ICD Codes: E11.9 - Type 2 diabetes mellitus without complications Plan: Maintain blood sugars between 140 mg/dl to 180mg/dl (Roni Cueva MD) Miriam Centeno July 31, 2017 10:08 Roni Cueva MD July 31, 2017 22:13
[2017-07-31] MEDS: FERROUS SULFATE 325 MG (65 MG ELEMENTAL IRON) TAB PO SCH ×2 (12:03→17:00)
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
[2017-07-31] MEDS: SODIUM CHLORIDE 0.9% IV SCH (17:00)
[2017-07-31] MEDS: DAPTOMYCIN IV SCH (17:00)
[2017-08-01] VITALS (12 sets, daily range): BP systolic 104–138; BP diastolic 53–66; PULSE 49–67; RESP 17–20; TEMP 97.7–98.8; O2SAT 93–96
[2017-08-01] MEDS: ALPRAZolam 0.5 MG TAB PO PRN ×4 (07:28→21:05)
[2017-08-01] MEDS: CARVEDILOL 3.125 MG TAB PO SCH ×2 (07:28→20:24)
[2017-08-01] MEDS: GABAPENTIN 100 MG CAP PO SCH ×2 (07:28→20:24)
[2017-08-01] MEDS: DOCUSATE SODIUM 50 MG/SENNA 8.6 MG TAB PO SCH ×2 (07:28→20:25)
[2017-08-01] MEDS: PANTOPRAZOLE SOD 40 MG DELAYED RELEASE TAB PO SCH (07:28)
[2017-08-01] MEDS: AMIODARONE 200 MG TAB PO SCH ×2 (07:28→20:25)
[2017-08-01] MEDS: APIXABAN 2.5 MG TABLET PO SCH ×2 (07:29→20:25)
[2017-08-01] MEDS: ACETAMINOPHEN/HYDROcodone 325 MG/10 MG TAB PO PRN ×4 (07:30→21:05)
[2017-08-01] MEDS: SODIUM CHLORIDE 0.9% FLUSH 10 ML FLUSH IV FLUSH SCH ×2 (07:31→20:26)
[2017-08-01] MEDS: INSULIN ASPART SUPPLEMENTAL SCALE SQ SCH ×4 (08:14→21:06)
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
--- NOTE | 2017-08-01 09:41 | RADRPT ---
EXAM DATE/TIME: 08/01/2017 08:56 [facility] COMPARISON: CHEST SINGLE AP, February 16, 2017, 0:38. INDICATIONS : Short of breath. MEDICAL HISTORY : Diabetes mellitus type 2. Arthritis. SURGICAL HISTORY : CABG Fusion, lumbar. IVC Filter placement. ENCOUNTER: Initial ACUITY: 1 week PAIN SCORE: 0/10 LOCATION: Bilateral chest FINDINGS: There is cardiomegaly, left lower lobe atelectasis and a small effusion suspected. I do not see a pne umothorax. Sternotomy wires are present. CONCLUSION: Left lower lobe consolidation and atelectasis with small left effusion. Right lung is clear. Domo Espino MD on August 01, 2017 at 9:38 Board Certified Radiologist. This report was verified electronically.
[2017-08-01 10:43] LABS: AUTOMATED NEUTROPHIL # 5.8 TH/MM3 (1.8-7.7); BASOPHIL # 0.1 TH/MM3 (0-0.2); BASOPHIL % 0.8 % (0.0-2.0); EOSINOPHIL # 0.1 TH/MM3 (0-0.4); EOSINOPHIL % 1.4 % (0.0-4.0); LYMPH % 10.5 % (9.0-44.0); LYMPHOCYTE # 0.8 TH/MM3 (1.0-4.8); MEAN CORPUSCULAR HEMOGLOBIN 28.3 PG (27.0-34.0); MEAN CORPUSCULAR HGB CONC 33.7 % (32.0-36.0); MEAN PLATELET VOLUME 7.2 FL (7.0-11.0); MONO % 10.8 % (0.0-8.0); MONOCYTE # 0.8 TH/MM3 (0-0.9); NEUT % 76.5 % (16.0-70.0); PLATELET COUNT 326 TH/MM3 (150-450); RED CELL DISTRIBUTION WIDTH 17.2 % (11.6-17.2); WHITE BLOOD COUNT 7.6 TH/MM3 (4.0-11.0)
[2017-08-01 10:47] LABS: HEMATOCRIT 20.2 % (39.0-51.0); HEMOGLOBIN 6.8 GM/DL (13.0-17.0)
--- NOTE | 2017-08-01 10:48 | RADRPT ---
EXAM DATE/TIME: 08/01/2017 09:19 [facility] COMPARISON: No previous studies available for comparison. INDICATIONS : Bilateral arm pain. MEDICAL HISTORY : Hypertension. Congestive heart failure. Deep venous thrombosis. Hyperlipidemia. Atrial fibrillation. Diabetes. Post traumatic stress disorder. MRSA. Osteomyelitis. SURGICAL HISTORY : CABG Toe amputation. Neuropathy. ORIF tib/fib. Lumbar surgery. ENCOUNTER: Initial ACUITY: 1 day PAIN SCORE: 3/10 LOCATION: Bilateral arms. FINDINGS: RIGHT UPPER EXTREMITY: There is spontaneous flow documented in the brachial, basilic, cephalic, axillary, and subclavian vei ns. The vessels are compressible and augmentation response is documented. No filling defects are se en. The flow is phasic with respiration. Direction of flow in the jugular vein is caudal. LEFT UPPER EXTREMITY: There is spontaneous flow documented in the brachial, basilic, cephalic, axillary, and subclavian vei ns. The vessels are compressible and augmentation response is documented. No filling defects are se en. The flow is phasic with respiration. Direction of flow in the jugular vein is caudal. CONCLUSION: 1. No sonographic evidence for upper extremity DVT. El Mosher MD on August 01, 2017 at 10:43 Board Certified Radiologist. This report was verified electronically.
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
[2017-08-01] MEDS ORDERED: SODIUM CHLOR 0.9% 250 ML INJ 250 ML IV ONE (11:00)
[2017-08-01] MEDS: FERROUS SULFATE 325 MG (65 MG ELEMENTAL IRON) TAB PO SCH ×2 (12:17→16:20)
[2017-08-01 13:09] LABS: BACTERIA, URINE RARE /hpf; BILIRUBIN, URINE NEG (NEG); BLOOD, URINE LARGE (NEG); GLUCOSE,URINE NEG (NEG); KETONE, URINE NEG (NEG); NITRITE,URINE NEG (NEG); URINE COLOR LIGHT-YELLOW (YELLW/STRAW); URINE LEUKOCYTE ESTERASE NEG (NEG)
--- NOTE | 2017-08-01 14:28 | HHI.NPPN ---
Subjective Renal Failure: Acute History of Present Illness Patient is a 62-year-old male with a PMH of A. fib on Eliquis, HTN, Hyperlipidemia, CAD and CHF. He presented to the ER with complaints of chest pain. Troponin have remained negative. Patient was found to have potassium level of 2.8 and protein corrected calcium level of 6.2 with replacement was given. He is also being followed by podiatry and infectious disease for osteomyelitis of left foot. Nephrology is consulted for elevated renal indices with a creatinine of 1.7 today with a admission creatinine of 1.04. Patient has a past medical history of elevated creatinine in January of 2017 with creatinine of 1.35. Renal US with no obstructive uropathy, stable adjacent cysts versus a single cyst with septation in the mid right kidney measuring up to 2.4 cm., and trace ascites. Additional Remarks Patient is resting comfortably. No shortness of breath. Hgb is low at 6.8 plan for blood transfusion today. (Miriam Centeno) Review of Systems Respiratory Respiratory Remarks Denies any SOB (Miriam Centeno) Cardiovascular Cardiac Remarks No chest pain (Miriam Centeno) Gastrointestinal GI Remarks No abdominal pain (Miriam Centeno) Objective Data Data Vital Signs Date Time Temp Pulse Resp B/P (MAP) Pulse Ox O2 Delivery O2 Flow Rate FiO2 08/01/17 13:34 18 08/01/17 11:30 97.9 53 18 104/57 (73) 95 08/01/17 08:50 98.5 59 18 138/65 (89) 93 08/01/17 08:00 59 08/01/17 04:00 98.5 62 18 121/66 (84) 95 08/01/17 04:00 Room Air 08/01/17 03:55 61 08/01/17 00:00 Room Air 08/01/17 00:00 98.8 67 18 114/63 (80) 93 07/31/17 23:53 67 07/31/17 20:00 Room Air 07/31/17 20:00 102.0 74 20 154/70 (98) 92 07/31/17 19:57 76 07/31/17 16:00 98.0 61 18 122/64 (83) 94 (Miriam Centeno) -: 08/01/17 1020 07/31/17 0655 Microbiology 08/01/17 Aerobic Blood Culture, Received Pending 08/01/17 Anaerobic Blood Culture, Received Pending 08/01/17 Aerobic Blood Culture, Received Pending 08/01/17 Anaerobic Blood Culture, Received Pending (Miriam Centeno) Physical Exam General Appearance: No Acute Distress, Comfortable (Miriam Centeno) Throat Throat Exam: Oral Mucosa [place] & Moist (Miriam Centeno) Neck Neck Exam: Neck Supple (Miriam Centeno) Pulmonary Resp Exam: Clear Bilaterally, Breath Sounds Equal, No Distress (Miriam Centeno) Cardiology CV Exam: Regular, Normal Sinus Rhythm (Miriam Centeno) Gastrointestinal/Abdomen GI Exam: Soft, Bowel Sounds Present (Miriam Centeno) Genitourinary Exam: Flank Non-Tender (Miriam Centeno) Musculoskeletal MS Remarks left leg non weightbearing joseph wrap on (Miriam Centeno) Integumentary Skin Exam: Clear, Warm Skin Remarks Left lower extremity with +2 edema severe tenderness to light touch, erythematous, he had to wounds that looks dry on the dorsal surface of the foot and from rae (Miriam Centeno) Extremeties Extremities Exam: Moderate Edema (Miriam Centeno) Assessment/Plan Problem List: (1) EVELYNE (acute kidney injury) ICD Codes: N17.9 - Acute kidney failure, unspecified Plan: Acute kidney injury with a creatinine of 1.7 today with a admission creatinine of 1.04. EVELYNE from possible prerenal VS ATN from infection vs adverse medication effect May have past medical history of chronic kidney disease with noted elevated creatinine in January. Renal US with no obstructive uropathy, stable adjacent cysts versus a single cyst with septation in the mid right kidney measuring up to 2.4 cm., and trace ascites. FeNa at 7 % suggestive of acute tubular necrosis. Plan Will monitor Urinary output and renal panel Avoid nephrotoxins Renal dose antibiotics Creatinine stable at 1.76 from 1.87 yesterday Fluids encouraged. Anemic with HGB of 6.8 plan for blood transfusion (2) Normochromic normocytic anemia ICD Codes: D64.9 - Anemia, unspecified Plan: will monitor (3) DM (diabetes mellitus) ICD Codes: E11.9 - Type 2 diabetes mellitus without complications Plan: Maintain blood sugars between 140 mg/dl to 180mg/dl (Miriam Centeno) Problem List: (1) EVELYNE (acute kidney injury) ICD Codes: N17.9 - Acute kidney failure, unspecified Plan: Acute kidney injury with a creatinine of 1.7 today with a admission creatinine of 1.04. EVELYNE from possible prerenal VS ATN from infection vs adverse medication effect May have past medical history of chronic kidney disease with noted elevated creatinine in January. Renal US with no obstructive uropathy, stable adjacent cysts versus a single cyst with septation in the mid right kidney measuring up to 2.4 cm., and trace ascites. FeNa at 7 % suggestive of acute tubular necrosis. Plan Will monitor Urinary output and renal panel Avoid nephrotoxins Renal dose antibiotics Creatinine stable at 1.76 from 1.87 yesterday Fluids encouraged. Anemic with HGB of 6.8 plan for blood transfusion. Patient seen and examined, agree with above. No apparent bleeding, Hgb dropped. Creatinine is stable. (2) Normochromic normocytic anemia ICD Codes: D64.9 - Anemia, unspecified Plan: will monitor (3) DM (diabetes mellitus) ICD Codes: E11.9 - Type 2 diabetes mellitus without complications Plan: Maintain blood sugars between 140 mg/dl to 180mg/dl (Roni Cueva MD) Miriam Centeno August 01, 2017 14:28 Roni Cueva MD August 01, 2017 21:21
[2017-08-01] MEDS: CEFEPIME INJ 2,000 MG in SODIUM CHLORIDE 0.9% INJ 100 ML IV SCH (16:28)
[2017-08-01] MEDS: DAPTOMYCIN IV SCH (16:43)
[2017-08-01] MEDS: SODIUM CHLORIDE 0.9% IV SCH (16:43)
[2017-08-02] VITALS (8 sets, daily range): BP systolic 121–163; BP diastolic 58–78; PULSE 49–54; RESP 16–18; TEMP 97.8–98.8; O2SAT 92–95
[2017-08-02] MEDS: CEFEPIME INJ 2,000 MG in SODIUM CHLORIDE 0.9% INJ 100 ML IV SCH ×3 (00:42→17:41)
[2017-08-02] MEDS: ACETAMINOPHEN/HYDROcodone 325 MG/10 MG TAB PO PRN ×4 (01:54→17:43)
[2017-08-02] MEDS: ALPRAZolam 0.5 MG TAB PO PRN ×4 (01:54→17:43)
[2017-08-02] MEDS: INSULIN ASPART SUPPLEMENTAL SCALE SQ SCH ×4 (08:00→21:44)
[2017-08-02 08:15] LABS: HEMATOCRIT 25.6 % (39.0-51.0); HEMOGLOBIN 8.6 GM/DL (13.0-17.0); MEAN CELL VOLUME 84.3 FL (80.0-100.0); MEAN CORPUSCULAR HEMOGLOBIN 28.4 PG (27.0-34.0); MEAN CORPUSCULAR HGB CONC 33.6 % (32.0-36.0); MEAN PLATELET VOLUME 7.2 FL (7.0-11.0); PLATELET COUNT 309 TH/MM3 (150-450); RED BLOOD COUNT 3.03 MIL/MM3 (4.50-5.90); RED CELL DISTRIBUTION WIDTH 17.1 % (11.6-17.2); WHITE BLOOD COUNT 6.8 TH/MM3 (4.0-11.0)
[2017-08-02 08:34] LABS: BICARBONATE 24.9 MEQ/L (21.0-32.0); CALCIUM 8.9 MG/DL (8.5-10.1); CREATININE 1.99 MG/DL (0.60-1.30)
[2017-08-02] MEDS: AMIODARONE 200 MG TAB PO SCH ×2 (09:02→21:43)
[2017-08-02] MEDS: PANTOPRAZOLE SOD 40 MG DELAYED RELEASE TAB PO SCH (09:02)
[2017-08-02] MEDS: SODIUM CHLORIDE 0.9% FLUSH 10 ML FLUSH IV FLUSH SCH ×2 (09:03→21:43)
[2017-08-02] MEDS: CARVEDILOL 3.125 MG TAB PO SCH ×2 (09:03→21:43)
[2017-08-02] MEDS: GABAPENTIN 100 MG CAP PO SCH ×2 (09:03→21:43)
[2017-08-02] MEDS: DOCUSATE SODIUM 50 MG/SENNA 8.6 MG TAB PO SCH ×2 (09:03→21:00)
[2017-08-02] MEDS: APIXABAN 2.5 MG TABLET PO SCH ×2 (09:03→21:43)
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
[2017-08-02 10:14] LABS: RPR SCREEN FOR REFLEX NON-REACTIVE (NON-REACTVE)
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
[2017-08-02] MEDS: FERROUS SULFATE 325 MG (65 MG ELEMENTAL IRON) TAB PO SCH ×2 (13:00→17:00)
--- NOTE | 2017-08-02 15:05 | HHI.NPPN ---
Subjective Renal Failure: Acute History of Present Illness Patient is a 62-year-old male with a PMH of A. fib on Eliquis, HTN, Hyperlipidemia, CAD and CHF. He presented to the ER with complaints of chest pain. Troponin have remained negative. Patient was found to have potassium level of 2.8 and protein corrected calcium level of 6.2 with replacement was given. He is also being followed by podiatry and infectious disease for osteomyelitis of left foot. Nephrology is consulted for elevated renal indices with a creatinine of 1.7 today with a admission creatinine of 1.04. Patient has a past medical history of elevated creatinine in January of 2017 with creatinine of 1.35. Renal US with no obstructive uropathy, stable adjacent cysts versus a single cyst with septation in the mid right kidney measuring up to 2.4 cm., and trace ascites. Additional Remarks Patient is resting comfortably. No shortness of breath. Creatinine slightly more increased at 1.99 continues to good urinary output. (Miriam Centeno) Review of Systems Respiratory Respiratory Remarks Denies any SOB (Miriam Centeno) Cardiovascular Cardiac Remarks No chest pain (Miriam Centeno) Gastrointestinal GI Remarks No abdominal pain (Miriam Centeno) Objective Data Data Vital Signs Date Time Temp Pulse Resp B/P (MAP) Pulse Ox O2 Delivery O2 Flow Rate FiO2 08/02/17 12:02 98.3 51 18 160/74 (102) 94 08/02/17 08:02 98.3 52 17 163/78 (106) 92 08/02/17 04:00 Room Air 08/02/17 04:00 54 08/02/17 04:00 98.8 51 18 150/69 (96) 95 08/02/17 00:00 Room Air 08/02/17 00:00 54 08/02/17 00:00 98.3 54 16 121/58 (79) 94 08/01/17 20:00 49 08/01/17 20:00 Room Air 08/01/17 20:00 97.9 59 17 137/60 (85) 94 08/01/17 18:19 98.2 50 20 135/63 93 08/01/17 17:57 98.3 49 20 124/57 94 08/01/17 17:40 18 08/01/17 15:30 98.3 49 20 124/57 (79) 94 08/01/17 15:12 98.5 52 18 111/59 96 (Miriam Centeno) -: 08/02/17 0750 08/02/17 0750 Physical Exam General Appearance: No Acute Distress, Comfortable (Miriam Centeno) Throat Throat Exam: Oral Mucosa [place] & Moist (Miriam Centeno) Neck Neck Exam: Neck Supple (Miriam Centeno) Pulmonary Resp Exam: Clear Bilaterally, Breath Sounds Equal, No Distress (Miriam Centeno) Cardiology CV Exam: Regular, Normal Sinus Rhythm (Miriam Centeno) Gastrointestinal/Abdomen GI Exam: Soft, Bowel Sounds Present (Miriam Centeno) Genitourinary Exam: Flank Non-Tender (Miriam Centeno) Musculoskeletal MS Remarks left leg non weightbearing joseph wrap on (Miriam Centeno) Integumentary Skin Exam: Clear, Warm Skin Remarks Left lower extremity with +2 edema severe tenderness to light touch, erythematous, he had to wounds that looks dry on the dorsal surface of the foot and from rae (Miriam Centeno) Extremeties Extremities Exam: Moderate Edema (Miriam Centeno) Assessment/Plan Problem List: (1) EVELYNE (acute kidney injury) ICD Codes: N17.9 - Acute kidney failure, unspecified Plan: Acute kidney injury with a creatinine of 1.7 today with a admission creatinine of 1.04. EVELYNE from possible prerenal VS ATN from infection vs adverse medication effect May have past medical history of chronic kidney disease with noted elevated creatinine in January. Renal US with no obstructive uropathy, stable adjacent cysts versus a single cyst with septation in the mid right kidney measuring up to 2.4 cm., and trace ascites. FeNa at 7 % suggestive of acute tubular necrosis. Plan Avoid nephrotoxins Renal dose antibiotics Creatinine with slightly increase at 1.99 from 1.76 Fluids encouraged. Renal dose medication Will monitor Urinary output and renal panel (2) Normochromic normocytic anemia ICD Codes: D64.9 - Anemia, unspecified Plan: will monitor (3) DM (diabetes mellitus) ICD Codes: E11.9 - Type 2 diabetes mellitus without complications Plan: Maintain blood sugars between 140 mg/dl to 180mg/dl (Miriam Centeno) Problem List: (1) EVELYNE (acute kidney injury) ICD Codes: N17.9 - Acute kidney failure, unspecified Plan: Acute kidney injury with a creatinine of 1.7 today with a admission creatinine of 1.04. EVELYNE from possible prerenal VS ATN from infection vs adverse medication effect May have past medical history of chronic kidney disease with noted elevated creatinine in January. Renal US with no obstructive uropathy, stable adjacent cysts versus a single cyst with septation in the mid right kidney measuring up to 2.4 cm., and trace ascites. FeNa at 7 % suggestive of acute tubular necrosis. Plan Avoid nephrotoxins Renal dose antibiotics Creatinine with slightly increase at 1.99 from 1.76 Fluids encouraged. Renal dose medication Will monitor Urinary output and renal panel. Patient seen and examined, agree with above. Creatinine increase to 1.9, possibly pre renal, start IVF. (2) Normochromic normocytic anemia ICD Codes: D64.9 - Anemia, unspecified Plan: will monitor (3) DM (diabetes mellitus) ICD Codes: E11.9 - Type 2 diabetes mellitus without complications Plan: Maintain blood sugars between 140 mg/dl to 180mg/dl (Roni Cueva MD) Miriam Centeno August 02, 2017 15:05 Roni Cueva MD August 02, 2017 20:30
[2017-08-02] MEDS: DAPTOMYCIN IV SCH (17:42)
[2017-08-02] MEDS: SODIUM CHLORIDE 0.9% IV SCH (17:42)
--- NOTE | 2017-08-02 19:41 | MB ---
cc: Odalys Gordon MD,Mary Ann CASTILLO DATE: 08/02/2017 REFERRING PHYSICIAN: Dr. Mary Ann Meek. CHIEF COMPLAINT: Dr. French requested consultation for Mr. Keller regarding unintentional weight loss associated with left inguinal adenopathy and anemia. HISTORY OF PRESENT ILLNESS: Mr. Keller is a 62-year-old man with multiple medical problems. He has coronary artery disease and apparently has had a triple bypass surgery in the beginning of the year, atrial fibrillation, hypertension, hyperlipidemia, and congestive heart failure. He presented from the [facility] with hypocalcemia, hypokalemia, and essentially left foot osteomyelitis. He was seen by Dr. Kaci Sin and underwent resection of the left metatarsal head, small toe, left second metatarsal and left third metatarsal. The left small toe had a focal ulceration and severe acute and chronic inflammation extending to the underlying bone, exhibiting severe chronic osteomyelitis. He is followed by infectious disease, who is treating him with antibiotic therapy. His course is complicated by chronic kidney disease. He also has anemia, which he reports has been all his life. He required transfusion of 3 units of packed red cells since this admission. Mr. Keller weaves a good tale. He reports that he has been anemic all his life like his mother. He does not know the reason. I can see previous CBC from 08/22/2013 that shows a normal hemoglobin of 14.6. On 08/28/2013, his hemoglobin was 13.6. On 12/01/2016, his hemoglobin was 13.3. He also does not recall being transfused before, but evaluation of our blood bank history showed a previous transfusion in 02/2017. Records from the [place] or at [facility] were not available during the consultation. I therefore I would stand to reason that his anemia is more recent. His MCV has also trended down, which suggests a blood loss anemia. He denies any melena or bright red blood per rectum. His current hemoglobin is 8.6 after the units of red cell. He complains of unintentional weight loss. He has an exaggerated amount of weight loss, which he calculates over the last several months. Review of the electronic medical record confirmed the weight loss. In 2013, he weighed 101 kilos. On admission, he weighed 72 kilos, and he currently weighs 83.5 kilos. He reports a good appetite. He denies any nausea or vomiting. 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 He was concerned about the anemia, weight loss and left inguinal lymph node that prompted Hematology/Oncology consultation. PAST MEDICAL HISTORY: Atrial fibrillation, hypertension, recurrent DVT, coronary artery disease, congestive heart failure. PAST SURGICAL HISTORY: Tib-fib ORIF, back surgery, triple bypass surgery, IVC filter placement. FAMILY HISTORY: Describes mother having pancreatic cancer in her 80s. Describes father dying of colon cancer in his late 50s, but had oral cancer before that. SOCIAL HISTORY: He is a retired . He drinks alcohol occasionally. Denies any tobacco use. He used marijuana in the past. ALLERGIES: NO KNOWN DRUG ALLERGIES. CURRENT MEDICATIONS: 1. Cefepime. 2. Daptomycin. 3. Ferrous sulfate. 4. Eula-Colace. 5. Cordarone. 6. Eliquis 2.5 mg p.o. b.i.d. 7. Coreg. 8. Neurontin. 9. Protonix. 10. [place]. 11. Xanax. PHYSICAL EXAMINATION: VITAL SIGNS: Temperature 97.8, heart rate 54, respiratory rate 18, blood pressure 154/76, saturation 94%. GENERAL: Mr. Keller is a slender, well-developed man who looks his stated age. HEENT: Pupils are round, reactive to light and accommodation. Oropharynx is clear. NECK: Supple with submandibular adenopathy. Soft, benign. Bilateral axillae negative. LUNGS: Clear. HEART: Reveals rate controlled rhythm, mild bradycardia. ABDOMEN: Benign. LOWER EXTREMITY: With a swollen left foot in an Geoffrey bandage. Right foot is negative. There is a left inguinal adenopathy, shotty right inguinal adenopathy. LABORATORY DATA: Hemoglobin 8.6, BUN of 31, creatinine 1.99, glucose of 131. ASSESSMENT AND PLAN: Mr. Keller is a 62-year-old man with multiple medical problems. He is admitted with osteomyelitis of the left foot. He required amputation of his fifth digit and is currently on antibiotic therapy managed by Infectious Disease. Hematology/Oncology is consulted for unintentional weight loss, going from 101 kilos back in 2014 to about 77 kilos. He has weight loss despite good appetite. He is concerned about malignancy as a cause of his weight loss. He has a family history of cancer. We had discussed his anemia. I suspect that his anemia is from multiple factors. He is on chronic anticoagulant therapy and therefore gastrointestinal loss of iron or blood is contributing to the above. He had a quite normal hemoglobin in 2014. I recommend no additional transfusion. I will rule out nutritional etiology for his anemia. The normocytic nature suggests anemia of chronic disease in light of his osteomyelitis. He also has renal insufficiency contributing. A CBC will be obtained, a retic count and peripheral smear reviewed. We discussed the risks and benefits of bone marrow biopsy, which I recommend deferring at the moment. No other therapy needed for his anemia. Unintentional weight loss is not always caused by cancer. The adenopathy appears to be benign. I recommend no specific therapy at present. We will document his continued weight loss. He has appeared to have gained weight during his hospitalization. We will monitor closely. He may benefit from calorie counts. Internet Marketing Strategist will be consulted. His questions were answered to his satisfaction. MD TONE Miller/FABIAN , 07:03 PM , 07:40 PM DONNELL
[2017-08-02 21:27] LABS: % SATURATION IRON PROFILE 12.6 % (20-50); IRON (FE) 29 MCG/DL (65-175); TOTAL IRON BINDING CAPACITY 230 MCG/DL (250-450)
[2017-08-02 21:52] LABS: FERRITIN 562 NG/ML (26-388); FOLATE 6.4 NG/ML (3.1-17.5)
[2017-08-03] VITALS (10 sets, daily range): BP systolic 141–164; BP diastolic 67–78; PULSE 51–57; RESP 16–20; TEMP 97.9–98.5; O2SAT 92–97
[2017-08-03] MEDS: CEFEPIME INJ 2,000 MG in SODIUM CHLORIDE 0.9% INJ 100 ML IV SCH ×3 (00:16→15:18)
[2017-08-03 07:16] LABS: AUTOMATED NEUTROPHIL # 6.5 TH/MM3 (1.8-7.7); BASOPHIL # 0.1 TH/MM3 (0-0.2); BASOPHIL % 1.2 % (0.0-2.0); EOSINOPHIL # 0.2 TH/MM3 (0-0.4); EOSINOPHIL % 2.4 % (0.0-4.0); HEMATOCRIT 26.9 % (39.0-51.0); LYMPH % 7.2 % (9.0-44.0); LYMPHOCYTE # 0.6 TH/MM3 (1.0-4.8); MEAN CELL VOLUME 84.9 FL (80.0-100.0); MEAN CORPUSCULAR HEMOGLOBIN 28.3 PG (27.0-34.0); MEAN CORPUSCULAR HGB CONC 33.4 % (32.0-36.0); MEAN PLATELET VOLUME 7.2 FL (7.0-11.0); MONO % 9.7 % (0.0-8.0); MONOCYTE # 0.8 TH/MM3 (0-0.9); NEUT % 79.5 % (16.0-70.0); PLATELET COUNT 365 TH/MM3 (150-450); RED BLOOD COUNT 3.17 MIL/MM3 (4.50-5.90); RED CELL DISTRIBUTION WIDTH 16.4 % (11.6-17.2); WHITE BLOOD COUNT 8.2 TH/MM3 (4.0-11.0)
[2017-08-03 07:18] LABS: RETIC % 1.3 % (0.4-3.0)
[2017-08-03 07:44] LABS: ALBUMIN 2.2 GM/DL (3.4-5.0); BICARBONATE 25.1 MEQ/L (21.0-32.0); CALCIUM 9.1 MG/DL (8.5-10.1)
[2017-08-03 07:45] LABS: DIRECT BILIRUBIN ADULT 0.2 MG/DL (0.0-0.2)
[2017-08-03 07:48] LABS: INDIRECT BILIRUBIN 0.2 MG/DL (0.0-0.8); TOTAL BILIRUBIN ADULT 0.4 MG/DL (0.2-1.0)
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
[2017-08-03] MEDS: PANTOPRAZOLE SOD 40 MG DELAYED RELEASE TAB PO SCH (08:45)
[2017-08-03] MEDS: DOCUSATE SODIUM 50 MG/SENNA 8.6 MG TAB PO SCH ×2 (08:45→20:06)
[2017-08-03] MEDS: ACETAMINOPHEN/HYDROcodone 325 MG/10 MG TAB PO PRN ×3 (08:45→20:06)
[2017-08-03] MEDS: GABAPENTIN 100 MG CAP PO SCH ×2 (08:46→20:04)
[2017-08-03] MEDS: CARVEDILOL 3.125 MG TAB PO SCH ×2 (08:46→20:04)
[2017-08-03] MEDS: INSULIN ASPART SUPPLEMENTAL SCALE SQ SCH ×4 (08:46→20:07)
[2017-08-03] MEDS: SODIUM CHLORIDE 0.9% FLUSH 10 ML FLUSH IV FLUSH SCH ×2 (08:46→20:05)
[2017-08-03] MEDS: APIXABAN 2.5 MG TABLET PO SCH ×2 (08:46→22:04)
[2017-08-03] MEDS: AMIODARONE 200 MG TAB PO SCH ×2 (08:46→20:04)
[2017-08-03] MEDS: ALPRAZolam 0.5 MG TAB PO PRN ×3 (08:55→20:06)
[2017-08-03] MEDS: FERROUS SULFATE 325 MG (65 MG ELEMENTAL IRON) TAB PO SCH ×2 (12:00→17:00)
--- NOTE | 2017-08-03 12:16 | HHI.NPPN ---
Subjective Renal Failure: Acute History of Present Illness Patient is a 62-year-old male with a PMH of A. fib on Eliquis, HTN, Hyperlipidemia, CAD and CHF. He presented to the ER with complaints of chest pain. Troponin have remained negative. Patient was found to have potassium level of 2.8 and protein corrected calcium level of 6.2 with replacement was given. He is also being followed by podiatry and infectious disease for osteomyelitis of left foot. Nephrology is consulted for elevated renal indices with a creatinine of 1.7 today with a admission creatinine of 1.04. Patient has a past medical history of elevated creatinine in January of 2017 with creatinine of 1.35. Renal US with no obstructive uropathy, stable adjacent cysts versus a single cyst with septation in the mid right kidney measuring up to 2.4 cm., and trace ascites. Additional Remarks Patient is resting comfortably. No shortness of breath. (Miriam Centeno) Review of Systems Respiratory Respiratory Remarks Denies any SOB (Miriam Centeno) Cardiovascular Cardiac Remarks No chest pain (Miriam Centeno) Gastrointestinal GI Remarks No abdominal pain (Miriam Centeno) Objective Data Data Vital Signs Date Time Temp Pulse Resp B/P (MAP) Pulse Ox O2 Delivery O2 Flow Rate FiO2 08/03/17 08:49 98.2 53 17 163/72 (102) 92 08/03/17 08:00 Room Air 08/03/17 04:39 98.5 54 16 163/76 (105) 93 08/03/17 04:00 55 08/03/17 00:10 98.2 56 16 157/70 (99) 93 08/03/17 00:00 54 08/03/17 00:00 Room Air 08/02/17 20:50 98.2 52 16 133/61 (85) 94 08/02/17 20:00 49 08/02/17 20:00 Room Air 08/02/17 16:02 97.8 54 18 154/76 (102) 94 (Miriam Centeno) -: 08/03/17 0659 08/03/17 0650 Physical Exam General Appearance: No Acute Distress, Comfortable (Miriam Centeno) Throat Throat Exam: Oral Mucosa [place] & Moist (Miriam Centeno) Neck Neck Exam: Neck Supple (Miriam Centeno) Pulmonary Resp Exam: Clear Bilaterally, Breath Sounds Equal, No Distress (Miriam Centeno) Cardiology CV Exam: Regular, Normal Sinus Rhythm (Miriam Centeno) Gastrointestinal/Abdomen GI Exam: Soft, Bowel Sounds Present (Miriam Centeno) Genitourinary Exam: Flank Non-Tender (Miriam Centeno) Musculoskeletal MS Remarks left leg non weightbearing joseph wrap on (Miriam Centeno) Integumentary Skin Exam: Clear, Warm Skin Remarks Left lower extremity with +2 edema severe tenderness to light touch, erythematous, he had to wounds that looks dry on the dorsal surface of the foot and from rae (Miriam Centeno) Extremeties Extremities Exam: Moderate Edema (Miriam Centeno) Assessment/Plan Problem List: (1) EVELYNE (acute kidney injury) ICD Codes: N17.9 - Acute kidney failure, unspecified Plan: Acute kidney injury with a creatinine of 1.7 today with a admission creatinine of 1.04. EVELYNE from possible prerenal VS ATN from infection vs adverse medication effect May have past medical history of chronic kidney disease with noted elevated creatinine in January. Renal US with no obstructive uropathy, stable adjacent cysts versus a single cyst with septation in the mid right kidney measuring up to 2.4 cm., and trace ascites. FeNa at 7 % suggestive of acute tubular necrosis. Plan Avoid nephrotoxins Creatinine with slightly increased possible prerenal element will start IVF. Fluids encouraged. Will monitor Urinary output and renal panel. (2) Normochromic normocytic anemia ICD Codes: D64.9 - Anemia, unspecified Plan: will monitor (3) DM (diabetes mellitus) ICD Codes: E11.9 - Type 2 diabetes mellitus without complications Plan: Maintain blood sugars between 140 mg/dl to 180mg/dl (Miiram Centeno) Problem List: (1) EVELYNE (acute kidney injury) ICD Codes: N17.9 - Acute kidney failure, unspecified Plan: Acute kidney injury with a creatinine of 1.7 today with a admission creatinine of 1.04. EVELYNE from possible prerenal VS ATN from infection vs adverse medication effect May have past medical history of chronic kidney disease with noted elevated creatinine in January. Renal US with no obstructive uropathy, stable adjacent cysts versus a single cyst with septation in the mid right kidney measuring up to 2.4 cm., and trace ascites. FeNa at 7 % suggestive of acute tubular necrosis. Plan Avoid nephrotoxins Creatinine with slightly increased possible prerenal element will start IVF. Fluids encouraged. Will monitor Urinary output and renal panel. Patient seen and examined, agree with above. Increase Creatinine, possibly pre renal along with ATN. (2) Normochromic normocytic anemia ICD Codes: D64.9 - Anemia, unspecified Plan: will monitor (3) DM (diabetes mellitus) ICD Codes: E11.9 - Type 2 diabetes mellitus without complications Plan: Maintain blood sugars between 140 mg/dl to 180mg/dl (Roni Cueva MD) Miriam Centeno August 03, 2017 12:16 Roni Cueva MD August 07, 2017 19:13
[2017-08-03] MEDS ORDERED: CYANOCOBALAMIN 1000 MCG/ML VIAL SQ ONE (14:00)
[2017-08-03] MEDS ORDERED: FOLIC ACID 1 MG TAB PO ONE (14:00)
[2017-08-03] MEDS: SODIUM CHLOR 0.9% 1000 ML INJ 1,000 ML IV SCH (15:18)
[2017-08-03] MEDS: DAPTOMYCIN IV SCH (17:00)
[2017-08-03] MEDS: SODIUM CHLORIDE 0.9% IV SCH (17:00)
--- NOTE | 2017-08-03 17:42 | PD.ONC.PN ---
Subjective Subjective Remarks No complaints. Talkative, tells tales of his [place]. Denies any bleeding. Good appetitel Objective Data Date Time Temp Pulse Resp B/P (MAP) Pulse Ox O2 Delivery O2 Flow Rate FiO2 08/03/17 16:00 98.1 53 18 152/67 (95) 97 08/03/17 16:00 51 08/03/17 12:00 98.1 55 18 141/67 (91) 92 08/03/17 12:00 51 08/03/17 08:49 98.2 53 17 163/72 (102) 92 08/03/17 08:00 53 08/03/17 08:00 Room Air 08/03/17 04:39 98.5 54 16 163/76 (105) 93 08/03/17 04:00 55 08/03/17 00:10 98.2 56 16 157/70 (99) 93 08/03/17 00:00 54 08/03/17 00:00 Room Air 08/02/17 20:50 98.2 52 16 133/61 (85) 94 08/02/17 20:00 49 08/02/17 20:00 Room Air 08/03/17 08/03/17 08/03/17 07:00 15:00 23:00 Intake Total 1300 ml Output Total 2425 ml Balance -1125 ml Result Diagram: 08/03/17 0659 08/03/17 0650 Laboratory Results Laboratory Tests Test 08/03/17 06:50 08/03/17 06:59 Blood Smear Pathologist Review Reticulocyte Count 1.3 % Absolute Reticulocyte Count 40.0 MIL/L Blood Urea Nitrogen 28 MG/DL Creatinine 2.00 MG/DL Random Glucose 144 MG/DL Total Protein 8.0 GM/DL Albumin 2.2 GM/DL Calcium Level 9.1 MG/DL Alkaline Phosphatase 268 U/L Aspartate Amino Transf (AST/SGOT) 59 U/L Alanine Aminotransferase (ALT/SGPT) 55 U/L Lactate Dehydrogenase 179 U/L Total Bilirubin 0.4 MG/DL Direct Bilirubin 0.2 MG/DL Sodium Level 133 MEQ/L Potassium Level 5.1 MEQ/L Chloride Level 99 MEQ/L Carbon Dioxide Level 25.1 MEQ/L Anion Gap 9 MEQ/L Estimat Glomerular Filtration Rate 34 ML/MIN Indirect Bilirubin 0.2 MG/DL Total Creatine Kinase 43 U/L White Blood Count 8.2 TH/MM3 Red Blood Count 3.17 MIL/MM3 Hemoglobin 9.0 GM/DL Hematocrit 26.9 % Mean Corpuscular Volume 84.9 FL Mean Corpuscular Hemoglobin 28.3 PG Mean Corpuscular Hemoglobin Concent 33.4 % Red Cell Distribution Width 16.4 % Platelet Count 365 TH/MM3 Mean Platelet Volume 7.2 FL Neutrophils (%) (Auto) 79.5 % Lymphocytes (%) (Auto) 7.2 % Monocytes (%) (Auto) 9.7 % Eosinophils (%) (Auto) 2.4 % Basophils (%) (Auto) 1.2 % Neutrophils # (Auto) 6.5 TH/MM3 Lymphocytes # (Auto) 0.6 TH/MM3 Monocytes # (Auto) 0.8 TH/MM3 Eosinophils # (Auto) 0.2 TH/MM3 Basophils # (Auto) 0.1 TH/MM3 CBC Comment DIFF FINAL Differential Comment Culture Results Microbiology Date/Time Source Procedure Growth Status 08/01/17 10:20 Blood Peripheral Aerobic Blood Culture - Preliminary NO GROWTH IN 2 DAYS Resulted 08/01/17 10:20 Blood Peripheral Anaerobic Blood Culture - Preliminary NO GROWTH IN 2 DAYS Resulted 08/01/17 10:15 Blood Peripheral Aerobic Blood Culture - Preliminary NO GROWTH IN 2 DAYS Resulted 08/01/17 10:15 Blood Peripheral Anaerobic Blood Culture - Preliminary NO GROWTH IN 2 DAYS Resulted Administered Medications Medications (Trade) Dose Ordered Sig/Abida Route PRN Reason Start Time Stop Time Status Last Admin Dose Admin Sodium Chloride (NS Flush) 2 ml BID IV FLUSH 07/22/17 09:00 08/03/17 08:46 Acetaminophen (Tylenol) 650 mg Q6H PRN PO FEVER/PAIN SCALE 1 TO 2 07/22/17 04:45 07/25/17 09:13 Acetaminophen/ Hydrocodone Bitart (Kite 5-325 Mg) 1 tab Q4H PRN PO PAIN SCALE 3 TO 5 07/22/17 04:45 07/23/17 12:27 Acetaminophen/ Hydrocodone Bitart (Kite 10-325 Mg) 1 tab Q4H PRN PO PAIN SCALE 6 TO 10 07/22/17 04:45 08/03/17 15:17 Senna/Docusate Sodium (Eula-Colace) 1 tab BID PO 07/22/17 09:00 08/03/17 08:45 Insulin Aspart (NovoLOG SUPPLEMENTAL SCALE) 1 ACHS SLIDING SCALE SQ 07/22/17 08:00 08/03/17 12:00 Alprazolam (Xanax) 0.5 mg Q4H PRN PO ANXIETY 07/22/17 04:45 08/03/17 15:18 Amiodarone HCl (Cordarone) 400 mg BID PO 07/22/17 09:00 08/03/17 08:46 Apixaban (Eliquis) 2.5 mg BID PO 07/22/17 09:00 08/03/17 08:46 Carvedilol (Coreg) 3.125 mg Q12HR PO 07/22/17 09:00 08/03/17 08:46 Gabapentin (Neurontin) 100 mg BID PO 07/22/17 09:00 08/03/17 08:46 Pantoprazole Sodium (Protonix) 40 mg DAILY PO 07/22/17 09:00 08/03/17 08:45 Ferrous Sulfate (Ferrous Sulfate) 325 mg BID@12,17 PO 07/23/17 12:00 08/02/17 17:00 Daptomycin 720 mg/ Sodium Chloride 100 ml @ 200 mls/hr Q24H IV 07/24/17 17:00 08/02/17 17:42 Cefepime HCl 2000 mg/Sodium Chloride 100 ml @ 200 mls/hr Q8H IV 08/01/17 16:00 08/03/17 15:18 Sodium Chloride 1,000 ml @ 84 mls/hr [id number] IV 08/03/17 12:30 08/03/17 15:18 Objective Remarks GENERAL: Slender, well-developed patient. SKIN: Warm and dry. HEAD: Normocephalic. EYES: No scleral icterus. No injection or drainage. NECK: Supple, trachea midline. No JVD or lymphadenopathy. LYMPHATIC: L inguinal LN soft, NT CARDIOVASCULAR: Regular rate and rhythm without murmurs. RESPIRATORY: No accessory muscle use. GASTROINTESTINAL: Abdomen soft, non-tender, nondistended. EXTREMITIES: No cyanosis. L foot edema with joseph bandage. MUSCULOSKELETAL: Adequate muscle tone. NEUROLOGICAL: No obvious focal deficit. Awake, alert, and oriented x3. PSYCHIATRIC: Appropriate mood and affect; insight and judgment normal. Assessment/Plan Problem List: (1) Anemia ICD Codes: D64.9 - Anemia, unspecified Status: Chronic Plan: Multiple factors. No acute bleeding. B12 in lower limits of normal. Trial B12. Oral folic acid. Oral iron supplementation continue. Renal insufficiency contribute. Osteomyelitis contribute anemia chronic disease/illness. No acute bleed, no transfusion needed. Discussed that Medical records show normal hgb in the past. (2) Unintentional weight loss ICD Codes: R63.4 - Abnormal weight loss Status: Chronic Plan: Multiple medical problems. Recent bypass surgery. Chronic infection. He appears to be gaining weight during this admission. Discussed w/ institutional research director calorie count. No diagnosis of malignancy. Odalys Gordon MD August 03, 2017 17:42
[2017-08-04] VITALS (10 sets, daily range): BP systolic 141–171; BP diastolic 65–81; PULSE 47–93; RESP 16–20; TEMP 97.4–98.4; O2SAT 93–98
[2017-08-04] MEDS: CEFEPIME INJ 2,000 MG in SODIUM CHLORIDE 0.9% INJ 100 ML IV SCH ×3 (00:15→20:36)
[2017-08-04] MEDS: SODIUM CHLOR 0.9% 1000 ML INJ 1,000 ML IV SCH ×3 (00:25→20:34)
[2017-08-04] MEDS: ALPRAZolam 0.5 MG TAB PO PRN ×5 (04:30→17:49)
[2017-08-04] MEDS: ACETAMINOPHEN/HYDROcodone 325 MG/10 MG TAB PO PRN ×5 (04:30→17:50)
--- NOTE | 2017-08-04 07:19 | RADRPT ---
EXAM DATE/TIME: 08/04/2017 06:37 [facility] COMPARISON: CHEST SINGLE AP, August 01, 2017, 8:56. INDICATIONS : Short of breath, evaluate pneumonia MEDICAL HISTORY : Diabetes mellitus type II. SURGICAL HISTORY : CABG. IVC filter, lumbar fusion ENCOUNTER: Subsequent ACUITY: 1 week PAIN SCORE: 0/10 LOCATION: Bilateral chest FINDINGS: There continues to be a patchy parenchymal infiltrate and small effusion the left lower lung. This is about the same compared to the prior exam. The right lung remains clear and well-aerated. No new inf iltrates are seen. The heart size is stable. There is no evidence of pneumothorax. The bony structure s are stable. CONCLUSION: Stable patchy parenchymal infiltrate and small effusion in the left lower lung. Rommel Meyers MD on August 04, 2017 at 7:16 Board Certified Radiologist. This report was verified electronically.
[2017-08-04] MEDS: INSULIN ASPART SUPPLEMENTAL SCALE SQ SCH ×4 (07:53→20:36)
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
[2017-08-04] MEDS: CARVEDILOL 3.125 MG TAB PO SCH ×2 (08:53→20:36)
[2017-08-04] MEDS: GABAPENTIN 100 MG CAP PO SCH ×2 (08:53→20:36)
[2017-08-04] MEDS: AMIODARONE 200 MG TAB PO SCH ×2 (08:53→20:36)
[2017-08-04] MEDS: PANTOPRAZOLE SOD 40 MG DELAYED RELEASE TAB PO SCH (08:53)
[2017-08-04] MEDS: DOCUSATE SODIUM 50 MG/SENNA 8.6 MG TAB PO SCH ×2 (08:53→20:36)
[2017-08-04] MEDS: SODIUM CHLORIDE 0.9% FLUSH 10 ML FLUSH IV FLUSH SCH ×2 (08:54→20:37)
[2017-08-04] MEDS: APIXABAN 2.5 MG TABLET PO SCH ×2 (08:54→20:37)
--- NOTE | 2017-08-04 12:07 | HHI.NPPN ---
Subjective Renal Failure: Acute History of Present Illness Patient is a 62-year-old male with a PMH of A. fib on Eliquis, HTN, Hyperlipidemia, CAD and CHF. He presented to the ER with complaints of chest pain. Troponin have remained negative. Patient was found to have potassium level of 2.8 and protein corrected calcium level of 6.2 with replacement was given. He is also being followed by podiatry and infectious disease for osteomyelitis of left foot. Nephrology is consulted for elevated renal indices with a creatinine of 1.7 today with a admission creatinine of 1.04. Patient has a past medical history of elevated creatinine in January of 2017 with creatinine of 1.35. Renal US with no obstructive uropathy, stable adjacent cysts versus a single cyst with septation in the mid right kidney measuring up to 2.4 cm., and trace ascites. Additional Remarks Patient is resting comfortably. No shortness of breath. IVF are infusing. (Miriam Centeno) Review of Systems Respiratory Respiratory Remarks Denies any SOB (Miriam Centeno) Cardiovascular Cardiac Remarks No chest pain (Miriam Centeno) Gastrointestinal GI Remarks No abdominal pain (Miriam Centeno) Objective Data Data Vital Signs Date Time Temp Pulse Resp B/P (MAP) Pulse Ox O2 Delivery O2 Flow Rate FiO2 08/04/17 08:00 Room Air 08/04/17 08:00 47 08/04/17 08:00 98.1 53 16 150/71 (97) 97 08/04/17 05:36 Room Air 08/04/17 04:59 97.5 50 20 159/74 (102) 93 08/04/17 04:00 50 08/04/17 00:59 98.0 53 20 171/81 (111) 96 08/04/17 00:00 55 08/03/17 20:50 97.9 57 20 164/78 (106) 96 08/03/17 20:00 51 08/03/17 20:00 Room Air 08/03/17 16:00 98.1 53 18 152/67 (95) 97 08/03/17 16:00 51 (Miriam Centeno) -: 08/03/17 0659 08/03/17 0650 Microbiology 08/03/17 Stool Occult Blood (ANGY) - Final, Complete HEMOCCULT NEGATIVE (Miriam Centeno) Physical Exam General Appearance: No Acute Distress, Comfortable (Miriam Centeno) Throat Throat Exam: Oral Mucosa [place] & Moist (Miriam Centeno) Neck Neck Exam: Neck Supple (Miriam Centeno) Pulmonary Resp Exam: Clear Bilaterally, Breath Sounds Equal, No Distress (Miriam Centeno) Cardiology CV Exam: Regular, Normal Sinus Rhythm (Miriam Centeno) Gastrointestinal/Abdomen GI Exam: Soft, Bowel Sounds Present (Miriam Centeno) Genitourinary Exam: Flank Non-Tender (Miriam Centeno) Musculoskeletal MS Remarks left leg non weightbearing joseph wrap on (Miriam Centeno) Integumentary Skin Exam: Clear, Warm Skin Remarks Left lower extremity with +2 edema severe tenderness to light touch, erythematous, he had to wounds that looks dry on the dorsal surface of the foot and from rae (Miriam Centeno) Extremeties Extremities Exam: Moderate Edema (Miriam Centeno) Assessment/Plan Problem List: (1) EVELNYE (acute kidney injury) ICD Codes: N17.9 - Acute kidney failure, unspecified Plan: Acute kidney injury with a creatinine of 1.7 today with a admission creatinine of 1.04. EVELYNE from possible prerenal VS ATN from infection vs adverse medication effect May have past medical history of chronic kidney disease with noted elevated creatinine in January. Renal US with no obstructive uropathy, stable adjacent cysts versus a single cyst with septation in the mid right kidney measuring up to 2.4 cm., and trace ascites. FeNa at 7 % suggestive of acute tubular necrosis at admission. Plan Avoid nephrotoxins Continue IVF Fluids encouraged. Will monitor Urinary output and renal panel. Labs in am (2) Normochromic normocytic anemia ICD Codes: D64.9 - Anemia, unspecified Plan: will monitor (3) DM (diabetes mellitus) ICD Codes: E11.9 - Type 2 diabetes mellitus without complications Plan: Maintain blood sugars between 140 mg/dl to 180mg/dl (Miriam Centeno) Problem List: (1) EVELYNE (acute kidney injury) ICD Codes: N17.9 - Acute kidney failure, unspecified Plan: Acute kidney injury with a creatinine of 1.7 today with a admission creatinine of 1.04. EVELYNE from possible prerenal VS ATN from infection vs adverse medication effect May have past medical history of chronic kidney disease with noted elevated creatinine in January. Renal US with no obstructive uropathy, stable adjacent cysts versus a single cyst with septation in the mid right kidney measuring up to 2.4 cm., and trace ascites. FeNa at 7 % suggestive of acute tubular necrosis at admission. Plan Avoid nephrotoxins Continue IVF Fluids encouraged. Will monitor Urinary output and renal panel. Labs in am Patient seen and examined, agree with above. Creatinine is almost same, continue IVF. (2) Normochromic normocytic anemia ICD Codes: D64.9 - Anemia, unspecified Plan: will monitor (3) DM (diabetes mellitus) ICD Codes: E11.9 - Type 2 diabetes mellitus without complications Plan: Maintain blood sugars between 140 mg/dl to 180mg/dl (Roni Cueva MD) Miriam Centeno August 04, 2017 12:07 Roni Cueva MD August 07, 2017 19:28
[2017-08-04] MEDS: FERROUS SULFATE 325 MG (65 MG ELEMENTAL IRON) TAB PO SCH ×2 (12:38→17:50)
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
[2017-08-04] MEDS: DAPTOMYCIN IV SCH (17:50)
[2017-08-04] MEDS: SODIUM CHLORIDE 0.9% IV SCH (17:50)
--- NOTE | 2017-08-04 18:13 | PD.POD ---
Subjective Pain score: 3 Remarks Doing well some bleeding noted, he walked on the foot a little extra yesterday Past Med/Surg/Social History Past Medical History Endocrine: REPORTS HX OF: Diabetes mellitus Respiratory: DENIES HX OF: CPAP use Cardiovascular: REPORTS HX OF: Deep venous thrombosis, Hypertension Gastrointestinal: REPORTS HX OF: Other GI history Musculoskeletal: REPORTS HX OF: Other musculoskeletal hx Cancer/Hematology: REPORTS HX OF: Skin cancer Neurologic: REPORTS HX OF: Peripheral neuropathy Psychiatric: REPORTS HX OF: Other psychiatric history Past Surgical History Gastrointestinal: REPORTS HX OF: Other GI surgery Integumentary: REPORTS HX OF: Skin cancer removal Social History Smoking Status: Current Every Day Smoker Objective Vital Signs Vital Signs Date Time Temp Pulse Resp B/P (MAP) Pulse Ox O2 Delivery O2 Flow Rate FiO2 08/04/17 16:00 98.1 56 18 141/65 (90) 98 08/04/17 12:00 97.4 53 18 152/72 (98) 96 08/04/17 08:00 Room Air 08/04/17 08:00 47 08/04/17 08:00 98.1 53 16 150/71 (97) 97 08/04/17 05:36 Room Air 08/04/17 04:59 97.5 50 20 159/74 (102) 93 08/04/17 04:00 50 08/04/17 00:59 98.0 53 20 171/81 (111) 96 08/04/17 00:00 55 08/03/17 20:50 97.9 57 20 164/78 (106) 96 08/03/17 20:00 51 08/03/17 20:00 Room Air Coded Allergies: No Known Allergies (Verified Allergy, Unknown, 07/22/17) Medications and IVs Administered Medications Medications (Trade) Dose Ordered Sig/Abida Route PRN Reason Start Time Stop Time Status Last Admin Dose Admin Sodium Chloride (NS Flush) 2 ml BID IV FLUSH 07/22/17 09:00 08/04/17 08:54 Acetaminophen (Tylenol) 650 mg Q6H PRN PO FEVER/PAIN SCALE 1 TO 2 07/22/17 04:45 07/25/17 09:13 Acetaminophen/ Hydrocodone Bitart ([place]and[place] 5-325 Mg) 1 tab Q4H PRN PO PAIN SCALE 3 TO 5 07/22/17 04:45 07/23/17 12:27 Acetaminophen/ Hydrocodone Bitart ([place] 10-325 Mg) 1 tab Q4H PRN PO PAIN SCALE 6 TO 10 07/22/17 04:45 08/04/17 17:50 Senna/Docusate Sodium (Eula-Colace) 1 tab BID PO 07/22/17 09:00 08/03/17 08:45 Insulin Aspart (NovoLOG SUPPLEMENTAL SCALE) 1 ACHS SLIDING SCALE SQ 07/22/17 08:00 08/04/17 12:40 Alprazolam (Xanax) 0.5 mg Q4H PRN PO ANXIETY 07/22/17 04:45 08/04/17 17:49 Amiodarone HCl (Cordarone) 400 mg BID PO 07/22/17 09:00 08/04/17 08:53 Apixaban (Eliquis) 2.5 mg BID PO 07/22/17 09:00 08/04/17 08:54 Carvedilol (Coreg) 3.125 mg Q12HR PO 07/22/17 09:00 08/03/17 20:04 Gabapentin (Neurontin) 100 mg BID PO 07/22/17 09:00 08/04/17 08:53 Pantoprazole Sodium (Protonix) 40 mg DAILY PO 07/22/17 09:00 08/04/17 08:53 Ferrous Sulfate (Ferrous Sulfate) 325 mg BID@12,17 PO 07/23/17 12:00 08/04/17 17:50 Daptomycin 720 mg/ Sodium Chloride 100 ml @ 200 mls/hr Q24H IV 07/24/17 17:00 08/04/17 17:50 Sodium Chloride 1,000 ml @ 84 mls/hr [id number] IV 08/03/17 12:30 08/04/17 07:53 Other Results Laboratory Tests Test 08/03/17 06:50 08/03/17 06:59 Blood Smear Pathologist Review Reticulocyte Count 1.3 % Absolute Reticulocyte Count 40.0 MIL/L White Blood Count 8.2 TH/MM3 Red Blood Count 3.17 MIL/MM3 Hemoglobin 9.0 GM/DL Hematocrit 26.9 % Mean Corpuscular Volume 84.9 FL Mean Corpuscular Hemoglobin 28.3 PG Mean Corpuscular Hemoglobin Concent 33.4 % Red Cell Distribution Width 16.4 % Platelet Count 365 TH/MM3 Mean Platelet Volume 7.2 FL Neutrophils (%) (Auto) 79.5 % Lymphocytes (%) (Auto) 7.2 % Monocytes (%) (Auto) 9.7 % Eosinophils (%) (Auto) 2.4 % Basophils (%) (Auto) 1.2 % Neutrophils # (Auto) 6.5 TH/MM3 Lymphocytes # (Auto) 0.6 TH/MM3 Monocytes # (Auto) 0.8 TH/MM3 Eosinophils # (Auto) 0.2 TH/MM3 Basophils # (Auto) 0.1 TH/MM3 CBC Comment DIFF FINAL Differential Comment Laboratory Tests Test 08/03/17 06:50 Blood Urea Nitrogen 28 MG/DL Creatinine 2.00 MG/DL Random Glucose 144 MG/DL Total Protein 8.0 GM/DL Albumin 2.2 GM/DL Calcium Level 9.1 MG/DL Alkaline Phosphatase 268 U/L Aspartate Amino Transf (AST/SGOT) 59 U/L Alanine Aminotransferase (ALT/SGPT) 55 U/L Lactate Dehydrogenase 179 U/L Total Bilirubin 0.4 MG/DL Direct Bilirubin 0.2 MG/DL Sodium Level 133 MEQ/L Potassium Level 5.1 MEQ/L Chloride Level 99 MEQ/L Carbon Dioxide Level 25.1 MEQ/L Anion Gap 9 MEQ/L Estimat Glomerular Filtration Rate 34 ML/MIN Indirect Bilirubin 0.2 MG/DL Total Creatine Kinase 43 U/L Microbiology Date/Time Source Procedure Growth Status 08/03/17 22:40 Stool Stool Stool Occult Blood (ANGY) - Final HEMOCCULT NEGATIVE Complete [facility] [address] [address] [email or web address] PATHOLOGY REPORT Patient: SANDRA BURNETT Specimen #: [id number] Page 2 of 2 [facility] [email or web address], [place] [address] [email or web address] PATHOLOGY REPORT Page 1 of 1 CLINICAL HISTORY: Left foot osteomyelitis. TISSUE: 1. LEFT METATARSAL HEAD 2. LEFT SMALL TOE 3. LEFT SECOND METATARSAL 4. LEFT THIRD METATARSAL GROSS DESCRIPTION: #1- Four hard escamilla portions of bone 1.5 x 1.0 x 0.5 cm, 1.6 x 1.3 x 0.9 cm, 1.6 x 1.5 x 1.0 cm and 2.5 x 1.7 x 1.0 cm. Spa Director sections of all four are submitted in four blocks after decalcification as follows: A- smallest portion , B- smaller intermediate sized portion, C- larger intermediate sized portion, D - largest portion. #2- 3.8 cm in length and up to 2.5 cm in diameter distal portion of a digit with an exposed 1.5 x 1.1 x 1.0 cm segment of bone at the proximal end. The soft tissue at the proximal end is firm escamilla yellow. The proximal end is marked with black ink. The skin is pale escamilla pink with a 0.4 x 0.3 cm ulcerated area 0.9 cm from the proximal end. The distal end has a 0.6 x 0.3 x 0.1 cm hard yellow escamilla unguis. RSS 3. A- longitudinal section from the distal end of the digit including the ulcerated area of skin and underlying bone after decalcification, B- radial section of skin and soft tissue from the proximal end closest to the ulcerated area of skin, C- radial section of the proximal bone margin after decalcification. #3- 0.3 x 0.2 x 0.1 cm aggregate of gritty escamilla fragments of tissue. TE 1 after decalcification. #4- 0.3 x 0.2 x 0.1 cm aggregate of gritty escamilla fragments of tissue. TE 1 after decalcification. DXN/bobby FINAL DIAGNOSIS: #1- OSTEOCARTILAGINOUS SEGMENTS WITHOUT SIGNIFICANT HISTOPATHOLOGIC ABNORMALITY NEGATIVE FOR OSTEOMYELITIS, CLINICALLY LEFT METATARSAL HEAD. #2- DIGIT WITH FOCAL ULCERATION, SEVERE ACUTE AND CHRONIC INFLAMMATION EXTENDING TO UNDERLYING BONE EXHIBITING SEVERE CHRONIC OSTEOMYELITIS WITH MILD OSTEOMYELITIS EXTENDING TO RESECTION MARGIN AND CHRONIC INFLAMMATORY CHANGES EXTENDING TO SOFT TISSUE SPECIMEN PROXIMAL MARGIN. #3- BONE BIOPSY NEGATIVE FOR OSTEOMYELITIS. #4- BONE BIOPSY NEGATIVE FOR OSTEOMYELITIS. Physical Exam General appearance: comfortable Nutritional status: underweight Orientation: alert and oriented x3 Details Left lower extremity: Pretibial eschar noted with minimal redness no bone exposed. Left foot amputation of fifth digit plantar incision and dorsal incisions well coapted moderate edema no redness no obvious active drainage the remaining digits have good CFT decreased sensation to light touch. Assessment & Plan A/P 1. Left foot second and third metatarsal osteomyelitis. 2. Left foot fifth digit osteomyelitis. 3. Left hallux, left dorsal foot, left anterior tibia ulcers. PROCEDURES PERFORMED: by Dr Sin, POD 8 1. Left second and third metatarsal head resections. 2. Left fifth digit amputation. 3. Debridement and irrigation of left plantar hallux ulcer, left dorsal foot ulcer, and a left anterior tibia ulceration. Wounds appear to be healing recommend he will transfer weight-bear and to continue IV antibiotics-agree with ID plan even though biopsy margin returned as negative, best care to prevent recurrence for this patient, will follow-up in 1 week for possible suture removal Patricio Bosch DPM August 04, 2017 18:13
[2017-08-05] VITALS (7 sets, daily range): BP systolic 152–169; BP diastolic 70–85; PULSE 50–67; RESP 18–20; TEMP 97.9–98.6; O2SAT 93–96
[2017-08-05 08:00] LABS: BASOPHIL # 0.1 TH/MM3 (0-0.2); EOSINOPHIL # 0.2 TH/MM3 (0-0.4); EOSINOPHIL % 2.9 % (0.0-4.0); HEMATOCRIT 26.9 % (39.0-51.0); LYMPH % 11.2 % (9.0-44.0); LYMPHOCYTE # 0.9 TH/MM3 (1.0-4.8); MEAN CELL VOLUME 85.4 FL (80.0-100.0); MEAN CORPUSCULAR HEMOGLOBIN 28.6 PG (27.0-34.0); MEAN CORPUSCULAR HGB CONC 33.5 % (32.0-36.0); MEAN PLATELET VOLUME 7.1 FL (7.0-11.0); MONO % 9.2 % (0.0-8.0); MONOCYTE # 0.7 TH/MM3 (0-0.9); NEUT % 75.7 % (16.0-70.0); PLATELET COUNT 403 TH/MM3 (150-450); RED BLOOD COUNT 3.15 MIL/MM3 (4.50-5.90); RED CELL DISTRIBUTION WIDTH 16.2 % (11.6-17.2); WHITE BLOOD COUNT 7.9 TH/MM3 (4.0-11.0)
[2017-08-05] MEDS: INSULIN ASPART SUPPLEMENTAL SCALE SQ SCH ×4 (08:00→21:00)
[2017-08-05 08:26] LABS: BICARBONATE 25.1 MEQ/L (21.0-32.0); CREATININE 1.83 MG/DL (0.60-1.30)
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
[2017-08-05] MEDS: DOCUSATE SODIUM 50 MG/SENNA 8.6 MG TAB PO SCH ×2 (09:00→21:00)
[2017-08-05] MEDS: CEFEPIME INJ 2,000 MG in SODIUM CHLORIDE 0.9% INJ 100 ML IV SCH ×2 (09:10→22:11)
[2017-08-05] MEDS: GABAPENTIN 100 MG CAP PO SCH ×2 (09:11→22:09)
[2017-08-05] MEDS: PANTOPRAZOLE SOD 40 MG DELAYED RELEASE TAB PO SCH (09:11)
[2017-08-05] MEDS: AMIODARONE 200 MG TAB PO SCH ×2 (09:11→22:10)
[2017-08-05] MEDS: APIXABAN 2.5 MG TABLET PO SCH ×2 (09:11→22:10)
[2017-08-05] MEDS: CARVEDILOL 3.125 MG TAB PO SCH ×2 (09:12→22:10)
[2017-08-05] MEDS: SODIUM CHLORIDE 0.9% FLUSH 10 ML FLUSH IV FLUSH SCH ×2 (09:18→22:11)
[2017-08-05] MEDS: ALPRAZolam 0.5 MG TAB PO PRN ×2 (09:19→22:10)
[2017-08-05] MEDS: FERROUS SULFATE 325 MG (65 MG ELEMENTAL IRON) TAB PO SCH ×2 (12:50→16:59)
[2017-08-05] MEDS: DAPTOMYCIN IV SCH (16:59)
[2017-08-05] MEDS: SODIUM CHLORIDE 0.9% IV SCH (16:59)
--- NOTE | 2017-08-05 17:22 | HHI.NPPN ---
Subjective Renal Failure: Acute History of Present Illness Patient is a 62-year-old male with a PMH of A. fib on Eliquis, HTN, Hyperlipidemia, CAD and CHF. He presented to the ER with complaints of chest pain. Troponin have remained negative. Patient was found to have potassium level of 2.8 and protein corrected calcium level of 6.2 with replacement was given. He is also being followed by podiatry and infectious disease for osteomyelitis of left foot. Nephrology is consulted for elevated renal indices with a creatinine of 1.7 today with a admission creatinine of 1.04. Patient has a past medical history of elevated creatinine in January of 2017 with creatinine of 1.35. Renal US with no obstructive uropathy, stable adjacent cysts versus a single cyst with septation in the mid right kidney measuring up to 2.4 cm., and trace ascites. Additional Remarks No acute complaints Review of Systems Respiratory Respiratory Remarks Denies any SOB Cardiovascular Cardiac Remarks No chest pain Gastrointestinal GI Remarks No abdominal pain Objective Data Data Vital Signs Date Time Temp Pulse Resp B/P (MAP) Pulse Ox O2 Delivery O2 Flow Rate FiO2 08/05/17 16:00 98.1 51 18 165/72 (103) 96 08/05/17 16:00 55 08/05/17 12:00 56 08/05/17 12:00 98.2 50 18 160/70 (100) 95 08/05/17 08:00 97.9 53 18 167/81 (109) 96 08/05/17 08:00 52 08/05/17 07:00 Room Air 08/05/17 04:00 98.1 57 18 165/78 (107) 93 08/05/17 02:39 54 08/05/17 00:00 98.6 54 18 152/72 (98) 93 08/04/17 23:47 52 08/04/17 21:07 98.4 59 18 158/74 (102) 94 08/04/17 19:47 49 -: 08/05/17 0711 08/05/17 0711 Physical Exam General Appearance: No Acute Distress, Comfortable Throat Throat Exam: Oral Mucosa [place] & Moist Neck Neck Exam: Neck Supple Pulmonary Resp Exam: Clear Bilaterally, Breath Sounds Equal, No Distress Cardiology CV Exam: Regular, Normal Sinus Rhythm Gastrointestinal/Abdomen GI Exam: Soft, Bowel Sounds Present Genitourinary Exam: Flank Non-Tender Integumentary Skin Exam: Clear, Warm Extremeties Extremities Exam: Moderate Edema Assessment/Plan Problem List: (1) EVELYNE (acute kidney injury) ICD Codes: N17.9 - Acute kidney failure, unspecified Plan: Acute kidney injury with a creatinine of 1.04 on admission. EVELYNE from possible prerenal VS ATN from infection vs adverse medication effect May have past medical history of chronic kidney disease with noted elevated creatinine in January. Renal US with no obstructive uropathy, stable adjacent cysts versus a single cyst with septation in the mid right kidney measuring up to 2.4 cm., and trace ascites. FeNa at 7 % suggestive of acute tubular necrosis at admission. Plan Creatinine improving : 2.0 -> 1.8 Good UOP on IVFs, with 4L UOP Avoid nephrotoxins Continue IVF Fluids encouraged. Will monitor Urinary output and renal panel. Labs in am (2) Normochromic normocytic anemia ICD Codes: D64.9 - Anemia, unspecified Plan: will monitor (3) DM (diabetes mellitus) ICD Codes: E11.9 - Type 2 diabetes mellitus without complications Plan: Maintain blood sugars between 140 mg/dl to 180mg/dl Pj Soler MD August 05, 2017 17:22
[2017-08-05] MEDS: ACETAMINOPHEN/HYDROcodone 325 MG/10 MG TAB PO PRN (22:10)
[2017-08-05] MEDS: SODIUM CHLOR 0.9% 1000 ML INJ 1,000 ML IV SCH (22:12)
[2017-08-06] VITALS (9 sets, daily range): BP systolic 157–179; BP diastolic 72–83; PULSE 49–64; RESP 17–20; TEMP 97.2–98.3; O2SAT 95–98
[2017-08-06] MEDS: SODIUM CHLOR 0.9% 1000 ML INJ 1,000 ML IV SCH ×2 (00:05→09:42)
[2017-08-06] MEDS: ALPRAZolam 0.5 MG TAB PO PRN ×4 (06:13→21:11)
[2017-08-06] MEDS: ACETAMINOPHEN/HYDROcodone 325 MG/10 MG TAB PO PRN ×4 (06:13→21:11)
[2017-08-06 06:39] LABS: CALCIUM 8.7 MG/DL (8.5-10.1); CREATININE 1.9 MG/DL (0.60-1.30)
[2017-08-06 07:39] LABS: AUTOMATED NEUTROPHIL # 3.8 TH/MM3 (1.8-7.7); BASOPHIL # 0.1 TH/MM3 (0-0.2); BASOPHIL % 2.2 % (0.0-2.0); EOSINOPHIL # 0.2 TH/MM3 (0-0.4); EOSINOPHIL % 4.3 % (0.0-4.0); HEMATOCRIT 26.6 % (39.0-51.0); HEMOGLOBIN 8.9 GM/DL (13.0-17.0); LYMPH % 16.7 % (9.0-44.0); MEAN CELL VOLUME 85.6 FL (80.0-100.0); MEAN CORPUSCULAR HEMOGLOBIN 28.7 PG (27.0-34.0); MEAN CORPUSCULAR HGB CONC 33.5 % (32.0-36.0); MEAN PLATELET VOLUME 7.1 FL (7.0-11.0); MONO % 12.7 % (0.0-8.0); MONOCYTE # 0.7 TH/MM3 (0-0.9); NEUT % 64.1 % (16.0-70.0); PLATELET COUNT 390 TH/MM3 (150-450); RED BLOOD COUNT 3.11 MIL/MM3 (4.50-5.90); RED CELL DISTRIBUTION WIDTH 16.8 % (11.6-17.2); WHITE BLOOD COUNT 5.8 TH/MM3 (4.0-11.0)
[2017-08-06] MEDS: INSULIN ASPART SUPPLEMENTAL SCALE SQ SCH ×4 (08:00→21:14)
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
[2017-08-06] MEDS: DOCUSATE SODIUM 50 MG/SENNA 8.6 MG TAB PO SCH ×2 (09:36→21:00)
[2017-08-06] MEDS: GABAPENTIN 100 MG CAP PO SCH ×2 (09:36→21:12)
[2017-08-06] MEDS: PANTOPRAZOLE SOD 40 MG DELAYED RELEASE TAB PO SCH (09:36)
[2017-08-06] MEDS: CARVEDILOL 3.125 MG TAB PO SCH ×2 (09:36→21:12)
[2017-08-06] MEDS: APIXABAN 2.5 MG TABLET PO SCH ×2 (09:36→21:12)
[2017-08-06] MEDS: SODIUM CHLORIDE 0.9% FLUSH 10 ML FLUSH IV FLUSH SCH ×2 (09:37→21:00)
[2017-08-06] MEDS: AMIODARONE 200 MG TAB PO SCH ×2 (09:37→21:12)
[2017-08-06] MEDS: CEFEPIME INJ 2,000 MG in SODIUM CHLORIDE 0.9% INJ 100 ML IV SCH ×2 (09:37→21:07)
[2017-08-06] MEDS: FERROUS SULFATE 325 MG (65 MG ELEMENTAL IRON) TAB PO SCH ×2 (12:15→16:27)
[2017-08-06] MEDS ORDERED: amLODIPine BESYLATE 5 MG TAB PO SCH (15:00)
--- NOTE | 2017-08-06 15:19 | HHI.NPPN ---
Subjective Renal Failure: Acute History of Present Illness Patient is a 62-year-old male with a PMH of A. fib on Eliquis, HTN, Hyperlipidemia, CAD and CHF. He presented to the ER with complaints of chest pain. Troponin have remained negative. Patient was found to have potassium level of 2.8 and protein corrected calcium level of 6.2 with replacement was given. He is also being followed by podiatry and infectious disease for osteomyelitis of left foot. Nephrology is consulted for elevated renal indices with a creatinine of 1.7 today with a admission creatinine of 1.04. Patient has a past medical history of elevated creatinine in January of 2017 with creatinine of 1.35. Renal US with no obstructive uropathy, stable adjacent cysts versus a single cyst with septation in the mid right kidney measuring up to 2.4 cm., and trace ascites. Additional Remarks No acute complaints Review of Systems Respiratory Respiratory Remarks Denies any SOB Cardiovascular Cardiac Remarks No chest pain Gastrointestinal GI Remarks No abdominal pain Objective Data Data 08/06/17 08/07/17 19:00 07:00 Intake Total 1000 ml Balance 1000 ml IV Total 1000 ml Vital Signs Date Time Temp Pulse Resp B/P (MAP) Pulse Ox O2 Delivery O2 Flow Rate FiO2 08/06/17 12:00 98.0 50 20 159/72 (101) 98 08/06/17 08:00 Room Air 08/06/17 08:00 98.3 54 18 162/77 (105) 95 08/06/17 04:00 Room Air 08/06/17 04:00 97.6 55 20 179/83 (115) 96 08/06/17 03:52 55 08/06/17 00:00 Room Air 08/06/17 00:00 98.1 55 20 170/81 (110) 96 08/05/17 22:19 Room Air 08/05/17 22:07 Room Air 08/05/17 20:00 97.9 57 20 169/85 (113) 96 08/05/17 20:00 67 08/05/17 16:00 98.1 51 18 165/72 (103) 96 08/05/17 16:00 55 -: 08/06/17 0517 08/06/17 0517 Physical Exam General Appearance: No Acute Distress, Comfortable Throat Throat Exam: Oral Mucosa [place] & Moist Neck Neck Exam: Neck Supple Pulmonary Resp Exam: Clear Bilaterally, Breath Sounds Equal, No Distress Cardiology CV Exam: Regular, Normal Sinus Rhythm Gastrointestinal/Abdomen GI Exam: Soft, Bowel Sounds Present Genitourinary Exam: Flank Non-Tender Integumentary Skin Exam: Clear, Warm Extremeties Extremities Exam: Moderate Edema Neurologic Neuro Exam: Awake Assessment/Plan Problem List: (1) EVELYNE (acute kidney injury) ICD Codes: N17.9 - Acute kidney failure, unspecified Plan: Acute kidney injury with a creatinine of 1.04 on admission. EVELYNE from possible prerenal VS ATN from infection vs adverse medication effect May have past medical history of chronic kidney disease with noted elevated creatinine in January. Renal US with no obstructive uropathy, stable adjacent cysts versus a single cyst with septation in the mid right kidney measuring up to 2.4 cm., and trace ascites. FeNa at 7 % suggestive of acute tubular necrosis at admission. Plan Creatinine stable : 2.0 -> 1.8 -> 1.9 1.6 L UOP/24 hours. IVFs stopped, PO Fluids encouraged. Continue to monitior, may consider restarting IVFs if worsening renal function tomorrow. K+ 5.5 - continue to monitor closely. Will monitor Urinary output and renal panel. Labs in am (2) Normochromic normocytic anemia ICD Codes: D64.9 - Anemia, unspecified Plan: will monitor (3) DM (diabetes mellitus) ICD Codes: E11.9 - Type 2 diabetes mellitus without complications Plan: Maintain blood sugars between 140 mg/dl to 180mg/dl Pj Soler MD August 06, 2017 15:19
[2017-08-06] MEDS: SODIUM CHLORIDE 0.9% IV SCH (16:28)
[2017-08-06] MEDS: DAPTOMYCIN IV SCH (16:28)
[2017-08-07] VITALS (11 sets, daily range): BP systolic 138–175; BP diastolic 70–88; PULSE 46–92; RESP 16–19; TEMP 97.2–98.2; O2SAT 95–98
[2017-08-07] MEDS: ACETAMINOPHEN/HYDROcodone 325 MG/10 MG TAB PO PRN ×2 (02:15→20:43)
[2017-08-07] MEDS: ALPRAZolam 0.5 MG TAB PO PRN ×2 (02:15→20:42)
--- NOTE | 2017-08-07 09:12 | RADRPT ---
EXAM DATE/TIME: 08/07/2017 08:15 [facility] COMPARISON: CHEST SINGLE AP, August 04, 2017, 6:37. INDICATIONS : Pneumonia. MEDICAL HISTORY : Cardiovascular disease. Hypertension. Diabetes, GI Bleed DVT SURGICAL HISTORY : CABG. IVC filter, lumbar fusion ENCOUNTER: Subsequent ACUITY: 3 weeks PAIN SCORE: 0/10 LOCATION: Bilateral chest FINDINGS: There is infiltrate and effusion at the left lung base. This appears slightly worse on previous. Righ t lung is grossly stable. Cardiac contours are stable. CONCLUSION: Slight worsening in aeration Salvador Harding MD on August 07, 2017 at 9:09 Board Certified Radiologist. This report was verified electronically.
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
[2017-08-07] MEDS: CEFEPIME INJ 2,000 MG in SODIUM CHLORIDE 0.9% INJ 100 ML IV SCH ×2 (09:53→20:42)
[2017-08-07] MEDS: INSULIN ASPART SUPPLEMENTAL SCALE SQ SCH ×4 (09:53→20:40)
[2017-08-07] MEDS: SODIUM CHLORIDE 0.9% FLUSH 10 ML FLUSH IV FLUSH SCH ×2 (09:53→20:43)
[2017-08-07] MEDS: APIXABAN 2.5 MG TABLET PO SCH ×2 (09:54→20:41)
[2017-08-07] MEDS: CARVEDILOL 3.125 MG TAB PO SCH ×2 (09:54→20:41)
[2017-08-07] MEDS: AMIODARONE 200 MG TAB PO SCH ×2 (09:54→20:41)
[2017-08-07] MEDS: GABAPENTIN 100 MG CAP PO SCH ×2 (09:54→20:41)
[2017-08-07] MEDS: PANTOPRAZOLE SOD 40 MG DELAYED RELEASE TAB PO SCH (09:54)
[2017-08-07] MEDS: DOCUSATE SODIUM 50 MG/SENNA 8.6 MG TAB PO SCH ×2 (09:54→20:42)
[2017-08-07] MEDS ORDERED: amLODIPine BESYLATE 5 MG TAB PO ONE (10:00)
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
[2017-08-07] MEDS: FERROUS SULFATE 325 MG (65 MG ELEMENTAL IRON) TAB PO SCH ×2 (11:07→17:47)
--- NOTE | 2017-08-07 14:41 | RADRPT ---
EXAM DATE/TIME: 08/07/2017 12:33 [place] COMPARISON: No previous studies available for comparison. INDICATIONS : Left pleural effusion. MEDICAL HISTORY : Hypercholesterolemia. Deep venous thrombosis. Hearing loss. Macular degeneration. Peripheral neurop athy. Anticoagulant therapy. Palpitation. Irregular heartbeat. Arthritis. Diabetes. PTSD. Blood trans fusions. MRSA. SURGICAL HISTORY : CABG. ORIF tib fib. Back surgery. Left foot surgery. Right wrist surgery. ENCOUNTER: Initial ACUITY: 1 day PAIN SCORE: 4/10 LOCATION: Left chest MEASUREMENTS: SKIN TO PARIETAL PLEURA: 1.5 cm SKIN TO MAX SAFE DEPTH: 2.5 cm ESTIMATED FLUID VOLUME: 408 cc FLUID COMPOSITION: simple FINDINGS: Pleural effusion as above. A rivera was placed on the skin surface superficial to the pleural fluid col lection. CONCLUSION: Small to moderate left pleural effusion marked for thoracentesis. Stephen Hsu MD on August 07, 2017 at 14:39 Board Certified Radiologist. This report was verified electronically.
--- NOTE | 2017-08-07 15:18 | HHI.NPPN ---
Subjective Renal Failure: Acute History of Present Illness Patient is a 62-year-old male with a PMH of A. fib on Eliquis, HTN, Hyperlipidemia, CAD and CHF. He presented to the ER with complaints of chest pain. Troponin have remained negative. Patient was found to have potassium level of 2.8 and protein corrected calcium level of 6.2 with replacement was given. He is also being followed by podiatry and infectious disease for osteomyelitis of left foot. Nephrology is consulted for elevated renal indices with a creatinine of 1.7 today with a admission creatinine of 1.04. Patient has a past medical history of elevated creatinine in January of 2017 with creatinine of 1.35. Renal US with no obstructive uropathy, stable adjacent cysts versus a single cyst with septation in the mid right kidney measuring up to 2.4 cm., and trace ascites. Additional Remarks Reports nausea and vomiting today. (Miriam Centeno) Review of Systems Respiratory Respiratory Remarks Denies any SOB (Miriam Centeno) Cardiovascular Cardiac Remarks No chest pain (Miriam Centeno) Gastrointestinal Gastrointestinal: Nausea & Vomiting (Miriam Centeno) Objective Data Data Vital Signs Date Time Temp Pulse Resp B/P (MAP) Pulse Ox O2 Delivery O2 Flow Rate FiO2 08/07/17 12:08 98.0 92 16 142/70 (94) 98 08/07/17 12:00 Room Air 08/07/17 12:00 52 08/07/17 10:24 Room Air 08/07/17 08:08 97.2 54 17 175/81 (112) 96 08/07/17 08:00 46 08/07/17 04:00 97.2 63 17 159/84 (109) 96 08/07/17 04:00 Room Air 08/07/17 03:53 54 08/07/17 00:00 97.9 54 16 150/71 (97) 95 08/06/17 23:55 58 08/06/17 20:00 97.2 53 17 170/80 (110) 97 08/06/17 19:48 Room Air 08/06/17 19:43 54 08/06/17 16:00 49 08/06/17 16:00 97.5 64 20 157/74 (101) 98 (Miriam CentenoP) -: 08/06/17 0517 08/06/17 0517 Imaging Last Impressions Chest X-Ray 08/07/17 0000 Signed Impressions: Service Date/Time: Monday, August 07, 2017 08:15 - CONCLUSION: Slight worsening in aeration Salvador Harding MD Chest Ultrasound 08/07/17 0000 Signed Impressions: Service Date/Time: Monday, August 07, 2017 12:33 - CONCLUSION: Small to moderate left pleural effusion marked for thoracentesis. Stephen Hsu MD Upper Extremity Ultrasound 08/01/17 0000 Signed Impressions: Service Date/Time: Tuesday, August 01, 2017 09:19 - CONCLUSION: 1. No sonographic evidence for upper extremity DVT. El Mosher MD Foot X-Ray 07/26/17 0000 Signed Impressions: Service Date/Time: Wednesday, July 26, 2017 19:36 - CONCLUSION: Status post agitation of the distal aspects of the second and third metatarsals and the fifth digit a at the level of the tip MTP joint Salvador Ramirez MD Tibia/Fibula X-Ray 07/23/17 0000 Signed Impressions: Service Date/Time: Sunday, July 23, 2017 10:09 - CONCLUSION: Old healed distal tibia and fibula fractures with internal fixation hardware in the distal tibia. No radiographic evidence of osteomyelitis. Bridger Cruz MD Foot MRI 07/23/17 0000 Signed Impressions: Service Date/Time: Sunday, July 23, 2017 16:47 - CONCLUSION: 1. Findings indicating osteomyelitis of the fifth toe in the proper clinical setting. There is involvement of the middle and distal phalanges as well as the majority of the proximal phalanx. Early involvement of the fifth metatarsal head. 2. Age-indeterminate bone erosion of the second metatarsal head and to lesser extent the third metatarsal head. Mild enhancement in these areas. There is adjacent mild soft tissue enhancement. The enhancement in these regions is much less intense than at the fifth toe. These findings may represent subacute to chronic infection. Bridger Cruz MD Renal Ultrasound 07/22/17 0000 Signed Impressions: Service Date/Time: Saturday, July 22, 2017 16:34 - CONCLUSION: 1. No obstructive uropathy. 2. Stable adjacent cysts versus a single cyst with septation in the mid right kidney measuring up to 2.4 cm. 3. Trace ascites. El Mosher MD (Miriam Centeno) Physical Exam General Appearance: No Acute Distress, Comfortable (Miriam Centeno) Throat Throat Exam: Oral Mucosa [place] & Moist (Miriam Centeno) Neck Neck Exam: Neck Supple (Miriam Centeno) Pulmonary Resp Exam: Clear Bilaterally, Breath Sounds Equal, No Distress (Miriam Centeno) Cardiology CV Exam: Regular, Normal Sinus Rhythm (Miriam Centeno) Gastrointestinal/Abdomen GI Exam: Soft, Bowel Sounds Present (Miriam Centeno) Genitourinary Exam: Flank Non-Tender (Miriam Centeno) Musculoskeletal MS Remarks left leg non weightbearing joseph wrap on (Miriam Centeno) Integumentary Skin Exam: Clear, Warm Skin Remarks Left lower extremity with +2 edema severe tenderness to light touch, erythematous, he had to wounds that looks dry on the dorsal surface of the foot and from rae (Miriam Centeno) Extremeties Extremities Exam: Moderate Edema (Miriam Centeno) Neurologic Neuro Exam: Awake (Miriam Centeno) Assessment/Plan Problem List: (1) EVELYNE (acute kidney injury) ICD Codes: N17.9 - Acute kidney failure, unspecified Plan: Acute kidney injury with a creatinine of 1.04 on admission. EVELYNE from possible prerenal VS ATN from infection vs adverse medication effect May have past medical history of chronic kidney disease with noted elevated creatinine in January. Renal US with no obstructive uropathy, stable adjacent cysts versus a single cyst with septation in the mid right kidney measuring up to 2.4 cm., and trace ascites. FeNa at 7 % suggestive of acute tubular necrosis at admission. Plan Creatinine stable : 2.0 -> 1.8 -> 1.9 yesterday 3.4 L UOP/24 hours. PO Fluids encouraged. Continue to monitior, may consider restarting IVFs if worsening renal function tomorrow. K+ 5.5 - continue to monitor closely. Will monitor Urinary output and renal panel. Labs in am (2) Normochromic normocytic anemia ICD Codes: D64.9 - Anemia, unspecified Plan: will monitor (3) DM (diabetes mellitus) ICD Codes: E11.9 - Type 2 diabetes mellitus without complications Plan: Maintain blood sugars between 140 mg/dl to 180mg/dl (Miriam Centeno) Problem List: (1) EVELYNE (acute kidney injury) ICD Codes: N17.9 - Acute kidney failure, unspecified Plan: Acute kidney injury with a creatinine of 1.04 on admission. EVELYNE from possible prerenal VS ATN from infection vs adverse medication effect May have past medical history of chronic kidney disease with noted elevated creatinine in January. Renal US with no obstructive uropathy, stable adjacent cysts versus a single cyst with septation in the mid right kidney measuring up to 2.4 cm., and trace ascites. FeNa at 7 % suggestive of acute tubular necrosis at admission. Plan Creatinine stable : 2.0 -> 1.8 -> 1.9 yesterday 3.4 L UOP/24 hours. PO Fluids encouraged. Continue to monitior, may consider restarting IVFs if worsening renal function tomorrow. K+ 5.5 - continue to monitor closely. Will monitor Urinary output and renal panel. Labs in am Patient seen and examined, agree with above. No new labs, will follow in AM. (2) Normochromic normocytic anemia ICD Codes: D64.9 - Anemia, unspecified Plan: will monitor (3) DM (diabetes mellitus) ICD Codes: E11.9 - Type 2 diabetes mellitus without complications Plan: Maintain blood sugars between 140 mg/dl to 180mg/dl (Roni Cueva MD) Miriam Centeno August 07, 2017 15:17 Roni Cueva MD August 07, 2017 19:55
[2017-08-07] MEDS: DAPTOMYCIN IV SCH (17:46)
[2017-08-07] MEDS: SODIUM CHLORIDE 0.9% IV SCH (17:46)
[2017-08-08] VITALS (8 sets, daily range): BP systolic 141–187; BP diastolic 74–93; PULSE 52–60; RESP 17–20; TEMP 97.2–98; O2SAT 94–97
[2017-08-08] MEDS: ACETAMINOPHEN/HYDROcodone 325 MG/5 MG TAB PO PRN (04:26)
[2017-08-08 07:41] LABS: AUTOMATED NEUTROPHIL # 4.2 TH/MM3 (1.8-7.7); BASOPHIL # 0.2 TH/MM3 (0-0.2); BASOPHIL % 2.8 % (0.0-2.0); EOSINOPHIL # 0.4 TH/MM3 (0-0.4); EOSINOPHIL % 6.3 % (0.0-4.0); HEMATOCRIT 26.8 % (39.0-51.0); LYMPH % 12.4 % (9.0-44.0); LYMPHOCYTE # 0.8 TH/MM3 (1.0-4.8); MEAN CELL VOLUME 84.3 FL (80.0-100.0); MEAN CORPUSCULAR HEMOGLOBIN 28.2 PG (27.0-34.0); MEAN CORPUSCULAR HGB CONC 33.4 % (32.0-36.0); MEAN PLATELET VOLUME 6.9 FL (7.0-11.0); MONO % 11.1 % (0.0-8.0); MONOCYTE # 0.7 TH/MM3 (0-0.9); NEUT % 67.4 % (16.0-70.0); PLATELET COUNT 403 TH/MM3 (150-450); RED BLOOD COUNT 3.18 MIL/MM3 (4.50-5.90); RED CELL DISTRIBUTION WIDTH 16.6 % (11.6-17.2); WHITE BLOOD COUNT 6.3 TH/MM3 (4.0-11.0)
--- NOTE | 2017-08-08 07:44 | HHI.PR ---
Addendum to Inpatient Note Addendum Reason: Additional Documentation Additional Information CXR reviewed: Pleural effusion plus :? consolidation. US chest ordered: small to moderate effusion. Stop Cefepime and pbserve on Dapto IV. Continue Dapto IV for Osteomyelitis. Follow CK. Placement issues dw CMKim Burns MD August 08, 2017 07:44
[2017-08-08] MEDS: INSULIN ASPART SUPPLEMENTAL SCALE SQ SCH ×4 (08:00→19:39)
[2017-08-08 08:10] LABS: CALCIUM 9.2 MG/DL (8.5-10.1); CREATININE 1.67 MG/DL (0.60-1.30)
[2017-08-08] MEDS: GABAPENTIN 100 MG CAP PO SCH ×2 (09:07→19:38)
[2017-08-08] MEDS: CARVEDILOL 3.125 MG TAB PO SCH ×2 (09:07→19:38)
[2017-08-08] MEDS: DOCUSATE SODIUM 50 MG/SENNA 8.6 MG TAB PO SCH ×2 (09:07→19:38)
[2017-08-08] MEDS: PANTOPRAZOLE SOD 40 MG DELAYED RELEASE TAB PO SCH (09:07)
[2017-08-08] MEDS: APIXABAN 2.5 MG TABLET PO SCH ×2 (09:07→19:38)
[2017-08-08] MEDS: ALPRAZolam 0.5 MG TAB PO PRN ×3 (09:07→21:30)
[2017-08-08] MEDS: ACETAMINOPHEN/HYDROcodone 325 MG/10 MG TAB PO PRN ×3 (09:08→21:30)
[2017-08-08] MEDS: AMIODARONE 200 MG TAB PO SCH ×2 (09:08→19:38)
[2017-08-08] MEDS: SODIUM CHLORIDE 0.9% FLUSH 10 ML FLUSH IV FLUSH SCH ×2 (09:09→19:39)
--- NOTE | 2017-08-08 09:54 | HHI.NPPN ---
Subjective Renal Failure: Acute History of Present Illness Patient is a 62-year-old male with a PMH of A. fib on Eliquis, HTN, Hyperlipidemia, CAD and CHF. He presented to the ER with complaints of chest pain. Troponin have remained negative. Patient was found to have potassium level of 2.8 and protein corrected calcium level of 6.2 with replacement was given. He is also being followed by podiatry and infectious disease for osteomyelitis of left foot. Nephrology is consulted for elevated renal indices with a creatinine of 1.7 today with a admission creatinine of 1.04. Patient has a past medical history of elevated creatinine in January of 2017 with creatinine of 1.35. Renal US with no obstructive uropathy, stable adjacent cysts versus a single cyst with septation in the mid right kidney measuring up to 2.4 cm., and trace ascites. Additional Remarks Reports nausea having broth for breakfast. Creatinine is improving at 1.67 today from 1.90. (Miriam eCnteno) Review of Systems Respiratory Respiratory Remarks Denies any SOB (Miriam Centeno) Cardiovascular Cardiac Remarks No chest pain (Miriam Centeno) Gastrointestinal Gastrointestinal: Nausea & Vomiting (Miriam Centeno) Objective Data Data Vital Signs Date Time Temp Pulse Resp B/P (MAP) Pulse Ox O2 Delivery O2 Flow Rate FiO2 08/08/17 08:00 97.5 56 20 187/91 (123) 96 08/08/17 04:00 98.0 54 17 166/82 (110) 94 08/08/17 03:56 53 08/08/17 00:03 52 08/08/17 00:00 97.8 52 17 141/74 (96) 94 08/07/17 20:10 61 08/07/17 20:00 98.1 62 19 162/88 (112) 96 08/07/17 19:45 Room Air 08/07/17 18:16 Room Air 08/07/17 16:08 98.2 88 16 138/74 (95) 98 08/07/17 16:00 57 08/07/17 12:08 98.0 92 16 142/70 (94) 98 08/07/17 12:00 Room Air 08/07/17 12:00 52 08/07/17 10:24 Room Air (Miriam Centeno) -: 08/08/17 0608/08/17 06 Physical Exam General Appearance: No Acute Distress, Comfortable (Miriam Centeno) Throat Throat Exam: Oral Mucosa [place] & Moist (Miriam Centeno) Neck Neck Exam: Neck Supple (Miriam Centeno) Pulmonary Resp Exam: Clear Bilaterally, Breath Sounds Equal, No Distress (Miriam Centeno) Cardiology CV Exam: Regular, Normal Sinus Rhythm (Miriam Centeno) Gastrointestinal/Abdomen GI Exam: Soft, Bowel Sounds Present (Miriam Centeno) Genitourinary Exam: Flank Non-Tender (Miriam Centeno) Musculoskeletal MS Remarks left leg non weightbearing joseph wrap on (Miriam Centeno) Integumentary Skin Exam: Clear, Warm Skin Remarks Left lower extremity with +2 edema severe tenderness to light touch, erythematous, he had to wounds that looks dry on the dorsal surface of the foot and from rae (Miriam Centeno) Extremeties Extremities Exam: Moderate Edema (Miriam Centeno) Neurologic Neuro Exam: Awake (Miriam Centeno) Assessment/Plan Problem List: (1) EVELYNE (acute kidney injury) ICD Codes: N17.9 - Acute kidney failure, unspecified Plan: Acute kidney injury with a creatinine of 1.04 on admission. EVELYNE from possible prerenal VS ATN from infection vs adverse medication effect May have past medical history of chronic kidney disease with noted elevated creatinine in January. Renal US with no obstructive uropathy, stable adjacent cysts versus a single cyst with septation in the mid right kidney measuring up to 2.4 cm., and trace ascites. FeNa at 7 % suggestive of acute tubular necrosis at admission. Plan Creatinine stable and continue to improve: 2.0 -> 1.8 -> 1.9 -> 1.67 today 4.3 L UOP/24 hours. PO Fluids encouraged. Continue to monitior, Antibiotics per ID Will monitor Urinary output and renal panel. (2) Normochromic normocytic anemia ICD Codes: D64.9 - Anemia, unspecified Plan: will monitor (3) DM (diabetes mellitus) ICD Codes: E11.9 - Type 2 diabetes mellitus without complications Plan: Maintain blood sugars between 140 mg/dl to 180mg/dl (Miriam Centeno) Problem List: (1) EVELYNE (acute kidney injury) ICD Codes: N17.9 - Acute kidney failure, unspecified Plan: Acute kidney injury with a creatinine of 1.04 on admission. EVELYNE from possible prerenal VS ATN from infection vs adverse medication effect May have past medical history of chronic kidney disease with noted elevated creatinine in January. Renal US with no obstructive uropathy, stable adjacent cysts versus a single cyst with septation in the mid right kidney measuring up to 2.4 cm., and trace ascites. FeNa at 7 % suggestive of acute tubular necrosis at admission. Plan Creatinine stable and continue to improve: 2.0 -> 1.8 -> 1.9 -> 1.67 today 4.3 L UOP/24 hours. PO Fluids encouraged. Continue to monitior, Antibiotics per ID Will monitor Urinary output and renal panel. Patient seen and examined, agree with above. Creatinine is slightly better. (2) Normochromic normocytic anemia ICD Codes: D64.9 - Anemia, unspecified Plan: will monitor (3) DM (diabetes mellitus) ICD Codes: E11.9 - Type 2 diabetes mellitus without complications Plan: Maintain blood sugars between 140 mg/dl to 180mg/dl (Roni Cueva MD) Miriam Centeno August 08, 2017 09:54 Roni Cueva MD August 10, 2017 00:02
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
[2017-08-08] MEDS: FERROUS SULFATE 325 MG (65 MG ELEMENTAL IRON) TAB PO SCH ×2 (12:00→16:27)
[2017-08-08] MEDS: SODIUM CHLORIDE 0.9% IV SCH (16:27)
[2017-08-08] MEDS: DAPTOMYCIN IV SCH (16:27)
[2017-08-09] VITALS (7 sets, daily range): BP systolic 133–170; BP diastolic 67–80; PULSE 49–64; RESP 16–21; TEMP 97.8–98; O2SAT 95–96
[2017-08-09] MEDS: ACETAMINOPHEN/HYDROcodone 325 MG/10 MG TAB PO PRN ×3 (01:30→21:35)
[2017-08-09] MEDS: ALPRAZolam 0.5 MG TAB PO PRN ×3 (01:30→21:34)
[2017-08-09] MEDS: INSULIN ASPART SUPPLEMENTAL SCALE SQ SCH ×5 (08:00→21:00)
[2017-08-09] MEDS: DOCUSATE SODIUM 50 MG/SENNA 8.6 MG TAB PO SCH ×2 (09:00→21:34)
[2017-08-09] MEDS: AMIODARONE 200 MG TAB PO SCH ×2 (09:07→21:34)
[2017-08-09] MEDS: PANTOPRAZOLE SOD 40 MG DELAYED RELEASE TAB PO SCH (09:09)
[2017-08-09] MEDS: GABAPENTIN 100 MG CAP PO SCH ×2 (09:09→21:34)
[2017-08-09] MEDS: APIXABAN 2.5 MG TABLET PO SCH ×2 (09:09→21:34)
[2017-08-09] MEDS: SODIUM CHLORIDE 0.9% FLUSH 10 ML FLUSH IV FLUSH SCH ×2 (09:09→20:46)
[2017-08-09] MEDS: CARVEDILOL 3.125 MG TAB PO SCH ×2 (09:09→21:34)
--- NOTE | 2017-08-09 11:31 | PD.ONC.PN ---
Subjective Subjective Remarks Afebrile overnight. Patient resting in bed. denies any symptoms at present. states he cannot think of any reason why he has lost so much weight other than stress and his toe infection. 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 Objective Data Date Time Temp Pulse Resp B/P (MAP) Pulse Ox O2 Delivery O2 Flow Rate FiO2 08/09/17 08:00 59 08/09/17 08:00 97.9 59 21 167/79 (108) 96 165/77 (106) 08/09/17 07:00 Room Air 08/09/17 04:00 49 08/09/17 04:00 97.8 57 16 138/80 (99) 96 08/09/17 02:43 Room Air 08/09/17 00:55 63 08/09/17 00:00 97.8 63 16 144/75 (98) 95 08/08/17 21:00 Room Air 08/08/17 20:00 57 08/08/17 20:00 97.3 59 20 154/83 (106) 97 08/08/17 16:00 97.8 60 20 163/93 (116) 96 08/08/17 12:00 97.2 53 20 159/86 (110) 96 08/09/17 08/09/17 08/09/17 06:59 14:59 22:59 Intake Total 800 ml Output Total 3000 ml Balance -2200 ml Result Diagram: 08/08/1760408/08/17604 Administered Medications Medications (Trade) Dose Ordered Sig/Abida Route PRN Reason Start Time Stop Time Status Last Admin Dose Admin Sodium Chloride (NS Flush) 2 ml BID IV FLUSH 07/22/17 09:00 08/09/17 09:09 Acetaminophen (Tylenol) 650 mg Q6H PRN PO FEVER/PAIN SCALE 1 TO 2 07/22/17 04:45 07/25/17 09:13 Acetaminophen/ Hydrocodone Bitart (Engadine 5-325 Mg) 1 tab Q4H PRN PO PAIN SCALE 3 TO 5 07/22/17 04:45 08/08/17 04:26 Acetaminophen/ Hydrocodone Bitart (Engadine 10-325 Mg) 1 tab Q4H PRN PO PAIN SCALE 6 TO 10 07/22/17 04:45 08/09/17 09:08 Senna/Docusate Sodium (Eula-Colace) 1 tab BID PO 07/22/17 09:00 08/08/17 19:38 Insulin Aspart (NovoLOG SUPPLEMENTAL SCALE) 1 ACHS SLIDING SCALE SQ 07/22/17 08:00 08/09/17 08:00 Alprazolam (Xanax) 0.5 mg Q4H PRN PO ANXIETY 07/22/17 04:45 08/09/17 09:09 Amiodarone HCl (Cordarone) 400 mg BID PO 07/22/17 09:00 08/09/17 09:07 Apixaban (Eliquis) 2.5 mg BID PO 07/22/17 09:00 08/09/17 09:09 Carvedilol (Coreg) 3.125 mg Q12HR PO 07/22/17 09:00 08/09/17 09:09 Gabapentin (Neurontin) 100 mg BID PO 07/22/17 09:00 08/09/17 09:09 Pantoprazole Sodium (Protonix) 40 mg DAILY PO 07/22/17 09:00 08/09/17 09:09 Ferrous Sulfate (Ferrous Sulfate) 325 mg BID@12,17 PO 07/23/17 12:00 08/08/17 16:27 Daptomycin 720 mg/ Sodium Chloride 100 ml @ 200 mls/hr Q24H IV 07/24/17 17:00 08/08/17 16:27 Amlodipine Besylate (Norvasc) 10 mg DAILY PO 08/08/17 09:00 08/09/17 09:09 Objective Remarks GENERAL: Pleasant middle aged male, sitting up in bed in [facility]. SKIN: Warm and dry. HEAD: Normocephalic. EYES: No injection or drainage. NECK: Supple, trachea midline. CARDIOVASCULAR: Regular rate and rhythm RESPIRATORY: Breath sounds equal bilaterally. No accessory muscle use. GASTROINTESTINAL: Abdomen soft, non-tender, nondistended. EXTREMITIES: No cyanosis. LLE in bandages, c/d/i. MUSCULOSKELETAL: Adequate muscle tone. NEUROLOGICAL: awake and alert. normal speech. moving extremities. Assessment/Plan Problem List: (1) Unintentional weight loss ICD Codes: R63.4 - Abnormal weight loss Status: Chronic Plan: --recommend continued nutrition support. --had recent bypass surgery and a chronic infection contributing. there is no diagnosis of malignancy at this time. (2) Anemia of chronic disease ICD Codes: D63.8 - Anemia in other chronic diseases classified elsewhere Plan: --multifactorial due to multiple chronic diseases + renal insufficiency --would monitor, no acute transfusion indicated at this time --no sign of bleeding. --no B12 deficiency Assessment 62y/o admitted with left foot osteomyelitis. Oncology consulted for unintentional weight loss, anemia. h/o coronary artery disease triple bypass surgery in the beginning of the year atrial fibrillation, hypertension, hyperlipidemia, and congestive heart failure. s/p resection of the left metatarsal head, small toe, left second metatarsal and left third metatarsal. Plan 1. recommend continued nutrition support. 2. monitor CBC 3. hematology/oncology will sign off. please call or reconsult if needed. Attending Statement The exam, history, and the medical decision-making described in the above note were completed with the assistance of the mid-level provider. I reviewed and agree with the findings presented. I attest that I had a [id number] encounter with the patient on the same day, and personally performed and documented my assessment and findings in the medical record. Very talkative. State he has a house to go home to, eager to go home. Discussed his weight loss and anemia. Recommend to follow up as out pt. Hgb has been stable. Noted weight change. Appreciate nutrition consult. OK for DC from heme/onc standpoint. FU at [facility] and heme out patient clinic. Adina Hatch August 09, 2017 11:31 Odalys Gordon MD August 09, 2017 21:13
--- NOTE | 2017-08-09 11:41 | HHI.NPPN ---
Subjective Renal Failure: Acute History of Present Illness Patient is a 62-year-old male with a PMH of A. fib on Eliquis, HTN, Hyperlipidemia, CAD and CHF. He presented to the ER with complaints of chest pain. Troponin have remained negative. Patient was found to have potassium level of 2.8 and protein corrected calcium level of 6.2 with replacement was given. He is also being followed by podiatry and infectious disease for osteomyelitis of left foot. Nephrology is consulted for elevated renal indices with a creatinine of 1.7 today with a admission creatinine of 1.04. Patient has a past medical history of elevated creatinine in January of 2017 with creatinine of 1.35. Renal US with no obstructive uropathy, stable adjacent cysts versus a single cyst with septation in the mid right kidney measuring up to 2.4 cm., and trace ascites. Additional Remarks Patient is wanting to go home. No acute complaints. (Miriam Centeno) Review of Systems Respiratory Respiratory Remarks Denies any SOB (Miriam Centeno) Cardiovascular Cardiac Remarks No chest pain (Miriam Centeno) Objective Data Data Vital Signs Date Time Temp Pulse Resp B/P (MAP) Pulse Ox O2 Delivery O2 Flow Rate FiO2 08/09/17 08:00 59 08/09/17 08:00 97.9 59 21 167/79 (108) 96 165/77 (106) 08/09/17 07:00 Room Air 08/09/17 04:00 49 08/09/17 04:00 97.8 57 16 138/80 (99) 96 08/09/17 02:43 Room Air 08/09/17 00:55 63 08/09/17 00:00 97.8 63 16 144/75 (98) 95 08/08/17 21:00 Room Air 08/08/17 20:00 57 08/08/17 20:00 97.3 59 20 154/83 (106) 97 08/08/17 16:00 97.8 60 20 163/93 (116) 96 08/08/17 12:00 97.2 53 20 159/86 (110) 96 (Miriam Centeno) -: 08/08/17 0605 08/08/17 0605 Imaging Last Impressions Chest X-Ray 08/07/17 0000 Signed Impressions: Service Date/Time: Monday, August 07, 2017 08:15 - CONCLUSION: Slight worsening in aeration Salvador Harding MD Chest Ultrasound 08/07/17 0000 Signed Impressions: Service Date/Time: Monday, August 07, 2017 12:33 - CONCLUSION: Small to moderate left pleural effusion marked for thoracentesis. Stephen Hsu MD Upper Extremity Ultrasound 08/01/17 0000 Signed Impressions: Service Date/Time: Tuesday, August 01, 2017 09:19 - CONCLUSION: 1. No sonographic evidence for upper extremity DVT. El Mosher MD Foot X-Ray 07/26/17 0000 Signed Impressions: Service Date/Time: Wednesday, July 26, 2017 19:36 - CONCLUSION: Status post agitation of the distal aspects of the second and third metatarsals and the fifth digit a at the level of the tip MTP joint Salvador Ramirez MD Tibia/Fibula X-Ray 07/23/17 Signed Impressions: Service Date/Time: Sunday, July 23, 2017 10:09 - CONCLUSION: Old healed distal tibia and fibula fractures with internal fixation hardware in the distal tibia. No radiographic evidence of osteomyelitis. Bridger Cruz MD Foot MRI 07/23/17 Signed Impressions: Service Date/Time: Sunday, July 23, 2017 16:47 - CONCLUSION: 1. Findings indicating osteomyelitis of the fifth toe in the proper clinical setting. There is involvement of the middle and distal phalanges as well as the majority of the proximal phalanx. Early involvement of the fifth metatarsal head. 2. Age-indeterminate bone erosion of the second metatarsal head and to lesser extent the third metatarsal head. Mild enhancement in these areas. There is adjacent mild soft tissue enhancement. The enhancement in these regions is much less intense than at the fifth toe. These findings may represent subacute to chronic infection. Bridger Cruz MD Renal Ultrasound 07/22/17 Signed Impressions: Service Date/Time: Saturday, July 22, 2017 16:34 - CONCLUSION: 1. No obstructive uropathy. 2. Stable adjacent cysts versus a single cyst with septation in the mid right kidney measuring up to 2.4 cm. 3. Trace ascites. MD Jareth Connors Diane M. ARNP) Physical Exam General Appearance: No Acute Distress, Comfortable (Miriam Centeno) Throat Throat Exam: Oral Mucosa [place] & Moist (Miriam Centeno) Neck Neck Exam: Neck Supple (Miriam Centeno) Pulmonary Resp Exam: Clear Bilaterally, Breath Sounds Equal, No Distress (Miriam Centeno) Cardiology CV Exam: Regular, Normal Sinus Rhythm (Miriam eCnteno) Gastrointestinal/Abdomen GI Exam: Soft, Bowel Sounds Present (Miriam Centeno) Genitourinary Exam: Flank Non-Tender (Miriam Centeno) Musculoskeletal MS Remarks left leg non weightbearing joseph wrap on (Miriam Centeno) Integumentary Skin Exam: Clear, Warm Skin Remarks Left lower extremity with +2 edema severe tenderness to light touch, erythematous, he had to wounds that looks dry on the dorsal surface of the foot and from rae (Miriam Centeno) Extremeties Extremities Exam: Moderate Edema (Miriam Centeno) Neurologic Neuro Exam: Awake (Miriam Centeno) Assessment/Plan Problem List: (1) EVELYNE (acute kidney injury) ICD Codes: N17.9 - Acute kidney failure, unspecified Plan: Acute kidney injury with a creatinine of 1.04 on admission. EVELYNE from possible prerenal VS ATN from infection vs adverse medication effect May have past medical history of chronic kidney disease with noted elevated creatinine in January. Renal US with no obstructive uropathy, stable adjacent cysts versus a single cyst with septation in the mid right kidney measuring up to 2.4 cm., and trace ascites. FeNa at 7 % suggestive of acute tubular necrosis at admission. Plan Creatinine stable and continue to improve: 2.0 -> 1.8 -> 1.9 -> 1.67 yesterday Continues to have good urinary output. PO Fluids encouraged. Antibiotics per ID Will monitor Urinary output and renal panel. (2) Normochromic normocytic anemia ICD Codes: D64.9 - Anemia, unspecified Plan: will monitor (3) DM (diabetes mellitus) ICD Codes: E11.9 - Type 2 diabetes mellitus without complications Plan: Maintain blood sugars between 140 mg/dl to 180mg/dl (Miriam Centeno) Problem List: (1) EVELYNE (acute kidney injury) ICD Codes: N17.9 - Acute kidney failure, unspecified Plan: Acute kidney injury with a creatinine of 1.04 on admission. EVLEYNE from possible prerenal VS ATN from infection vs adverse medication effect May have past medical history of chronic kidney disease with noted elevated creatinine in January. Renal US with no obstructive uropathy, stable adjacent cysts versus a single cyst with septation in the mid right kidney measuring up to 2.4 cm., and trace ascites. FeNa at 7 % suggestive of acute tubular necrosis at admission. Plan Creatinine stable and continue to improve: 2.0 -> 1.8 -> 1.9 -> 1.67 yesterday Continues to have good urinary output. PO Fluids encouraged. Antibiotics per ID Will monitor Urinary output and renal panel. Patient seen and examined, agree with above. No new BMP. (2) Normochromic normocytic anemia ICD Codes: D64.9 - Anemia, unspecified Plan: will monitor (3) DM (diabetes mellitus) ICD Codes: E11.9 - Type 2 diabetes mellitus without complications Plan: Maintain blood sugars between 140 mg/dl to 180mg/dl (Roni Cueva MD) Miriam Centeno August 09, 2017 11:41 Roni Cueva MD August 10, 2017 00:18
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
[2017-08-09] MEDS: FERROUS SULFATE 325 MG (65 MG ELEMENTAL IRON) TAB PO SCH ×2 (13:44→18:20)
[2017-08-09] MEDS: SODIUM CHLORIDE 0.9% IV SCH (18:20)
[2017-08-09] MEDS: DAPTOMYCIN IV SCH (18:20)
[2017-08-10] VITALS: BP 136/67; PULSE 58; PULSE 60; RESP 18; TEMP 98.1; O2SAT 96
[2017-08-10 04:00] VITALS: BP 140/68; PULSE 55; PULSE 60; RESP 18; TEMP 98; O2SAT 98
[2017-08-10] MEDS: ACETAMINOPHEN/HYDROcodone 325 MG/10 MG TAB PO PRN ×3 (04:55→22:21)
[2017-08-10] MEDS: ALPRAZolam 0.5 MG TAB PO PRN ×3 (04:57→22:22)
[2017-08-10 08:00] VITALS: BP 162/78; PULSE 54; RESP 16; TEMP 97.8; O2SAT 98
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
[2017-08-10] MEDS: DOCUSATE SODIUM 50 MG/SENNA 8.6 MG TAB PO SCH ×2 (09:00→21:00)
[2017-08-10] MEDS: INSULIN ASPART SUPPLEMENTAL SCALE SQ SCH ×4 (09:06→21:00)
[2017-08-10] MEDS: GABAPENTIN 100 MG CAP PO SCH ×2 (09:07→22:22)
[2017-08-10] MEDS: AMIODARONE 200 MG TAB PO SCH ×2 (09:07→22:21)
[2017-08-10] MEDS: SODIUM CHLORIDE 0.9% FLUSH 10 ML FLUSH IV FLUSH SCH ×2 (09:07→22:23)
[2017-08-10] MEDS: PANTOPRAZOLE SOD 40 MG DELAYED RELEASE TAB PO SCH (09:07)
[2017-08-10] MEDS: APIXABAN 2.5 MG TABLET PO SCH ×2 (09:07→22:22)
[2017-08-10] MEDS: CARVEDILOL 3.125 MG TAB PO SCH ×2 (09:07→22:21)
[2017-08-10 12:00] VITALS: BP 167/77; PULSE 69; PULSE 70; RESP 16; TEMP 98; O2SAT 95
[2017-08-10] MEDS: FERROUS SULFATE 325 MG (65 MG ELEMENTAL IRON) TAB PO SCH ×2 (13:38→17:33)
[2017-08-10 16:00] VITALS: BP 153/71; PULSE 61; PULSE 64; RESP 16; TEMP 98; O2SAT 96
--- NOTE | 2017-08-10 16:52 | HHI.NPPN ---
Subjective Renal Failure: Acute History of Present Illness Patient is a 62-year-old male with a PMH of A. fib on Eliquis, HTN, Hyperlipidemia, CAD and CHF. He presented to the ER with complaints of chest pain. Troponin have remained negative. Patient was found to have potassium level of 2.8 and protein corrected calcium level of 6.2 with replacement was given. He is also being followed by podiatry and infectious disease for osteomyelitis of left foot. Nephrology is consulted for elevated renal indices with a creatinine of 1.7 today with a admission creatinine of 1.04. Patient has a past medical history of elevated creatinine in January of 2017 with creatinine of 1.35. Renal US with no obstructive uropathy, stable adjacent cysts versus a single cyst with septation in the mid right kidney measuring up to 2.4 cm., and trace ascites. Additional Remarks No acute complaints. (Miriam Centeno) Review of Systems Respiratory Respiratory Remarks Denies any SOB (Miriam Centeno) Cardiovascular Cardiac Remarks No chest pain (Miriam Centeno) Objective Data Data Vital Signs Date Time Temp Pulse Resp B/P (MAP) Pulse Ox O2 Delivery O2 Flow Rate FiO2 08/10/17 12:00 98.0 70 16 167/77 (107) 95 08/10/17 12:00 69 08/10/17 08:00 97.8 54 16 162/78 (106) 98 08/10/17 07:00 Room Air 08/10/17 05:55 16 08/10/17 04:00 98.0 60 18 140/68 (92) 98 08/10/17 04:00 55 08/10/17 00:00 60 08/10/17 00:00 98.1 58 18 136/67 (90) 96 08/09/17 20:00 Room Air 08/09/17 20:00 98.0 60 18 170/80 (110) 96 08/09/17 20:00 64 (Miriam Centeno) -: 08/08/17 0605 08/08/17 0605 Imaging Last Impressions Chest X-Ray 08/07/17 0000 Signed Impressions: Service Date/Time: Monday, August 07, 2017 08:15 - CONCLUSION: Slight worsening in aeration Salvador Harding MD Chest Ultrasound 5/21/18 0000 Signed Impressions: Service Date/Time: Monday, August 07, 2017 12:33 - CONCLUSION: Small to moderate left pleural effusion marked for thoracentesis. Stephen Hsu MD Upper Extremity Ultrasound 08/01/17 0000 Signed Impressions: Service Date/Time: Tuesday, August 01, 2017 09:19 - CONCLUSION: 1. No sonographic evidence for upper extremity DVT. lE Mosher MD Foot X-Ray 07/26/17 0000 Signed Impressions: Service Date/Time: Wednesday, July 26, 2017 19:36 - CONCLUSION: Status post agitation of the distal aspects of the second and third metatarsals and the fifth digit a at the level of the tip MTP joint Salvador Ramirez MD Tibia/Fibula X-Ray 07/23/17 0000 Signed Impressions: Service Date/Time: Sunday, July 23, 2017 10:09 - CONCLUSION: Old healed distal tibia and fibula fractures with internal fixation hardware in the distal tibia. No radiographic evidence of osteomyelitis. Bridger Cruz MD Foot MRI 07/23/17 0000 Signed Impressions: Service Date/Time: Sunday, July 23, 2017 16:47 - CONCLUSION: 1. Findings indicating osteomyelitis of the fifth toe in the proper clinical setting. There is involvement of the middle and distal phalanges as well as the majority of the proximal phalanx. Early involvement of the fifth metatarsal head. 2. Age-indeterminate bone erosion of the second metatarsal head and to lesser extent the third metatarsal head. Mild enhancement in these areas. There is adjacent mild soft tissue enhancement. The enhancement in these regions is much less intense than at the fifth toe. These findings may represent subacute to chronic infection. Bridger Cruz MD Renal Ultrasound 07/22/17 0000 Signed Impressions: Service Date/Time: Saturday, July 22, 2017 16:34 - CONCLUSION: 1. No obstructive uropathy. 2. Stable adjacent cysts versus a single cyst with septation in the mid right kidney measuring up to 2.4 cm. 3. Trace ascites. El Mosher MD (Miriam Centeno) Physical Exam General Appearance: No Acute Distress, Comfortable (Miriam Centeno) Throat Throat Exam: Oral Mucosa [place] & Moist (Miriam Centeno) Neck Neck Exam: Neck Supple (Miriam Centeno) Pulmonary Resp Exam: Clear Bilaterally, Breath Sounds Equal, No Distress (Miriam Centeno) Cardiology CV Exam: Regular, Normal Sinus Rhythm (Miriam Centeno) Gastrointestinal/Abdomen GI Exam: Soft, Bowel Sounds Present (Miriam Centeno) Genitourinary Exam: Flank Non-Tender (Miriam Centeno) Integumentary Skin Exam: Clear, Warm (Miriam Centeno) Extremeties Extremities Exam: Moderate Edema (Miriam Centeno) Neurologic Neuro Exam: Awake (Miriam Centeno) Assessment/Plan Problem List: (1) EVELYNE (acute kidney injury) ICD Codes: N17.9 - Acute kidney failure, unspecified Plan: Acute kidney injury with a creatinine of 1.04 on admission. EVELYNE from possible prerenal VS ATN from infection vs adverse medication effect May have past medical history of chronic kidney disease with noted elevated creatinine in January. Renal US with no obstructive uropathy, stable adjacent cysts versus a single cyst with septation in the mid right kidney measuring up to 2.4 cm., and trace ascites. FeNa at 7 % suggestive of acute tubular necrosis at admission. Plan Creatinine stable and continued to improve Continues to have good urinary output. PO Fluids encouraged. Antibiotics per ID Will monitor Urinary output and renal panel. Labs in AM Plan for discharge underway (2) Normochromic normocytic anemia ICD Codes: D64.9 - Anemia, unspecified Plan: will monitor (3) DM (diabetes mellitus) ICD Codes: E11.9 - Type 2 diabetes mellitus without complications Plan: Maintain blood sugars between 140 mg/dl to 180mg/dl (Miriam Centeno) Problem List: (1) EVELYNE (acute kidney injury) ICD Codes: N17.9 - Acute kidney failure, unspecified Plan: Acute kidney injury with a creatinine of 1.04 on admission. EVELYNE from possible prerenal VS ATN from infection vs adverse medication effect May have past medical history of chronic kidney disease with noted elevated creatinine in January. Renal US with no obstructive uropathy, stable adjacent cysts versus a single cyst with septation in the mid right kidney measuring up to 2.4 cm., and trace ascites. FeNa at 7 % suggestive of acute tubular necrosis at admission. Plan Creatinine stable and continued to improve Continues to have good urinary output. PO Fluids encouraged. Antibiotics per ID. Patient seen and examined, agree with above. Will monitor Urinary output and renal panel. Labs in AM Plan for discharge underway (2) Normochromic normocytic anemia ICD Codes: D64.9 - Anemia, unspecified Plan: will monitor (3) DM (diabetes mellitus) ICD Codes: E11.9 - Type 2 diabetes mellitus without complications Plan: Maintain blood sugars between 140 mg/dl to 180mg/dl (Roni Cueva MD) Miriam Centeno August 10, 2017 16:51 Roni Cueva MD August 11, 2017 00:27
[2017-08-10] MEDS: DAPTOMYCIN IV SCH (17:33)
[2017-08-10] MEDS: SODIUM CHLORIDE 0.9% IV SCH (17:33)
[2017-08-10 20:00] VITALS: BP 142/65; PULSE 58; PULSE 74; RESP 20; TEMP 97.9; O2SAT 98
[2017-08-11] VITALS: BP 161/76; PULSE 58; PULSE 66; RESP 20; TEMP 97.9; O2SAT 97
[2017-08-11] MEDS: ALPRAZolam 0.5 MG TAB PO PRN (01:45)
[2017-08-11] MEDS: ACETAMINOPHEN/HYDROcodone 325 MG/10 MG TAB PO PRN (01:46)
[2017-08-11 04:00] VITALS: BP 139/60; PULSE 60; PULSE 62; RESP 22; TEMP 98.2; O2SAT 97
== END 2017-08-11 08:12 | disposition left against medical advice (07) | DRG 617 ==
LOC: NEPC 23:46 → NEDA 07-22 04:41 → NEPHCDU 07-22 05:25 → OBSVTOIN 07-23 13:15 → N04B 07-24 16:45
PROVIDERS: ADMIT Internal Medicine; ATTEND Internal Medicine
PROC: 0JBR0ZZ Excision of Left Foot Subcutaneous Tissue and Fascia, Open Approach (ICD-10-PCS; 2017-07-26)
PROC: 0HBNXZZ Excision of Left Foot Skin, External Approach (ICD-10-PCS; 2017-07-26)
PROC: 0QTP0ZZ Resection of Left Metatarsal, Open Approach (ICD-10-PCS; 2017-07-26)
PROC: 0Y6Y0Z0 Detachment at Left 5th Toe, Complete, Open Approach (ICD-10-PCS; principal; 2017-07-26 17:08)
PROC: 30233N1 Transfusion of Nonautologous Red Blood Cells into Peripheral Vein, Percutaneous Approach (ICD-10-PCS; 2017-07-28)
DX: E11.69 Type 2 diabetes mellitus with other specified complication (principal); M86.172 Other acute osteomyelitis, left ankle and foot; N17.9 Acute kidney failure, unspecified; E11.22 Type 2 diabetes mellitus with diabetic chronic kidney disease; L03.116 Cellulitis of left lower limb; I13.0 Hypertensive heart and chronic kidney disease with heart failure and stage 1 through stage 4 chronic kidney disease, or unspecified chronic kidney disease; L97.929 Non-pressure chronic ulcer of unspecified part of left lower leg with unspecified severity; L97.919 Non-pressure chronic ulcer of unspecified part of right lower leg with unspecified severity; S22.32XA Fracture of one rib, left side, initial encounter for closed fracture; D62 Acute posthemorrhagic anemia; M86.679 Other chronic osteomyelitis, unspecified ankle and foot; I50.9 Heart failure, unspecified; E83.51 Hypocalcemia; E11.621 Type 2 diabetes mellitus with foot ulcer; E87.6 Hypokalemia; F17.200 Nicotine dependence, unspecified, uncomplicated; N18.9 Chronic kidney disease, unspecified; I48.2 Chronic atrial fibrillation; I25.10 Atherosclerotic heart disease of native coronary artery without angina pectoris; E78.5 Hyperlipidemia, unspecified; M54.9 Dorsalgia, unspecified; G89.29 Other chronic pain; Y35.91XA Legal intervention, means unspecified, law enforcement official injured, initial encounter; R63.4 Abnormal weight loss; R59.0 Localized enlarged lymph nodes; R00.1 Bradycardia, unspecified; B95.62 Methicillin resistant Staphylococcus aureus infection as the cause of diseases classified elsewhere; D50.9 Iron deficiency anemia, unspecified; K64.4 Residual hemorrhoidal skin tags; K64.8 Other hemorrhoids; D63.8 Anemia in other chronic diseases classified elsewhere; H91.92 Unspecified hearing loss, left ear; Z86.718 Personal history of other venous thrombosis and embolism; Z79.01 Long term (current) use of anticoagulants; Z86.14 Personal history of Methicillin resistant Staphylococcus aureus infection; Z85.828 Personal history of other malignant neoplasm of skin; Z80.0 Family history of malignant neoplasm of digestive organs; Z59.0 Homelessness; Z79.84 Long term (current) use of oral hypoglycemic drugs; E11.42 Type 2 diabetes mellitus with diabetic polyneuropathy; E87.5 Hyperkalemia
CPT/HCPCS: 36430; 71045; 71046; 73590; 73630; 73720; 76604; 76775; 80048; 80053; 80074; 80076; 80202; 80307; 81001; 82272; 82550; 82565; 82570; 82607; 82728; 82746; 82948; 83540; 83550; 83605; 83615; 83690; 83735; 83935; 84132; 84155; 84300; 84484; 85014; 85018; 85025; 85027; 85044; 85652; 86140; 86403; 86592; 86703; 86850; 86900; 86901; 86920; 87015; 87040; 87070; 87077; 87102; 87116; 87147; 87186; 87205; 87206; 87491; 87591; 88304; 88305; 88307; 88311; 93005; 93922; 93970; 94150; 96365; 99285; A9579; G0378; J0610; J0692; J0878; J1756; J1815; J2250; J2270; J2370; J2543; J3010; J3370; J3420; J3480; J7030; J7040; J7050; L3260; P9016

== ENCOUNTER 2017-08-21 16:45 | Emergency (ER) | payer OTHER ==
[~2017-08-21] VITALS: Ht 188 cm; Wt 78.0 kg
[~2017-08-21 16:45] MED LIST changes: +ALPR.5 PO; -DICL500 PO; +FERR325T20 PO; -FURO1TAB62 PO; +GABA100C4 PO
[2017-08-21 18:25] VITALS: BP 134/65; PULSE 80; RESP 18; TEMP 98.8; O2SAT 98
[2017-08-22] MEDS ORDERED: CLIN150C14 PO (04:02)
[2017-08-22] MEDS ORDERED: LISI-515 PO (04:02)
== END 2017-08-21 19:14 | disposition left against medical advice (07) ==
LOC: NEDAMB 16:45
DX: Z53.21 Procedure and treatment not carried out due to patient leaving prior to being seen by health care provider (principal)
CPT/HCPCS: 99281

== ENCOUNTER 2017-08-22 02:10 | Inpatient (IN) ==
[2017-09-17] MEDS ORDERED: Acetaminophen 325 MG Tablet PO PRN (01:20)
[2017-09-17] MEDS ORDERED: Bisacodyl 10 MG Supp RECTAL PRN (01:25)
[2017-09-17] MEDS ORDERED: Dextrose 50% in Water 50 ML Vial IV.PUSH PRN (01:28)
[2017-09-17] MEDS ORDERED: Naloxone Inj 0.4 MG/ML Vial IV.PUSH PRN (01:43)
[2017-09-17] MEDS: ALPRAZolam 0.5 MG Tablet PO PRN ×3 (05:52→18:24)
[2017-09-17] MEDS ORDERED: Lisinopril 20 MG Tablet PO SCH (09:00)
[2017-09-17] MEDS ORDERED: amLODIPine 10 MG Tablet PO SCH (09:00)
[2017-09-17] MEDS ORDERED: Amiodarone 200 MG Tablet PO SCH (09:00)
--- NOTE | 2017-09-17 09:24 | P.PNNP ---
Subjective Interval history: Patient without complaints. Denies any Shortness of breath. Pain is well controlled. <Miriam Centeno - Last Filed: 09/17/17 09:25> Physical Exam Vital signs: Vital Signs 09/17/17 03:06 09/17/17 08:00 Temperature 98.2 F 97.4 F L Pulse Rate 51 L 47 L Respiratory Rate 20 16 Blood Pressure 115/57 L 103/55 L Pulse Oximetry 96 97 Intake & Output 09/16/17 09/17/17 09/17/17 18:59 06:59 18:59 Intake Total 720 / 720 Output Total 4100 / 4100 Balance -3380 / -3380 Weight 84.6 kg Intake: Oral 720 / 720 Output: Urine 4100 / 4100 - Constitutional no acute distress - Routine Neck Exam Present: supple - Routine Respiratory Exam Present: CTA bilaterally. Absent: rhonchi, wheezes - Routine Cardiovascular Exam Present: RRR - Routine Abdominal Exam Present: soft, normoactive bowel sounds - Routine Neurological Exam Present: alert, oriented X3 - Detailed Neurological Exam: Coma Scale Eye Opening: Spontaneous <Miriam Centeno - Last Filed: 09/17/17 09:25> Vital signs: Vital Signs 09/17/17 03:06 09/17/17 08:00 09/17/17 12:00 Temperature 98.2 F 97.4 F L 97.8 F Pulse Rate 51 L 47 L 52 L Respiratory Rate 20 16 16 Blood Pressure 115/57 L 103/55 L 128/62 Pulse Oximetry 96 97 96 Intake & Output 09/16/17 09/17/17 09/17/17 18:59 06:59 18:59 Intake Total 720 / 720 Output Total 4100 / 4100 Balance -3380 / -3380 Weight 84.6 kg Intake: Oral 720 / 720 Output: Urine 4100 / 4100 <Juventino Cueva - Last Filed: 09/17/17 16:23> Assessment and Plan - Assessment (1) Acute kidney injury Code(s): N17.9 - Acute kidney failure, unspecified Status: Acute Plan: May have past medical history of chronic kidney disease with noted elevated creatinine in January. Creatinine has been stable Hyperkalemia has improved Continue low potassium diet Avoid nephrotoxins Continue antibiotics ID Encouraged oral fluids. Will monitor Urinary output and renal panel. (2) Osteomyelitis Code(s): M86.9 - Osteomyelitis, unspecified Status: Acute Plan: Antibiotics per ID <Miriam Centeno - Last Filed: 09/17/17 09:25> - Plan Patient seen and examined, agree with above. No new labs, continue antibiotics. <Juventino Cueva - Last Filed: 09/17/17 16:23>
[2017-09-17] MEDS: Gabapentin 100 MG Capsule PO SCH ×2 (10:43→21:14)
[2017-09-17] MEDS: Senna/Docusate Sodium 8.6/50 MG Tablet PO SCH ×2 (10:43→21:15)
[2017-09-17] MEDS: DAPTOmycin Inj 720 MG in Sodium Chlor 0.9% Inj 100 ML IV.SIG SCH (10:47)
[2017-09-17] MEDS: Ferrous Sulfate 325 MG Tablet PO SCH ×2 (12:14→18:26)
[2017-09-17] MEDS: Insulin NovoLOG Aspart Correctional Sugar Inj SQ SCH (12:18)
--- NOTE | 2017-09-17 13:29 | P.PN ---
Subjective Interval history: Follow-up on patient with osteomyelitis of the left foot. Patient seen and examined. Patient denies any complaints. Denies any fever chills. Denies any chest pain or shortness of breath. Denies any nausea, vomiting or abdominal pain. He reports a good appetite. Pain is adequately controlled. Physical Exam Vital signs: Vital Signs 09/17/17 03:06 09/17/17 08:00 Temperature 98.2 F 97.4 F L Pulse Rate 51 L 47 L Respiratory Rate 20 16 Blood Pressure 115/57 L 103/55 L Pulse Oximetry 96 97 Intake & Output 09/16/17 09/17/17 09/17/17 18:59 06:59 18:59 Intake Total 720 / 720 Output Total 4100 / 4100 Balance -3380 / -3380 Weight 84.6 kg Intake: Oral 720 / 720 Output: Urine 4100 / 4100 Narrative: GENERAL: This is a well-developed well-nourished male patient, INAD. Awake and alert. Sitting up in bed eating breakfast. SKIN: Warm and dry. HEAD: Atraumatic. Normocephalic. EYES: Pupils equal and round. No scleral icterus. No injection or drainage. ENT: No nasal bleeding or discharge. Mucous membranes pink and moist. Airway patent. NECK: Trachea midline. CARDIOVASCULAR: Regular rate and rhythm. RESPIRATORY: Nonlabored. Clear to auscultation. Breath sounds equal bilaterally. GASTROINTESTINAL: Abdomen soft, non-tender, nondistended. Hepatic and splenic margins not palpable. MUSCULOSKELETAL: Extremities without clubbing or cyanosis. Left foot chronically edematous, dressing noted on top of left foot, C/D/I. Foot is warm. NEUROLOGICAL: Awake and alert. No obvious cranial nerve deficits. Able to move all extremities spontaneously. No focal neurologic finding. Normal speech. PSYCHIATRIC: Calm and cooperative. - Additional findings Additional findings: S/P Left foot incision and drainage with second metatarsal head bone biopsy by Dr Sin on 08/24/17 Results - Labs CBC & Chem 7: 09/14/17 05:10 09/16/17 05:29 Labs: Laboratory Results - last 24 hr 09/14/17 09/14/17 09/15/17 05:10 05:10 07:40 WBC 5.3 RBC 2.73 L Hgb 7.9 L Hct 23.7 L MCV 86.6 MCH 28.8 MCHC 33.3 RDW 16.0 Plt Count 294 MPV 7.0 Neut % (Auto) 62.3 Lymph % (Auto) 20.1 [place] % (Auto) 12.6 H Eos % (Auto) 4.0 Baso % (Auto) 1.0 Neut # (Auto) 3.3 Lymph # (Auto) 1.1 [place] # (Auto) 0.7 Eos # (Auto) 0.2 Baso # (Auto) 0.1 CBC Comment DIFF FINAL Sodium 137 Potassium 5.4 H Chloride 104 Carbon Dioxide 23.4 Anion Gap 10 BUN 34 H Creatinine 1.72 H Estimated GFR 41 L POC Glucose Random Glucose 102 Calcium 8.9 Phosphorus 4.0 Total Creatine Kinase 30 L Albumin 2.6 L 09/16/17 09/17/17 05:29 12:10 WBC RBC Hgb Hct MCV MCH MCHC RDW Plt Count MPV Neut % (Auto) Lymph % (Auto) [place] % (Auto) Eos % (Auto) Baso % (Auto) Neut # (Auto) Lymph # (Auto) [place] # (Auto) Eos # (Auto) Baso # (Auto) CBC Comment Sodium 137 Potassium 5.0 Chloride 105 Carbon Dioxide 23.4 Anion Gap 9 BUN 34 H Creatinine 1.73 H Estimated GFR 40 L POC Glucose 107 Random Glucose 89 Calcium 8.7 Phosphorus Total Creatine Kinase Albumin Assessment and Plan - Assessment (1) Osteomyelitis of left foot Code(s): M86.9 - Osteomyelitis, unspecified Status: Acute Plan: Cultures polymicrobial including MRSA, Pseudomonas, enterococcus and Proteus s/p I&D left foot and second metatarsal bone bx 08/[address] Sin. Status post wound VAC placement and subsequent removal. Per podiatry, no further intervention at this time ID following, appreciate assistance. Plan to continue on cefepime and daptomycin with stop date of 10/05/2017. Patient will need weekly CBC with differential, CMP and CK levels - follow up LFTs ordered for today (2) Lgofy-nh-pnsiffs kidney injury Code(s): N17.9 - Acute kidney failure, unspecified; N18.9 - Chronic kidney disease, unspecified Status: Acute Plan: Suspected chronic kidney disease stage III Nephrology following, appreciate assistance Renally dose all medications Avoid nephrotoxic agent Continue to monitor kidney function (3) CHF (congestive heart failure) Code(s): I50.9 - Heart failure, unspecified Status: Acute Plan: Not in acute exacerbation Continue to monitor for evidence of fluid overload (4) Diabetes mellitus Code(s): E11.9 - Type 2 diabetes mellitus without complications Status: Acute Plan: A1c 7.2 Continue Accu-Cheks with insulin sliding scale Patient is noncompliant with diabetic diet. BS 107 today. (5) Anemia of chronic disease Code(s): D63.8 - Anemia in other chronic diseases classified elsewhere Status : Acute Plan: Status post IV Venofer Hemoglobin appears stable No evidence of active bleeding, continue to monitor Continue on p.o. iron supplementation (6) Protein calorie malnutrition Code(s): E46 - Unspecified protein-calorie malnutrition Status: Acute Plan: Dietitian consulted. Patient with adequate p.o. intake. Patient declining additional supplements or maintaining a diabetic diet. Monitor weight. (7) Atrial fibrillation Code(s): I48.91 - Unspecified atrial fibrillation Status: Chronic Plan: Rate controlled Continue patient on home dose of Coreg and Eliquis Decrease dose of Amiodarone. Continue to monitor HR. (8) Coronary artery disease Code(s): I25.10 - Atherosclerotic heart disease of [place] coronary artery without angina pectoris Status: Chronic Plan: Hx of CABG Continue patient on beta-walt therapy. LETICIA inhibitor currently on hold secondary to worsening renal function. Continue to monitor (9) Hypertension Code(s): I10 - Essential (primary) hypertension Status: Chronic Plan: Now hypotensive Continue to hold Norvasc Continue to monitor BP and adjust treatment accordingly (10) Hyperkalemia Code(s): E87.5 - Hyperkalemia Status: Resolved Plan: Continue on a low potassium diet Monitor potassium levels as indicated - Plan Discussed Condition With: Patient, nursing staff and Dr. Tubbs Discharge Planning: per Dr. Stringer of ID, patient needs to stay on the current antibiotic regimen for now- not a safe discharge at this time due to non-compliance and risk of readmission due to ongoing infection. Likely has to stay in house till the end of course of IV antibiotic therapy. (2) Peyso-ii-fukucld kidney injury Qualifiers: Chronic kidney disease stage: stage 3 (moderate)
[2017-09-17 17:48] LABS: Total Protein 7.8 g/dL (6.4-8.2)
[2017-09-17] MEDS: Amiodarone 200 MG Tablet PO SCH (21:13)
[2017-09-18] MEDS: ALPRAZolam 0.5 MG Tablet PO PRN ×4 (00:09→20:14)
[2017-09-18] MEDS: Morphine Inj 4 MG/ML Vial IV.PUSH PRN ×2 (03:42→17:17)
[2017-09-18] MEDS: Insulin NovoLOG Aspart Correctional Sugar Inj SQ SCH (07:00)
[2017-09-18] MEDS: Amiodarone 200 MG Tablet PO SCH ×2 (09:17→20:15)
[2017-09-18] MEDS: Gabapentin 100 MG Capsule PO SCH ×2 (09:18→20:15)
[2017-09-18] MEDS: Senna/Docusate Sodium 8.6/50 MG Tablet PO SCH ×2 (09:18→20:15)
[2017-09-18] MEDS: DAPTOmycin Inj 720 MG in Sodium Chlor 0.9% Inj 100 ML IV.SIG SCH (09:19)
--- NOTE | 2017-09-18 09:26 | P.PNNP ---
Subjective Interval history: No complaints. Denies any shortness of breath, no edema. Pain is well controlled. <Miriam Centeno - Last Filed: 09/18/17 09:22> Physical Exam Vital signs: Vital Signs 09/17/17 12:00 09/17/17 16:00 09/17/17 20:00 Temperature 97.8 F 98.0 F 97.2 F L Pulse Rate 52 L 55 L 67 Respiratory Rate 16 16 18 Blood Pressure 128/62 125/59 L 139/70 Pulse Oximetry 96 98 96 09/17/17 21:09 09/18/17 00:00 Temperature 98 F Pulse Rate 60 Respiratory Rate 16 18 Blood Pressure 147/69 H Pulse Oximetry 96 Intake & Output 09/17/17 09/18/17 09/18/17 18:59 06:59 18:59 Intake Total 100 / 100 820 / 820 Output Total 3900 / 3900 Balance 100 / 100 -3080 / -3080 Intake: IV 100 / 100 100 / 100 Maxipime Inj 1,000 MG In NS Inj 100 / 100 100 ML @ 200 mls/hr IV.SIG Q12H [facility] Rx#:[id number] Cubicin Inj 720 MG In NS Inj 100 / 100 100 ML @ 200 mls/hr IV.SIG DAILY K[facility]Y Rx#:[id number] Oral 720 / 720 Output: Urine 3900 / 3900 - Constitutional no acute distress, cooperative - Routine HEENT Exam Head: Present: normocephalic ENT: Present: mucous membranes moist - Routine Neck Exam Absent: JVD - Routine Respiratory Exam Present: CTA bilaterally. Absent: rhonchi, wheezes, crackles - Routine Cardiovascular Exam Present: RRR. Absent: murmur - Routine Abdominal Exam Present: soft, normoactive bowel sounds - Routine Extremities Exam Absent: edema - Routine Skin Exam Present: warm - Routine Neurological Exam Present: alert, oriented X3 - Detailed Neurological Exam: Coma Scale Eye Opening: Spontaneous - Routine Psychiatric Exam Present: normal affect <Miriam Centeno - Last Filed: 09/18/17 09:22> Vital signs: Vital Signs 09/18/17 00:00 09/18/17 08:00 09/18/17 12:00 Temperature 98 F 97.9 F 97.1 F L Pulse Rate 60 50 L 60 Respiratory Rate 18 17 Blood Pressure 147/69 H 118/58 L 107/59 L Pulse Oximetry 96 95 99 09/18/17 16:00 Temperature 97.8 F Pulse Rate 57 L Respiratory Rate 16 Blood Pressure 120/59 L Pulse Oximetry 96 Intake & Output 09/18/17 09/18/17 09/19/17 06:59 18:59 06:59 Intake Total 820 / 820 100 / 100 Output Total 3900 / 3900 Balance -3080 / -3080 100 / 100 Intake: IV 100 / 100 100 / 100 Maxipime Inj 1,000 MG In NS Inj 100 / 100 100 / 100 100 ML @ 200 mls/hr IV.SIG Q12H [facility] Rx#:[id number] Oral 720 / 720 Output: Urine 3900 / 3900 <Juventino Cueva - Last Filed: 09/18/17 22:08> Assessment and Plan - Assessment (1) Acute kidney injury Code(s): N17.9 - Acute kidney failure, unspecified Status: Acute Plan: May have past medical history of chronic kidney disease with noted elevated creatinine in January. Creatinine has been stable Hyperkalemia has improved Continue low potassium diet Avoid nephrotoxins Continue antibiotics ID Encouraged oral fluids. Will monitor Urinary output and renal panel. No new labs today will order for AM (2) Osteomyelitis of left foot Code(s): M86.9 - Osteomyelitis, unspecified Status: Acute Plan: Continue antibiotics <Miriam Centeno - Last Filed: 09/18/17 09:22> - Assessment (1) Acute kidney injury Code(s): N17.9 - Acute kidney failure, unspecified Status: Acute (2) Osteomyelitis of left foot Code(s): M86.9 - Osteomyelitis, unspecified Status: Acute - Attending Attestation Patient seen and examined, agree with above. <Juventino Cueva - Last Filed: 09/18/17 22:08>
--- NOTE | 2017-09-18 10:47 | P.PN ---
Subjective Interval history: Follow-up on patient with osteomyelitis of the left foot. Patient seen and examined. Patient complains of increased left foot pain last night. He is concerned that packing material may have been left in his foot during the last dressing change on 09/16. He is requesting that the wound care nurse come by and assess his wound. He denies any fever or chills. Denies any chest pain or shortness of breath. +BM yesterday. Patient is afebrile. Vital signs are stable. Physical Exam Vital signs: Vital Signs 09/17/17 12:00 09/17/17 16:00 09/17/17 20:00 Temperature 97.8 F 98.0 F 97.2 F L Pulse Rate 52 L 55 L 67 Respiratory Rate 16 16 18 Blood Pressure 128/62 125/59 L 139/70 Pulse Oximetry 96 98 96 09/17/17 21:09 09/18/17 00:00 Temperature 98 F Pulse Rate 60 Respiratory Rate 16 18 Blood Pressure 147/69 H Pulse Oximetry 96 Intake & Output 09/17/17 09/18/17 09/18/17 18:59 06:59 18:59 Intake Total 100 / 100 820 / 820 Output Total 3900 / 3900 Balance 100 / 100 -3080 / -3080 Intake: IV 100 / 100 100 / 100 Maxipime Inj 1,000 MG In NS Inj 100 / 100 100 ML @ 200 mls/hr IV.SIG Q12H [facility] Rx#:[id number] Cubicin Inj 720 MG In NS Inj 100 / 100 100 ML @ 200 mls/hr IV.SIG DAILY [facility] Rx#:[id number] Oral 720 / 720 Output: Urine 3900 / 3900 Narrative: GENERAL: This is a well-developed well-nourished male patient, INAD. Awake and alert. Sitting up in bed. SKIN: Warm and dry. HEAD: Atraumatic. Normocephalic. EYES: Pupils equal and round. No scleral icterus. No injection or drainage. ENT: No nasal bleeding or discharge. Mucous membranes pink and moist. Airway patent. NECK: Trachea midline. CARDIOVASCULAR: Regular rate and rhythm. RESPIRATORY: Nonlabored. Clear to auscultation. Breath sounds equal bilaterally. GASTROINTESTINAL: Abdomen soft, non-tender, nondistended. Hepatic and splenic margins not palpable. MUSCULOSKELETAL: Extremities without clubbing or cyanosis. Left foot chronically edematous, dressing noted on top of left foot, C/D/I. Foot is warm. NEUROLOGICAL: Awake and alert. No obvious cranial nerve deficits. Able to move all extremities spontaneously. No focal neurologic finding. Normal speech. PSYCHIATRIC: Calm and cooperative. Results - Labs CBC & Chem 7: 09/14/17 05:10 09/16/17 05:29 Laboratory Results - last 24 hr 09/17/17 09/17/17 09/18/17 12:10 16:36 09:09 POC Glucose 107 105 Total Bilirubin 0.2 Direct Bilirubin 0.1 Indirect Bilirubin 0.1 AST 20 ALT 43 Alkaline Phosphatase 184 H Total Protein 7.8 Albumin 3.0 L Assessment and Plan - Assessment (1) Osteomyelitis of left foot Code(s): M86.9 - Osteomyelitis, unspecified Status: Acute Plan: Cultures polymicrobial including MRSA, Pseudomonas, enterococcus and Proteus s/p I&D left foot and second metatarsal bone bx 08/[address] Sin. Status post wound VAC placement and subsequent removal. Per podiatry, no further intervention at this time. ID following, appreciate assistance. Plan to continue on cefepime and daptomycin with stop date of 10/05/2017. Patient will need weekly CBC with differential, CMP and CK levels. Repeat labs ordered in system for 09/21/17 Continue wound management with wound care nurse, appreciate assistance. (2) Gegjm-ai-fgffxfp kidney injury Code(s): N17.9 - Acute kidney failure, unspecified; N18.9 - Chronic kidney disease, unspecified Status: Acute Plan: Suspected chronic kidney disease stage III Nephrology following, appreciate assistance Creatinine has been stable Renally dose all medications Avoid nephrotoxic agent Continue to monitor kidney function - repeat BMP ordered for am (3) CHF (congestive heart failure) Code(s): I50.9 - Heart failure, unspecified Status: Acute Plan: Not in acute exacerbation Continue to monitor for evidence of fluid overload (4) Diabetes mellitus Code(s): E11.9 - Type 2 diabetes mellitus without complications Status: Acute Plan: A1c 7.2 Continue Accu-Cheks with insulin sliding scale Patient is noncompliant with diabetic diet. BS 107 today. (5) Anemia of chronic disease Code(s): D63.8 - Anemia in other chronic diseases classified elsewhere Status : Acute Plan: Status post IV Venofer Hemoglobin appears stable No evidence of active bleeding, continue to monitor Continue on p.o. iron supplementation (6) Protein calorie malnutrition Code(s): E46 - Unspecified protein-calorie malnutrition Status: Acute Plan: Dietitian consulted. Patient with adequate p.o. intake. Patient declining additional supplements or maintaining a diabetic diet. Monitor weight. (7) Atrial fibrillation Code(s): I48.91 - Unspecified atrial fibrillation Status: Chronic Plan: Rate controlled Continue patient on home dose of Coreg and Eliquis Bradycardic, improved with reduction of amiodarone dose. Continue to monitor HR. (8) Coronary artery disease Code(s): I25.10 - Atherosclerotic heart disease of [place] coronary artery without angina pectoris Status: Chronic Plan: Hx of CABG Continue patient on beta-walt therapy. LETICIA inhibitor currently on hold secondary to worsening renal function. Continue to monitor (9) Hypertension Code(s): I10 - Essential (primary) hypertension Status: Chronic Plan: Now hypotensive Continue to hold Norvasc Continue to monitor BP and adjust treatment accordingly (10) Hyperkalemia Code(s): E87.5 - Hyperkalemia Status: Resolved Plan: Continue on a low potassium diet Monitor potassium levels as indicated - repeat BMP in am. - Plan Discussed Condition With: patient, nursing staff and Dr. Tubbs Discharge Planning: per Dr. Stringer of ID, patient needs to stay on the current antibiotic regimen for now- not a safe discharge at this time due to non-compliance and risk of readmission due to ongoing infection. Likely has to stay in house till the end of course of IV antibiotic therapy. (2) Vlzbz-uh-cwptfup kidney injury Qualifiers: Chronic kidney disease stage: stage 3 (moderate)
[2017-09-18] MEDS: Ferrous Sulfate 325 MG Tablet PO SCH ×2 (12:00→17:00)
[2017-09-19] MEDS: ALPRAZolam 0.5 MG Tablet PO PRN ×4 (02:12→22:17)
[2017-09-19] MEDS: Insulin NovoLOG Aspart Correctional Sugar Inj SQ SCH (07:23)
[2017-09-19 08:19] LABS: Baso # (Auto) 0.1 th/mm3 (0.0-0.2); Eos # (Auto) 0.2 th/mm3 (0.0-0.4); Eos % (Auto) 3.1 % (0.0-4.0); Hematocrit 22.9 % (39.0-51.0); Hemoglobin 7.7 gm/dL (13.0-17.0); Lymph # (Auto) 1.1 th/mm3 (1.0-4.8); Lymph % (Auto) 19.8 % (9.0-44.0); Mean Corpuscular HGB Conc 33.6 % (32.0-36.0); Mean Corpuscular Hemoglobin 29.1 pg (27.0-34.0); Mean Corpuscular Volume 86.4 fL (80.0-100.0); Mean Platelet Volume 7.1 fL (7.0-11.0); Mono # (Auto) 0.7 th/mm3 (0.0-0.9); Mono % (Auto) 11.8 % (0.0-8.0); Neut # (Auto) 3.6 th/mm3 (1.8-7.7); Neut % (Auto) 64.3 % (16.0-70.0); Platelet Count 214 th/mm3 (150-450); Red Blood Count 2.65 mil/mm3 (4.50-5.90); Red Cell Distribution Width 16.4 % (11.6-17.2); White Blood Count 5.6 th/mm3 (4.0-11.0)
[2017-09-19 08:27] LABS: Albumin 2.7 g/dL (3.4-5.0); Calcium 8.8 mg/dL (8.5-10.1); Carbon Dioxide 20.6 meq/L (21.0-32.0); Potassium 4.5 meq/L (3.5-5.1)
[2017-09-19 08:28] LABS: Phosphorus 4.4 mg/dL (2.5-4.9)
[2017-09-19] MEDS: Senna/Docusate Sodium 8.6/50 MG Tablet PO SCH ×2 (08:55→20:32)
[2017-09-19] MEDS: Amiodarone 200 MG Tablet PO SCH ×2 (08:55→20:32)
[2017-09-19] MEDS: DAPTOmycin Inj 720 MG in Sodium Chlor 0.9% Inj 100 ML IV.SIG SCH (08:55)
[2017-09-19] MEDS: Gabapentin 100 MG Capsule PO SCH ×2 (08:55→20:31)
--- NOTE | 2017-09-19 11:13 | P.PN ---
Subjective Interval history: Nursing denies any deterioration since last night. Patient himself has no new complaints. Feels like his foot continues to look better. Physical Exam Vital signs: Vital Signs 09/18/17 12:00 09/18/17 16:00 09/18/17 20:45 Temperature 97.1 F L 97.8 F Pulse Rate 60 57 L Respiratory Rate 16 20 Blood Pressure 107/59 L 120/59 L Pulse Oximetry 99 96 09/19/17 00:00 09/19/17 02:42 09/19/17 08:00 Temperature 97.7 F 97.9 F Pulse Rate 66 58 L Respiratory Rate 20 20 18 Blood Pressure 133/67 133/61 Pulse Oximetry 96 96 Intake & Output 09/18/17 09/19/17 09/19/17 18:59 06:59 18:59 Intake Total 100 / 100 360 / 360 400 / 400 Output Total 950 / 950 Balance 100 / 100 -590 / -590 400 / 400 Weight 86.1 kg Intake: IV 100 / 100 400 / 400 Maxipime Inj 1,000 MG In NS Inj 100 / 100 200 / 200 100 ML @ 200 mls/hr IV.SIG Q12H [facility] Rx#:[id number] Cubicin Inj 720 MG In NS Inj 200 / 200 100 ML @ 200 mls/hr IV.SIG DAILY [facility] Rx#:[id number] Oral 360 / 360 Output: Urine 950 / 950 Other: Date of Last Bowel Movement 09/17/17 09/18/17 Narrative: Left foot with dorsal wound, healing well no edema of foot NAD overall Results - Labs CBC & Chem 7: 09/19/17 07:44 09/19/17 07:14 Laboratory Results - last 24 hr 09/19/17 09/19/17 09/19/17 06:50 07:14 07:44 WBC 5.6 RBC 2.65 L Hgb 7.7 L Hct 22.9 L MCV 86.4 MCH 29.1 MCHC 33.6 RDW 16.4 Plt Count 214 MPV 7.1 Neut % (Auto) 64.3 Lymph % (Auto) 19.8 [place] % (Auto) 11.8 H Eos % (Auto) 3.1 Baso % (Auto) 1.0 Neut # (Auto) 3.6 Lymph # (Auto) 1.1 [place] # (Auto) 0.7 Eos # (Auto) 0.2 Baso # (Auto) 0.1 WBC Differential . Differential Comment Auto diff final Sodium 139 Potassium 4.5 Chloride 107 Carbon Dioxide 20.6 L Anion Gap 11 BUN 34 H Creatinine 1.74 H Estimated GFR 40 L POC Glucose 111 H Random Glucose 89 Calcium 8.8 Phosphorus 4.4 Albumin 2.7 L Assessment and Plan - Assessment (1) Osteomyelitis of left foot Code(s): M86.9 - Osteomyelitis, unspecified Status: Acute Plan: . (2) Rutbd-zo-mrcdjfl kidney injury Code(s): N17.9 - Acute kidney failure, unspecified; N18.9 - Chronic kidney disease, unspecified Status: Acute Plan: Suspected chronic kidney disease stage III Nephrology following, appreciate assistance (3) CHF (congestive heart failure) Code(s): I50.9 - Heart failure, unspecified Status: Acute Plan: Continue to monitor for evidence of fluid overload (4) Diabetes mellitus Code(s): E11.9 - Type 2 diabetes mellitus without complications Status: Acute Plan: A1c 7.2 Continue Accu-Cheks with insulin sliding scale Patient is noncompliant with diabetic diet. (5) Anemia of chronic disease Code(s): D63.8 - Anemia in other chronic diseases classified elsewhere Status : Acute Plan: Status post IV Venofer Continue on p.o. iron supplementation (6) Protein calorie malnutrition Code(s): E46 - Unspecified protein-calorie malnutrition Status: Acute Plan: Dietitian consulted. Patient with adequate p.o. intake. Patient declining additional supplements or maintaining a diabetic diet. Monitor weight. (7) Atrial fibrillation Code(s): I48.91 - Unspecified atrial fibrillation Status: Chronic Plan: Rate controlled Continue patient on home dose of Coreg and Eliquis Bradycardic, improved with reduction of amiodarone dose. Continue to monitor HR. (8) Coronary artery disease Code(s): I25.10 - Atherosclerotic heart disease of [place] coronary artery without angina pectoris Status: Chronic Plan: Hx of CABG Continue patient on beta-walt therapy. LETICIA inhibitor currently on hold secondary to worsening renal function. Continue to monitor (9) Hypertension Code(s): I10 - Essential (primary) hypertension Status: Chronic Plan: Now hypotensive Continue to hold Norvasc Continue to monitor BP and adjust treatment accordingly (10) Hyperkalemia Code(s): E87.5 - Hyperkalemia Status: Resolved Plan: Continue on a low potassium diet - Plan Cultures polymicrobial including MRSA, Pseudomonas, enterococcus and Proteus s/p I&D left foot and second metatarsal bone bx 08/[address] Sin. Status post wound VAC placement and subsequent removal. Per podiatry, no further intervention at this time. ID following, appreciate assistance. continue on cefepime and daptomycin with stop date of 10/05/2017. Patient will need weekly CBC with differential, Repeat labs ordered in system for 09/21/17 Continue wound management with wound care nurse, appreciate assistance (2) Qzykr-jg-ayksioy kidney injury Qualifiers: Chronic kidney disease stage: stage 3 (moderate)
[2017-09-19] MEDS: Ferrous Sulfate 325 MG Tablet PO SCH ×2 (11:33→18:01)
--- NOTE | 2017-09-19 14:01 | P.PN ---
Subjective Interval history: Patient is alert, no SOB, mild left foot pain. Physical Exam Vital signs: Vital Signs 09/18/17 16:00 09/18/17 20:45 09/19/17 00:00 Temperature 97.8 F 97.7 F Pulse Rate 57 L 66 Respiratory Rate 16 20 20 Blood Pressure 120/59 L 133/67 Pulse Oximetry 96 96 09/19/17 02:42 09/19/17 08:00 09/19/17 12:00 Temperature 97.9 F 97.8 F Pulse Rate 58 L Respiratory Rate 20 18 18 Blood Pressure 133/61 125/59 L Pulse Oximetry 96 95 Intake & Output 09/18/17 09/19/17 09/19/17 18:59 06:59 18:59 Intake Total 100 / 100 360 / 360 400 / 400 Output Total 950 / 950 Balance 100 / 100 -590 / -590 400 / 400 Weight 86.1 kg Intake: IV 100 / 100 400 / 400 Maxipime Inj 1,000 MG In NS Inj 100 / 100 200 / 200 100 ML @ 200 mls/hr IV.SIG Q12H [facility] Rx#:[id number] Cubicin Inj 720 MG In NS Inj 200 / 200 100 ML @ 200 mls/hr IV.SIG DAILY [facility] Rx#:[id number] Oral 360 / 360 Output: Urine 950 / 950 Other: Date of Last Bowel Movement 09/17/17 09/18/17 - Constitutional no acute distress - Routine HEENT Exam Head: Present: normocephalic - Routine Neck Exam Present: supple - Routine Respiratory Exam Present: decreased breath sounds, CTA bilaterally - Routine Cardiovascular Exam Present: S1, S2 - Routine Abdominal Exam Present: soft, normoactive bowel sounds, distended - Routine Extremities Exam Present: edema - Routine Neurological Exam Present: alert, oriented X3 Results - Labs CBC & Chem 7: 09/19/17 07:44 09/19/17 07:14 Laboratory Results - last 24 hr 09/19/17 09/19/17 09/19/17 06:50 07:14 07:44 WBC 5.6 RBC 2.65 L Hgb 7.7 L Hct 22.9 L MCV 86.4 MCH 29.1 MCHC 33.6 RDW 16.4 Plt Count 214 MPV 7.1 Neut % (Auto) 64.3 Lymph % (Auto) 19.8 [place] % (Auto) 11.8 H Eos % (Auto) 3.1 Baso % (Auto) 1.0 Neut # (Auto) 3.6 Lymph # (Auto) 1.1 [place] # (Auto) 0.7 Eos # (Auto) 0.2 Baso # (Auto) 0.1 WBC Differential . Differential Comment Auto diff final Sodium 139 Potassium 4.5 Chloride 107 Carbon Dioxide 20.6 L Anion Gap 11 BUN 34 H Creatinine 1.74 H Estimated GFR 40 L POC Glucose 111 H Random Glucose 89 Calcium 8.8 Phosphorus 4.4 Albumin 2.7 L Assessment and Plan - Assessment (1) Acute kidney injury Code(s): N17.9 - Acute kidney failure, unspecified Status: Acute (2) Osteomyelitis of left foot Code(s): M86.9 - Osteomyelitis, unspecified Status: Acute - Attending Attestation (1) Acute kidney injury Code(s): N17.9 - Acute kidney failure, unspecified Status: Acute Plan: May have past medical history of chronic kidney disease with noted elevated creatinine in January. Creatinine has been stable Hyperkalemia has improved Continue low potassium diet Avoid nephrotoxins Continue antibiotics ID Encouraged oral fluids. Will monitor Urinary output and renal panel. Creatinine is same, 1.7, K is normal. (2) Osteomyelitis of left foot Code(s): M86.9 - Osteomyelitis, unspecified Status: Acute Plan: Continue antibiotics
[2017-09-20] MEDS: ALPRAZolam 0.5 MG Tablet PO PRN ×4 (04:34→20:57)
[2017-09-20] MEDS: DAPTOmycin Inj 720 MG in Sodium Chlor 0.9% Inj 100 ML IV.SIG SCH (11:11)
[2017-09-20] MEDS: Gabapentin 100 MG Capsule PO SCH ×2 (11:15→20:56)
[2017-09-20] MEDS: Senna/Docusate Sodium 8.6/50 MG Tablet PO SCH ×2 (11:15→20:57)
[2017-09-20] MEDS: Amiodarone 200 MG Tablet PO SCH ×2 (11:16→20:57)
--- NOTE | 2017-09-20 12:29 | P.PN ---
Subjective Interval history: Patient is alert, no SOB, eating well, leg pain is better. Physical Exam Vital signs: Vital Signs 09/19/17 16:00 09/19/17 20:00 09/20/17 00:00 Temperature 98.2 F 98.1 F 97.9 F Pulse Rate 61 54 L 62 Respiratory Rate 16 17 17 Blood Pressure 135/68 154/73 H 136/70 Pulse Oximetry 97 97 97 09/20/17 05:04 09/20/17 08:00 Temperature 97.8 F Pulse Rate 53 L Respiratory Rate 18 20 Blood Pressure 139/70 Pulse Oximetry 96 Intake & Output 09/19/17 09/20/17 09/20/17 18:59 06:59 18:59 Intake Total 400 / 400 700 / 700 Output Total 2600 / 2600 Balance 400 / 400 -1900 / -1900 Intake: IV 400 / 400 100 / 100 Maxipime Inj 1,000 MG In NS Inj 200 / 200 100 / 100 100 ML @ 200 mls/hr IV.SIG Q12H [facility] Rx#:[id number] Cubicin Inj 720 MG In NS Inj 200 / 200 100 ML @ 200 mls/hr IV.SIG DAILY [facility] Rx#:[id number] Oral 600 / 600 Output: Urine 2600 / 2600 Other: Date of Last Bowel Movement 09/18/17 Narrative: Patient is alert, not in distress. - Constitutional no acute distress - Routine HEENT Exam Head: Present: normocephalic Eye: Present: EOMI ENT: Present: mucous membranes moist - Routine Neck Exam Present: supple, JVD - Routine Respiratory Exam Present: CTA bilaterally, wheezes - Routine Cardiovascular Exam Present: RRR, S1, S2 - Routine Abdominal Exam Present: soft, normoactive bowel sounds, distended - Routine Extremities Exam Present: edema - Routine Neurological Exam Present: alert, oriented X3 - Detailed Neurological Exam: Coma Scale Verbal Response: Oriented - Routine Psychiatric Exam Present: cooperative Results - Labs CBC & Chem 7: 09/19/17 07:44 09/19/17 07:14 Laboratory Results - last 24 hr 09/19/17 09/20/17 09/20/17 17:32 06:36 08:07 POC Glucose 124 H 113 H 125 H Assessment and Plan - Assessment (1) Acute kidney injury Code(s): N17.9 - Acute kidney failure, unspecified Status: Acute (2) Osteomyelitis of left foot Code(s): M86.9 - Osteomyelitis, unspecified Status: Acute - Attending Attestation (1) Acute kidney injury Code(s): N17.9 - Acute kidney failure, unspecified Status: Acute Plan: May have past medical history of chronic kidney disease with noted elevated creatinine in January. Creatinine has been stable Hyperkalemia has improved Continue low potassium diet Avoid nephrotoxins Continue antibiotics ID Encouraged oral fluids. Will monitor Urinary output and renal panel. Creatinine was 1.7, No new BMP. Told to follow low K diet. (2) Osteomyelitis of left foot Code(s): M86.9 - Osteomyelitis, unspecified Status: Acute Plan: Continue antibiotics
[2017-09-20] MEDS: Insulin NovoLOG Aspart Correctional Sugar Inj SQ SCH (14:51)
[2017-09-20] MEDS: Ferrous Sulfate 325 MG Tablet PO SCH ×2 (15:30→18:38)
--- NOTE | 2017-09-20 16:36 | P.PN ---
Subjective Interval history: Nursing denies any deterioration since last night. Patient asks if he can be stuck only wants to check his blood sugars in the morning. Otherwise has no new complaints. Physical Exam Vital signs: Vital Signs 09/19/17 20:00 09/20/17 00:00 09/20/17 05:04 Temperature 98.1 F 97.9 F Pulse Rate 54 L 62 Respiratory Rate 17 17 18 Blood Pressure 154/73 H 136/70 Pulse Oximetry 97 97 09/20/17 08:00 09/20/17 12:00 Temperature 97.8 F 97.9 F Pulse Rate 53 L 54 L Respiratory Rate 20 20 Blood Pressure 139/70 141/61 H Pulse Oximetry 96 97 Intake & Output 09/19/17 09/20/17 09/20/17 18:59 06:59 18:59 Intake Total 400 / 400 700 / 700 Output Total 2600 / 2600 Balance 400 / 400 -1900 / -1900 Intake: IV 400 / 400 100 / 100 Maxipime Inj 1,000 MG In NS Inj 200 / 200 100 / 100 100 ML @ 200 mls/hr IV.SIG Q12H [facility] Rx#:[id number] Cubicin Inj 720 MG In NS Inj 200 / 200 100 ML @ 200 mls/hr IV.SIG DAILY [facility] Rx#:[id number] Oral 600 / 600 Output: Urine 2600 / 2600 Other: Date of Last Bowel Movement 09/18/17 Narrative: Well-healing dorsal wound at the anterior webspace of the first and second digit of the left toe Unlabored breathing, no acute distress, pleasant mood and demeanor Results - Labs CBC & Chem 7: 09/19/17 07:44 09/19/17 07:14 Laboratory Results - last 24 hr 09/19/17 09/20/17 09/20/17 17:32 06:36 08:07 POC Glucose 124 H 113 H 125 H Assessment and Plan - Plan OSTEO Cultures polymicrobial including MRSA, Pseudomonas, enterococcus and Proteus s/p I&D left foot and second metatarsal bone bx 08/[address] Sin. Status post wound VAC placement and subsequent removal. Per podiatry, no further intervention at this time. ID following, appreciate assistance. continue on cefepime and daptomycin with stop date of 10/05/2017. Patient will need weekly CBC with differential, Repeat labs ordered in system for 09/21/17 Continue wound management with wound care nurse, appreciate assistance HTN holding Norvasc Continue to monitor BP and adjust treatment accordingly Continue on a low potassium diet CAD Hx of CABG Continue patient on beta-walt therapy. LETICIA inhibitor currently on hold secondary to worsening renal function. Continue to monitor AFIB/CHF w/ preserved EF stable w/ coreg, amiodarone eliquis DM A1c 7.2 Continue Accu-Cheks with insulin sliding scale EVELYNE on CKD Suspected chronic kidney disease stage III Nephrology following, appreciate assistance
[2017-09-21] MEDS: ALPRAZolam 0.5 MG Tablet PO PRN ×5 (03:31→22:20)
[2017-09-21] MEDS: Insulin NovoLOG Aspart Correctional Sugar Inj SQ SCH (06:37)
[2017-09-21 07:10] LABS: Baso # (Auto) 0.1 th/mm3 (0.0-0.2); Baso % (Auto) 1.1 % (0.0-2.0); Eos # (Auto) 0.3 th/mm3 (0.0-0.4); Eos % (Auto) 3.9 % (0.0-4.0); Hemoglobin 8.9 gm/dL (13.0-17.0); Lymph # (Auto) 1.3 th/mm3 (1.0-4.8); Lymph % (Auto) 18.2 % (9.0-44.0); Mean Corpuscular Hemoglobin 28.6 pg (27.0-34.0); Mean Corpuscular Volume 86.9 fL (80.0-100.0); Mean Platelet Volume 7.5 fL (7.0-11.0); Mono # (Auto) 0.8 th/mm3 (0.0-0.9); Mono % (Auto) 10.3 % (0.0-8.0); Neut # (Auto) 4.9 th/mm3 (1.8-7.7); Neut % (Auto) 66.5 % (16.0-70.0); Platelet Count 245 th/mm3 (150-450); Red Blood Count 3.11 mil/mm3 (4.50-5.90); Red Cell Distribution Width 16.3 % (11.6-17.2); White Blood Count 7.3 th/mm3 (4.0-11.0)
[2017-09-21 07:34] LABS: Alanine Aminotransferase 33 U/L (12-78); Albumin 3.2 g/dL (3.4-5.0); Anion Gap 10 meq/L (5-15); Aspartate Aminotransferase 22 U/L (15-37); Blood Urea Nitrogen 33 mg/dL (7-18); Carbon Dioxide 25.4 meq/L (21.0-32.0); Chloride 104 meq/L (98-107); Glomerular Filtration Rate 37 mL/min (>89); Glucose,Random 102 mg/dL (74-106); Potassium 4.8 meq/L (3.5-5.1); Sodium 139 meq/L (136-145)
[2017-09-21 07:36] LABS: Alkaline Phosphatase 162 U/L (45-117); Total Protein 7.9 g/dL (6.4-8.2)
[2017-09-21 07:41] LABS: Creatine Kinase 52 U/L (39-308)
[2017-09-21] MEDS: Gabapentin 100 MG Capsule PO SCH ×2 (08:48→21:25)
[2017-09-21] MEDS: Senna/Docusate Sodium 8.6/50 MG Tablet PO SCH ×2 (08:48→21:26)
[2017-09-21] MEDS: Amiodarone 200 MG Tablet PO SCH ×2 (08:50→21:26)
[2017-09-21] MEDS: DAPTOmycin Inj 720 MG in Sodium Chlor 0.9% Inj 100 ML IV.SIG SCH (09:00)
--- NOTE | 2017-09-21 10:10 | P.PNNP ---
Subjective Interval history: Resting comfortably with no complaints. Denies any shortness of breath. Pain is well controlled. <Miriam Centeno - Last Filed: 09/21/17 10:06> Physical Exam Vital signs: Vital Signs 09/20/17 12:00 09/20/17 20:00 09/21/17 00:00 Temperature 97.9 F 97.7 F 97.6 F Pulse Rate 54 L 78 70 Respiratory Rate 20 18 16 Blood Pressure 141/61 H 142/66 H 130/72 Pulse Oximetry 97 95 96 09/21/17 04:00 09/21/17 08:00 Temperature 98.0 F 97.8 F Pulse Rate 52 L 52 L Respiratory Rate 14 18 Blood Pressure 141/64 H 127/66 Pulse Oximetry 98 98 Intake & Output 09/20/17 09/21/17 09/21/17 18:59 06:59 18:59 Intake Total 2200 / 2200 300 / 300 Output Total 1900 / 1900 1900 / 1900 Balance 300 / 300 -1600 / -1600 Weight 90.1 kg Intake: IV 300 / 300 Maxipime Inj 1,000 MG In NS Inj 200 / 200 100 ML @ 200 mls/hr IV.SIG Q12H [facility] Rx#:[id number] Cubicin Inj 720 MG In NS Inj 100 / 100 100 ML @ 200 mls/hr IV.SIG DAILY [facility] Rx#:[id number] Oral 2200 / 2200 Output: Urine 1900 / 1900 1900 / 1900 Other: Date of Last Bowel Movement 09/20/17 # Bowel Movements 1 - Constitutional no acute distress - Routine HEENT Exam Head: Present: normocephalic ENT: Present: mucous membranes moist - Routine Neck Exam Present: supple. Absent: JVD - Routine Respiratory Exam Present: CTA bilaterally - Routine Cardiovascular Exam Present: RRR - Routine Abdominal Exam Present: soft, normoactive bowel sounds - Routine Extremities Exam Present: edema Comments: left foot mild - Routine Skin Exam Present: wounds Comments: left foot - Routine Neurological Exam Present: alert, oriented X3 - Detailed Neurological Exam: Coma Scale Eye Opening: Spontaneous - Routine Psychiatric Exam Present: normal affect, cooperative <Miriam Centeno - Last Filed: 09/21/17 10:06> Vital signs: Vital Signs 09/21/17 00:00 09/21/17 04:00 09/21/17 08:00 Temperature 97.6 F 98.0 F 97.8 F Pulse Rate 70 52 L 52 L Respiratory Rate 16 14 18 Blood Pressure 130/72 141/64 H 127/66 Pulse Oximetry 96 98 98 09/21/17 12:00 09/21/17 16:00 Temperature 97.7 F 97.9 F Pulse Rate 56 L 53 L Respiratory Rate 18 18 Blood Pressure 147/69 H 117/63 Pulse Oximetry 98 97 Intake & Output 09/21/17 09/21/17 09/22/17 06:59 18:59 06:59 Intake Total 300 / 300 1200 / 1200 100 / 100 Output Total 1900 / 1900 1500 / 1500 Balance -1600 / -1600 -300 / -300 100 / 100 Weight 90.1 kg Intake: IV 300 / 300 100 / 100 Maxipime Inj 1,000 MG In NS Inj 200 / 200 100 / 100 100 ML @ 200 mls/hr IV.SIG Q12H [facility] Rx#:[id number] Cubicin Inj 720 MG In NS Inj 100 / 100 0 / 0 100 ML @ 200 mls/hr IV.SIG DAILY [facility] Rx#:[id number] Oral 1200 / 1200 Output: Urine 1900 / 1900 1500 / 1500 Other: Date of Last Bowel Movement 09/20/17 09/20/17 # Bowel Movements 1 <Juventino Cueva - Last Filed: 09/21/17 22:45> Assessment and Plan - Assessment (1) Acute kidney injury Code(s): N17.9 - Acute kidney failure, unspecified Status: Acute Plan: May have past medical history of chronic kidney disease with noted elevated creatinine in January. Creatinine stable at 1.86 Hyperkalemia has improved at 4.8 Continue low potassium diet Avoid nephrotoxins Continue antibiotics per ID Encouraged oral fluids. Will monitor Urinary output and renal panel periodically (2) Osteomyelitis of left foot Code(s): M86.9 - Osteomyelitis, unspecified Status: Acute Plan: Continue antibiotics <Miriam Centeno - Last Filed: 09/21/17 10:06> - Assessment (1) Acute kidney injury Code(s): N17.9 - Acute kidney failure, unspecified Status: Acute (2) Osteomyelitis of left foot Code(s): M86.9 - Osteomyelitis, unspecified Status: Acute - Attending Attestation Patient seen and examined, agree with above. Creatinine is almost same, 1.7-1.8. Continue antibiotics. <Juventino Cueva - Last Filed: 09/21/17 22:45>
--- NOTE | 2017-09-21 10:13 | P.PN ---
Physical Exam Vital signs: Vital Signs 09/20/17 12:00 09/20/17 20:00 09/21/17 00:00 Temperature 97.9 F 97.7 F 97.6 F Pulse Rate 54 L 78 70 Respiratory Rate 20 18 16 Blood Pressure 141/61 H 142/66 H 130/72 Pulse Oximetry 97 95 96 09/21/17 04:00 09/21/17 08:00 Temperature 98.0 F 97.8 F Pulse Rate 52 L 52 L Respiratory Rate 14 18 Blood Pressure 141/64 H 127/66 Pulse Oximetry 98 98 Intake & Output 09/20/17 09/21/17 09/21/17 18:59 06:59 18:59 Intake Total 2200 / 2200 300 / 300 Output Total 1900 / 1900 1900 / 1900 Balance 300 / 300 -1600 / -1600 Weight 90.1 kg Intake: IV 300 / 300 Maxipime Inj 1,000 MG In NS Inj 200 / 200 100 ML @ 200 mls/hr IV.SIG Q12H [facility] Rx#:[id number] Cubicin Inj 720 MG In NS Inj 100 / 100 100 ML @ 200 mls/hr IV.SIG DAILY [facility] Rx#:[id number] Oral 2200 / 2200 Output: Urine 1900 / 1900 1900 / 1900 Other: Date of Last Bowel Movement 09/20/17 # Bowel Movements 1 Narrative: Follow-up osteomyelitis patient on IV antibiotics Is ambulating in the hallways without any problems. Pain is controlled by medications. No nausea vomiting no diarrhea constipation. No fever or chills overnight. Physical Exam GENERAL: 62 YO Male appears in not acute distress. CARDIOVASCULAR: Regular rate and rhythm without murmurs, gallops, or rubs. RESPIRATORY: Breath sounds equal bilaterally. No accessory muscle use. GASTROINTESTINAL: Abdomen soft, non-tender, nondistended. MUSCULOSKELETAL: No cyanosis, or edema. Well-healing wound at dorsal anterior webspace of the first and second digit of the left toe BACK: Nontender without obvious deformity. No CVA tenderness. Assessment and Plan OSTEOMYELITIS Cultures polymicrobial including MRSA, Pseudomonas, enterococcus and Proteus s/p I&D left foot and second metatarsal bone bx 08/[address] Sin. Status post wound VAC placement and subsequent removal. Per podiatry, no further intervention at this time. ID following, appreciate assistance. continue on cefepime and daptomycin with stop date of 10/05/2017. Patient will need weekly CBC with differential, Repeat labs ordered in system for 09/21/17 Continue wound management with wound care nurse, appreciate assistance HTN holding Norvasc Continue to monitor BP and adjust treatment accordingly Continue on a low potassium diet CAD Hx of CABG Continue patient on beta-walt therapy. LETICIA inhibitor currently on hold secondary to worsening renal function. Continue to monitor AFIB/CHF w/ preserved EF stable w/ coreg, amiodarone eliquis DM A1c 7.2 Continue Accu-Cheks with insulin sliding scale EVELYNE on CKD Suspected chronic kidney disease stage III Nephrology following, appreciate assistance Because with the patient, nurse, nephrology Results - Labs CBC & Chem 7: 09/21/17 06:19 09/21/17 06:19 Laboratory Results - last 24 hr 09/21/17 09/21/17 09/21/17 06:19 06:19 06:34 WBC 7.3 RBC 3.11 L Hgb 8.9 L Hct 27.0 L MCV 86.9 MCH 28.6 MCHC 33.0 RDW 16.3 Plt Count 245 MPV 7.5 Neut % (Auto) 66.5 Lymph % (Auto) 18.2 Walsh % (Auto) 10.3 H Eos % (Auto) 3.9 Baso % (Auto) 1.1 Neut # (Auto) 4.9 Lymph # (Auto) 1.3 Walsh # (Auto) 0.8 Eos # (Auto) 0.3 Baso # (Auto) 0.1 WBC Differential . Differential Comment Auto diff final Sodium 139 Potassium 4.8 Chloride 104 Carbon Dioxide 25.4 Anion Gap 10 BUN 33 H Creatinine 1.86 H Estimated GFR 37 L POC Glucose 107 Random Glucose 102 Calcium 9.0 Total Bilirubin 0.3 AST 22 ALT 33 Alkaline Phosphatase 162 H Total Creatine Kinase 52 Total Protein 7.9 Albumin 3.2 L
[2017-09-21] MEDS: Ferrous Sulfate 325 MG Tablet PO SCH ×2 (13:58→18:14)
--- NOTE | 2017-09-21 14:11 | P.PNID ---
Infectious Disease Brief Note Chart documentation for stop date of antibiotics in [employer] system: Continue Dapto IV (stop date: 10/05/2017) Continue Cefepime IV (stop date: 10/05/2017) CBC with diff, CMP, Serum Creatinine Kinase(CK) levels while on IV antibiotics to be ordered by hospitalist. Please call ID if any abnormal labs or change in clinical condition. Wound care per podiatry. Will sign off please call back if any change in clinical condition or questions.
[2017-09-21] MEDS: Morphine Inj 4 MG/ML Vial IV.PUSH PRN (22:28)
[2017-09-22] MEDS: ALPRAZolam 0.5 MG Tablet PO PRN ×3 (07:12→21:48)
--- NOTE | 2017-09-22 09:23 | P.PNNP ---
Subjective Interval history: Resting without complaints. Pain is well controlled. <Miriam Centeno - Last Filed: 09/22/17 09:21> Physical Exam Vital signs: Vital Signs 09/21/17 12:00 09/21/17 16:00 09/21/17 20:00 Temperature 97.7 F 97.9 F 97.6 F Pulse Rate 56 L 53 L 56 L Respiratory Rate 18 18 16 Blood Pressure 147/69 H 117/63 117/59 L Pulse Oximetry 98 97 98 09/22/17 00:00 Temperature 98.2 F Pulse Rate 58 L Respiratory Rate 16 Blood Pressure 161/72 H Pulse Oximetry 96 Intake & Output 09/21/17 09/22/17 09/22/17 18:59 06:59 18:59 Intake Total 1200 / 1200 300 / 300 Output Total 1500 / 1500 Balance -300 / -300 300 / 300 Intake: IV 300 / 300 Maxipime Inj 1,000 MG In NS Inj 200 / 200 100 ML @ 200 mls/hr IV.SIG Q12H [facility] Rx#:[id number] Cubicin Inj 720 MG In NS Inj 100 / 100 100 ML @ 200 mls/hr IV.SIG DAILY [facility] Rx#:[id number] Oral 1200 / 1200 Output: Urine 1500 / 1500 Other: # Voids 2 Date of Last Bowel Movement 09/20/17 - Constitutional no acute distress - Routine HEENT Exam Head: Present: normocephalic ENT: Present: mucous membranes moist - Routine Neck Exam Present: supple. Absent: JVD - Routine Respiratory Exam Present: CTA bilaterally. Absent: rales, rhonchi, wheezes - Routine Cardiovascular Exam Present: RRR - Routine Abdominal Exam Present: soft, normoactive bowel sounds - Routine Extremities Exam Present: edema Comments: mild left leg - Routine Skin Exam Present: warm, wounds Comments: left foot - Routine Neurological Exam Present: alert, oriented X3 - Detailed Neurological Exam: Coma Scale Eye Opening: Spontaneous - Routine Psychiatric Exam Present: cooperative <MarshalalexsandraMiriam - Last Filed: 09/22/17 09:21> Vital signs: Vital Signs 09/22/17 00:00 09/22/17 08:00 09/22/17 12:00 Temperature 98.2 F 98.1 F 97.6 F Pulse Rate 58 L 50 L 53 L Respiratory Rate 16 18 18 Blood Pressure 161/72 H 132/60 128/64 Pulse Oximetry 96 97 97 09/22/17 16:00 09/22/17 20:00 Temperature 97.2 F L 97.6 F Pulse Rate 54 L 54 L Respiratory Rate 18 16 Blood Pressure 142/67 H 124/58 L Pulse Oximetry 97 100 Intake & Output 09/22/17 09/22/17 09/23/17 06:59 18:59 06:59 Intake Total 300 / 300 1400 / 1400 Output Total 1500 / 1500 Balance 300 / 300 -100 / -100 Intake: IV 300 / 300 200 / 200 Maxipime Inj 1,000 MG In NS Inj 200 / 200 100 / 100 100 ML @ 200 mls/hr IV.SIG Q12H [facility] Rx#:[id number] Cubicin Inj 720 MG In NS Inj 100 / 100 100 / 100 100 ML @ 200 mls/hr IV.SIG DAILY [facility] Rx#:[id number] Oral 1200 / 1200 Output: Urine 1500 / 1500 Other: # Voids 2 Date of Last Bowel Movement 09/21/17 <Juventino Cueva - Last Filed: 09/22/17 23:02> Assessment and Plan - Assessment (1) Acute kidney injury Code(s): N17.9 - Acute kidney failure, unspecified Status: Acute Plan: May have past medical history of chronic kidney disease with noted elevated creatinine in January. Creatinine has been stable Hyperkalemia has improved Continue low potassium diet Avoid nephrotoxins Continue antibiotics per ID Encouraged oral fluids. Will monitor Urinary output and renal panel periodically No new labs today (2) Osteomyelitis of left foot Code(s): M86.9 - Osteomyelitis, unspecified Status: Acute Plan: Continue antibiotics Stop date of 10/05 - Plan Patient seen and examined, agree with above. No new labs, continue antibiotics. <Miriam Centeno - Last Filed: 09/22/17 09:21> - Assessment (1) Acute kidney injury Code(s): N17.9 - Acute kidney failure, unspecified Status: Acute (2) Osteomyelitis of left foot Code(s): M86.9 - Osteomyelitis, unspecified Status: Acute - Attending Attestation Patient seen and examined, agree with above. Creatinine is almost same, 1.7-1.8, Continue antibiotics. <Juventino Cueva - Last Filed: 09/22/17 23:02>
[2017-09-22] MEDS: Insulin NovoLOG Aspart Correctional Sugar Inj SQ SCH (09:24)
[2017-09-22] MEDS: Gabapentin 100 MG Capsule PO SCH ×2 (10:27→21:48)
[2017-09-22] MEDS: Amiodarone 200 MG Tablet PO SCH ×2 (10:28→21:49)
[2017-09-22] MEDS: Senna/Docusate Sodium 8.6/50 MG Tablet PO SCH ×2 (10:28→21:49)
[2017-09-22] MEDS: DAPTOmycin Inj 720 MG in Sodium Chlor 0.9% Inj 100 ML IV.SIG SCH (10:38)
[2017-09-22] MEDS: Ferrous Sulfate 325 MG Tablet PO SCH ×2 (12:44→17:26)
[2017-09-22] MEDS: Morphine Inj 4 MG/ML Vial IV.PUSH PRN (18:22)
--- NOTE | 2017-09-22 20:45 | P.PN ---
Physical Exam Vital signs: Vital Signs 09/22/17 00:00 09/22/17 08:00 09/22/17 12:00 Temperature 98.2 F 98.1 F 97.6 F Pulse Rate 58 L 50 L 53 L Respiratory Rate 16 18 18 Blood Pressure 161/72 H 132/60 128/64 Pulse Oximetry 96 97 97 09/22/17 16:00 Temperature 97.2 F L Pulse Rate 54 L Respiratory Rate 18 Blood Pressure 142/67 H Pulse Oximetry 97 Intake & Output 09/22/17 09/22/17 09/23/17 06:59 18:59 06:59 Intake Total 300 / 300 1400 / 1400 Output Total 1500 / 1500 Balance 300 / 300 -100 / -100 Intake: IV 300 / 300 200 / 200 Maxipime Inj 1,000 MG In NS Inj 200 / 200 100 / 100 100 ML @ 200 mls/hr IV.SIG Q12H [facility] Rx#:[id number] Cubicin Inj 720 MG In NS Inj 100 / 100 100 / 100 100 ML @ 200 mls/hr IV.SIG DAILY [facility] Rx#:[id number] Oral 1200 / 1200 Output: Urine 1500 / 1500 Other: # Voids 2 Date of Last Bowel Movement 09/21/17 Narrative: Subjective: Follow-up osteomyelitis patient on IV antibiotics No fever or chills. No pain at the surgical site. Ambulating. No bleeding Physical Exam GENERAL: 62 YO Male appears in not acute distress. CARDIOVASCULAR: Regular rate and rhythm without murmurs, gallops, or rubs. RESPIRATORY: Breath sounds equal bilaterally. No accessory muscle use. GASTROINTESTINAL: Abdomen soft, non-tender, nondistended. MUSCULOSKELETAL: No cyanosis, or edema. Well-healing wound at dorsal anterior webspace of the first and second digit of the left toe BACK: Nontender without obvious deformity. No CVA tenderness. Assessment and Plan OSTEOMYELITIS Cultures polymicrobial including MRSA, Pseudomonas, enterococcus and Proteus s/p I&D left foot and second metatarsal bone bx 08/[address] Sin. Status post wound VAC placement and subsequent removal. Per podiatry, no further intervention at this time. ID following, appreciate assistance. continue on cefepime and daptomycin with stop date of 10/05/2017. Patient will need weekly CBC with differential, Repeat labs ordered in system for 09/21/17 Continue wound management with wound care nurse, appreciate assistance HTN holding Norvasc Continue to monitor BP and adjust treatment accordingly Continue on a low potassium diet CAD Hx of CABG Continue patient on beta-walt therapy. LETICIA inhibitor currently on hold secondary to worsening renal function. Continue to monitor AFIB/CHF w/ preserved EF stable w/ coreg, amiodarone eliquis DM A1c 7.2 Continue Accu-Cheks with insulin sliding scale EVELYNE on CKD Suspected chronic kidney disease stage III Nephrology following, appreciate assistance Discussed with the patient, nurse, nephrology DC plan: continue on cefepime and daptomycin with stop date of 10/05/2017. Results - Labs CBC & Chem 7: 09/21/17 06:19 09/21/17 06:19 Laboratory Results - last 24 hr 09/22/17 09/22/17 07:40 11:39 POC Glucose 116 H 142 H
[2017-09-23] MEDS: ALPRAZolam 0.5 MG Tablet PO PRN ×3 (03:48→18:48)
[2017-09-23] MEDS: DAPTOmycin Inj 720 MG in Sodium Chlor 0.9% Inj 100 ML IV.SIG SCH (10:31)
[2017-09-23] MEDS: Ferrous Sulfate 325 MG Tablet PO SCH ×2 (12:15→17:15)
--- NOTE | 2017-09-23 16:58 | P.PN ---
Physical Exam Vital signs: Vital Signs 09/22/17 20:00 09/23/17 00:00 09/23/17 08:00 Temperature 97.6 F 98.0 F 98.0 F Pulse Rate 54 L 56 L 59 L Respiratory Rate 16 16 18 Blood Pressure 124/58 L 125/60 113/55 L Pulse Oximetry 100 96 98 09/23/17 12:00 Temperature 97.8 F Pulse Rate 51 L Respiratory Rate 16 Blood Pressure 109/56 L Pulse Oximetry 98 Intake & Output 09/22/17 09/23/17 09/23/17 18:59 06:59 18:59 Intake Total 1400 / 1400 100 / 100 Output Total 1500 / 1500 Balance -100 / -100 100 / 100 Intake: IV 200 / 200 100 / 100 Maxipime Inj 1,000 MG In NS Inj 100 / 100 100 / 100 100 ML @ 200 mls/hr IV.SIG Q12H [facility] Rx#:[id number] Cubicin Inj 720 MG In NS Inj 100 / 100 100 ML @ 200 mls/hr IV.SIG DAILY [facility] Rx#:[id number] Oral 1200 / 1200 Output: Urine 1500 / 1500 Other: # Voids 2 Date of Last Bowel Movement 09/21/17 # Bowel Movements 1 Narrative: Subjective: Follow-up osteomyelitis patient on IV antibiotics No events overnight. Ambulating in the hallways. No fever or chills. Physical Exam GENERAL: 62 YO Male appears in not acute distress. CARDIOVASCULAR: Regular rate and rhythm without murmurs, gallops, or rubs. RESPIRATORY: Breath sounds equal bilaterally. No accessory muscle use. GASTROINTESTINAL: Abdomen soft, non-tender, nondistended. MUSCULOSKELETAL: No cyanosis, or edema. Well-healing wound at dorsal anterior webspace of the first and second digit of the left toe BACK: Nontender without obvious deformity. No CVA tenderness. Assessment and Plan OSTEOMYELITIS Cultures polymicrobial including MRSA, Pseudomonas, enterococcus and Proteus s/p I&D left foot and second metatarsal bone bx 08/[address] Sin. Status post wound VAC placement and subsequent removal. Per podiatry, no further intervention at this time. ID following, appreciate assistance. continue on cefepime and daptomycin with stop date of 10/05/2017. Patient will need weekly CBC with differential, Repeat labs ordered in system for 09/21/17 Continue wound management with wound care nurse, appreciate assistance HTN holding Norvasc Continue to monitor BP and adjust treatment accordingly Continue on a low potassium diet CAD Hx of CABG Continue patient on beta-walt therapy. LETICIA inhibitor currently on hold secondary to worsening renal function. Continue to monitor AFIB/CHF w/ preserved EF stable w/ coreg, amiodarone eliquis DM A1c 7.2 Continue Accu-Cheks with insulin sliding scale EVELYNE on CKD Suspected chronic kidney disease stage III Nephrology following, appreciate assistance Discussed with the patient, nurse, nephrology DC plan: continue on cefepime and daptomycin with stop date of 10/05/2017. Results - Labs CBC & Chem 7: 09/21/17 06:19 09/21/17 06:19
[2017-09-23] MEDS: Amiodarone 200 MG Tablet PO SCH ×2 (18:52→22:11)
[2017-09-23] MEDS: Insulin NovoLOG Aspart Correctional Sugar Inj SQ SCH (18:52)
[2017-09-23] MEDS: Gabapentin 100 MG Capsule PO SCH ×2 (18:53→22:11)
[2017-09-23] MEDS: Senna/Docusate Sodium 8.6/50 MG Tablet PO SCH ×2 (18:54→22:12)
--- NOTE | 2017-09-23 19:56 | P.PNNP ---
Subjective Interval history: no acute complaints Physical Exam Vital signs: Vital Signs 09/22/17 20:00 09/23/17 00:00 09/23/17 08:00 Temperature 97.6 F 98.0 F 98.0 F Pulse Rate 54 L 56 L 59 L Respiratory Rate 16 16 18 Blood Pressure 124/58 L 125/60 113/55 L Pulse Oximetry 100 96 98 09/23/17 12:00 Temperature 97.8 F Pulse Rate 51 L Respiratory Rate 16 Blood Pressure 109/56 L Pulse Oximetry 98 Intake & Output 09/23/17 09/23/17 09/24/17 06:59 18:59 06:59 Intake Total 100 / 100 Balance 100 / 100 Intake: IV 100 / 100 Maxipime Inj 1,000 MG In NS Inj 100 / 100 100 ML @ 200 mls/hr IV.SIG Q12H [facility] Rx#:[id number] Other: # Voids 2 Date of Last Bowel Movement 09/21/17 # Bowel Movements 1 - Constitutional no acute distress - Routine HEENT Exam Head: Present: normocephalic Eye: Present: EOMI ENT: Present: mucous membranes moist - Routine Neck Exam Present: supple - Routine Respiratory Exam Present: CTA bilaterally - Routine Cardiovascular Exam Present: RRR - Routine Abdominal Exam Present: soft - Routine Skin Exam Present: intact - Routine Psychiatric Exam Present: normal affect Assessment and Plan - Assessment (1) Acute kidney injury Code(s): N17.9 - Acute kidney failure, unspecified Status: Acute Plan: May have past medical history of chronic kidney disease with noted elevated creatinine in January. Creatinine has been stable Hyperkalemia has improved Continue low potassium diet Avoid nephrotoxins Continue antibiotics per ID Encouraged oral fluids. Will monitor Urinary output and renal panel periodically No new labs today - will check in AM (2) Osteomyelitis of left foot Code(s): M86.9 - Osteomyelitis, unspecified Status: Acute Plan: Continue antibiotics Stop date of 10/05
[2017-09-24] MEDS: ALPRAZolam 0.5 MG Tablet PO PRN ×3 (01:08→18:30)
[2017-09-24] MEDS: Morphine Inj 4 MG/ML Vial IV.PUSH PRN ×2 (03:34→22:12)
[2017-09-24 06:58] LABS: Hematocrit 23.9 % (39.0-51.0); Mean Corpuscular HGB Conc 33.3 % (32.0-36.0); Mean Corpuscular Hemoglobin 28.9 pg (27.0-34.0); Mean Corpuscular Volume 86.6 fL (80.0-100.0); Mean Platelet Volume 7.8 fL (7.0-11.0); Platelet Count 188 th/mm3 (150-450); Red Blood Count 2.76 mil/mm3 (4.50-5.90); Red Cell Distribution Width 16.8 % (11.6-17.2); White Blood Count 8.7 th/mm3 (4.0-11.0)
[2017-09-24 07:36] LABS: Alanine Aminotransferase 80 U/L (12-78); Albumin 3.1 g/dL (3.4-5.0); Alkaline Phosphatase 167 U/L (45-117); Anion Gap 11 meq/L (5-15); Aspartate Aminotransferase 44 U/L (15-37); Blood Urea Nitrogen 41 mg/dL (7-18); Calcium 9.1 mg/dL (8.5-10.1); Carbon Dioxide 21.3 meq/L (21.0-32.0); Chloride 105 meq/L (98-107); Glomerular Filtration Rate 33 mL/min (>89); Glucose,Random 142 mg/dL (74-106); Potassium 4.8 meq/L (3.5-5.1); Sodium 137 meq/L (136-145); Total Protein 7.7 g/dL (6.4-8.2)
[2017-09-24] MEDS: Gabapentin 100 MG Capsule PO SCH ×2 (09:00→22:13)
[2017-09-24] MEDS: DAPTOmycin Inj 720 MG in Sodium Chlor 0.9% Inj 100 ML IV.SIG SCH (09:00)
[2017-09-24] MEDS: Amiodarone 200 MG Tablet PO SCH ×2 (09:00→22:13)
[2017-09-24] MEDS: Senna/Docusate Sodium 8.6/50 MG Tablet PO SCH ×2 (09:00→22:13)
[2017-09-24] MEDS: Ferrous Sulfate 325 MG Tablet PO SCH ×2 (12:25→18:00)
--- NOTE | 2017-09-24 17:40 | P.PN ---
Physical Exam Vital signs: Vital Signs 09/23/17 20:00 09/24/17 00:00 09/24/17 08:00 Temperature 97.5 F L 97.3 F L 97.9 F Pulse Rate 64 64 56 L Respiratory Rate 20 20 16 Blood Pressure 130/60 131/62 137/62 Pulse Oximetry 99 98 98 09/24/17 12:00 09/24/17 16:00 Temperature 97.8 F 97.9 F Pulse Rate 55 L 56 L Respiratory Rate 16 16 Blood Pressure 115/56 L 112/58 L Pulse Oximetry 97 98 Intake & Output 09/23/17 09/24/17 09/24/17 18:59 06:59 18:59 Intake Total 480 / 480 Output Total 2200 / 2200 Balance -1720 / -1720 Weight 85.2 kg Intake: Oral 480 / 480 Output: Urine 2200 / 2200 Other: Date of Last Bowel Movement 09/21/17 09/21/17 # Bowel Movements 1 Narrative: Subjective: Follow-up osteomyelitis patient on IV antibiotics No events overnight. No fever or chills. Has no pain in his leg. Physical Exam GENERAL: 62 YO Male appears in not acute distress. CARDIOVASCULAR: Regular rate and rhythm without murmurs, gallops, or rubs. RESPIRATORY: Breath sounds equal bilaterally. No accessory muscle use. GASTROINTESTINAL: Abdomen soft, non-tender, nondistended. MUSCULOSKELETAL: No cyanosis, or edema. Well-healing wound at dorsal anterior webspace of the first and second digit of the left toe BACK: Nontender without obvious deformity. No CVA tenderness. Assessment and Plan OSTEOMYELITIS Cultures polymicrobial including MRSA, Pseudomonas, enterococcus and Proteus s/p I&D left foot and second metatarsal bone bx 08/[address] Sin. Status post wound VAC placement and subsequent removal. Per podiatry, no further intervention at this time. ID following, appreciate assistance. continue on cefepime and daptomycin with stop date of 10/05/2017. Patient will need weekly CBC with differential, Repeat labs ordered in system for 09/21/17 Continue wound management with wound care nurse, appreciate assistance HTN holding Norvasc Continue to monitor BP and adjust treatment accordingly Continue on a low potassium diet CAD Hx of CABG Continue patient on beta-walt therapy. LETICIA inhibitor currently on hold secondary to worsening renal function. Continue to monitor AFIB/CHF w/ preserved EF stable w/ coreg, amiodarone eliquis DM A1c 7.2 Continue Accu-Cheks with insulin sliding scale EVELYNE on CKD Suspected chronic kidney disease stage III Nephrology following, appreciate assistance Discussed with the patient, nurse, nephrology DC plan: continue on cefepime and daptomycin with stop date of 10/05/2017. Results - Labs CBC & Chem 7: 09/24/17 06:22 09/24/17 06:22 Laboratory Results - last 24 hr 09/24/17 09/24/17 09/24/17 06:22 06:22 10:15 WBC 8.7 RBC 2.76 L Hgb 8.0 L Hct 23.9 L MCV 86.6 MCH 28.9 MCHC 33.3 RDW 16.8 Plt Count 188 MPV 7.8 Sodium 137 Potassium 4.8 Chloride 105 Carbon Dioxide 21.3 Anion Gap 11 BUN 41 H Creatinine 2.05 H Estimated GFR 33 L POC Glucose 158 H Random Glucose 142 H Calcium 9.1 Total Bilirubin 0.2 AST 44 H ALT 80 H Alkaline Phosphatase 167 H Total Protein 7.7 Albumin 3.1 L
[2017-09-24] MEDS: Insulin NovoLOG Aspart Correctional Sugar Inj SQ SCH (19:36)
--- NOTE | 2017-09-24 21:21 | P.PNPOD ---
Subjective Interval history: Patient seen bedside. Denies any nausea vomiting fevers or chills. Is anticipating his discharge date of the when IV antibiotics are finished. Physical Exam Vital signs: Vital Signs 09/24/17 00:00 09/24/17 08:00 09/24/17 12:00 Temperature 97.3 F L 97.9 F 97.8 F Pulse Rate 64 56 L 55 L Respiratory Rate 20 16 16 Blood Pressure 131/62 137/62 115/56 L Pulse Oximetry 98 98 97 09/24/17 16:00 Temperature 97.9 F Pulse Rate 56 L Respiratory Rate 16 Blood Pressure 112/58 L Pulse Oximetry 98 Intake & Output 09/24/17 09/24/17 09/25/17 06:59 18:59 06:59 Intake Total 580 / 580 1200 / 1200 Output Total 2200 / 2200 Balance -1620 / -1620 1200 / 1200 Weight 85.2 kg Intake: IV 100 / 100 Maxipime Inj 1,000 MG In NS Inj 100 / 100 100 ML @ 200 mls/hr IV.SIG Q12H [facility] Rx#:[id number] Oral 480 / 480 1200 / 1200 Output: Urine 2200 / 2200 Other: # Voids 3 Date of Last Bowel Movement 09/21/17 09/23/17 # Bowel Movements 1 0 Narrative: Improvement noted to left dorsal foot ulcer measuring 1 cm x 0.5 cm with 0.3 cm depth. No surrounding erythema. Granular base noted to wound. No clinical signs of infection. Medications and Allergies Active Medications: Active Medications Acetaminophen (Tylenol) 650 mg PO Q6H PRN PRN Reason: PAIN 1-5,ARCOS,T>101 Al Hydroxide/Mg Hydroxide (Milk Of Vicky Lichicho) 30 ml PO Q12H PRN PRN Reason: MILD CONSTIPATION Alprazolam (Xanax) 0.5 mg PO Q4H PRN PRN Reason: ANXIETY Last Admin: 09/24/17 18:30 Dose: 0.5 mg Amiodarone HCl (Cordarone) 200 mg PO Q12HR [facility] Last Admin: 09/24/17 09:00 Dose: 200 mg Amlodipine Besylate (Norvasc) 10 mg PO DAILY [facility] Last Admin: 09/17/17 10:47 Dose: Not Given Apixaban (Eliquis) 2.5 mg PO BID [facility] Last Admin: 09/24/17 19:41 Dose: 2.5 mg Bisacodyl (Dulcolax Supp) 10 mg RECTAL DAILY PRN PRN Reason: SEVERE CONSITIPATION Carvedilol (Coreg) 3.125 mg PO Q12HR [facility] Last Admin: 09/24/17 09:00 Dose: 3.125 mg Dextrose (D50w Vial) 50 ml IV.PUSH UNSCH PRN PRN Reason: PER HYPOGLYCEMIA PROTOCOL Ferrous Sulfate (Ferosul) 325 mg PO BID@1200,1700 [facility] Last Admin: 09/24/17 18:00 Dose: 325 mg Gabapentin (Neurontin) 100 mg PO BID [facility] Last Admin: 09/24/17 09:00 Dose: 100 mg Glucagon (Glucagon Inj) 1 mg OTHER PRN PRN PRN Reason: for Hypoglycemia Protocol Cefepime HCl 1,000 mg/ Sodium (Chloride) 100 mls @ 200 mls/hr IV.SIG Q12H [facility] Stop: 10/05/17 09:59 Last Admin: 09/24/17 19:52 Dose: 200 mls/hr Daptomycin 720 mg/ Sodium (Chloride) 100 mls @ 200 mls/hr IV.SIG DAILY [facility] Stop: 10/05/17 08:59 Last Admin: 09/24/17 09:00 Dose: 200 mls/hr Insulin Aspart (Novolog Insulin Suppl Scale Inj) [facility] Last Admin: 09/24/17 19:36 Dose: Not Given Lactulose (Lactulose Liq) 30 ml PO DAILY PRN PRN Reason: SEVERE CONSTIIPATION Lisinopril (Prinivil) 20 mg PO DAILY [facility] Miscellaneous (Pill Splitter) 1 each OTHER UNSCH PRN PRN Reason: SEE LABEL COMMENTS Morphine Sulfate (Morphine Inj) 2 mg IV.PUSH Q3H PRN PRN Reason: BREAKTHROUGH PAIN BEFORE DRESS Last Admin: 09/24/17 03:34 Dose: 2 mg Naloxone HCl (Narcan Inj) 0.4 mg IV.PUSH UNSCH PRN PRN Reason: SEE LABEL COMMENTS Oxycodone/Acetaminophen (Percocet 5/325 Mg) 0.5 tab PO Q4H PRN PRN Reason: PAIN 1-5 Oxycodone/Acetaminophen (Percocet 5/325 Mg) 1 tab PO Q6H PRN PRN Reason: PAIN 6-10 Last Admin: 09/24/17 18:30 Dose: 1 tab Pantoprazole Sodium (Protonix) 40 mg PO DAILY [facility] Last Admin: 09/24/17 09:00 Dose: 40 mg Senna/Docusate Sodium (Eula-Colace) 1 tab PO BID [facility] Last Admin: 09/24/17 09:00 Dose: 1 tab Sennosides (Senokot) 17.2 mg PO Q12H PRN PRN Reason: MODERATE CONSTIPATION Sodium Chloride (Ns Flush) 2 ml IV.FLUSH UNSCH PRN PRN Reason: FLUSH AFTER USING IV ACCESS Last Admin: 09/18/17 03:45 Dose: 2 ml Sodium Chloride (Ns Flush) 2 ml IV.FLUSH BID [facility] Last Admin: 09/24/17 09:00 Dose: 2 ml Allergies Allergy/AdvReac Type Severity Reaction Status Date / Time No Known Allergies Allergy Unknown Uncoded 08/22/17 02:32 Home Medications Medication Instructions Recorded Confirmed Type alprazolam 0.5 mg PO Q4HR PRN 09/16/17 09/16/17 History amiodarone 400 mg PO BID 09/16/17 09/16/17 History apixaban 2.5 mg PO BID 09/16/17 09/16/17 History carvedilol 3.125 mg PO Q12HR 09/16/17 09/16/17 History clindamycin HCl 150 mg PO Q8HR 09/16/17 09/16/17 History famotidine 20 mg PO BID 09/16/17 09/16/17 History ferrous sulfate [FeroSul] 325 mg PO BID 09/16/17 09/16/17 History gabapentin 100 mg PO BID 09/16/17 09/16/17 History lisinopril 20 mg PO DAILY 09/16/17 09/16/17 History pantoprazole 40 mg PO DAILY 09/16/17 09/16/17 History Results - Labs CBC & Chem 7: 09/24/17 06:22 09/24/17 06:22 Laboratory Results - last 24 hr 09/24/17 09/24/17 09/24/17 06:22 06:22 10:15 WBC 8.7 RBC 2.76 L Hgb 8.0 L Hct 23.9 L MCV 86.6 MCH 28.9 MCHC 33.3 RDW 16.8 Plt Count 188 MPV 7.8 Sodium 137 Potassium 4.8 Chloride 105 Carbon Dioxide 21.3 Anion Gap 11 BUN 41 H Creatinine 2.05 H Estimated GFR 33 L POC Glucose 158 H Random Glucose 142 H Calcium 9.1 Total Bilirubin 0.2 AST 44 H ALT 80 H Alkaline Phosphatase 167 H Total Protein 7.7 Albumin 3.1 L Assessment and Plan - Plan 62-year-old male I&D left foot and second metatarsal bone bx 08/[address] Sin Patient examined evaluated with all questions answered Continue with local wound care We will consult wound nurse, recommend Shanna/protocol application followed by dry sterile dressing Will continue to follow patient while in-house
[2017-09-25] MEDS: ALPRAZolam 0.5 MG Tablet PO PRN ×4 (01:08→22:07)
[2017-09-25] MEDS: Morphine Inj 4 MG/ML Vial IV.PUSH PRN ×2 (05:11→17:42)
[2017-09-25] MEDS: Amiodarone 200 MG Tablet PO SCH ×2 (08:08→22:05)
[2017-09-25] MEDS: Senna/Docusate Sodium 8.6/50 MG Tablet PO SCH ×2 (08:10→22:07)
[2017-09-25] MEDS: Gabapentin 100 MG Capsule PO SCH ×2 (08:10→22:07)
--- NOTE | 2017-09-25 10:21 | P.PNNP ---
Subjective Interval history: OOB walking in [place]. Gait steady. Denies any shortness of breath. <Miriam Centeno - Last Filed: 09/25/17 10:18> Physical Exam Vital signs: Vital Signs 09/24/17 12:00 09/24/17 16:00 09/24/17 20:00 Temperature 97.8 F 97.9 F 97.9 F Pulse Rate 55 L 56 L 71 Respiratory Rate 16 16 20 Blood Pressure 115/56 L 112/58 L 137/64 Pulse Oximetry 97 98 99 09/25/17 00:00 Temperature 98 F Pulse Rate 63 Respiratory Rate 20 Blood Pressure 161/77 H Pulse Oximetry 97 Intake & Output 09/24/17 09/25/17 09/25/17 18:59 06:59 18:59 Intake Total 1200 / 1200 820 / 820 Output Total 2400 / 2400 Balance 1200 / 1200 -1580 / -1580 Weight 85.2 kg Intake: IV 100 / 100 Maxipime Inj 1,000 MG In NS Inj 100 / 100 100 ML @ 200 mls/hr IV.SIG Q12H [facility] Rx#:[id number] Oral 1200 / 1200 720 / 720 Output: Urine 2400 / 2400 Other: # Voids 3 Date of Last Bowel Movement 09/23/17 09/23/17 09/23/17 # Bowel Movements 0 1 - Constitutional no acute distress - Routine HEENT Exam Head: Present: normocephalic ENT: Present: mucous membranes moist - Routine Neck Exam Present: supple. Absent: JVD - Routine Respiratory Exam Present: CTA bilaterally. Absent: rales, rhonchi - Routine Cardiovascular Exam Present: RRR - Routine Abdominal Exam Present: soft, normoactive bowel sounds - Routine Extremities Exam Absent: edema - Routine Skin Exam Present: wounds Comments: left foot - Routine Neurological Exam Present: alert, oriented X3 - Routine Psychiatric Exam Present: cooperative <Miriam Centeno - Last Filed: 09/25/17 10:18> Vital signs: Vital Signs 09/25/17 00:00 09/25/17 08:00 09/25/17 12:00 Temperature 98 F 97.9 F 97.6 F Pulse Rate 63 55 L 60 Respiratory Rate 20 16 20 Blood Pressure 161/77 H 141/66 H 152/67 H Pulse Oximetry 97 97 98 09/25/17 14:14 Temperature Pulse Rate Respiratory Rate 18 Blood Pressure Pulse Oximetry Intake & Output 09/25/17 09/25/17 09/26/17 06:59 18:59 06:59 Intake Total 820 / 820 2300 / 2300 Output Total 2400 / 2400 Balance -1580 / -1580 2300 / 2300 Weight 85.2 kg Intake: IV 100 / 100 100 / 100 Maxipime Inj 1,000 MG In NS Inj 100 / 100 100 / 100 100 ML @ 200 mls/hr IV.SIG Q12H [facility] Rx#:[id number] Oral 720 / 720 2200 / 2200 Output: Urine 2400 / 2400 Other: # Voids 4 Date of Last Bowel Movement 09/23/17 09/23/17 # Bowel Movements 1 1 <Juventino Cueva - Last Filed: 09/25/17 21:45> Assessment and Plan - Assessment (1) Acute kidney injury Code(s): N17.9 - Acute kidney failure, unspecified Status: Acute Plan: May have past medical history of chronic kidney disease with noted elevated creatinine in January. Creatinine has been stable at 2.08 Hyperkalemia has improved Continue low potassium diet Avoid nephrotoxins Continue antibiotics per ID stop date 10/05 Continue to encouraged oral fluids. Will monitor Urinary output and renal panel periodically (2) Osteomyelitis of left foot Code(s): M86.9 - Osteomyelitis, unspecified Status: Acute Plan: Continue antibiotics Stop date of 10/05 <Miriam Centeno - Last Filed: 09/25/17 10:18> - Assessment (1) Acute kidney injury Code(s): N17.9 - Acute kidney failure, unspecified Status: Acute (2) Osteomyelitis of left foot Code(s): M86.9 - Osteomyelitis, unspecified Status: Acute - Attending Attestation Patient seen and examined, agree with above. Increase Creatinine, has ATN, with possible pre renal. Told to drink more fluid. <Juventino Cueva - Last Filed: 09/25/17 21:45>
[2017-09-25] MEDS: Ferrous Sulfate 325 MG Tablet PO SCH ×2 (13:12→17:47)
[2017-09-25] MEDS: DAPTOmycin Inj 720 MG in Sodium Chlor 0.9% Inj 100 ML IV.SIG SCH (14:15)
[2017-09-25] MEDS: Insulin NovoLOG Aspart Correctional Sugar Inj SQ SCH (14:17)
--- NOTE | 2017-09-25 15:03 | P.PNWCN ---
Wound Care Nurse Consult Description: Consult ordered by for wound management. Communicated with: Patricia DODGE, Recommendation: 1. Cleanse left dorsal foot with normal saline pat dry. 2.Gently apply Maxorb AG to wound base cover with 2x2 gauze secure with boarder dressing change dressing every 3 days or as needed for dislodgement/exudate management. 3. Sign and date all dressings. Additional information: Patient was seen today for follow up of left dorsal wound.Patient alert and orientated x4 ambulating around room.Dressing removed from left dorsal foot without difficulty.Wound cleansed with normal saline pat dry.wound progressing in healing wound measures 0.9cm x0.6cm x0.5 with beefy red granulation noted to 90% wound base 10% pink moist non granular tissue .Wound was gently packed with Maxorb AG cut into single strip covered with 2x2 gauze and secured with boarder gauze.Patient tolerated wound care well.Dressing signed and dated. Wound/Pressure Injury - Patient Status Premedicated for Pain Prior to Dressing Change: Yes - Wound Left Foot Wound Assessment: Ongoing Wound Type: Traumatic Wound Is This a Chronic Wound: No Requested from Provider a Wound Care Consult: No (F/U by Edgar DODGE,[facility] 09/25) Wound Bed Appearance: [place], Red Surrounding Tissue Appearance: [place] Surrounding Tissue Temperature: Warm Drainage Description: Serosanguinous Drainage Amount: Scant Drainage Odor: No Odor Dressing Status: Changed Cleansing Solution: Saline Wound Packing Type: Alginate Primary Dressing: Gauze Pad Cover Dressing: Adhesive Dressing Tape Type: Cloth Wound Dressing Change Date: 09/25/17 Incision - Patient Status Premedicated for Pain Prior to Dressing Change: Yes - Incision Left Foot Incision Assessment: Ongoing Incision Type: Incision Incision Dressing Status: Dry & Intact
--- NOTE | 2017-09-25 16:49 | P.PN ---
Physical Exam Vital signs: Vital Signs 09/24/17 20:00 09/25/17 00:00 09/25/17 08:00 Temperature 97.9 F 98 F 97.9 F Pulse Rate 71 63 55 L Respiratory Rate 20 20 16 Blood Pressure 137/64 161/77 H 141/66 H Pulse Oximetry 99 97 97 09/25/17 12:00 09/25/17 14:14 Temperature 97.6 F Pulse Rate 60 Respiratory Rate 20 18 Blood Pressure 152/67 H Pulse Oximetry 98 Intake & Output 09/24/17 09/25/17 09/25/17 18:59 06:59 18:59 Intake Total 1300 / 1300 820 / 820 100 / 100 Output Total 2400 / 2400 Balance 1300 / 1300 -1580 / -1580 100 / 100 Weight 85.2 kg Intake: IV 100 / 100 100 / 100 100 / 100 Maxipime Inj 1,000 MG In NS Inj 100 / 100 100 / 100 100 ML @ 200 mls/hr IV.SIG Q12H [facility] Rx#:[id number] Cubicin Inj 720 MG In NS Inj 100 / 100 100 ML @ 200 mls/hr IV.SIG DAILY [facility] Rx#:[id number] Oral 1200 / 1200 720 / 720 Output: Urine 2400 / 2400 Other: # Voids 3 Date of Last Bowel Movement 09/23/17 09/23/17 09/23/17 # Bowel Movements 0 1 Narrative: Subjective: Follow-up osteomyelitis patient on IV antibiotics Ambulating in the hallways without pain. No events overnight. No fever or chills. Physical Exam GENERAL: 62 YO Male appears in not acute distress. CARDIOVASCULAR: Regular rate and rhythm without murmurs, gallops, or rubs. RESPIRATORY: Breath sounds equal bilaterally. No accessory muscle use. GASTROINTESTINAL: Abdomen soft, non-tender, nondistended. MUSCULOSKELETAL: No cyanosis, or edema. Well-healing wound at dorsal anterior webspace of the first and second digit of the left toe BACK: Nontender without obvious deformity. No CVA tenderness. Assessment and Plan OSTEOMYELITIS Cultures polymicrobial including MRSA, Pseudomonas, enterococcus and Proteus s/p I&D left foot and second metatarsal bone bx 08/[address] Sin. Status post wound VAC placement and subsequent removal. Per podiatry, no further intervention at this time. ID following, appreciate assistance. continue on cefepime and daptomycin with stop date of 10/05/2017. Patient will need weekly CBC with differential, Repeat labs ordered in system for 09/21/17 Continue wound management with wound care nurse, appreciate assistance HTN holding Norvasc Continue to monitor BP and adjust treatment accordingly Continue on a low potassium diet CAD Hx of CABG Continue patient on beta-walt therapy. LETICIA inhibitor currently on hold secondary to worsening renal function. Continue to monitor AFIB/CHF w/ preserved EF stable w/ coreg, amiodarone eliquis DM A1c 7.2 Continue Accu-Cheks with insulin sliding scale EVELYNE on CKD Suspected chronic kidney disease stage III Nephrology following, appreciate assistance Discussed with the patient, nurse DC plan: continue on cefepime and daptomycin with stop date of 10/05/2017. Results - Labs CBC & Chem 7: 09/24/17 06:22 09/24/17 06:22 Laboratory Results - last 24 hr 09/25/17 07:35 POC Glucose 145 H
[2017-09-26] MEDS: ALPRAZolam 0.5 MG Tablet PO PRN ×3 (03:58→17:20)
[2017-09-26] MEDS: DAPTOmycin Inj 720 MG in Sodium Chlor 0.9% Inj 100 ML IV.SIG SCH (11:00)
[2017-09-26] MEDS: Gabapentin 100 MG Capsule PO SCH ×2 (11:16→21:16)
[2017-09-26] MEDS: Senna/Docusate Sodium 8.6/50 MG Tablet PO SCH ×2 (11:16→21:16)
[2017-09-26] MEDS: Insulin NovoLOG Aspart Correctional Sugar Inj SQ SCH (11:19)
[2017-09-26] MEDS: Amiodarone 200 MG Tablet PO SCH ×2 (11:19→21:14)
[2017-09-26] MEDS: Ferrous Sulfate 325 MG Tablet PO SCH ×2 (11:23→21:13)
--- NOTE | 2017-09-26 14:46 | P.PNNP ---
Subjective Interval history: Ambulating in [place]. No complaints. <Miriam Centeno - Last Filed: 09/26/17 14:44> Physical Exam Vital signs: Vital Signs 09/25/17 20:00 09/26/17 00:00 09/26/17 08:00 Temperature 97.5 F L 98.3 F 97.7 F Pulse Rate 79 89 73 Respiratory Rate 17 18 20 Blood Pressure 145/69 H 134/63 145/67 H Pulse Oximetry 100 97 99 09/26/17 12:00 Temperature 98.7 F Pulse Rate 75 Respiratory Rate 21 Blood Pressure 110/53 L Pulse Oximetry 96 Intake & Output 09/25/17 09/26/17 09/26/17 18:59 06:59 18:59 Intake Total 2500 / 2500 700 / 700 200 / 200 Output Total 700 / 700 Balance 2500 / 2500 0 / 0 200 / 200 Intake: IV 300 / 300 100 / 100 200 / 200 Maxipime Inj 1,000 MG In NS Inj 200 / 200 100 / 100 100 / 100 100 ML @ 200 mls/hr IV.SIG Q12H [facility] Rx#:[id number] Cubicin Inj 720 MG In NS Inj 100 / 100 100 / 100 100 ML @ 200 mls/hr IV.SIG DAILY [facility] Rx#:[id number] Oral 2200 / 2200 600 / 600 Output: Urine 700 / 700 Other: # Voids 4 Date of Last Bowel Movement 09/23/17 # Bowel Movements 1 - Constitutional no acute distress - Routine HEENT Exam Head: Present: normocephalic ENT: Present: mucous membranes moist - Routine Neck Exam Present: supple. Absent: JVD - Routine Respiratory Exam Present: CTA bilaterally - Routine Cardiovascular Exam Present: RRR. Absent: murmur - Routine Abdominal Exam Present: soft, normoactive bowel sounds - Routine Extremities Exam Present: edema Comments: left foot - Routine Skin Exam Present: dry, warm, wounds - Routine Neurological Exam Present: alert, oriented X3 - Routine Psychiatric Exam Present: cooperative <Miriam Centeno - Last Filed: 09/26/17 14:44> Vital signs: Vital Signs 09/26/17 00:00 09/26/17 08:00 09/26/17 12:00 Temperature 98.3 F 97.7 F 98.7 F Pulse Rate 89 73 75 Respiratory Rate 18 20 21 Blood Pressure 134/63 145/67 H 110/53 L Pulse Oximetry 97 99 96 09/26/17 16:00 09/26/17 20:00 Temperature 98.1 F 98.1 F Pulse Rate 74 69 Respiratory Rate 20 17 Blood Pressure 122/65 137/66 Pulse Oximetry 95 96 Intake & Output 09/26/17 09/26/17 09/27/17 06:59 18:59 06:59 Intake Total 700 / 700 1750 / 1750 Output Total 700 / 700 1402 / 1402 600 / 600 Balance 0 / 0 348 / 348 -600 / -600 Intake: IV 100 / 100 200 / 200 Maxipime Inj 1,000 MG In NS Inj 100 / 100 100 / 100 100 ML @ 200 mls/hr IV.SIG Q12H [facility] Rx#:[id number] Cubicin Inj 720 MG In NS Inj 100 / 100 100 ML @ 200 mls/hr IV.SIG DAILY [facility] Rx#:[id number] Oral 600 / 600 1550 / 1550 Output: Urine 700 / 700 1400 / 1400 600 / 600 Stool 2 / 2 Other: Date of Last Bowel Movement 09/26/17 # Bowel Movements 1 <Juventino Cueva - Last Filed: 09/26/17 21:56> Assessment and Plan - Assessment (1) Acute kidney injury Code(s): N17.9 - Acute kidney failure, unspecified Status: Acute Plan: May have past medical history of chronic kidney disease with noted elevated creatinine in January. Creatinine has been stable with mild elevation at last check Hyperkalemia has improved Continue low potassium diet Avoid nephrotoxins Continue antibiotics per ID stop date 10/05 Continue to encourage oral fluids. Will monitor Urinary output and renal panel periodically (2) Osteomyelitis of left foot Code(s): M86.9 - Osteomyelitis, unspecified Status: Acute Plan: Continue antibiotics Stop date of 10/05 - Plan Patient seen and examined, agree with above. No new labs, continue antibiotics. <Miriam Centeno - Last Filed: 09/26/17 14:44> - Assessment (1) Acute kidney injury Code(s): N17.9 - Acute kidney failure, unspecified Status: Acute (2) Osteomyelitis of left foot Code(s): M86.9 - Osteomyelitis, unspecified Status: Acute - Attending Attestation Patient seen and examine, agree with above. Creatinine was 2.0, no new BMP. <Juventino Cueva - Last Filed: 09/26/17 21:56>
--- NOTE | 2017-09-26 17:02 | P.PN ---
Physical Exam Vital signs: Vital Signs 09/25/17 20:00 09/26/17 00:00 09/26/17 08:00 Temperature 97.5 F L 98.3 F 97.7 F Pulse Rate 79 89 73 Respiratory Rate 17 18 20 Blood Pressure 145/69 H 134/63 145/67 H Pulse Oximetry 100 97 99 09/26/17 12:00 09/26/17 16:00 Temperature 98.7 F 98.1 F Pulse Rate 75 74 Respiratory Rate 21 20 Blood Pressure 110/53 L 122/65 Pulse Oximetry 96 95 Intake & Output 09/25/17 09/26/17 09/26/17 18:59 06:59 18:59 Intake Total 2500 / 2500 700 / 700 200 / 200 Output Total 700 / 700 Balance 2500 / 2500 0 / 0 200 / 200 Intake: IV 300 / 300 100 / 100 200 / 200 Maxipime Inj 1,000 MG In NS Inj 200 / 200 100 / 100 100 / 100 100 ML @ 200 mls/hr IV.SIG Q12H [facility] Rx#:[id number] Cubicin Inj 720 MG In NS Inj 100 / 100 100 / 100 100 ML @ 200 mls/hr IV.SIG DAILY [facility] Rx#:[id number] Oral 2200 / 2200 600 / 600 Output: Urine 700 / 700 Other: # Voids 4 Date of Last Bowel Movement 09/23/17 # Bowel Movements 1 Narrative: Subjective: Follow-up osteomyelitis patient on IV antibiotics Ambulating in the hallways without pain. No events overnight. No fever or chills. Patient says he needs new shoes he went downstairs and did buy new pair of shoes , discussed withthe patient at length Says he did not leave the hospital ... Otherwise no complaints. Physical Exam GENERAL: 62 YO Male appears in not acute distress. CARDIOVASCULAR: Regular rate and rhythm without murmurs, gallops, or rubs. RESPIRATORY: Breath sounds equal bilaterally. No accessory muscle use. GASTROINTESTINAL: Abdomen soft, non-tender, nondistended. MUSCULOSKELETAL: No cyanosis, or edema. Well-healing wound at dorsal anterior webspace of the first and second digit of the left toe BACK: Nontender without obvious deformity. No CVA tenderness. Assessment and Plan OSTEOMYELITIS Cultures polymicrobial including MRSA, Pseudomonas, enterococcus and Proteus s/p I&D left foot and second metatarsal bone bx 08/[address] Sin. Status post wound VAC placement and subsequent removal. Per podiatry, no further intervention at this time. ID following, appreciate assistance. continue on cefepime and daptomycin with stop date of 10/05/2017. Patient will need weekly CBC with differential, Repeat labs ordered in system for 09/21/17 Continue wound management with wound care nurse, appreciate assistance HTN holding Norvasc Continue to monitor BP and adjust treatment accordingly Continue on a low potassium diet CAD Hx of CABG Continue patient on beta-walt therapy. LETICIA inhibitor currently on hold secondary to worsening renal function. Continue to monitor AFIB/CHF w/ preserved EF stable w/ coreg, amiodarone eliquis DM A1c 7.2 Continue Accu-Cheks with insulin sliding scale EVELYNE on CKD Suspected chronic kidney disease stage III Nephrology following, appreciate assistance Discussed with the patient, nurse DC plan: continue on cefepime and daptomycin with stop date of 10/05/2017. Results - Labs CBC & Chem 7: 09/24/17 06:22 09/24/17 06:22 Laboratory Results - last 24 hr 09/26/17 08:37 POC Glucose 119 H
[2017-09-27] MEDS: ALPRAZolam 0.5 MG Tablet PO PRN ×3 (01:00→22:09)
[2017-09-27] MEDS: Morphine Inj 4 MG/ML Vial IV.PUSH PRN (03:27)
[2017-09-27] MEDS: Senna/Docusate Sodium 8.6/50 MG Tablet PO SCH ×2 (08:09→20:59)
[2017-09-27] MEDS: Amiodarone 200 MG Tablet PO SCH ×2 (08:09→20:59)
[2017-09-27] MEDS: Gabapentin 100 MG Capsule PO SCH ×2 (08:09→20:59)
[2017-09-27] MEDS: Insulin NovoLOG Aspart Correctional Sugar Inj SQ SCH (08:09)
[2017-09-27] MEDS: DAPTOmycin Inj 720 MG in Sodium Chlor 0.9% Inj 100 ML IV.SIG SCH (09:22)
[2017-09-27 09:49] LABS: Calcium 9.1 mg/dL (8.5-10.1); Carbon Dioxide 18.3 meq/L (21.0-32.0)
[2017-09-27] MEDS: Ferrous Sulfate 325 MG Tablet PO SCH ×2 (12:07→17:05)
--- NOTE | 2017-09-27 16:55 | P.PNNP ---
Subjective Interval history: OOB in [place] walking. Creatinine increased at 2.23 today. <Miriam Centeno - Last Filed: 09/27/17 16:53> Physical Exam Vital signs: Vital Signs 09/26/17 20:00 09/27/17 00:00 09/27/17 08:00 Temperature 98.1 F 98.5 F 98.1 F Pulse Rate 69 67 61 Respiratory Rate 17 17 18 Blood Pressure 137/66 135/67 113/59 L Pulse Oximetry 96 95 09/27/17 12:00 Temperature 97.8 F Pulse Rate 70 Respiratory Rate 20 Blood Pressure 127/60 Pulse Oximetry 96 Intake & Output 09/26/17 09/27/17 09/27/17 18:59 06:59 18:59 Intake Total 1750 / 1750 580 / 580 200 / 200 Output Total 2502 / 2502 1200 / 1200 Balance -752 / -752 -620 / -620 200 / 200 Weight 85.6 kg Intake: IV 200 / 200 100 / 100 200 / 200 Maxipime Inj 1,000 MG In NS Inj 100 / 100 100 / 100 100 / 100 100 ML @ 200 mls/hr IV.SIG Q12H [facility] Rx#:[id number] Cubicin Inj 720 MG In NS Inj 100 / 100 100 / 100 100 ML @ 200 mls/hr IV.SIG DAILY [facility] Rx#:[id number] Oral 1550 / 1550 480 / 480 Output: Urine 2500 / 2500 1200 / 1200 Stool 2 / 2 Other: Date of Last Bowel Movement 09/26/17 09/26/17 # Bowel Movements 1 - Constitutional no acute distress - Routine HEENT Exam Head: Present: normocephalic ENT: Present: mucous membranes moist - Routine Neck Exam Present: supple. Absent: JVD - Routine Respiratory Exam Present: CTA bilaterally. Absent: rales, rhonchi - Routine Cardiovascular Exam Absent: murmur - Routine Abdominal Exam Present: soft, normoactive bowel sounds - Routine Extremities Exam Present: edema Comments: left lower extremity - Routine Skin Exam Present: dry, warm, wounds - Routine Neurological Exam Present: alert, oriented X3 <Miriam Centeno - Last Filed: 09/27/17 16:53> Vital signs: Vital Signs 09/26/17 20:00 09/27/17 00:00 09/27/17 08:00 Temperature 98.1 F 98.5 F 98.1 F Pulse Rate 69 67 61 Respiratory Rate 17 17 18 Blood Pressure 137/66 135/67 113/59 L Pulse Oximetry 96 95 09/27/17 12:00 09/27/17 16:00 Temperature 97.8 F 98.0 F Pulse Rate 70 66 Respiratory Rate 20 18 Blood Pressure 127/60 135/63 Pulse Oximetry 96 98 Intake & Output 09/27/17 09/27/17 09/28/17 06:59 18:59 06:59 Intake Total 580 / 580 1400 / 1400 Output Total 1200 / 1200 Balance -620 / -620 1400 / 1400 Weight 85.6 kg Intake: IV 100 / 100 200 / 200 Maxipime Inj 1,000 MG In NS Inj 100 / 100 100 / 100 100 ML @ 200 mls/hr IV.SIG Q12H [facility] Rx#:[id number] Cubicin Inj 720 MG In NS Inj 100 / 100 100 ML @ 200 mls/hr IV.SIG DAILY [facility] Rx#:[id number] Oral 480 / 480 1200 / 1200 Output: Urine 1200 / 1200 Other: # Voids 5 Date of Last Bowel Movement 09/26/17 09/26/17 # Bowel Movements 1 1 <Juventino Cueva - Last Filed: 09/27/17 19:12> Assessment and Plan - Assessment (1) Acute kidney injury Code(s): N17.9 - Acute kidney failure, unspecified Status: Acute Plan: May have past medical history of chronic kidney disease with noted elevated creatinine in January. Creatinine elevated 2.23 today Hyperkalemia has improved Continue low potassium diet Avoid nephrotoxins Continue antibiotics per ID stop date 10/05 Continue to encourage oral fluids with increase in creatinine will order IVF's UA ordered Will monitor Urinary output and renal panel periodically (2) Osteomyelitis of left foot Code(s): M86.9 - Osteomyelitis, unspecified Status: Acute Plan: Continue antibiotics Stop date of 10/05 <Miriam Centeno - Last Filed: 09/27/17 16:53> - Assessment (1) Acute kidney injury Code(s): N17.9 - Acute kidney failure, unspecified Status: Acute (2) Osteomyelitis of left foot Code(s): M86.9 - Osteomyelitis, unspecified Status: Acute - Attending Attestation Patient seen and examined, agree with above. Creatinine increased, started on IVF. <Juventino Cueva - Last Filed: 09/27/17 19:12>
[2017-09-27] MEDS: Sod Chloride 0.9% Inj 1,000 ML IV.CONT SCH (17:05)
--- NOTE | 2017-09-27 17:56 | P.PN ---
Physical Exam Vital signs: Vital Signs 09/26/17 20:00 09/27/17 00:00 09/27/17 08:00 Temperature 98.1 F 98.5 F 98.1 F Pulse Rate 69 67 61 Respiratory Rate 17 17 18 Blood Pressure 137/66 135/67 113/59 L Pulse Oximetry 96 95 09/27/17 12:00 09/27/17 16:00 Temperature 97.8 F 98.0 F Pulse Rate 70 66 Respiratory Rate 20 18 Blood Pressure 127/60 135/63 Pulse Oximetry 96 98 Intake & Output 09/26/17 09/27/17 09/27/17 18:59 06:59 18:59 Intake Total 1750 / 1750 580 / 580 200 / 200 Output Total 2502 / 2502 1200 / 1200 Balance -752 / -752 -620 / -620 200 / 200 Weight 85.6 kg Intake: IV 200 / 200 100 / 100 200 / 200 Maxipime Inj 1,000 MG In NS Inj 100 / 100 100 / 100 100 / 100 100 ML @ 200 mls/hr IV.SIG Q12H [facility] Rx#:[id number] Cubicin Inj 720 MG In NS Inj 100 / 100 100 / 100 100 ML @ 200 mls/hr IV.SIG DAILY [facility] Rx#:[id number] Oral 1550 / 1550 480 / 480 Output: Urine 2500 / 2500 1200 / 1200 Stool 2 / 2 Other: Date of Last Bowel Movement 09/26/17 09/26/17 # Bowel Movements 1 Narrative: Subjective: Follow-up osteomyelitis patient on IV antibiotics Ambulating in the hallways without pain. No events overnight. No fever or chills. Otherwise no complaints. Physical Exam GENERAL: 62 YO Male appears in not acute distress. CARDIOVASCULAR: Regular rate and rhythm without murmurs, gallops, or rubs. RESPIRATORY: Breath sounds equal bilaterally. No accessory muscle use. GASTROINTESTINAL: Abdomen soft, non-tender, nondistended. MUSCULOSKELETAL: No cyanosis, or edema. Well-healing wound at dorsal anterior webspace of the first and second digit of the left toe BACK: Nontender without obvious deformity. No CVA tenderness. Assessment and Plan OSTEOMYELITIS Cultures polymicrobial including MRSA, Pseudomonas, enterococcus and Proteus s/p I&D left foot and second metatarsal bone bx 08/[address] Sin. Status post wound VAC placement and subsequent removal. Per podiatry, no further intervention at this time. ID following, appreciate assistance. continue on cefepime and daptomycin with stop date of 10/05/2017. Patient will need weekly CBC with differential, Repeat labs ordered in system for 09/21/17 Continue wound management with wound care nurse, appreciate assistance HTN holding Norvasc Continue to monitor BP and adjust treatment accordingly Continue on a low potassium diet CAD Hx of CABG Continue patient on beta-walt therapy. LETICIA inhibitor currently on hold secondary to worsening renal function. Continue to monitor AFIB/CHF w/ preserved EF stable w/ coreg, amiodarone eliquis DM A1c 7.2 Continue Accu-Cheks with insulin sliding scale EVELYNE on CKD Suspected chronic kidney disease stage III Nephrology following, appreciate assistance Discussed with the patient, nurse DC plan: continue on cefepime and daptomycin with stop date of 10/05/2017. Results - Labs CBC & Chem 7: 09/24/17 06:22 09/27/17 08:00 Laboratory Results - last 24 hr 09/27/17 09/27/17 07:49 08:00 Sodium 137 Potassium 5.0 Chloride 108 H Carbon Dioxide 18.3 L Anion Gap 11 BUN 47 H Creatinine 2.23 H Estimated GFR 30 L POC Glucose 125 H Random Glucose 114 H Calcium 9.1
[2017-09-27 19:03] LABS: Bacteria,Urine Rare /hpf; Bilirubin,Urine Negative (Negative); Clarity,Urine Clear (Clear); Color,Urine Straw (Yellw/Straw); Glucose,Urine (UA) Negative (Negative); Leukocyte Esterase,Urine Negative (Negative); Nitrite,Urine Negative (Negative); Specific Gravity,Urine 1.006 (1.002-1.035)
[2017-09-27] MEDS ORDERED: Sod Chloride 0.9% Inj 1,000 ML IV.CONT SCH (19:10)
[2017-09-28] MEDS: Sod Chloride 0.9% Inj 1,000 ML IV.CONT SCH ×2 (04:59→17:05)
[2017-09-28] MEDS: Insulin NovoLOG Aspart Correctional Sugar Inj SQ SCH (06:09)
[2017-09-28] MEDS: Gabapentin 100 MG Capsule PO SCH ×2 (09:16→21:01)
[2017-09-28] MEDS: ALPRAZolam 0.5 MG Tablet PO PRN ×2 (09:16→17:06)
[2017-09-28] MEDS: Senna/Docusate Sodium 8.6/50 MG Tablet PO SCH ×2 (09:17→21:01)
[2017-09-28] MEDS: Amiodarone 200 MG Tablet PO SCH ×2 (09:17→21:01)
[2017-09-28] MEDS: DAPTOmycin Inj 720 MG in Sodium Chlor 0.9% Inj 100 ML IV.SIG SCH (09:18)
[2017-09-28] MEDS: Ferrous Sulfate 325 MG Tablet PO SCH ×2 (12:40→17:06)
[2017-09-28 15:25] LABS: Calcium 8.4 mg/dL (8.5-10.1); Carbon Dioxide 19.9 meq/L (21.0-32.0); Potassium 4.9 meq/L (3.5-5.1)
--- NOTE | 2017-09-28 16:41 | P.PNNP ---
Subjective Interval history: Doing well. Creatinine has improved with IVF. <Miriam Centeno - Last Filed: 09/28/17 16:38> Physical Exam Vital signs: Vital Signs 09/27/17 20:00 09/28/17 00:00 09/28/17 08:00 Temperature 97.9 F 97.9 F 98.1 F Pulse Rate 55 L 59 L 74 Respiratory Rate 17 17 18 Blood Pressure 127/61 125/67 156/69 H Pulse Oximetry 97 95 95 09/28/17 12:00 Temperature 97.7 F Pulse Rate 64 Respiratory Rate 16 Blood Pressure 143/65 H Pulse Oximetry 96 Intake & Output 09/27/17 09/28/17 09/28/17 18:59 06:59 18:59 Intake Total 1400 / 1400 2780 / 2780 1000 / 1000 Output Total 2500 / 2500 Balance 1400 / 1400 280 / 280 1000 / 1000 Weight 86 kg Intake: IV 200 / 200 1100 / 1100 1000 / 1000 NS Inj 1,000 ML @ 84 mls/hr IV. 1000 / 1000 1000 / 1000 CONT .[id number] [facility] Rx#:[id number] Maxipime Inj 1,000 MG In NS Inj 100 / 100 100 / 100 100 ML @ 200 mls/hr IV.SIG Q12H [facility] Rx#:[id number] Cubicin Inj 720 MG In NS Inj 100 / 100 100 ML @ 200 mls/hr IV.SIG DAILY [facility] Rx#:[id number] Oral 1200 / 1200 1680 / 1680 Output: Urine 2500 / 2500 Other: # Voids 5 Date of Last Bowel Movement 09/26/17 09/27/17 # Bowel Movements 1 3 - Constitutional no acute distress - Routine HEENT Exam Head: Present: normocephalic ENT: Present: mucous membranes moist - Routine Neck Exam Present: supple. Absent: JVD - Routine Respiratory Exam Present: CTA bilaterally. Absent: rales, wheezes, crackles - Routine Cardiovascular Exam Present: RRR. Absent: murmur - Routine Abdominal Exam Present: soft, normoactive bowel sounds - Routine Extremities Exam Present: edema Comments: left foot mild - Routine Skin Exam Present: dry, warm, wounds - Routine Neurological Exam Present: alert, oriented X3 - Routine Psychiatric Exam Present: cooperative <Miriam Centeno - Last Filed: 09/28/17 16:38> Vital signs: Vital Signs 09/27/17 20:00 09/28/17 00:00 09/28/17 08:00 Temperature 97.9 F 97.9 F 98.1 F Pulse Rate 55 L 59 L 74 Respiratory Rate 17 17 18 Blood Pressure 127/61 125/67 156/69 H Pulse Oximetry 97 95 95 09/28/17 12:00 09/28/17 16:00 Temperature 97.7 F 98.1 F Pulse Rate 64 59 L Respiratory Rate 16 18 Blood Pressure 143/65 H 131/65 Pulse Oximetry 96 95 Intake & Output 09/27/17 09/28/17 09/28/17 18:59 06:59 18:59 Intake Total 1400 / 1400 2780 / 2780 1960 / 1960 Output Total 2500 / 2500 3700 / 3700 Balance 1400 / 1400 280 / 280 -1740 / -1740 Weight 86 kg Intake: IV 200 / 200 1100 / 1100 1000 / 1000 NS Inj 1,000 ML @ 84 mls/hr IV. 1000 / 1000 1000 / 1000 CONT .[id number] [facility] Rx#:[id number] Maxipime Inj 1,000 MG In NS Inj 100 / 100 100 / 100 100 ML @ 200 mls/hr IV.SIG Q12H [facility] Rx#:[id number] Cubicin Inj 720 MG In NS Inj 100 / 100 100 ML @ 200 mls/hr IV.SIG DAILY [facility] Rx#:[id number] Oral 1200 / 1200 1680 / 1680 960 / 960 Output: Urine 2500 / 2500 3700 / 3700 Other: # Voids 5 Date of Last Bowel Movement 09/26/17 09/27/17 # Bowel Movements 1 3 1 <Luzmaria Cueva Q - Last Filed: 09/28/17 18:51> Assessment and Plan - Assessment (1) Acute kidney injury Code(s): N17.9 - Acute kidney failure, unspecified Status: Acute Plan: May have past medical history of chronic kidney disease with noted elevated creatinine in January. Creatinine improved at 2.23 -> 1.87 Hyperkalemia has resolved Continue low potassium diet Avoid nephrotoxins Continue antibiotics per ID stop date 10/05 Continue to encourage oral fluids Continue IVF's for 1 more night UA negative for infection Will monitor Urinary output and renal panel periodically (2) Osteomyelitis of left foot Code(s): M86.9 - Osteomyelitis, unspecified Status: Acute Plan: Continue antibiotics Stop date of 10/05 - Plan Patient seen and examined, agree with above. No new labs, continue antibiotics. <Miriam Centeno - Last Filed: 09/28/17 16:38> - Assessment (1) Acute kidney injury Code(s): N17.9 - Acute kidney failure, unspecified Status: Acute (2) Osteomyelitis of left foot Code(s): M86.9 - Osteomyelitis, unspecified Status: Acute - Attending Attestation Patient seen and examined, agree with above. Creatinine is better, Has an element of pre renal. To continue IVF for now. <Juventino Cueva - Last Filed: 09/28/17 18:51>
--- NOTE | 2017-09-28 18:19 | P.PN ---
Physical Exam Vital signs: Vital Signs 09/27/17 20:00 09/28/17 00:00 09/28/17 08:00 Temperature 97.9 F 97.9 F 98.1 F Pulse Rate 55 L 59 L 74 Respiratory Rate 17 17 18 Blood Pressure 127/61 125/67 156/69 H Pulse Oximetry 97 95 95 09/28/17 12:00 09/28/17 16:00 Temperature 97.7 F 98.1 F Pulse Rate 64 59 L Respiratory Rate 16 18 Blood Pressure 143/65 H 131/65 Pulse Oximetry 96 95 Intake & Output 09/27/17 09/28/17 09/28/17 18:59 06:59 18:59 Intake Total 1400 / 1400 2780 / 2780 1960 / 1960 Output Total 2500 / 2500 3700 / 3700 Balance 1400 / 1400 280 / 280 -1740 / -1740 Weight 86 kg Intake: IV 200 / 200 1100 / 1100 1000 / 1000 NS Inj 1,000 ML @ 84 mls/hr IV. 1000 / 1000 1000 / 1000 CONT .[id number] [facility] Rx#:[id number] Maxipime Inj 1,000 MG In NS Inj 100 / 100 100 / 100 100 ML @ 200 mls/hr IV.SIG Q12H [facility] Rx#:[id number] Cubicin Inj 720 MG In NS Inj 100 / 100 100 ML @ 200 mls/hr IV.SIG DAILY [facility] Rx#:[id number] Oral 1200 / 1200 1680 / 1680 960 / 960 Output: Urine 2500 / 2500 3700 / 3700 Other: # Voids 5 Date of Last Bowel Movement 09/26/17 09/27/17 # Bowel Movements 1 3 1 Narrative: Subjective: Follow-up osteomyelitis patient on IV antibiotics Ambulating in the hallways without pain. No new complaints. No events overnight. No fever or chills. Physical Exam GENERAL: 62 YO Male appears in not acute distress. CARDIOVASCULAR: Regular rate and rhythm without murmurs, gallops, or rubs. RESPIRATORY: Breath sounds equal bilaterally. No accessory muscle use. GASTROINTESTINAL: Abdomen soft, non-tender, nondistended. MUSCULOSKELETAL: No cyanosis, or edema. Well-healing wound at dorsal anterior webspace of the first and second digit of the left toe BACK: Nontender without obvious deformity. No CVA tenderness. Assessment and Plan OSTEOMYELITIS Cultures polymicrobial including MRSA, Pseudomonas, enterococcus and Proteus s/p I&D left foot and second metatarsal bone bx 08/[address] Sin. Status post wound VAC placement and subsequent removal. Per podiatry, no further intervention at this time. ID following, appreciate assistance. continue on cefepime and daptomycin with stop date of 10/05/2017. Patient will need weekly CBC with differential, Repeat labs ordered in system for 09/21/17 Continue wound management with wound care nurse, appreciate assistance HTN holding Norvasc Continue to monitor BP and adjust treatment accordingly Continue on a low potassium diet CAD Hx of CABG Continue patient on beta-walt therapy. LETICIA inhibitor currently on hold secondary to worsening renal function. Continue to monitor AFIB/CHF w/ preserved EF stable w/ coreg, amiodarone eliquis DM A1c 7.2 Continue Accu-Cheks with insulin sliding scale EVELYNE on CKD Suspected chronic kidney disease stage III Nephrology following, appreciate assistance Discussed with the patient, nurse DC plan: continue on cefepime and daptomycin with stop date of 10/05/2017. Results - Labs CBC & Chem 7: 09/24/17 06:22 09/28/17 14:35 Laboratory Results - last 24 hr 09/27/17 09/28/17 09/28/17 18:00 06:06 14:35 Sodium 142 Potassium 4.9 Chloride 114 H Carbon Dioxide 19.9 L Anion Gap 8 BUN 38 H Creatinine 1.84 H Estimated GFR 38 L POC Glucose 123 H Random Glucose 126 H Calcium 8.4 L Urine Color Straw Urine Clarity Clear Urine pH 5.0 Ur Specific [place] 1.006 Urine Protein Negative Urine Glucose (UA) Negative Urine Ketones Negative Urine Occult Blood Moderate H Urine Nitrate Negative Urine Bilirubin Negative Urine Urobilinogen Less than 2 Ur Leukocyte Esterase Negative Urine RBC 7 H Urine WBC Less than 1 Urine Bacteria Rare H Micro UA Comment Culture not ind Urine Culture Comments Culture not ind
[2017-09-29] MEDS: ALPRAZolam 0.5 MG Tablet PO PRN ×3 (00:12→13:08)
[2017-09-29] MEDS: Morphine Inj 4 MG/ML Vial IV.PUSH PRN (03:39)
[2017-09-29] MEDS: Sod Chloride 0.9% Inj 1,000 ML IV.CONT SCH ×2 (07:37→17:23)
[2017-09-29] MEDS: Insulin NovoLOG Aspart Correctional Sugar Inj SQ SCH (07:38)
[2017-09-29] MEDS: Amiodarone 200 MG Tablet PO SCH (09:44)
[2017-09-29] MEDS: DAPTOmycin Inj 720 MG in Sodium Chlor 0.9% Inj 100 ML IV.SIG SCH (09:45)
[2017-09-29] MEDS: Gabapentin 100 MG Capsule PO SCH (09:46)
[2017-09-29] MEDS: Senna/Docusate Sodium 8.6/50 MG Tablet PO SCH (09:46)
[2017-09-29] MEDS: Ferrous Sulfate 325 MG Tablet PO SCH ×2 (13:07→17:23)
--- NOTE | 2017-09-29 15:18 | P.PNNP ---
Subjective Interval history: Patient seen in AM, alert, no SOB, walking, not in distress. Physical Exam Vital signs: Vital Signs 09/28/17 16:00 09/28/17 20:30 09/29/17 00:24 Temperature 98.1 F 98.4 F 98.4 F Pulse Rate 59 L 71 63 Respiratory Rate 18 18 18 Blood Pressure 131/65 165/74 H 136/62 Pulse Oximetry 95 97 99 09/29/17 08:00 09/29/17 12:00 Temperature 98.1 F 97.4 F L Pulse Rate 62 67 Respiratory Rate 17 17 Blood Pressure 152/72 H 176/79 H Pulse Oximetry 95 94 L Intake & Output 09/28/17 09/29/17 09/29/17 18:59 06:59 18:59 Intake Total 2060 / 2060 3200 / 3200 Output Total 3700 / 3700 3500 / 3500 Balance -1640 / -1640 -300 / -300 Weight 86 kg Intake: IV 1100 / 1100 1200 / 1200 NS Inj 1,000 ML @ 84 mls/hr IV. 1000 / 1000 1000 / 1000 CONT .[id number] [facility] Rx#:[id number] Maxipime Inj 1,000 MG In NS Inj 100 / 100 100 / 100 100 ML @ 200 mls/hr IV.SIG Q12H [facility] Rx#:[id number] Cubicin Inj 720 MG In NS Inj 100 / 100 100 ML @ 200 mls/hr IV.SIG DAILY [facility] Rx#:[id number] Oral 960 / 960 2000 / 2000 Output: Urine 3700 / 3700 3500 / 3500 Other: # Bowel Movements 1 Narrative: GENERAL:Patient is alert, in not acute distress. CARDIOVASCULAR: Regular rate and rhythm without murmurs, gallops, or rubs. RESPIRATORY: Breath sounds equal bilaterally. No accessory muscle use. GASTROINTESTINAL: Abdomen soft, non-tender, nondistended. MUSCULOSKELETAL: No cyanosis, or edema. Well-healing wound at dorsal anterior webspace of the first and second digit of the left toe BACK: Nontender without obvious deformity. No CVA tenderness. Assessment and Plan - Assessment (1) Acute kidney injury Code(s): N17.9 - Acute kidney failure, unspecified Status: Acute Plan: May have past medical history of chronic kidney disease with noted elevated creatinine in January. Creatinine improved at 2.23 -> 1.87 on 09/28. Hyperkalemia has resolved Continue low potassium diet Avoid nephrotoxins Continue antibiotics per ID stop date 10/05 Continue to encourage oral fluids Continue IVF's for 1 more night UA negative for infection Will monitor Urinary output and renal panel periodically. No new BMP, will check in AM. Continue antibiotics. (2) Osteomyelitis of left foot Code(s): M86.9 - Osteomyelitis, unspecified Status: Acute Plan: Continue antibiotics Stop date of 10/05 - Plan Patient seen and examined, agree with above. No new labs, continue antibiotics.
--- NOTE | 2017-09-29 18:33 | P.DS ---
Date of admission: 08/22/17 06:07 Primary care physician: [facility] Brief History from admission: The patient is a 62-year-old male with known osteomyelitis in the left foot. He reports that he left AGAINST MEDICAL ADVICE from recent hospitalization here at [place]. He had been advised to follow-up with the [facility] for outpatient IV antibiotics. Apparently he went to wound care through the [facility] and was given oral clindamycin. He states that he has had increasing pain and swelling in the left foot. Sutures are still in place. The dorsal wound is dehisced. He denies fevers, chills, or night sweats. DS: Diagnosis - Discharge Diagnosis (1) Acute kidney injury Status: Acute (2) Osteomyelitis of left foot Status: Acute DS: Medications - Discharge Medications Prescriptions: linezolid [Zyvox] 600 mg PO Q12H #12 tab oxycodone-acetaminophen [Percocet] 1 tab PO Q4-6H PRN #12 tab PRN Reason: Pain (Scale Score 7-10) DS: Summary Hospital Course: OSTEOMYELITIS Cultures polymicrobial including MRSA, Pseudomonas, enterococcus and Proteus s/p I&D left foot and second metatarsal bone bx 08/[address] Sin. Status post wound VAC placement and subsequent removal. Per podiatry, no further intervention at this time. ID followed patient. Daptomycin with stop date 10/05/2017. Discussed with ID on 09/29/2017. ID recommended switching antibiotics to Zyvox for 6 more days. Patient expressed concern about transportation this evening. He would like to be discharged in the morning on 09/30/2017. HTN Continue [facility] Acute kidney injury Creatinine improved from 2.21 --> 1.84. CAD Hx of CABG Continue patient on beta-walt therapy. LETICIA inhibitor on hold due to EVELYNE. Can be re-started in future by PCP. AFIB/CHF w/ preserved EF stable w/ coreg, amiodarone eliquis DM - Blood glucose has been well controlled. Did not require any supplemental insulin. GFR is too high to use metformin. Recommend close PCP follow up. Low dose Glimepiride can be used. EVELYNE on CKD Suspected chronic kidney disease stage III Nephrology followed patient. Creatinine improved. - Time Spent with Patient Total time spent providing and/or coordinating discharge services: Exam Vital signs: Vital Signs 09/28/17 20:30 09/29/17 00:24 09/29/17 08:00 Temperature 98.4 F 98.4 F 98.1 F Pulse Rate 71 63 62 Respiratory Rate 18 18 17 Blood Pressure 165/74 H 136/62 152/72 H Pulse Oximetry 97 99 95 09/29/17 12:00 09/29/17 16:00 Temperature 97.4 F L 98.0 F Pulse Rate 67 68 Respiratory Rate 17 17 Blood Pressure 176/79 H 157/69 H Pulse Oximetry 94 L 95 Intake & Output 09/28/17 09/29/17 09/29/17 18:59 06:59 18:59 Intake Total 2060 / 2060 3200 / 3200 1000 / 1000 Output Total 3700 / 3700 3500 / 3500 Balance -1640 / -1640 -300 / -300 1000 / 1000 Weight 86 kg Intake: IV 1100 / 1100 1200 / 1200 1000 / 1000 NS Inj 1,000 ML @ 84 mls/hr IV. 1000 / 1000 1000 / 1000 1000 / 1000 CONT .[id number] [facility] Rx#:[id number] Maxipime Inj 1,000 MG In NS Inj 100 / 100 100 / 100 100 ML @ 200 mls/hr IV.SIG Q12H [facility] Rx#:[id number] Cubicin Inj 720 MG In NS Inj 100 / 100 100 ML @ 200 mls/hr IV.SIG DAILY [facility] Rx#:[id number] Oral 960 / 960 2000 / 2000 Output: Urine 3700 / 3700 3500 / 3500 Other: # Bowel Movements 1 Results Procedures completed during hospitalization: I&D of left foot. Labs on day of discharge: Labs from last 24 hours 09/29/17 07:05 POC Glucose 149 H Discharge Plan - Discharge Disposition Patient Disposition: 01 Discharge Home - Discharge Condition Condition: Good - Discharge Order Discharge Orders: Discharge Order (Routine); Ordered 09/29/17 Ordered By: Lisa Harkins - Discharge Details Anticipated Discharge Date: 09/30/17 - Physicians Team Primary Care Provider: [facility] Attending Provider: Jose Luis Tubbs Other Providers: Santa Cuevas MD ; Juventino Cueva MD ; Kim Stringer MD ; Kaci Sin DPM ; [facility] Flores,Agency ; [facility]igo Gilbert,Agency ; [facility],Agency ; Rehab,[facility] - Rxs /Orders / Referrals /Forms Prescriptions: New linezolid [Zyvox] 600 mg Tablet 600 mg PO Q12H Qty: 12 RF: 0 oxycodone-acetaminophen [Percocet] 5-325 mg Tablet 1 tab PO Q4-6H PRN (Reason: Pain (Scale Score 7-10)) Qty: 12 RF: 0 Continue alprazolam 0.5 mg Tablet 0.5 mg PO Q4HR PRN (Reason: Anxiety) amiodarone 400 mg Tablet 400 mg PO BID apixaban 2.5 mg Tablet 2.5 mg PO BID carvedilol 3.125 mg Tablet 3.125 mg PO Q12HR ferrous sulfate [FeroSul] 325 mg (65 mg iron) Tablet 325 mg PO BID gabapentin 100 mg Capsule 100 mg PO BID lisinopril 20 mg Tablet 20 mg PO DAILY pantoprazole 40 mg Tablet,Delayed Release (Dr/Ec) 40 mg PO DAILY Discontinued clindamycin HCl 150 mg Capsule 150 mg PO Q8HR famotidine 20 mg Tablet 20 mg PO BID Referrals: [facility] [Primary Care Provider] - See Instructions Kaci Sin DPM [Physician] - See Instructions
== END 2017-09-29 20:32 | disposition home or self-care (01) ==
LOC: N07 06:07
PROVIDERS: ADMIT Hospitalist; ATTEND Hospitalist